=== PATIENT | female | born 1980 | race African-American/Black ===

== ENCOUNTER 2022-04-25 00:58 | Day surgery (SDC) | payer BC, SELFPAY ==
[2022-04-24 10:04] VITALS: BMI 33.6
--- NOTE | 2022-04-24 10:10 | PC.NURSE ---
Report to the Outpatient Waiting Room, entrance under the green pavilion located off [facility], at time 1300 on date 04/25/22. Planned Procedure Time: 1500. Time changes happen often and if your time is changed the preop area will call you the afternoon before. - You and your visitor will be asked to self-screen and do not enter if you have any COVID symptoms. - Only one visitor is requested with a max of two and NO children visitors are allowed at this time. - The patient visitor may be requested to leave or wait in car when not with patient due to distancing restrictions. - A mask is optional within the hospital. Patients may have clear liquids (water, carbonated beverages, clear teas, apple juice) until 3 hours prior to surgery with a maximum of 20 ounces. - No food from midnight until time of surgery Take the following medications with a SIP of water the morning of surgery: NONE Medications to discontinue per physician: VITAMINS/SUPPLEMENTS Date to take last dose: NO MORE UNTIL AFTER SURGERY Please no make-up, nail dominican, hairspray, perfume, deodorant, or body powder the day of surgery. No jewelry (including any body piercings) or valuables the day of surgery, leave them at home. Please take a shower or bath the night before, or the morning of, surgery with an antibacterial soap. Wear comfortable, loose fitting clothing. - Jewelry must be removed prior to entering the operating room. Rings and piercings that are not removed may be cut off. - The hospital will not accept responsibility for valuables. - Please leave all valuables, including medications, at home the day of surgery. If you are going home after surgery, a licensed route delivery driver must drive you home. - NO public transportation without another adult if you receive anesthesia. - We recommend that an adult stay with you for 24 hours following discharge. - We also recommend that you do not drive, make important decision, drink alcoholic beverages, or take any drugs that were not prescribed by your health care provider for at least 24 hours after your discharge time. Follow any additional instructions given to you from your surgeon. If you or anyone in your household have experienced Covid symptoms in the past week, please notify your surgeon or the nurse liaison at the phone number below for possible testing. Telephone instructions given to PT - RANDI GEE and asked if any additional questions and then verbalized understanding. Patient advised to call surgeon office or pre surgery nurse liaison [phone] if any additional questions.
--- NOTE | 2022-04-24 12:48 | PM.IMHP ---
H&P: HPI History of Present Illness Date/Time: 04/24/22 12:48 Chief Complaint: Excess vaginal bleeding Narrative: this 41-year-old 4 para 4 status post removal of tubes who is admitted for hysteroscopy dilatation curettage secondary to continued bleeding. She had no period until October of 2021 took some progesterone apparently said bleeding problems ever since. She has undergone a D&C back in January. Ultrasound and CT scan show large fibroids. Her hemoglobin is at 10 as of this dictation. She will undergo hysteroscopy D&C and it is probably a candidate for hysterectomy in the future [facility] Social History Social History Smoking status: Never smoker Alcohol intake: never Substance use: never Substance use type: does not use Living arrangements: with family Spiritual care concerns: No Meds Home Medications and Allergies Home Medications Medication Instructions Recorded Confirmed Type ascorbic acid (vitamin C) 500 mg 500 mg PO DAILY 04/24/22 04/24/22 History tablet (Vitamin C) ferrous sulfate 325 mg (65 mg 325 mg PO DAILY 04/24/22 04/24/22 History iron) tablet (Iron (ferrous sulfate)) ibuprofen 600 mg tablet 600 mg PO TID PRN Pain 04/24/22 04/24/22 History multivitamin 1 tablet PO DAILY 04/24/22 04/24/22 History Allergies Allergy/AdvReac Type Severity Reaction Status Date / Time No Known Allergies Allergy Verified 04/24/22 10:02 Exam Const: General: cooperative, healthy appearing and comfortable Nutritional Appearance: overweight Orientation/consciousness: oriented to person, oriented to place and oriented to time HENMT: Head: normal to inspection Resp: Effort & Inspection: normal respiratory effort Cardio: Rate: regular rate Rhythm: regular rhythm Heart sounds: S1 normal heart sound present and S2 normal heart sound present GI: Inspection: normal to inspection : Speculum Exam - Vagina: normal appearance of the vagina and vaginal bleeding Speculum Exam - Cervix: normal appearance of the cervix Bimanual exam- vagina & uterus: enlarged Bimanual Exam- Adnexa, other: normal adnexae Assessment and Plan Assessment and plan (1) Vaginal bleeding: Code(s): N93.9 - Abnormal uterine and vaginal bleeding, unspecified Status: Acute (2) Enlarged uterus: Code(s): N85.2 - Hypertrophy of uterus Status: Acute Plan hysteroscopy/dilatation and curettage
--- NOTE | 2022-04-25 06:59 | WPDHPUPDATE1 ---
History and Physical Update Update Date/Time: 04/25/22 06:59 History and Physical has been reviewed, including an updated exam of the patient. There are NO changes in the patient's condition. Risks, benefits, and alternatives have been discussed and questions answered. Patient agrees to proceed with procedure.
[2022-04-25 13:00] VITALS: BP 99/48; PULSE 80; RESP 16; TEMP 36.5; O2SAT 100
[2022-04-25] MEDS: ACETAMINOPHEN 500 MG TABLET 1000 MG PO (13:47)
[2022-04-25] MEDS: LACTATED RINGERS 1,000 ML 30 ML IV CONT (14:00)
--- NOTE | 2022-04-25 14:16 | WPDANESEPPF ---
Anes - Initial Pre Proc Eval Procedure: Operation Date: 04/25/22 15:00 Proposed Procedures p Hysteroscopy, Dilation and Curettage - Ermias Galloway MD Date/Time: 04/25/22 14:16 Surgeon: Ermias Galloway MD Pre Op Diagnosis: excessive bleeding Patient Data Age: 41 Gender: F Height: 1.7 m Weight: 97.5 kg Allergies Allergy/AdvReac Type Severity Reaction Status Date / Time No Known Allergies Allergy Verified 04/24/22 10:02 Home Medications Medication Instructions Recorded Confirmed Type ascorbic acid (vitamin C) 500 mg 500 mg PO DAILY 04/24/22 04/24/22 History tablet (Vitamin C) ferrous sulfate 325 mg (65 mg 325 mg PO DAILY 04/24/22 04/24/22 History iron) tablet (Iron (ferrous sulfate)) ibuprofen 600 mg tablet 600 mg PO TID PRN Pain 04/24/22 04/24/22 History multivitamin 1 tablet PO DAILY 04/24/22 04/24/22 History hydrocodone 5 mg-acetaminophen 325 1 tablet PO Q4H PRN pain #20 tabs 04/25/22 Rx mg tablet Patient hx anesthesia problems: none Family hx anesthesia problems: none Results Review: All pre-operative results and documents have been reviewed as part of the pre-operative evaluation. [facility] Social History Social History Smoking status: Never smoker Alcohol intake: never Substance use: never Substance use type: does not use Living arrangements: with family Spiritual care concerns: No Anes - Eval Final PreProcedure Day of Procedure 04/25/22 14:16 Patient weight: obese Heart: regular rate and rhythm Lungs: clear to auscultation and normal air movement Airway: Mallampati scale class II Neurological: alert and oriented Last oral intake: >/= 8 hours ASA classification: II Emergent: no Anesthetic plan: proceed Anesthesia type and monitoring: general GIVS Results Review: All pre-operative results and documents have been reviewed as part of the pre-operative evaluation. Informed Consent: The patient's anesthetic plan and its attendant risks and benefits were discussed with the patient/family/POA. Questions were solicited and answers provided to the satisfaction of the patient/family/POA.
[2022-04-25 14:19] LABS: Hematocrit 30.1 % (37.0-47.0); Hemoglobin 9.8 g/dL (12.0-15.0)
[2022-04-25] MEDS: LIDOCAINE HCL 1% PF 30 ML VIAL 10 ML INFILTRATE (14:44)
--- NOTE | 2022-04-25 14:57 | W.PM.PROC2 ---
Procedure Note - Detailed Date of Procedure 04/25/22 Pre-op Diagnosis excessive bleeding Post-op Diagnosis Same Procedure Performed Hysteroscopy / dilatation curettage Surgeon Ermias Galloway MD Anesthesia MAC and Local Indications some 41-year-old enlarged uterus long history of excessive bleeding Findings uterus sounded 12cm. Thick irregular endometrial tissue was seen Description of Procedure patient was prepped draped in normal sterile fashion placed in dorsal lithotomy position. Under excellent IV sedation weighted speculum placed in posterior fornix vagina. Anterior lip of cervix grasped with single-tooth tenaculum. 2.5cc 1% xylocaine anesthesia placed at 2, 4, 8, 10:00 a.m. respectively cervix. Uterus sounded to 12cm. Serial dilatation with fragmented dilators performed followed passes the 5mm visualizing hysteroscope. Normal saline was used as visualizing medium. Thick irregular endometrial tissue was seen but no evidence of polyp HILLARY definitive pathology. Clots were seen and these were washed out. The uterus was then scraped over the entire 360? until a good grating sound was heard. When no further tissue could be seen and removed the patient the instruments removed. All sponge, needle, instrument counts were correct. There were no immediate complications Estimated Blood Loss 25 Drains No Packing No Pathology Yes Complications No immediate complications Condition Stable Disposition PACU
[2022-04-25 15:00] VITALS: BP 92/51; PULSE 84; RESP 12; O2SAT 100
[2022-04-25 15:30] VITALS: BP 92/51; PULSE 84; RESP 16; O2SAT 100
[2022-04-25] MEDS: KETOROLAC 30 MG/ML VIAL (*BKC) IV PUSH (15:42)
[2022-04-25 16:00] VITALS: BP 103/70; PULSE 77; RESP 16
[2022-04-25 16:30] VITALS: BP 104/57; PULSE 73; RESP 16
== END 2022-04-25 16:34 | disposition home or self-care (01) ==
PROVIDERS: Visit Provider Obstetrics & Gynecology
PROC: 0U5B8ZZ Destruction of Endometrium, Via Natural or Artificial Opening Endoscopic (ICD-10-PCS; CPT 58563; principal; 2022-04-25 15:00)
DX: N93.9 Abnormal uterine and vaginal bleeding, unspecified (principal); N85.2 Hypertrophy of uterus; E66.9 Obesity, unspecified; Z68.33 Body mass index [BMI] 33.0-33.9, adult
CPT/HCPCS: 58558; 36415; 85014; 85018; 88305; A9270; J1100; J1885; J2250; J2405; J2704; J3010; J7030; J7120

== ENCOUNTER 2023-03-31 21:03 | Emergency (ER) | payer BC, SELFPAY ==
--- NOTE | ~2023-03-31 | XR_ITS ---
EXAMINATION: XR chest 2V DATE: 03/31/2023 21:33 INDICATION: Chest pain. TECHNIQUE: Frontal and lateral views of the chest were obtained. COMPARISON: None. FINDINGS: There is no pneumonia, pleural effusion, or pneumothorax. The heart size is normal. Surgica l clips in the right upper quadrant are likely from cholecystectomy. IMPRESSION: 1. No acute cardiopulmonary disease. Reviewed, dictated and finalized at location E.
[2023-03-31 21:08] VITALS: BP 117/92; PULSE 74; RESP 16; TEMP 36.5; O2SAT 92
--- NOTE | 2023-03-31 21:13 | ECG_ITS ---
Measurements Intervals [place] Rate: 65 P: 48 OR: 148 QRS: 37 QRSD: 77 T: 41 QT: 419 QTc: 439 Interpretive Statements SINUS RHYTHM NO PREVIOUS ECG AVAILABLE FOR COMPARISON Electronically Signed On 04-01-2023 11:17:47 CDT by Mirtha Bryan M.D.
[2023-03-31 21:26] LABS: Red Blood Count 4.08 M/mm3 (4.2-5.4); White Blood Count 9.2 K/mm3 (4.5-10.0)
[2023-03-31 21:27] LABS: Basophils Percent Auto 0.4 % (0.2-1.2); Eosinophils Absolute Auto 0.2 K/mm3 (0-0.3); Eosinophils Percent Auto 1.7 % (0-4.4); Hematocrit 39.1 % (37.0-47.0); Hemoglobin 12.1 g/dL (12.0-15.0); Immature Granulocyte Absolute 0.03 K/mm3 (0.00-0.031); Immature Granulocyte Percent A 0.3 % (0-0.5); Lymphocytes Absolute Auto 3.29 K/mm3 (0.9-3.2); Lymphocytes Percent Auto 35.9 % (18.3-44.2); Mean Corpuscular HGB Conc 30.9 g/dl (32-36); Mean Corpuscular Hemoglobin 29.7 pg (26-34); Mean Corpuscular Volume 95.8 fl (80-100); Monocytes Absolute Auto 0.7 K/mm3 (0.1-0.6); Neutrophils Absolute Auto 4.9 K/mm3 (1.3-6.7); Neutrophils Percent Auto 53.7 % (45.5-73.1); Platelet Count Result 285 k/mm3 (150-375); Red Cell Distribution Width 14.6 % (11.5-14.5)
[2023-03-31 21:35] LABS: Alanine Aminotransferase 18 U/L (6-35); Albumin Level 4.5 g/dL (3.5-5.1); Alkaline Phosphatase 52 U/L (38-126); Anion Gap 4 mmol/L (8-16); Aspartate Amino Transferase 23 U/L (14-36); Bilirubin,Total 0.4 mg/dL (0.2-1.3); Blood Urea Nitrogen 15 mg/dL (7-17); Calcium 8.8 mg/dL (8.4-10.2); Carbon Dioxide 28 mmol/L (22-30); Chloride 103 mmol/L (98-107); Estimated CRCL calculation 108 ml/min; Estimated Glomerular Filt Rate > 60; Glucose 99 mg/dL (65-110); Lipase 117 U/L (23-300); Sodium 135 mmol/L (137-145)
[2023-03-31 21:37] LABS: INR 0.9; Prothrombin Time 12.9 Seconds (11.1-14.7)
[2023-03-31 21:38] LABS: Partial Thromboplastin Time 30.4 SECONDS (22.3-36.8)
[2023-03-31 21:47] LABS: Troponin I < 0.012 ng/mL (0.000-0.034)
[2023-03-31 23:48] VITALS: BP 119/68; PULSE 68; O2SAT 100
--- NOTE | 2023-04-01 00:54 | ED.GENADULT ---
HPI - General Adult General Chief complaint: Vaginal Bleeding Stated complaint: vaginal bleeding Time Seen by Provider: 03/31/23 23:39 Source: patient Mode of arrival: ambulatory Limitations: no limitations History of Present Illness HPI narrative: Patient is a 42-year-old female who presents to the ED with report of vaginal bleeding and chest pain. Patient reports having intermittent chest pain since yesterday. She notes she had a fairly severe episode of pain yesterday which required her to call [phone]. She was seen at [facility] and had a negative work-up. She has had intermittent midsternal pressure since then, but states the pain has not been severe as the first episode. Denies pleuritic pain, shortness of breath, dyspnea with exertion, recent cough or cold symptoms, lower extremity swelling. Patient also reports having abnormal vaginal bleeding. She states she had a 2-week period of bleeding at the beginning of this month, but then began bleeding on 03/27. She states yesterday and today she has had heavier bleeding, noting she is through a pad an hour. She was referred to the ED by [facility]. Patient denies abdominal pain, nausea, vomiting, fevers. Related Data Home Medications Medication Instructions Recorded Confirmed ascorbic acid (vitamin C) 500 mg 500 mg PO DAILY 04/24/22 04/25/22 tablet (Vitamin C) ferrous sulfate 325 mg (65 mg 325 mg PO DAILY 04/24/22 04/25/22 iron) tablet (Iron (ferrous sulfate)) ibuprofen 600 mg tablet 600 mg PO TID PRN Pain 04/24/22 04/25/22 multivitamin 1 tablet PO DAILY 04/24/22 04/25/22 Allergies Allergy/AdvReac Type Severity Reaction Status Date / Time No Known Allergies Allergy Verified 03/31/23 23:51 Review of Systems Review of Systems: CONSTITUTIONAL: Denies fever, chills, or sweats. ENT: Denies rhinorrhea, congestion, sore throat. CARDIOVASCULAR: See HPI. RESPIRATORY: Denies cough or dyspnea. GASTROINTESTINAL: Denies abdominal pain, nausea, vomiting, or diarrhea. GENITOURINARY: See HPI. MUSCULOSKELETAL: Denies back pain, joint pain, or myalgia. All systems reviewed & are unremarkable except as noted in HPI and below PMFSH Social History Social History Smoking status: Never smoker Alcohol intake: never Substance use: never Substance use type: does not use Living arrangements: with family Spiritual care concerns: No Exam Narrative: GENERAL: Well appearing, obese with BMI of 33.0, non-toxic, in no acute distress. HEAD: Normocephalic, atraumatic. NECK: Supple. No adenopathy, no masses. RESPIRATORY: Airway patent, respirations nonlabored. Clear to auscultation bilaterally, no rales, rhonchi, wheezing. CARDIOVASCULAR: Regular rate and rhythm without murmurs, rubs, or gallops. Radial pulses 2+ and equal bilaterally. ABDOMINAL: Soft, no tenderness throughout abdomen, nondistended, no hepatosplenomegaly. Normoactive BS. PELVIC: Normal external genitalia. Very minimal amount of light red vaginal bleeding in vault. No evidence of hemorrhage or pooling of fluid. No clots noted. MUSCULOSKELETAL: Moves all extremities. Strength/ROM intact without gross deformities. Midsternal chest wall tenderness to palpation, reproducing pain. No lower extremity edema. No calf tenderness. SKIN: Warm, dry, normal color. No rashes. NEURO: A&O X3. Speech clear. Cranial nerves II-XII grossly intact. Steady gait. No ataxic movements. PSYCHIATRIC: Appropriate mood and affect. Normal interaction. Course Vital Signs Vital signs: Vital Signs Temperature 97.7 F 03/31/23 21:08 Pulse Rate 74 03/31/23 21:08 Respiratory Rate 16 03/31/23 21:08 Blood Pressure 117/92 H 03/31/23 21:08 Pulse Oximetry 92 03/31/23 21:08 Oxygen Delivery Room Air 03/31/23 21:08 Temperature 97.7 F 03/31/23 21:08 Pulse Rate 88 04/01/23 02:20 Respiratory Rate 19 04/01/23 02:20 Blood Pressur
[2023-04-01 01:30] LABS: Troponin I < 0.012 ng/mL (0.000-0.034)
[2023-04-01 02:20] VITALS: BP 121/89; PULSE 88; RESP 19; O2SAT 98
== END 2023-04-01 02:20 | disposition home or self-care (01) ==
PROVIDERS: Emergency Medicine; Emergency Provider Physician Assistant
DX: N93.8 Other specified abnormal uterine and vaginal bleeding (principal); R07.89 Other chest pain
CPT/HCPCS: 36415; 71046; 80053; 83690; 84484; 85025; 85610; 85730; 93005; 99284

== ENCOUNTER 2023-05-13 03:41 | Day surgery (SDC) | payer BC, SELFPAY ==
[2023-05-06 11:34] VITALS: BMI 32.7
--- NOTE | 2023-05-06 11:39 | PC.NURSE ---
Report to the Outpatient Waiting Room, entrance under the green pavilion located off [facility], at time 9:30 on date 05/13/23. Planned Procedure Time: 11:30. Time changes happen often and if your time is changed the preop area will call you the afternoon before. - You and your visitor will be asked to self-screen and do not enter if you have any COVID symptoms. - A mask is optional within the hospital at this time. Patients may have clear liquids (water, carbonated beverages, clear teas, apple juice) until 3 hours prior to surgery with a maximum of 20 ounces. - No food from midnight until time of surgery Take the following medications with a SIP of water the morning of surgery: NONE DO NOT STOP ANY OF YOUR OTHER PRESCRIPTION MEDICATIONS PRIOR TO SURGERY ?EXCEPT THE FOLLOWING Medications to discontinue per physician: VITAMINS/SUPPLEMENTS Date to take last dose: 05/09/23 Please no make-up, nail eritrean, hairspray, perfume, deodorant, or body powder the day of surgery. No jewelry (including any body piercings) or valuables the day of surgery, leave them at home. Please take a shower or bath the night before, or the morning of, surgery with an antibacterial soap. Wear comfortable, loose fitting clothing. - Jewelry must be removed prior to entering the operating room. Rings and piercings that are not removed may be cut off. - The hospital will not accept responsibility for valuables. - Please leave all valuables, including medications, at home the day of surgery. If you are going home after surgery, a licensed cdl truck driver must drive you home. - NO public transportation without another adult if you receive anesthesia. - We recommend that an adult stay with you for 24 hours following discharge. - We also recommend that you do not drive, make important decision, drink alcoholic beverages, or take any drugs that were not prescribed by your health care provider for at least 24 hours after your discharge time. Follow any additional instructions given to you from your surgeon. If you or anyone in your household have experienced Covid symptoms in the past week, please notify your surgeon or the nurse liaison at the phone number below for possible testing. Telephone instructions given to PT - RANDI GEE and asked if any additional questions and then verbalized understanding. Patient advised to call surgeon office or pre surgery nurse liaison [phone] if any additional questions.
--- NOTE | 2023-05-12 06:39 | P.HP_ITS ---
H&P: HPI History of Present Illness Date/Time: 05/12/23 06:39 Chief Complaint: continued heavy bleeding and uterine fibroids Narrative: a 42-year-old 4 para 4 with known fibroids admitted for robotic hys terectomy and bilateral salpingectomy secondary to excessive heavy bleeding. Ultrasound proven large fibroids. She continues to bleed heavy and had a history of anemia. She has been seen in the ER multiple times. Risks and benefits of this procedure reviewed including not exclusive of , aspiration, bleeding, transfusion, perforation injury to bowel, bladder, ureters, or other internal organs with need for open laparotomy. She received the [employer] handout entitled hysterectomy as well as the [facility] handout. Get all questions answered and asked to proceed she has had previous hernia surgeries so adhesions are expected the increase wrist without were discussed in great detail [facility] Social History Social History Smoking status: Never smoker Alcohol intake: current Alcohol use details: RARE Substance use: never Substance use type: does not use Living arrangements: with family Spiritual care concerns: No Meds Home Medications and Allergies Home Medications Medication Instructions Recorded Confirmed Type ascorbic acid (vitamin C) 500 mg 500 mg PO DAILY 04/24/22 05/06/23 History tablet (Vitamin C) ferrous sulfate 325 mg (65 mg 325 mg PO DAILY 04/24/22 05/06/23 History iron) tablet (Iron (ferrous sulfate)) cholecalciferol (vitamin D3) 125 125 mcg PO DAILY 05/06/23 05/06/23 History mcg (5,000 unit) tablet (Vitamin D3) drospirenone (contraceptive) 4 mg 1 tablet PO DAILY 05/06/23 05/06/23 History (28) tablet (Slynd) zinc gluconate 100 mg tablet 100 mg PO DAILY 05/06/23 05/06/23 History Allergies Allergy/AdvReac Type Severity Reaction Status Date / Time No Known Allergies Allergy Verified 05/06/23 11:32 Exam Const: General: cooperative, healthy appearing and comfortable Orientation/consciousness: oriented to person, oriented to place and oriented to time Resp: Effort & Inspection: normal respiratory effort Cardio: Rate: regular rate Rhythm: regular rhythm Heart sounds: S1 normal heart sound present and S2 normal heart sound present GI: Inspection: normal to inspection and obesity : Speculum Exam - Vagina: normal appearance of the vagina Speculum Exam - Cervix: normal appearance of the cervix Bimanual exam- vagina & uterus: enlarged Bimanual Exam- Adnexa, other: normal adnexae Assessment and Plan Assessment and plan (1) Uterine fibroid: Code(s): D25.9 - Leiomyoma of uterus, unspecified Status: Acute (2) Excessive bleeding: Code(s): R58 - Hemorrhage, not elsewhere classified Status: Acute (3) Enlarged uterus: Code(s): N85.2 - Hypertrophy of uterus Status: Acute (4) Pelvic pain: Code(s): R10.2 - Pelvic and perineal pain Status: Acute Plan robotic total vaginal hysterectomy and bilateral salpingectomy if tubes are present
[2023-05-13] VITALS (11 sets, daily range): BP systolic 96–116; BP diastolic 45–68; PULSE 64–78; RESP 16–22; TEMP 36.6–37.2; O2SAT 100
--- NOTE | 2023-05-13 06:17 | WPDHPUPDATE1 ---
History and Physical Update Update Date/Time: 05/13/23 06:17 History and Physical has been reviewed, including an updated exam of the patient. There are NO changes in the patient's condition. Risks, benefits, and alternatives have been discussed and questions answered. Patient agrees to proceed with procedure.
[2023-05-13] MEDS: ACETAMINOPHEN 500 MG TABLET 1000 MG PO (09:45)
[2023-05-13] MEDS: LACTATED RINGERS 1,000 ML 30 ML IV CONT ×2 (10:15→13:28)
[2023-05-13] MEDS: KETOROLAC 15 MG/ML VIAL (*BKC) IV PUSH (10:17)
[2023-05-13] MEDS: SCOPOLAMINE 1.5 MG PATCH TRANSDERM (10:17)
--- NOTE | 2023-05-13 10:45 | P.PNAN_ITS ---
Anes - Initial Pre Proc Eval Procedure: Operation Date: 05/13/23 11:30 Proposed Procedures p Robotic Assisted Total Vaginal Hysterectomy with Bilateral Salpingectomy - Ermias Galloway MD Date/Time: 05/13/23 10:45 Surgeon: Ermias Galloway MD Pre Op Diagnosis: Enlarged Uterus, Pain, Exc Bleeding, Fibroid Patient Data Age: 42 Gender: F Height: 1.7 m Weight: 93.7 kg Last Vital Signs Temp 36.6 C 05/13/23 10:22 Pulse 70 05/13/23 10:22 Resp 16 05/13/23 10:22 BP 106/64 05/13/23 10:22 Pulse Ox 100 05/13/23 10:22 O2 Del Method Room Air 05/13/23 10:22 Allergies Allergy/AdvReac Type Severity Reaction Status Date / Time No Known Allergies Allergy Verified 05/06/23 11:32 Home Medications Medication Instructions Recorded Confirmed Type ascorbic acid (vitamin C) 500 mg 500 mg PO DAILY 04/24/22 05/13/23 History tablet (Vitamin C) ferrous sulfate 325 mg (65 mg 325 mg PO DAILY 04/24/22 05/13/23 History iron) tablet (Iron (ferrous sulfate)) cholecalciferol (vitamin D3) 125 125 mcg PO DAILY 05/06/23 05/13/23 History mcg (5,000 unit) tablet (Vitamin D3) drospirenone (contraceptive) 4 mg 1 tablet PO DAILY 05/06/23 05/13/23 History (28) tablet (Slynd) zinc gluconate 100 mg tablet 100 mg PO DAILY 05/06/23 05/13/23 History hydrocodone 5 mg-acetaminophen 325 1 tablet PO Q4H PRN pain #30 tabs 05/13/23 Rx mg tablet Patient hx anesthesia problems: none Family hx anesthesia problems: none Results Review: All pre-operative results and documents have been reviewed as part of the pre- operative evaluation. [facility] Past Medical History Medical History (Updated 05/13/23 @ 10:45 by Ermias Loco MD) Obesity Social History Social History Smoking status: Never smoker Alcohol intake: current Alcohol use details: RARE Substance use: never Substance use type: does not use Living arrangements: with family Spiritual care concerns: No Anes - Eval Final PreProcedure Day of Procedure 05/13/23 10:45 Patient weight: obese Heart: regular rate and rhythm Lungs: clear to auscultation Airway: Mallampati scale class II Neurological: alert and oriented Last oral intake: >/= 8 hours ASA classification: II Emergent: no Anesthetic plan: proceed Anesthesia type and monitoring: general ETT and standard monitoring Results Review: All pre-operative results and documents have been reviewed as part of the pre- operative evaluation. Informed Consent: The patient's anesthetic plan and its attendant risks and benefits were discussed with the patient/family/POA. Questions were solicited and answers provided to the satisfaction of the patient/family/POA.
[2023-05-13] MEDS: ceFAZolin 2 GM/D5W 50 ML 2 GM/50 ML BAG IVPB (11:47)
--- NOTE | 2023-05-13 12:44 | W.PM.PROC2 ---
Procedure Note - Detailed Date of Procedure 05/13/23 Pre-op Diagnosis Enlarged Uterus, Pain, Exc Bleeding, Fibroid Post-op Diagnosis Same Procedure Performed Robotic total vaginal hysterectomy Surgeon Ermias Glaloway MD Anesthesia General Indications / 42 old female with symptomatic uterine fibroids Findings markedly fibroid uterus absent tubes bilaterally. . Normal-appearing ovaries bilaterally Description of Procedure patient was prepped draped usual fashion placed dorsal position. Trach anesthesia speculum placed posterior. Anterior lip of the cervix grasped with single-tooth tenaculum. Uterus sounded to 12cm. Serial dilatation with fragmented dilators followed by passage of the 3. Cold cup and the 10. HILLARY. Sixteen Yi catheter was placed the bladder draining clear urine. The weighted speculum was removed the gloves were changed. A supraumbilical incision made the Veress needle passed in the abdomen. Abdomen filled with CO2 gas to 15mm Hg. The 8mm trocar advanced in the abdomen. Downside visualized no injury seen. Patient placed in Trendelenburg and the left and right lateral quadrant incisions made. 8Mm trocars advanced under direct visualization assuring no injury. A right upper quadrant incision made the 8mm trocar advanced under direct visualization assuring no injury. The robot was docked. Attention was turned to the retirement plan counselor. The left round ligament grasped, burned, cut. Anterior bladder flap was formed by sharply dissecting the peritoneum and reflecting the bladder caudally away from the cervix uterus to the opposite round ligament was clamped, burned, cut. Next the utero-ovarian ligament was skeletonized noting that the tubes were absent bilaterally was clamped, burned, cut and brought to the level of previously cut round ligament. In similar fashion the utero-ovarian ligament on the right was serially skeletonized clamping burning cutting and conserving the right ovary by reaching the round ligament. Cardinal broad ligaments were then serially skeletonized clamping burning cutting down the left edge of the uterus until the uterine vessels could be seen. There were prominent and enlarged. These were then clamped, burned, cut. In similar fashion on the right cardinal broad ligaments were skeletonized clamping burning cutting and bringing this down to the level of of the uterine vessels. Uterine vessels were then clamped, burned, cut. Excellent blanching of the uterus was noted. A colpotomy incision was made in the cervix and uterus removed through the vagina. The vagina was then closed with continuous running 0V lock from lateral edge to lateral edge back to midline. Irrigation undertaken until clear blood loss estimated less 25cc. Robot was undocked in the a.m. the gas removed from the abdomen. The trocars removed the incisions closed with 4-0 Monocryl and glue. The instruments removed from the vagina the patient was awakened went to recovery in satisfactory condition. All sponge, needle, instrument counts were correct. There were no immediate complications noted Estimated Blood Loss 25 Drains No Packing No Pathology Yes Complications No immediate complications Condition Stable Disposition PACU
--- NOTE | 2023-05-13 12:48 | PM.DS ---
DS: Admitting Diagnosis Discharge Date 05/14/2020 Admitting Diagnosis pelvic pain/ enlarged uterus/excessive bleeding. DS: Discharge Diagnosis Discharge Diagnosis (1) Pelvic pain: Code(s): R10.2 - Pelvic and perineal pain Status: Acute (2) Excessive bleeding: Code(s): R58 - Hemorrhage, not elsewhere classified Status: Acute (3) Uterine fibroid: Code(s): D25.9 - Leiomyoma of uterus, unspecified Status: Acute DS: Summary Hospital Course Reason for hospitalization: Patient was admitted on 05/13/2023 for robotic hysterectomy. The procedure was unremarkable. Hospital Course: The patient's hospital course was unremarkable. She remained afebrile. She was up, eating regular diet, ambulating, voiding without difficulty, and generally without complaints. Time Spent with Patient Time attestation: Total time spent providing and/or coordinating discharge services: Exam Const: General: cooperative, healthy appearing and comfortable Nutritional Appearance: average body habitus Orientation/consciousness: oriented to person, oriented to place and oriented to time HENMT: Head: normal to inspection Resp: Effort & Inspection: normal respiratory effort Cardio: Rate: regular rate Rhythm: regular rhythm Heart sounds: S1 normal heart sound present and S2 normal heart sound present GI: Inspection: normal to inspection and incision ( Wounds are clean dry and intact) DS: Data Data Completed and Pending Pending studies at discharge: Pending at discharge 05/13/23 12:33 Surgical [PTH] Routine Labs on day of discharge: Labs from last 24 hours 05/13/23 10:08 Blood Type A Negative Antibody Screen Negative Discharge Plan Discharge Patient Disposition: Home, Self-Care Stand Alone Forms: General Discharge Instructions Follow-up/Referrals: Ermias Davis MD [Physician] - Discharge Medications: New hydrocodone-acetaminophen 5-325 mg tablet 1 tablet PO Q4H PRN (Reason: pain) Qty: 30 0RF No Action ferrous sulfate [Iron (ferrous sulfate)] 325 mg (65 mg iron) Tablet 325 mg PO DAILY Patient Comments: TAKES IN AFTERNOON ascorbic acid (vitamin C) [Vitamin C] 500 mg Tablet 500 mg PO DAILY Patient Comments: TAKES IN AFTERNOON zinc gluconate [Zinc Natural] 100 mg Tablet 100 mg PO DAILY Patient Comments: TAKES IN AFTERNOON cholecalciferol (vitamin D3) [Vitamin D3] 125 mcg (5,000 unit) Tablet 125 mcg PO DAILY Patient Comments: TAKES IN AFTERNOON Slynd 4 mg (28) Tablet 1 tablet PO DAILY Patient Comments: TAKES IN AFTERNOON
[2023-05-13] MEDS: fentaNYL CITRATE INJ (*CRX) 100 MCG/2 ML VIAL 25 MCG IV PUSH ×2 (13:35→14:28)
[2023-05-13] MEDS: ONDANSETRON INJ 4 MG/2 ML VIAL IV PUSH (14:27)
--- NOTE | 2023-05-13 14:45 | PC.NURSE ---
PT arrived on unit via stretcher accompanied by family and taken to room 289. PT drowsy but arousable. PT introductions made and plan of care discussed per post op claim attorney surgery, pain management, daily care activities. PT and family recipients of such instructions and no barriers to learning identified at this time. PT oriented to room, marker board and surrrounding area. PT verbalized understanding.
[2023-05-13] MEDS: DEXTROSE 5%/LACTATED RINGERS 1,000 ML 125 ML IV CONT ×2 (15:10→22:57)
[2023-05-13] MEDS: KETOROLAC 30 MG/ML VIAL (*BKC) IV PUSH (15:11)
[2023-05-13] MEDS: HYDROcodone/acetaminophen (*CRX) 5-325 MG TABLET 1 TAB PO ×3 (16:49→22:51)
[2023-05-13] MEDS: diphenhydrAMINE HCl INJ 50 MG/ML VIAL 25 MG IV PUSH ×2 (16:49→22:57)
[2023-05-13] MEDS: SIMETHICONE 80 MG TAB.CHEW PO ×2 (20:06→22:57)
[2023-05-13] MEDS: DOCUSATE SODIUM 100 MG CAPSULE PO (20:06)
[2023-05-13] MEDS: IBUPROFEN 600 MG TABLET PO (22:51)
[2023-05-14 04:05] VITALS: BP 91/43; PULSE 59; RESP 16; TEMP 36.8
[2023-05-14] MEDS: HYDROcodone/acetaminophen (*CRX) 5-325 MG TABLET 1 TAB PO (04:30)
[2023-05-14] MEDS: SIMETHICONE 80 MG TAB.CHEW PO ×2 (04:30→08:19)
[2023-05-14] MEDS: IBUPROFEN 600 MG TABLET PO (04:30)
[2023-05-14] MEDS: diphenhydrAMINE HCl INJ 50 MG/ML VIAL 25 MG IV PUSH (04:30)
[2023-05-14 05:22] LABS: Basophils Percent Auto 0.2 % (0.2-1.2); Eosinophils Percent Auto 0.1 % (0-4.4); Hematocrit 37.8 % (37.0-47.0); Hemoglobin 12.1 g/dL (12.0-15.0); Immature Granulocyte Absolute 0.03 K/mm3 (0.00-0.031); Immature Granulocyte Percent A 0.3 % (0-0.5); Lymphocytes Percent Auto 21.5 % (18.3-44.2); Mean Corpuscular Hemoglobin 29.7 pg (26-34); Mean Corpuscular Volume 92.9 fl (80-100); Mean Platelet Volume 9.9 fl (7.4-10.4); Monocytes Absolute Auto 0.7 K/mm3 (0.1-0.6); Monocytes Percent Auto 5.7 % (2.6-8.5); Neutrophils Absolute Auto 8.4 K/mm3 (1.3-6.7); Neutrophils Percent Auto 72.2 % (45.5-73.1); Platelet Count Result 271 k/mm3 (150-375); Red Blood Count 4.07 M/mm3 (4.2-5.4); White Blood Count 11.6 K/mm3 (4.5-10.0)
[2023-05-14 05:26] LABS: Estimated CRCL calculation 107 ml/min; Estimated Glomerular Filt Rate > 60
--- NOTE | 2023-05-14 06:35 | PM.GYNPNOP ---
PRESCHOOL ASSISTANT PRINCIPAL - A/P Postoperative Procedures: Procedures Operation Date: 05/13/23 11:30 Actual Procedure Side Surgeon p Robotic Assisted Total Vaginal Hysterectomy Bilateral Ermias Galloway MD Postoperative day: 1 Postoperative status: doing well Postoperative plan: routine post-op care, see orders, ambulate, advance diet, voiding trials and discharge Time Spent With Patient Time: Total time spent is greater than 50% in coordination of care (as documented) at patient's floor/unit and/or counseling patient: Time with patient: less than 15 minutes PRESCHOOL ASSISTANT PRINCIPAL- PN:Subj Post-Op Subjective Date/time seen: 05/14/23 06:35 Subjective: patient has no complaints, pain is well controlled and patient is tolerating oral intake Exam Const: General: cooperative, healthy appearing and comfortable Orientation/consciousness: oriented to person, oriented to place and oriented to time HENMT: Head: normal to inspection Resp: Effort & Inspection: normal respiratory effort Cardio: Rate: regular rate Rhythm: regular rhythm Heart sounds: S1 normal heart sound present and S2 normal heart sound present GI: Inspection: normal to inspection and incision (cdi) PRESCHOOL ASSISTANT PRINCIPAL - PN: Obj Data Vital Signs Vital Signs: Vital Signs - 24 hr 05/13/23 10:22 05/13/23 12:56 05/13/23 13:10 Temperature 97.8 F 98.7 F Pulse Rate 70 78 70 Respiratory Rate 16 22 H 20 Blood Pressure 106/64 115/45 L 116/66 Pulse Oximetry 100 100 100 Oxygen Delivery Room Air Simple Face Mask Simple Face Mask Oxygen Flow Rate 8 8 05/13/23 13:25 05/13/23 13:40 05/13/23 14:10 Temperature 98.9 F Pulse Rate 64 69 72 Respiratory Rate 20 20 20 Blood Pressure 108/62 108/59 L 105/62 Pulse Oximetry 100 100 100 Oxygen Delivery Room Air Room Air Room Air Oxygen Flow Rate 05/13/23 14:25 05/13/23 13:55 05/13/23 14:35 Temperature 97.9 F Pulse Rate 72 67 70 Respiratory Rate 20 20 18 Blood Pressure 108/66 108/68 100/60 Pulse Oximetry 100 100 100 Oxygen Delivery Room Air Room Air Oxygen Flow Rate 05/13/23 14:45 05/13/23 20:05 05/14/23 04:05 Temperature 98.4 F 98.3 F Pulse Rate 70 76 59 L Respiratory Rate 18 16 16 Blood Pressure 96/56 L 91/43 L Pulse Oximetry 100 Oxygen Delivery Room Air Oxygen Flow Rate Intake/Output Intake/Output: Intake & Output 05/11/23 05/12/23 05/13/23 05/14/23 23:59 23:59 23:59 23:59 Intake Total 1650 300 Output Total 275 400 Balance 1375 -100 Meds/Results Medications: Active Medications Generic Name Dose Route Start Last Admin Trade Name Freq PRN Reason Stop Dose Admin Hydrocodone Bitart/Acetaminophen 1 tab 05/13/23 14:37 05/14/23 04:30 Hydrocodone/Acetaminophen (*Crx) 5-325 Mg Tablet PO 1 tab Q3H PRN Administration Pain Rated 5 or Less Hydrocodone Bitart/Acetaminophen 1 tab 05/13/23 14:37 Hydrocodone/Acetaminophen (*Crx) 10-325 Mg Tablet PO Q3H PRN Pain Rated 6 or Greater Diphenhydramine HCl 25 mg 05/13/23 16:58 05/14/23 04:30 Diphenhydramine Hcl Inj 50 Mg/Ml Vial IV PUSH 25 mg Q4H PRN Administration Nausea And Vomiting Docusate Sodium 100 mg 05/13/23 17:00 05/13/23 20:06 Docusate Sodium 100 Mg Capsule PO 100 mg BID RYAN Administration Enoxaparin Sodium 40 mg 05/14/23 09:00 Enoxaparin 40 Mg/0.4 Ml Syringe SUB-Q DAILY RYAN Ibuprofen 600 mg 05/13/23 14:37 05/14/23 04:30 Ibuprofen 600 Mg Tablet PO 600 mg Q6H PRN Administration Cramping Ketorolac Tromethamine 30 mg 05/13/23 14:37 05/13/23 15:11 Ketorolac 30 Mg/Ml Vial (*Bkc) IV PUSH 05/18/23 14:36 30 mg Q6H PRN Administration Pain Rated 4-6 Naloxone HCl 0.1 mg 05/13/23 14:37 Naloxone Hcl 0.4 Mg/Ml Vial IV PUSH Q2M PRN Respiratory rate less than 10 Ondansetron HCl 4 mg 05/13/23 14:37 Ondansetron Inj 4 Mg/2 Ml Vial IV PUSH Q6H PRN Nausea And Vomiting Simethicone 80 mg 05/13/23 14:37 05/14/23 04:30 Simethicone 80 Mg
[2023-05-14 08:00] VITALS: BP 96/61; PULSE 62; RESP 16; TEMP 37.7; O2SAT 98; O2SAT 99
--- NOTE | 2023-05-14 08:00 | PC.NURSE ---
PT introductions made and plan of care discussed per post op training program developer surgery, pain management, daily care activities and pending discharge to home. PT and mom both recipients of such instructions and no barriers to learning identified at this time. PT received such instructions per one to one discussion and demonstrations. PT verbalized understanding of such care.
[2023-05-14] MEDS: DOCUSATE SODIUM 100 MG CAPSULE PO (08:19)
[2023-05-14] MEDS: ENOXAPARIN 40 MG/0.4 ML SYRINGE SUB-Q (08:21)
[2023-05-14] MEDS: HYDROcodone/acetaminophen (*CRX) 10-325 MG TABLET 1 TAB PO (08:23)
--- NOTE | 2023-05-14 09:15 | PC.NURSE ---
PT received discharge instructions per protocol and verbalized understanding of such care.
--- NOTE | 2023-05-14 10:00 | PC.NURSE ---
PT discharged to home via wheelchair to waiting car accompanied by her family. Follow up appts confirmed
== END 2023-05-14 10:00 | disposition home or self-care (01) ==
LOC: ANHSURGERY 09:31 → ANHOB2 14:50
PROVIDERS: Visit Provider Obstetrics & Gynecology
PROC: (CPT 58570; principal; 2023-05-13 11:30)
DX: D25.1 Intramural leiomyoma of uterus (principal); N72 Inflammatory disease of cervix uteri; N93.9 Abnormal uterine and vaginal bleeding, unspecified; R10.2 Pelvic and perineal pain; E66.9 Obesity, unspecified; Z68.32 Body mass index [BMI] 32.0-32.9, adult
CPT/HCPCS: 58570; S2900; 36415; 82565; 85025; 86850; 86900; 86901; 88307; 99199; A9270; J0690; J1100; J1200; J1650; J1885; J2250; J2405; J2704; J3010; J7030; J7120; J7121

== ENCOUNTER 2024-05-21 09:02 | Outpatient (CLI) | payer BC, SELFPAY ==
--- NOTE | ~2024-05-21 | MM_ITS ---
EXAMINATION: MM screening noam BI w juanita HISTORY: Screening TECHNIQUE: Craniocaudal and mediolateral oblique 3-D tomosynthesis images were obtained and synthetic 2-D images were generated. CAD analysis was submitted and interpreted. COMPARISON: No prior mammogram is available for comparison at this institution. BREAST PARENCHYMAL COMPOSITION: There are scattered areas of fibroglandular density. FINDINGS: There is no evidence of suspicious mass, calcification, or architectural distortion to sugg est malignancy in either breast. There has been no suspicious interval change. IMPRESSION: 1. No mammographic evidence of malignancy. 2. Recommend routine screening mammography in one year. BI-RADS Category 1: Negative Reviewed, dictated and finalized at location B. CTOR OF EDUCATION
--- OUTSIDE RECORDS SUMMARY | 2024-05-25 00:54 | XMS_ITS | Referral Summary ---
Author Organization [facility] [employer] Address [address] [place] [address] Care Team Providers Care Employment Interviewer Name Role Phone RigoTabatha barrow Manisha DO Primary Care Provider [phone] Source Comments [facility],non-owned Affiliates and Associated Physician Practices is amultiple site organization consisting of ambulatory clinics and hospital sitesin [place], [place], [place] and [place]. This disclosure is being madepursuant to the Care Everywhere program and may not contain all information available regarding this patient. Last updated 18.[facility] Allergies No known active allergies Medications * Be aware that medications may not be up to date on this document. Alwaysverify current medications with the patient. Medication Sig Dispensed Refills Start Date End Date Status vitamin D3 (CHOLECACIFEROL) 5000 units Take 5,000 Units by mouth once daily Active ferrous sulfate 325 (65 FE) MG tablet Take 325 mg by mouth 2 times daily Active ascorbic acid (VITAMIN C) 500 MG tablet Take 500 mg by mouth once daily Active BIOTIN 5000 PO Take 1 tablet by mouth once daily Active oxyCODONE-acetamin ophen (Percocet) 5-325 MG tablet Take 1 (one) tablet by mouth every 6 hours as needed for Pain 21 tablet 02/14/2022 Active Additional Information Patient not taking.Reported on 02/27/2022 ibuprofen (Motrin) 600 MG tablet Take 1 (one) tablet by mouth every 6 hours as needed for Pain 60 tablet 02/14/2022 Active medroxyPROGESTERon e (Provera) 10 MG tablet Take 1 (one) tablet by mouth once daily 10 tablet 02/27/2022 Active ibuprofen (Motrin) 600 MG tablet Take 1 (one) tablet by mouth 3 times daily 270 tablet 4 04/15/2022 Active megestrol (Megace) 40 MG tabletIndications: Menorrhagia with regular cycle Take 1 (one) tablet by mouth 4 times daily 120 tablet 1 04/22/2022 Active Active Problems Problem Noted Date Diagnosed Date Mae's cyst, unruptured, right 06/28/2019 Pain in right knee 06/21/2014 Pain in left knee 06/21/2014 Dizziness and giddiness 04/12/2010 Social History Tobacco Use Types Packs/Day Years Used Date Smoking Tobacco: Never Smokeless Tobacco: Never Alcohol Use Standard Drinks/Week Comments Not Currently 0 (1 standard drink = 0.6 oz pur e alcohol) wine rare AUDIT-C Answer Date Recorded Q1: How often do you have a drink containing alc ohol? Monthly or less 02/14/2022 Q2: How many drinks containi ng alcohol do you have on a typical day when you are drinking? 1 or 2 02/14/2022 Q3: How often do you have si x or more drinks on one occasion? Never 02/14/2022 Sex and Gender Information Value Date Recorded Sex Assigned at Not on file Gender Identity Not on file Sexual Orientation Not on file Last Filed Vital Signs Vital Sign Reading Time Taken Comments Blood Pressure 120/60 02/27/2022 11:08 AM CDT Pulse 68 02/14/2022 2:04 PM CDT Temperature 36.8 ??C (98.3 ??F) 02/14/2022 2:04 PM CD T Respiratory Rate 18 02/14/2022 1:45 PM CDT Oxygen Saturation 97% 02/14/2022 3:46 PM CDT Inhaled Oxygen Concentration - - Weight 98 kg (216 lb) 02/27/2022 11:08 AM CDT Height 170.2 cm (5' 7 ) 02/27/2022 11:08 AM CDT Body Mass Index 33.83 02/27/2022 11:08 AM CDT Functional Status Functional Status Response Date of Assess ment Is person deaf or have serious hearing difficult y? No 01/10/2022 Is person blind or have serious difficulty seein g? No 01/10/2022 Does person have serious dif ficulty walking/climbing stairs? No 01/10/2022 Does person have difficulty dressing/bathing? No 01/10/2022 Does person have difficulty doing errands alone? No 01/10/2022 Cognitive Status Response Date of Assessm ent Does person have difficulty concentrating/remembering/making decisions? No 01/10/2022 Plan of Treatment Not on file Procedures Procedure Name Priority Date/Time Associated Diagnosis Comments COMPREHENSIVE METABOLIC PANEL STAT 02/03/2022 7:39 AM CDT Preoperative examination PAP IG LB+CT+NG+TV+HPV APTIMA RFLX Routine 10/22/2021 11:57 AM CDT Well woman exam with routine gynecological exam LIPID PROFILE Routine 01/12/2020 12:31 PM CDT Physical exam, annual HEPATITIS C ANTIBODY Routine 01/12/2020 12:31 PM CDT Need for hepatitis C screening test HIV-1 HIV-2 ANTIBODY + HIV P24 AG PANEL Routine 01/12/2020 12:31 PM CDT Encounter for screening for HIV from Last 3 Months or Most Recently Relevant to Health Maintenance Results * (ABNORMAL) COMPREHENSIVE METABOLIC PANEL (02/03/2022 7:39 AM CDT) Glucose 117(H) 70 - 105 mg/dL 02/03/2022 8:04 AM CDT [facility] Sodium 138 136 - 145 mmol/L 02/03/2022 8:04 AM CDT [facility] Potassium 4.1 3.5 - 5.1 mmol/L 02/03/2022 8:04 AM CDT [facility] Chloride 104 98 - 107 mmol/L 02/03/2022 8:04 AM CDT [facility] CO2 26 23 - 31 mmol/L 02/03/2022 8:04 AM CDT [facility] Calcium 9.3 8.4 - 10.4 mg/dL 02/03/2022 8:04 AM CDT [facility] Anion Gap 8 8 - 18 mmol/L 02/03/2022 8:04 AM CDT [facility] BUN 11 7 - 18.7 mg/dL 02/03/2022 8:04 AM CDT [facility] Creatinine 0.77 0.57 - 1.11 mg/dL 02/03/2022 8:04 AM CDT [facility] Alkaline Phosphatase 50 40 - 150 U/L 02/03/2022 8:04 AM CDT [facility] ALT 13 0 - 61 U/L 02/03/2022 8:04 AM CDT [facility] AST 16 5 - 34 U/L 02/03/2022 8:04 AM CDT [facility] Protein Total 7.0 6.4 - 8.3 gm/dL 02/03/2022 8:04 AM T [facility] Albumin 3.9 3.5 - 5.2 gm/dL 02/03/2022 8:04 AM T [facility] Bilirubin Total 0.5 0.2 - 1.2 mg/dL 02/03/2022 8:04 AM T [facility] eGFR by CKD-EPI >90 >=90 mL/min/1.7 3 m2 02/03/2022 8:04 AM T [facility] Blood BLOOD SPECIMEN / Unknown Venipuncture / Unknown 02/03/2022 7:39 AM CDT 02/03/2022 7:46 AM CDT Anastasia Franco ORACLE MANUFACTURING CONSULTANT-BATTING MACHINE OPERATOR LAB - CHEMISTRY ORDERABLES [facility] [address] [place] [address] * (ABNORMAL) PAP IG LB+CT+NG+TV+HPV APTIMA RFLX 16,18/45 (10/22/2021 11:57 AM CDT) Diagnosis [facility] ACCOUNT BILL Comment: NEGATIVE FOR INTRAEPITHELIAL LESION OR MALIGNANCY. TRICHOMONAS VAGINALIS IS PRESENT. CELLULAR CHANGES ASSOCIATED WITH INFLAMMATION ARE PRESENT. Specimen Adequacy [facility] ACCOUNT BILL Comment: Satisfactory for evaluation. ??Endocervical and/or squamous metaplastic cells (endocervical component) are present. Clinician Provided ICD10 [facility] ACCOUNT BILL Comment: Z01.419 N93.9 D21.9 Performed by [facility] ACCOUNT BILL Comment:Lisha blank, Mud Analysis Operator (ASCP) Comment . [facility] ACCOUNT BILL Note [facility] ACCOUNT BILL Comment: The Pap smear is a screening test designed to aid in the detection of premalignant and malignant conditions of the uterine cervix. ??It is not a diagnostic procedure and should not be used as the sole means of detecting cervical cancer. ??Both false-positive and false-negative reports do occur. ? . IGLBP CPT Code Automation [facility] ACCOUNT BILL Comment: This liquid based ThinPrep(R) pap test was screened with the use of an image guided system. Human papillomavirus Aptima Negative Negative [facility] ACCOUNT BILL Comment: This nucleic acid amplification test detects fourteen high-risk HPV types (16,18,31,33,35,39,45,51,52,56,58,59,66,68) without differentiation. Chlamydia trachomatis ZANA Negative Negative [facility] ACCOUNT BILL GC ZANA Negative Negative [facility] ACCOUNT BILL Trichomonas vaginalis by ZANA Positive(A) Negative [facility] ACCOUNT BILL PART OF UTERINE CERVIX / Unknown 10/22/2021 11:57 AM CDT 10/23/2021 Narrative [facility] ACCOUNT BILL - 10/25/2021 3:08 PM CDT Source.............Cervix No. of containers..01 ThinPrep Vial Resulting Agency Comment Lab Testing performed at: [address] ??[place] [id number] Cruz Diallo MD LAB - PATHOLOGY/CYT OLOGY ORDERABLES [facility] ACCOUNT BILL [address] [place] [address] * HIV-1 HIV-2 ANTIBODY + HIV P24 AG PANEL (01/12/2020 12:31 PM CDT) [facility] HIV Screen 4th Generation w Reflex Non Reactive Non Reactive [facility] ACCOUNT BILL Comment:FASTING Blood BLOOD SPECIMEN / Unknown 01/12/2020 12:31 PM CDT 01/12/2020 Narrative Resulting Agency Comment [facility]: [facility] [address] ??[facility] [id number] Tabatha Sierra DO LAB - CHEMISTRY DAKOTA WYATT [facility] ACCOUNT BILL [address] [facility] [place] [address] * HEPATITIS C ANTIBODY (01/12/2020 12:31 PM CDT) [facility] Hepatitis C Antibody <0.1 0.0 - 0.9 s/co ratio [facility] ACCOUNT BILL Comment: ? Negative: ? < 0.8 ?Indeterminate: 0.8 - 0.9 ? Positive: ? > 0.9 ? . ?The CDC recommends that a positive HCV antibody result ?be followed up with a HCV Nucleic Acid Amplification ?test (786973). FASTING Blood BLOOD SPECIMEN / Unknown 01/12/2020 12:31 PM CDT 01/12/2020 Narrative Resulting Agency Comment Lab Testing performed at: [facility] [address] [facility] ??[facility] [phone] Tabatha Sierra DO LAB - CHEMISTRY ORDBrenden WYATT Performing Organization Address City/[facility]/ZIP Co de Phone Number [facility] ACCOUNT BILL [address] [place] [address] * (ABNORMAL) LIPID PROFILE (01/12/2020 12:31 PM CDT) Cholesterol 227(H) 100 - 199 mg/dL [facility] ACCOUNT BILL Triglycerides 161(H) 0 - 149 mg/dL [facility] ACCOUNT BILL HDL Cholesterol 65 >39 mg/dL [facility] ACCOUNT BILL VLDL Calculated 32 5 - 40 mg/dL [facility] ACCOUNT BILL LDL Calculated 130(H) 0 - 99 mg/dL [facility] ACCOUNT BILL Comment NOT NEEDED [facility] ACCOUNT BILL Comment: FASTING Ancillary determined the test is not needed. Blood BLOOD SPECIMEN / Unknown 01/12/2020 12:31 PM CDT 01/12/2020 Narrative Resulting Agency Comment Lab Testing performed at: [facility] [address] [facility] [address] ??[facility] [id number] Tabatha Sierra LAB - CHEMISTRY KARINABrenden ANDERSONBUNNY Performing Organization Address City/[facility]/ZIP Co de Phone Number [facility] ACCOUNT BILL [address] [place] [address] from Last 3 Months or Most Recently Relevant to Health Maintenance Care Teams Employment Interviewer Relationship Specialty Start Date End Date Tabatha Sierra DO [address] [place] [address] PCP - General 05/12/22
--- OUTSIDE RECORDS SUMMARY | 2024-05-25 00:54 | XMS_ITS | Clinical Summary ---
Author Organization [facility] Address [address] [place] [address] Care Team Providers Care Wellness Trainer Name Role Phone RigoTabatha barrow Manisha DO Primary Care Provider [phone] Source Comments [facility],non-owned Affiliates and Associated Physician Practices is amultiple site organization consisting of ambulatory clinics and hospital sitesin [place], [place], [place] and [place]. This disclosure is being madepursuant to the Care Everywhere program and may not contain all information available regarding this patient. Last updated 18.[facility] Allergies No known active allergies Medications * [...] left knee 06/21/2014 Dizziness and giddiness 04/12/2010 Family History Medical History Relation Name Comments Diabetes - Type 2 Brother 1 Glaucoma Father Other - Cardiac Maternal Aunt age 48 Arthritis - Osteo Maternal Grandmother Other - Cardiac Maternal Grandmother Hypertension Mother Other Mother CHF / born with enlarged heart Multiple Sclerosis Sister Cancer - Breast Neg Hx Cancer - Colon Neg Hx Cancer - Ovarian Neg Hx Cancer - Uterine Neg Hx Relation Name Status Comments Brother 1 Alive Brother 2 Alive Father Alive Maternal Aunt Alive Maternal Grandmother Mother Alive Sister Alive Social History Tobacco Use Types Packs/Day Years [...] Mass Index 33.83 02/27/2022 11:08 AM CDT Plan of Treatment Health Maintenance Due Date Last Done Comments MAMMOGRAM 1981 DTAP/TDAP/TD VACCINES (1 - Tdap) 2000 HEPATITIS B VACCINE (1 of 3 - 19+ 3-dose series) 2000 DEPRESSION SCREENING 06/08/2023 COVID-19 VACCINE (1 - 2023-25 season) 2024 INFLUENZA VACCINE (#1) 2024 LIPID TESTING 01/11/2025 01/12/2020, 01/06/2019 SCREENING FOR DIABETES 02/03/2025 , 01/12/2020, 01/12/2020, Additional history exists PAP with HPV 10/22/2026 10/22/2021, 08/06/2018, 04/28/2018 (Done Outside Per Patient) ZOSTER VACCINE (1 of 2) 11/25/2031 HEPATITIS C SCREENING Completed 01/12/2020 HIV SCREENING Completed 01/12/2020 HIB VACCINE Aged Out No longer eligi ble based on patient's age to complete this topic HPV VACCINE Aged Out No longer eligi ble based on patient's age to complete this topic MENINGOCOCCAL VACCINE Aged Out No shreya miles eligible based on patient's age to complete this topic PNEUMOCOCCAL VACCINE Aged Out No long er eligible based on patient's age to complete this topic Procedures Procedure Name Priority Date/Time Associated Diagnosis Comments COMPREHENSIVE METABOLIC PANEL STAT 02/03/2022 7:39 AM CDT Preoperative examination PAP IG LB+CT+NG+TV+HPV APTIMA RFLX 16,18/45 Routine 10/22/2021 11:57 AM CDT Well woman [...] - 105 mg/dL 02/03/2022 8:04 AM CDT [facility] Sodium 138 136 - 145 mmol/L 02/03/2022 8:04 AM CDT [facility] Potassium 4.1 3.5 - 5.1 mmol/L 02/03/2022 8:04 AM CDT [facility] Chloride 104 98 - 107 mmol/L 02/03/2022 8:04 AM CDT [facility] CO2 26 23 - 31 mmol/L 02/03/2022 8:04 AM CDT [facility] Calcium 9.3 8.4 - 10.4 mg/dL 02/03/2022 8:04 AM CDT [facility] Anion Gap 8 8 - 18 mmol/L 02/03/2022 8:04 AM CDT [facility] BUN 11 7 - 18.7 mg/dL 02/03/2022 8:04 AM CDT [facility] Creatinine 0.77 0.57 - 1.11 mg/dL 02/03/2022 8:04 AM CDT [facility] Alkaline Phosphatase 50 40 - 150 U/L 02/03/2022 8:04 AM CDT [facility] ALT 13 0 - 61 U/L 02/03/2022 8:04 AM CDT [facility] AST 16 5 - 34 U/L 02/03/2022 8:04 AM CDT [facility] Protein Total 7.0 6.4 - 8.3 gm/dL 02/03/2022 8:04 AM CDT [facility] Albumin 3.9 3.5 - 5.2 gm/dL 02/03/2022 8:04 AM CDT [facility] Bilirubin Total 0.5 0.2 - 1.2 mg/dL 02/03/2022 8:04 AM CDT [facility] eGFR by CKD-EPI >90 >=90 mL/min/1.7 3 m2 02/03/2022 8:04 AM CDT [facility] Blood BLOOD SPECIMEN / Unknown Venipuncture / Unknown 02/03/2022 7:39 AM CDT 02/03/2022 7:46 AM CDT Anastasia Franco TRUCK SERVICE MANAGER-RUBBER BALL FINISHER LAB - CHEMISTRY ORDERABLES [facility] [address] [place] [address] * (ABNORMAL) PAP IG LB+CT+NG+TV+HPV [...] Performed by [facility] ACCOUNT BILL Comment:Lisha blank, Medical Reviewer (ASCP) Comment . [facility] ACCOUNT BILL Note [...] Resulting Agency Comment Lab Testing performed at: [facility] [address] [place] ??[place] [id number] Cruz Diallo MD LAB - PATHOLOGY/CYT OLOGY ORDERABLES Performing Organization Address City/[facility]/ZIP Co de Phone Number [facility] ACCOUNT BILL [address] [place] [address] * HIV-1 HIV-2 ANTIBODY + HIV P24 AG PANEL (01/12/2020 12:31 PM CDT) Pathologist [facility] HIV Screen 4th Generation w Reflex Non Reactive Non Reactive [facility] ACCOUNT BILL Comment:FASTING Blood BLOOD SPECIMEN / Unknown 01/12/2020 12:31 PM CDT 01/12/2020 Narrative Resulting Agency Comment Lab Testing performed at: [facility] ??[facility] [id number] Tabatha Sierra DO LAB - CHEMISTRY DAKOTA WYATT Performing Organization Address [facility]/ZIP Co de Phone Number [facility] ACCOUNT BILL [address] [place] [address] * HEPATITIS C ANTIBODY (01/12/2020 12:31 PM CDT) Pathologist [facility] Hepatitis C Antibody <0.1 0.0 - 0.9 s/co ratio [facility] ACCOUNT BILL Comment: ? Negative: ? < 0.8 ?Indeterminate: 0.8 - 0.9 ? Positive: ? > 0.9 ? . ?The CDC recommends that a positive HCV antibody result ?be followed up with a HCV Nucleic Acid Amplification ?test ([id number]). FASTING Blood BLOOD SPECIMEN / Unknown 01/12/2020 12:31 PM CDT 01/12/2020 Narrative Resulting Agency Comment Lab Testing performed at: [facility] [address] [facility] ??[facility] [id number] Tabatha Sierra DO LAB - CHEMISTRY DAKOTA WYATT [facility] ACCOUNT BILL [address] [place] [address] * (ABNORMAL) LIPID PROFILE (01/12/2020 12:31 PM [...] Agency Comment Lab Testing performed at: [facility] [address] [facility] ??[facility] [id number] Tabatha Sierra DO LAB - CHEMISTRY DAKOTA WYATT [facility] ACCOUNT BILL [address] [place] [address] from Last 3 Months or Most Recently Relevant to Health Maintenance Care Teams Wellness Trainer Relationship Specialty Start Date End Date Tabatha Sierra DO [address] [place] [address] PCP - General 05/12/22
--- OUTSIDE RECORDS SUMMARY | 2024-05-25 00:55 | XMS_ITS | Encounter Summary ---
Author Organization [facility] Address [address] [facility] [place] [address] Care Team Providers Care Geophysical Operator Name Role Phone Tabatha Sierra DO Primary Care Provider [phone] Tabatha Sierra DO Unavailable [phone] Reason for Visit * Reason Onset Date Comments Surgery Scheduling 11/28/2021 Encounter Details Date Type Department Care Team (Late st Contact Info) Description 11/28/2021 Telephone [facility] [address] [address] [place] [address] [address] Surgery Scheduling Social History Tobacco Use Types Packs/Day Years Used Date Smoking Tobacco: Never Smokeless Tobacco: Never Alcohol Use Standard Drinks/Week Comments Yes 0 (1 standard drink = 0.6 oz pur e alcohol) wine rare AUDIT-C Answer Date Recorded Q1: How often do you have a drink containing alc ohol? Never 01/12/2020 Q2: How many drinks containi ng alcohol do you have on a typical day when you are drinking? 1 or 2 01/12/2020 Q3: How often do you have six or more drinks on one occasion? Never 01/12/2020 Sex and Gender Information Value Date Recorded Sex Assigned at Not on file Gender Identity Not on file Sexual Orientation Not on file COVID-19 Exposure Response Date Recorded In the last 10 days, have yo u been in contact with someone who was confirmed or suspected to have Coronavirus/COVID-19? No / Unsure 11/06/2021 12:43 PM CDT documented as of this encounter Miscellaneous Notes * Telephone Encounter - Fatimah Jackson - 12/06/2021 2:03 PM CDT Called patient to go over available dates at [facility] as the date she had chosen at [facility] was unavailable. Patient did not want any of the dates open at [facility], chose to keep her surgery at [facility]. Confirmed surgery date, time, and 2 week post op date/time. Patient given verbal instructions as well as mailed out instruction packet. Surgery Information Date: 01/10/2022 Location: [facility] Main OR Arrival time: 8:30 Am 2 Week Post Op Date: 01/23/2022 Time: 1:00 Pm Provider: Dr Diallo Patient states understanding. * Telephone Encounter - Fatimah Jackson - 12/05/2021 10:30 AM CDT Called patient to confirm surgery date, time, and 2 week post op date/time.Patient now says she has a problem with [facility] and would like to have her surgery at [facility]. Informed patient Iwould need to talk with Dr Diallo to make sure she is OK with doing the procedure at [facility], as well as reach out to the OR to find out if they have the same date available. Patient awareI will call her back as soon as I have answers for both of those questions. States understanding. * Telephone Encounter - Faith Thomas RN - 12/02/2021 8:25 AM CDT Pt called in stating her surgery date of 12/23/2021 will no longer work for her. Pt requesting alternate dates that are available. Pt informed medical or surgical instrument maker will have to get those and give Pt a call. * Telephone Encounter - Fatimah Jackson - 11/29/2021 2:59 PM CDT Called patient to verify available dates for surgery. Offered the following dates: 01/03/2022 12/23/2021 12/30/2021 Patient stated 12/23/2021 would be best. Advised the patient I will contact them once I have verified the selected date with the OR and the physician. * Telephone Encounter - Dee Owens RN - 11/28/2021 10:13 AM CDT Pt called wanting to schedule D&C for 12/13/2021. Pt states Dr. Diallo said she can do some Thursday's per pt. Pt informed that Olivia will be contact her. documented in this encounter Plan of Treatment Not on file documented as of this encounter Visit Diagnoses Not on filedocumented in this encounter Care Teams Geophysical Operator Relationship Specialty Start Date End Date Tabatha Sierra DO [address] [place] [id number] PCP - General Family Medicine 01/12/20 01/06/22 Tabatha Sierra DO [address] [place] [address] PCP - Attributed-[place] [employer] 08/06/20 01/21/22 documented as of this encounter
--- OUTSIDE RECORDS SUMMARY | 2024-05-25 00:55 | XMS_ITS | Patient Health Summary ---
Author Organization [facility] Address [address] [place] [address] Care Team Providers Care Assemblyman Or Woman Name Role Phone RigoTabatha barrow Manisha DO Primary Care Provider [phone] Note from [facility],non-owned Affiliates and Associated Physician Practices is amultiple site organization consisting of ambulatory clinics and hospital sitesin [place], [place], [place] and [place]. This disclosure is being madepursuant to the Care Everywhere program and may not contain all information available regarding this patient. Last updated 18.[facility] Allergies No known active allergies Medications * Be aware that medications may not be up to date on this document. Alwaysverify current medications with the patient. * vitamin D3 (CHOLECACIFEROL) 5000 units Take 5,000 Units by mouth once daily * ferrous sulfate 325 (65 FE) MG tablet Take 325 mg by mouth 2 times daily * ascorbic acid (VITAMIN C) 500 MG tablet Take 500 mg by mouth once daily * BIOTIN 5000 PO Take 1 tablet by mouth once daily * oxyCODONE-acetaminophen (Percocet) 5-325 MG tablet(Started 02/14/2022) Take 1 (one) tablet by mouth every 6 hours as needed for Pain * ibuprofen (Motrin) 600 MG tablet(Started 02/14/2022) Take 1 (one) tablet by mouth every 6 hours as needed for Pain * medroxyPROGESTERone (Provera) 10 MG tablet(Started 02/27/2022) Take 1 (one) tablet by mouth once daily * ibuprofen (Motrin) 600 MG tablet(Started 04/15/2022) Take 1 (one) tablet by mouth 3 times daily 4 refills by 04/15/2023 * megestrol (Megace) 40 MG tablet(Started 04/22/2022) Take 1 (one) tablet by mouth 4 times daily 1 refill by 04/22/2023 Active Problems Problem Noted Date Diagnosed Date [...] Mass Index 33.83 02/27/2022 11:08 AM CDT Procedures * PROLACTIN(Performed 02/27/2022) Performed for Abnormal uterine bleeding (AUB), Amenorrhea * TSH REFLEX FREE T4(Performed 02/27/2022) Performed for Abnormal uterine bleeding (AUB), Amenorrhea * ESTRADIOL(Performed 02/27/2022) Performed for Abnormal uterine bleeding (AUB), Amenorrhea * FSH + LH PANEL(Performed 02/27/2022) Performed for Abnormal uterine bleeding (AUB), Amenorrhea * APHERESIS/TRANSFUSION ORDER(Performed 02/18/2022) * PATHOLOGY TISSUE EXAM (STL)(Performed 02/14/2022) Performed for Diagnosis unknown * ENDOTRACHEAL TUBE NOTE(Performed 02/14/2022) * WV LAP,RMV ADNEXAL STRUCTURE(Performed 02/14/2022) * HCG URINE QUALITATIVE(Performed 02/14/2022) Performed for Preoperative examination * BLOOD TYPE VERIFICATION(Performed 02/14/2022) * EKG 12-LEAD(Performed 02/03/2022) Performed for Preoperative examination * TYPE + SCREEN PANEL(Performed 02/03/2022) Performed for Preoperative examination * CBC W AUTO DIFFERENTIAL(Performed 02/03/2022) Performed for Preoperative examination * COMPREHENSIVE METABOLIC PANEL(Performed 02/03/2022) Performed for Preoperative examination * CT ABDOMEN PELVIS W CONTRAST(Performed 01/17/2022) Performed for Abnormal uterine bleeding (AUB), Pelvic pain * PATHOLOGY TISSUE EXAM (STL)(Performed 01/10/2022) Performed for Diagnosis unknown * LARYNGEAL MASK AIRWAY(Performed 01/10/2022) * WV HYSTEROSCOPY,W/ENDO BX(Performed 01/10/2022) * HCG URINE QUALITATIVE(Performed 01/10/2022) Performed for Pre-op evaluation * CHLAMYDIA + GC + TRICH DNA AMPL(Performed 11/27/2021) Performed for Trichimoniasis * US PELVIS W TRANSVAG W DOP NON OB(Performed 11/02/2021) Performed for Abnormal uterine bleeding (AUB), Fibroid * CBC W/O DIFFERENTIAL(Performed 10/24/2021) Performed for Abnormal uterine bleeding (AUB), Fibroid * TSH REFLEX FREE T4(Performed 10/24/2021) Performed for Abnormal uterine bleeding (AUB), Fibroid * PAP IG LB+CT+NG+TV+HPV APTIMA RFLX 16,18/45(Performed 10/22/2021) Performed for Well woman exam with routine gynecological exam * HCG BETA BLOOD QUANTITATIVE(Performed 07/10/2020) Performed for Abnormal uterine bleeding (AUB), Amenorrhea * PROLACTIN(Performed 07/10/2020) Performed for Abnormal uterine bleeding (AUB), Amenorrhea * TSH REFLEX FREE T4(Performed 07/10/2020) Performed for Abnormal uterine bleeding (AUB), Amenorrhea * ESTRADIOL(Performed 07/10/2020) Performed for Abnormal uterine bleeding (AUB), Amenorrhea * FSH + LH PANEL(Performed 07/10/2020) Performed for Abnormal uterine bleeding (AUB), Amenorrhea * US PELVIS W TRANSVAG NON OB(Performed 02/10/2020) Performed for Fibroid * CHLAMYDIA + GC + TRICH DNA AMPL(Performed 02/01/2020) Performed for Well woman exam with routine gynecological exam, Screen for STD (sexually transmitteddisease) * URINALYSIS MICROSCOPIC ONLY REFLEXED(Performed 01/12/2020) Performed for Physical exam, annual * HIV-1 HIV-2 ANTIBODY + HIV P24 AG PANEL(Performed 01/12/2020) Performed for Encounter for screening for HIV * HEPATITIS C ANTIBODY(Performed 01/12/2020) Performed for Need for hepatitis C screening test * MAGNESIUM BLOOD(Performed 01/12/2020) Performed for Physical exam, annual * LIPID PROFILE(Performed 01/12/2020) Performed for Physical exam, annual * T4 TOTAL(Performed 01/12/2020) Performed for Physical exam, annual * TSH(Performed 01/12/2020) Performed for Physical exam, annual * URINALYSIS W/MICROSCOPIC NO CULTURE(Performed 01/12/2020) Performed for Physical exam, annual * VITAMIN B12(Performed 01/12/2020) Performed for Physical exam, annual * VITAMIN D 25-HYDROXY(Performed 01/12/2020) Performed for Physical exam, annual * HEMOGLOBIN A1C(Performed 01/12/2020) Performed for Physical exam, annual * ERYTHROCYTE SEDIMENTATION RATE(Performed 01/12/2020) Performed for Physical exam, annual * COMPREHENSIVE METABOLIC PANEL(Performed 01/12/2020) Performed for Physical exam, annual * CBC W AUTO DIFFERENTIAL(Performed 01/12/2020) Performed for Physical exam, annual * US EXTREMITY RIGHT COMP JOINT(Performed 06/20/2019) Performed for Right knee pain, unspecified chronicity * XR KNEE RIGHT 3VW(Performed 06/13/2019) Performed for Acute pain of right knee * PAP IG LB+HPV APTIMA(Performed 01/06/2019) Performed for Well woman exam * T4 FREE(Performed 01/06/2019) Performed for Fatigue, unspecified type * VITAMIN D 25-HYDROXY(Performed 01/06/2019) Performed for Vitamin D deficiency * LIPID PROFILE(Performed 01/06/2019) Performed for Lipid screening * TSH REFLEX FREE T4(Performed 01/06/2019) Performed for Fatigue, unspecified type * COMPREHENSIVE METABOLIC PANEL(Performed 01/06/2019) Performed for Fatigue, unspecified type * CBC W AUTO DIFFERENTIAL(Performed 01/06/2019) Performed for Anemia, unspecified type * US PELVIS COMPLETE(Performed 04/15/2018) Performed for Menorrhagia with regular cycle * CBC W AUTO DIFFERENTIAL(Performed 04/22/2017) * MRI HAND LEFT WWO CONTRAST(Performed 04/19/2015) * MRI CERVICAL SPINE WO CONTRAST(Performed 04/19/2015) * CREATININE BLOOD - POCT (IP) SLH(Performed 04/19/2015) * XR KNEE RIGHT 4VW OR MORE(Performed 06/21/2014) * XR KNEE LEFT 4VW OR MORE(Performed 06/21/2014) * CARDIAC ECHOCARDIOGRAM COMPLETE ORDER(Performed 04/14/2010) * CARDIAC EKG ORDER(Performed 04/13/2010) * CT HEAD WO CONTRAST(Performed 04/12/2010) * URINALYSIS REFLEX TO MICROSCOPIC NO CULTURE(Performed 04/12/2010) * XR CHEST 2VW(Performed 04/12/2010) * MYOGLOBIN BLOOD(Performed 04/12/2010) * TROPONIN I(Performed 04/12/2010) * PTT(Performed 04/12/2010) * PT-INR(Performed 04/12/2010) * COMPREHENSIVE METABOLIC PANEL(Performed 04/12/2010) * CBC W AUTO DIFFERENTIAL(Performed 04/12/2010) * HCG URINE QUALITATIVE - POINT OF CARE(Performed 04/12/2010) * URINALYSIS REFLEX TO MICROSCOPIC NO CULTURE(Performed 07/27/2009) * HCG URINE QUALITATIVE - POINT OF CARE(Performed 07/27/2009) * LIPASE BLOOD(Performed 07/27/2009) * COMPREHENSIVE METABOLIC PANEL(Performed 07/27/2009) * CBC W AUTO DIFFERENTIAL(Performed 07/27/2009) * GROSS + MICRO EXAM(Performed 10/10/2000) * GROSS + MICRO EXAM(Performed 06/30/1999) * CYTOLOGY SMEAR PAP THIN PREP(Performed 11/16/1998) Results * TSH REFLEX FREE T4 (02/27/2022 12:06 PM CDT) Only the most recent of4 resultswithin the time period is included. TSH 0.915 0.450 - 4.500 uIU/mL [facility] ACCOUNT BILL Comment:FASTING Blood BLOOD SPECIMEN / Unknown 02/27/2022 12:06 PM CDT 02/27/2022 Narrative Resulting Agency Comment Lab Testing performed at: [facility] [place] [address] ??[facility] [phone] Cruz Diallo MD LAB - CHEMISTRY ORD ERABLES Performing Organization Address City/[facility]/[place] Co de Phone Number [facility] ACCOUNT BILL [address] [place] [address] * PROLACTIN (02/27/2022 12:06 PM CDT) Only the most recent of2 resultswithin the time period is included. Prolactin 11.5 4.8 - 23.3 ng/mL [facility] ACCOUNT BILL Comment:FASTING Blood BLOOD SPECIMEN / Unknown 02/27/2022 12:06 PM CDT 02/27/2022 Narrative Resulting Agency Comment Lab Testing performed at: [facility] [place] [address] ??[facility] [phone] Cruz Diallo MD LAB - CHEMISTRY ORD ERABLES Performing Organization Address City/[facility]/[place] Co de Phone Number [facility] ACCOUNT BILL [address] [place] [address] * ESTRADIOL (02/27/2022 12:06 PM CDT) Only the most recent of2 resultswithin the time period is included. Estradiol 359.0 pg/mL [facility] ACCOUNT BILL Comment: ? Adult Female: ? Follicular phase ?? 12.5 - ?? 166.0 ? Ovulation phase ?85.8 - ?? 498.0 ? Luteal phase ? 43.8 - ?? 211.0 ? Postmenopausal ? <6.0 - ?54.7 ? 1st trimester ? 215.0 - >4300.0 Javed ECLIA methodology FASTING Blood BLOOD SPECIMEN / Unknown 02/27/2022 12:06 PM CDT 02/27/2022 Narrative Resulting Agency Comment [facility] [address] ??[facility] [phone] Cruz Diallo MD LAB - CHEMISTRY ORD ERABLES [facility] ACCOUNT BILL [address] [place] [address] * FSH + LH PANEL (02/27/2022 12:06 PM CDT) Only the most recent of2 resultswithin the time period is included. LH 6.7 mIU/mL [facility] ACCOUNT BILL Comment: ? Adult Female: ? Follicular phase ?2.4 - ??12.6 ? Ovulation phase ?14.0 - ??95.6 ? Luteal phase ?1.0 - ??11.4 ? Postmenopausal ?7.7 - ??58.5 FSH 2.0 mIU/mL [facility] ACCOUNT BILL Comment: ? Adult Female: ? Follicular phase ?3.5 - ??12.5 ? Ovulation phase ? 4.7 - ??21.5 ? Luteal phase ?1.7 - ?? 7.7 ? Postmenopausal ? 25.8 - 134.8 FASTING Blood BLOOD SPECIMEN / Unknown 02/27/2022 12:06 PM CDT 02/27/2022 Narrative Resulting Agency Comment Lab Testing performed at: [facility] [place] [address] ??[place] [id number] Cruz Diallo MD LAB - CHEMISTRY ORD ERABLES [facility] ACCOUNT [address] [place] [address] * APHERESIS/TRANSFUSION ORDER (02/18/2022 8:47 AM CDT) Narrative 02/18/2022 8:47 AM CDT Ordered by an unspecified provider. Scanned Document NURSING - VITAL SIGN S AND ASSESSMENT * PATHOLOGY TISSUE EXAM (STL) (02/14/2022 11:42 AM CDT) Only the most recent of2 resultswithin the time period is included. Case Report Surgical Pathology Report ? Case: [id number] ? Authorizing Provider: ??Cruz Diallo MD ? Collected: ? 02/14/2022 11:42 AM ? Ordering Location: ? [facility] ? Received: ?02/14/2022 12:50 PM ? Pathologist: ? Yany Vieyra MD ? Specimens: ?? A) - Fallopian Tube, RIGHT FALLOPIAN TUBE ? B) - Fallopian Tube, LEFT FALLOPIAN TUBE ? C) - Peritoneal Biopsy, PERITONEAL BIOPSY ? 02/18/2022 9:20 AM CDT [facility] Final Diagnosis A. Right fallopian tube, salpingectomy: -- No pathologic diagnosis B. Left fallopian tube, salpingectomy: -- No pathologic diagnosis C. Peritoneum, biopsy: -- Calcified nodule with yellow pigmented material 02/18/2022 9:20 AM CDT [facility] Clinical History Pelvic pain, AUB 02/18/2022 9:20 AM CDT [facility] Gross Description Received in container A in formalin labeled [facility], right fallopian tube, is a 4.3 x 0.6 cm fallopian tube with fimbria. Sections show a patent lumen with no gross lesions. [facility] Teacher sections are submitted in cassette A1. Received in container B in formalin labeled [facility]i [facility], left fallopian tube, is a 4.9 x 0.4 cm fallopian tube with fimbria. Sections show a patent lumen with no gross lesions. Ebd Teacher sections are submitted in cassette B1. Received in container C in formalin labeled [facility], peritoneal biopsy, is a 0.5 x 0.4 x 0.1 cm yellow-stanford tissue fragment. The specimen is placed in a filter bag and entirely submitted in cassette C1. ROSITA/ceci 02/18/2022 9:20 AM CDT [facility] Microscopic Description Microscopic examination substantiates the above cited diagnosis. 02/18/2022 9:20 AM CDT [facility] Disclaimer All histochemical and/or immunohistochemical results are interpreted with controls that demonstrate appropriate staining reactions before reporting results. Note on use of immunocytochemistry reagents: This test was developed and its performance characteristic determined by [facility], Department of Laboratory Medicine. It has not been cleared or approved by the U.S. Food and Drug Administration (FDA). The FDA has determined that such clearance or approval is not necessary. The test is used for clinical purpose. It should not be regarded as investigational or for research. This laboratory is certified to perform high complexity testing. The performance characteristics of the IHC/TAWANA assays have been validated on formalin-fixed paraffin embedded tissues only. The assays have not been validated on decalcified tissues. Results should be interpreted with caution. 02/18/2022 9:20 AM CDT [facility] Embedded Images 02/18/2022 9:20 AM CDT [facility] Pathology/Cytology FALLOPIAN TUBE PART / Unknown 02/14/2022 11:42 AM CDT 02/14/2022 12:50 PM CDT Miscellaneous samples (specimen) FALLOPIAN TUBE PART / Unknown 02/14/2022 11:43 AM CDT 02/14/2022 12:50 PM CDT Miscellaneous samples (specimen) PERITONEAL BIOPSY SPECIMEN / Unknown 02/14/2022 11:45 AM CDT 02/14/2022 12:50 PM CDT Cruz Diallo MD LAB - PATHOLOGY/CYT OLOGY ORDERABLES Performing Organization Address [facility]/State/[place] Co de Phone Number [facility] [address] [place] [phone] * ETT LINE PERFORMABLE (02/14/2022 11:35 AM CDT) Narrative America Craven APRN-CONVERTIBLE SOFA BEDSPRING TESTER - 02/14/2022 11:35 AM CDT America Craven APRN-CRNA ? 02/14/2022 11:36 AM Endotracheal Tube Placement: ? Patient Location: OR. Intubation Event Date/Time: ??02/14/2022 11:07 AM Procedure: intubation ([id number]). Procedure Section: ?? Sedation: under general anesthesia. Indications for Airway Management: ??anesthesia Induction: standard IV and patient unconcious Patient Position: ??sniffing Mask Ventilation: easy. Blade Type: Blade Size: 2 Laryngoscopy View: grade 2 (partial cords) Intubation Adjuncts: cricoid pressure and stylet Tube: endotracheal tube Placement: oral Tube type: cuff - inflated Tube Size (MM): 7 Depth of Insertion (CM): 20 Measured From: lips Cuff volume (mL): ??7 Cuff Inflated With: air Number of Attempts: 1. Placement Verified By: direct visualization, bilateral breath sounds, chest auscultation and CO2 monitor Tube secured with: ??adhesive tape. Dentition unchanged? ??Yes Difficult Airway? ??No. Procedure Start Time: 02/14/2022 11:07 AM. Staff Section ? Anesthesia Provider: America Craven APRN-CHRISTIANA, Performed the procedure Miguel A Pa DO GENERAL ANESTHESIA O RDERABLES * HCG URINE QUALITATIVE (02/14/2022 9:12 AM CDT) Only the most recent of2 resultswithin the time period is included. Pathologist [facility] hCG Qualitative Urine Negative Negative 02/14/2022 9:25 AM CDT [facility] Urine URINE / Unknown Collection / Unknown 02/14/2022 9:12 AM CDT 02/14/2022 9:17 AM CDT Sherry Jose DO LAB - URINALYSIS ORD ERABLES Performing Organization Address City/[facility]/[place] Co de Phone Number [facility] [address] [place] [address] * BLOOD TYPE VERIFICATION (02/14/2022 9:11 AM CDT) ABO Rh A NEG 02/14/2022 9:3 9 AM CDT [facility] Blood Bank BLOOD SPECIMEN / Unknown Venipuncture / Unknown 02/14/2022 9:11 AM CDT 02/14/2022 9:17 AM CDT Cruz Diallo MD LAB - BLOOD BANK OR DERABLES Performing Organization Address City/[facility]/[place] Co de Phone Number [facility] [address] [place] [address], [facility] [phone] * EKG 12-LEAD (02/03/2022 7:57 AM CDT) Pathologist [facility] Ventricular Rate 60 BPM [facility] Atrial Rate 60 BPM [facility] P-R Interval 164 ms [facility] QRS Duration ms 86 ms [facility] Q-T Interval ms 444 ms [facility] QTC Calculation (Bezet) 444 ms [facility] Calculated P [place] 55 degrees [facility] Calculated R [place] 23 degrees [facility] Calculated T [place] 31 degrees [facility] Interpretation EKG Normal sinus rhythm Normal ECG Confirmed by DE BROOKS MD ([id number]) on 02/03/2022 2:54:43 PM [facility] 02/03/2022 7:57 AM CDT 02/03/2022 2:54 PM CDT Sherry Jose DO ECG ORDERABLES Performing Organization Address City [facility]/ZIP Co de Phone Number [facility] * TYPE + SCREEN PANEL (02/03/2022 7:39 AM CDT) Pathologist [facility] ABO Rh A NEG 02/03/2022 8:25 AM CDT [facility] Comment:No history; collect retype. Antibody Screen NEG 8:25 AM CDT [facility] Blood Bank BLOOD SPECIMEN / Unknown Venipuncture / Unknown 02/03/2022 7:39 AM CDT 02/03/2022 7:46 AM CDT Sherry Jose DO LAB - BLOOD BANK ORD ERABLES [facility] [address] [phone] * CBC W AUTO DIFFERENTIAL (02/03/2022 7:39 AM CDT) Only the most recent of6 resultswithin the time period is included. Pathologist [facility] WBC 7.0 4.4 - 10.7 x10E9/L 02/03/2022 7:50 AM CDT [facility] WBC Corrected 02/03/2022 7:50 AM CDT [facility] RBC 4.57 3.80 - 5.20 x10E12/L 02/03/2022 7:50 AM CDT [facility] Hemoglobin 13.8 12.0 - 15.6 gm/dL 02/03/2022 7:50 AM CDT [facility] Hematocrit 42.4 35.9 - 45.5 % 02/03/2022 7:50 AM CDT [facility] MCV 92.8 80.7 - 98.3 fl 02/03/2022 7:50 AM CDT [facility] MCH 30.2 26.7 - 34.0 pg 02/03/2022 7:50 AM CDT [facility] MCHC 32.5 30.8 - 35.9 gm/dL 02/03/2022 7:50 AM CDT [facility] Platelet Count 299 153 - 416 x10E9/L 02/03/2022 7:50 AM CDT [facility] RDW-CV 13.9 12.1 - 14.9 % 02/03/2022 7:50 AM CDT [facility] MPV 9.6 9.4 - 12.9 fl 02/03/2022 7:50 AM CDT [facility] Neutrophils % 55.4 44.0 - 73.0 % 02/03/2022 7:50 AM CDT [facility] Lymphocytes % 32.4 20.0 - 43.0 % 02/03/2022 7:50 AM CDT [facility] Monocytes % 9.0 5.0 - 13.0 % 02/03/2022 7:50 AM CDT [facility] Eosinophils % 2.7 0.0 - 6.0 % 02/03/2022 7:50 AM CDT [facility] Basophils % 0.4 0.0 - 2.0 % 02/03/2022 7:50 AM CDT [facility] Immature Granulocytes 0.1 0 - 1 % 02/03/2022 7:50 AM CDT [facility] Neutrophil Absolute 3.89 2.01 - 7.14 x10E9/L 02/03/2022 7:50 AM CDT [facility] Lymphocytes Absolute 2.28 1.07 - 3.94 x10E9/L 02/03/2022 7:50 AM CDT [facility] Monocytes Absolute 0.63 0.26 - 1.07 x10E9/L 02/03/2022 7:50 AM CDT [facility] Eosinophils Absolute 0.19 0 - 0.47 x10E9/L 02/03/2022 7:50 AM CDT [facility] Basophils Absolute 0.03 0 - 0.08 x10E9/L 02/03/2022 7:50 AM CDT [facility] Immature Granulocytes Absolute 0.01 0.00 - 0.06 x10E9/L 02/03/2022 7:50 AM CDT [facility] nRBC Auto 0 /100 WBC 02/03/2022 7:50 AM CDT [facility] Blood BLOOD SPECIMEN / Unknown Venipuncture / Unknown 02/03/2022 7:39 AM CDT 02/03/2022 7:46 AM CDT Lucianocarl Petr Franco MANAGER DOCUMENTATION-CERTIFIED HOME HEALTH AIDE LAB - HEMATOLOGY ORDERABLES [facility] [address] [place] [address] * (ABNORMAL) COMPREHENSIVE METABOLIC PANEL (02/03/2022 7:39 AM CDT) Only the most recent of5 resultswithin the time period is included. Glucose 117(H) 70 - 105 mg/dL 02/03/2022 8:04 AM CDT [facility] Sodium 138 136 - 145 mmol/L 02/03/2022 8:04 AM CDT [facility] Potassium 4.1 3.5 - 5.1 mmol/L 02/03/2022 8:04 AM CDT [facility] Chloride 104 98 - 107 mmol/L 02/03/2022 8:04 AM CDT [facility] CO2 26 23 - 31 mmol/L 02/03/2022 8:04 AM CDT [facility] Calcium 9.3 8.4 - 10.4 mg/dL 02/03/2022 8:04 AM CDT [facility] Anion Gap 8 8 - 18 mmol/L 02/03/2022 8:04 AM CDT [facility] BUN 11 7 - 18.7 mg/dL 02/03/2022 8:04 AM CDT [facility] Creatinine 0.77 0.57 - 1.11 mg/dL 02/03/2022 8:04 AM CDT [facility] Alkaline Phosphatase 50 40 - 150 U/L 02/03/2022 8:04 AM CDT [facility] ALT 13 0 - 61 U/L 02/03/2022 8:04 AM CDT [facility] AST 16 5 - 34 U/L 02/03/2022 8:04 AM CDT [facility] Protein Total 7.0 6.4 - 8.3 gm/dL 02/03/2022 8:04 AM CDT [facility] Albumin 3.9 3.5 - 5.2 gm/dL 02/03/2022 8:04 AM CDT [facility] Bilirubin Total 0.5 0.2 - 1.2 mg/dL 02/03/2022 8:04 AM CDT [facility] eGFR by CKD-EPI >90 >=90 mL/min/1.7 3 m2 02/03/2022 8:04 AM CDT [facility] Blood BLOOD SPECIMEN / Unknown Venipuncture / Unknown 02/03/2022 7:39 AM CDT 02/03/2022 7:46 AM CDT Anastasia Franco MANAGER DOCUMENTATION-CERTIFIED HOME HEALTH AIDE LAB - CHEMISTRY ORDERABLES Performing Organization Address City/State/[place] Co de Phone Number [facility] [address] [place] [address] * CT ABDOMEN AND PELVIS WITH IV CONTRAST (01/17/2022 12:42 PM CDT) Anatomical Region Laterality Modality Abdomen, Pelvis Computed Tomogra phy 01/17/2022 12:5 1 PM CDT Impressions 01/17/2022 2:59 PM CDT IMPRESSION: 1. Areas of abnormal density at the uterus which could represent findings of endometrial thickening or fibroids. Please see results of recent pelvis ultrasound examination. There is also hypodensity at the right side of the pelvis which could represent a small cyst or follicle. Repeat ultrasound study could be done for further evaluation if indicated clinically. 2. Small cyst of the right kidney. 3. Bowel gas pattern within normal limits. > Interpreting Provider: Glenn Ballesteros MD on 01/17/2022 2:59 PM Narrative 01/17/2022 2:59 PM CDT PROCEDURE: ??CT ABDOMEN PELVIS W CONTRAST, DATE/TIME OF EXAM: ??01/17/2022 11:08 AM, LOCATION ??[facility] INDICATION: N93.9: Abnormal uterine and vaginal bleeding, unspecified R10.2: Pelvic and perineal pain ADDITIONAL CLINICAL INFORMATION: Ordering Provider Reason For Exam: ??Abnormal uterine bleeding. Pelvic pain. Technologist Note: Additional: COMPARISON: None. TECHNIQUE: 5mm axial images were obtained with 80 cc Isovue-370 IV contrast. Sagittal and coronal reformats were obtained. ?? FINDINGS: Examination of the inferior chest shows no lung consolidation. There is a very small hiatal hernia. Examination of the abdomen and pelvis. LIVER: ??Normal. ADRENAL GLANDS: ??Normal. PANCREAS: ??Normal. SPLEEN: Normal. KIDNEYS: ??There is a hypodensity in the midpole of the right kidney which is probably a cyst measuring 7 mm. BLADDER: The bladder is relatively decompressed which limits evaluation of the bladder. There is no bladder calculus seen. ASCITES: None. ADENOPATHY: ??No enlarged nodes. BONES: ??No destructive lesion identified. ADDITIONAL FINDINGS: ?? There is contrast seen within the stomach as well as loops of small bowel and part of the large bowel. There is gas and stool seen at the colon. There are areas of decreased density seen within the central and right side of the uterus. The largest one measures 39 x 35 mm. This could represent endometrial thickening or possibly findings of fibroids. There is a hypodensity at the right side of the pelvis which could represent a cyst or follicle at the ovary. Please see corresponding ultrasound and ultrasound results from 11/02/2021. Procedure Note Glenn Ballesteros MD - 01/17/2022 PROCEDURE: CT ABDOMEN PELVIS W CONTRAST, DATE/TIME OF EXAM: 01/17/2022 11:08 AM, [facility] [facility] INDICATION: N93.9: Abnormal uterine and vaginal bleeding, unspecified R10.2: Pelvic and perineal pain ADDITIONAL CLINICAL INFORMATION: Ordering Provider Reason For Exam: Abnormal uterine bleeding. Pelvicpain. Technologist Note: Additional: COMPARISON: None. TECHNIQUE: 5mm axial images were obtained with 80 cc Isovue-370 IV contrast. Sagittal and coronal reformats were obtained. FINDINGS: Examination of the inferior chest shows no lung consolidation. There leroy very small hiatal hernia. Examination of the abdomen and pelvis. LIVER: Normal. ADRENAL GLANDS: Normal. PANCREAS: Normal. SPLEEN: Normal. KIDNEYS: There is a hypodensity in the midpole of the right kidneywhich is probably a cyst measuring 7 mm. BLADDER: The bladder is relatively decompressed which limits evaluationof the bladder. There is no bladder calculus seen. ASCITES: None. ADENOPATHY: No enlarged nodes. BONES: No destructive lesion identified. ADDITIONAL FINDINGS: There is contrast seen within the stomach as well as loops of smallbowel and part of the large bowel. There is gas and stool seen at the colon. There are areas of decreased density seen within the central and rightside of the uterus. The largest one measures 39 x 35 mm. This could represent endometrial thickening or possibly findings of fibroids. There is a hypodensity at the right side of the pelvis which could represent a cystor follicle at the ovary. Please see corresponding ultrasound andultrasound results from 11/02/2021. IMPRESSION: 1. Areas of abnormal density at the uterus which could representfindings of endometrial thickening or fibroids. Please see results of recentpelvis ultrasound examination. There is also hypodensity at the right side ofthe pelvis which could represent a small cyst or follicle. Repeat ultrasound study could be done for further evaluation if indicated clinically. 2. Small cyst of the right kidney. 3. Bowel gas pattern within normal limits. > Interpreting Provider: Glenn Ballesteros MD on 01/17/2022 2:59 PM Cruz Diallo MD CT ORDERABLES * LARYNGEAL MASK AIRWAY (01/10/2022 9:27 AM CDT) Narrative Lulu Pedersen APRN-CONVERTIBLE SOFA BEDSPRING TESTER - 01/10/2022 9:27 AM CDT Lulu Pedersen APRN-CRNA ? 01/10/2022 ??9:28 AM LMA Placement Procedure/LDA Note: Procedure: LMA. Pretreatment: 100% O2 Induction: standard IV Patient position: supine. Mask Ventilation: not attempted Type: ??LMA Size: ??4 Number of Attempts: 1. Placement verified by: bilateral breath sounds, chest auscultation and CO2 monitor Dentition unchanged? ??Yes Staff Section ? Anesthesia Provider: Lulu Pedersen, MANAGER DOCUMENTATION-CONVERTIBLE SOFA BEDSPRING TESTER, Performed the procedure Rohit Martines MD GENERAL ANESTHESIA O RDERABLES * CHLAMYDIA + GC + TRICH DNA AMPL (11/27/2021 11:48 AM CDT) Only the most recent of2 resultswithin the time period is included. Chlamydia trachomatis ZANA Negative Negative [facility] ACCOUNT BILL GC DNA Probe Negative Negative [facility] ACCOUNT BILL Trichomonas vaginalis by ZANA Negative Negative [facility] ACCOUNT BILL Microbiology ENTIRE VAGINA / Unknown 11/27/2021 11:48 AM CDT 11/27/2021 Narrative Resulting Agency Comment Lab Testing performed at: [facility] [address] [facility] ??[place] W [phone] Cruz Diallo MD LAB - MICROBIOLOGY ORDERABLES [facility] ACCOUNT BILL [address] [place] [address] * US PELVIS W/TRANSVAG & DOPPLER (11/02/2021 9:21 AM CDT) Anatomical Region Laterality Modality Pelvis Ultrasound 11/02/2021 1:15 PM CDT Impressions 11/02/2021 1:21 PM CDT Endometrium is heterogeneous in echotexture and contains a few cystic areas. This may be secondary to presence of a polyp, cystic degeneration of submucosal myoma, or endometrial hypertrophy.. Dominant but sonographically simple ovarian cysts are present bilaterally. There is no evidence of torsion. *Reading Radiologist: Ruba Rowe on 11/02/2021 at 1:21 PM Narrative 11/02/2021 1:21 PM CDT Ultrasound Pelvis - Transabdominal/Transvaginal with Doppler Indication: Pelvic pain. Vaginal bleeding COMPARISON: February 10, 2020 Technique: Transabdominal and endovaginal images of the female pelvis were obtained with Doppler imaging of the ovaries. Spectral analysis was performed. Findings: On transabdominal images, the uterus measures approximately 16.85 x 6.77 x 7.74 cm in size. The uterus is heterogeneous in echotexture and lobulated in contour consistent with the presence of multiple myomas. A fundal myoma on the right measures approximately 3.94 x 3.85 x 2.94 cm.. There is no free fluid within the pelvis. A dominant, anechoic cyst can be seen at the right ovary on transabdominal images. A smaller dominant left ovarian cyst can be seen transabdominally. Endovaginal imaging was performed for more detailed evaluation of the ovaries and of the myometrium. On endovaginal imaging, fundal myoma measures approximately 4.31 x 3.13 x 3.79 cm.. The endometrium measures approximately 1.46 cm in thickness. It is heterogeneous in echotexture and contains a few cystic areas. The right ovary measures approximately 4.6 x 3.54 x 4.13 cm in size. A dominant right ovarian cyst measures approximately 3.1 x 2.56 x 3.14 cm.. The left ovary measures approximately 3.96 x 2.36 x 2.51 cm in size. A dominant, sonographically simple left ovarian cyst measures approximately 1.82 x 1.35 x 1.43 cm.. Normal color spectral Doppler flow and spectral Doppler analysis is identified to both ovaries with documentation of normal arterial and venous waveforms. Color flow is normal. Procedure Note Ruba Rowe MD - 11/02/2021 Ultrasound Pelvis - Transabdominal/Transvaginal with Doppler Indication: Pelvic pain. Vaginal bleeding COMPARISON: February 10, 2020 Technique: Transabdominal and endovaginal images of the female pelvis were obtained with Doppler imaging of the ovaries. Spectral analysis was performed. Findings: On transabdominal images, the uterus measures approximately 16.85 x 6.77 x 7.74 cm in size. The uterus is heterogeneous in echotexture and lobulated in contour consistent with the presence of multiple myomas. A fundal myoma on the right measures approximately 3.94 x 3.85 x 2.94 cm.. There is no free fluid within the pelvis. A dominant, anechoic cyst can be seen at the right ovary on transabdominal images. A smaller dominant left ovarian cyst can be seen transabdominally. Endovaginal imaging was performed for more detailed evaluation of the ovaries and of the myometrium. On endovaginal imaging, fundal myoma measures approximately 4.31 x 3.13 x 3.79 cm.. The endometrium measures approximately 1.46 cm in thickness. It is heterogeneous in echotexture and contains a few cystic areas. The right ovary measures approximately 4.6 x 3.54 x 4.13 cm in size. A dominant right ovarian cyst measures approximately 3.1 x 2.56 x 3.14 cm.. The left ovary measures approximately 3.96 x 2.36 x 2.51 cm in size. A dominant, sonographically simple left ovarian cyst measures approximately 1.82 x 1.35 x 1.43 cm.. Normal color spectral Doppler flow and spectral Doppler analysis is identified to both ovaries with documentation of normal arterial and venous waveforms. Color flow is normal. IMPRESSION Endometrium is heterogeneous in echotexture and contains a few cystic areas. This may be secondary to presence of a polyp, cystic degeneration of submucosal myoma, or endometrial hypertrophy.. Dominant but sonographically simple ovarian cysts are present bilaterally. There is no evidence of torsion. *Reading Radiologist: Ruba Rowe on 11/02/2021 at 1:21 PM Cruz Diallo MD ORDERABLES * (ABNORMAL) CBC W/O DIFFERENTIAL (10/24/2021 8:03 AM CDT) WBC 7.8 4.4 - 10.7 x10E9/L [facility] ACCOUNT BILL RBC 3.94 3.80 - 5.20 x10E12/L [facility] ACCOUNT BILL Hemoglobin 11.5(L) 12.0 - 15.6 gm/dL [facility] ACCOUNT BILL Hematocrit 37.8 35.9 - 45.5 % [facility] ACCOUNT BILL MCV 95.9 80.7 - 98.3 fl [facility] ACCOUNT BILL MCH 29.2 26.7 - 34.0 pg [facility] ACCOUNT BILL MCHC 30.4(L) 30.8 - 35.9 gm/dL [facility] ACCOUNT BILL RDW 14.6 12.1 - 14.9 % [facility] ACCOUNT BILL Platelet Count 365 153 - 416 x10E9/L [facility] ACCOUNT BILL Comment: MPV FL BLOOD (SSM) ? 9.7 ?fl ? 9.4- 12.9 FASTING Blood BLOOD SPECIMEN / Unknown 10/24/2021 8:03 AM CDT 10/24/2021 Narrative Resulting Agency Comment Lab Testing performed at: [facility] [address] [facility] [address] ?? Katerina MCCANN [id number] Cruz Diallo MD LAB - HEMATOLOGY OR DERABLES [facility] ACCOUNT BILL [address] [place] [address] * (ABNORMAL) PAP IG LB+CT+NG+TV+HPV APTIMA RFLX [...] Performed by [facility] ACCOUNT BILL Comment:Lisha blank, Data Entry Specialist (ASCP) Comment . [facility] ACCOUNT BILL Note [...] Resulting Agency Comment Lab Testing performed at: [address] ??[place] CARLYLE [phone] Cruz Diallo MD LAB - PATHOLOGY/CYT OLOGY ORDERABLES [facility] ACCOUNT BILL [address] [place] [address] * HCG BETA BLOOD QUANTITATIVE (07/10/2020 1:15 PM PUSH BUTTON SWITCH ASSEMBLER) hCG Value <1 mIU/mL [facility] ACCOUNT BILL Comment: ?Female (Non-) ?0 - ? 5 ? (Postmenopausal) ??0 - ? 8 ? . ?Female () ?Weeks of Gestation ?3 ?6 - ?71 ?4 ? 10 - ?? 750 ?5 ?217 - ??7138 ?6 ?158 - 73884 ?7 ? 3697 -848326 ?8 ?54963 -702523 ?9 ?35492 -631357 ? 10 ?73622 -793201 ? 12 ?05988 -158627 ? 14 ?13341 - 05804 ? 15 ?86347 - 31672 ? 16 ? 7485 - 10594 ? 17 ? 8616 - 04205 ? 18 ? 9199 - 15106 Javed ECLIA methodology FASTING Blood BLOOD SPECIMEN / Unknown 07/10/2020 1:15 PM PUSH BUTTON SWITCH ASSEMBLER 07/10/2020 Narrative Resulting Agency Comment Lab Testing performed at: [facility] [address] [place] [address] Road ??[facility] [phone] Cruz Diallo MD LAB - CHEMISTRY ORD ERABLES [facility] ACCOUNT [place] [place] [address] * US PELVIS W TRANSVAG NON OB (02/10/2020 10:00 AM CDT) Anatomical Region Laterality Modality Pelvis Ultrasound 02/10/2020 11:0 1 AM CDT Impressions 02/10/2020 11:06 AM CDT Enlarged fibroid uterus. Small complex follicular cyst. *Reading Radiologist: Lulu Chauhan on 02/10/2020 at 11:06 AM Narrative 02/10/2020 11:06 AM CDT Ultrasound pelvis transabdominal and transvaginal INDICATION: Follow-up fibroids Grayscale ultrasound of the pelvis is performed transabdominally and transvaginally. Uterus is enlarged measuring 10.7 x 6.0 x 5.7 cm. Endometrial stripe is 1.1 cm. An anterior mid to fundal fibroid is seen measuring 3.0 x 3.0 x 2.9 cm. Both ovaries are seen. Small complex cyst with low-level internal echoes is seen on the right ovary measuring 2.1 cm. Right ovary itself measures 3.5 x 2.1 x 2.9 cm. Left ovary measures 2.8 x 1.4 x 1.2 cm. There is no significant free fluid. Procedure Note Lulu Chauhan MD - 02/10/2020 Ultrasound pelvis transabdominal and transvaginal INDICATION: Follow-up fibroids Grayscale ultrasound of the pelvis is performed transabdominally and transvaginally. Uterus is enlarged measuring 10.7 x 6.0 x 5.7 cm. Endometrial stripe is 1.1 cm. An anterior mid to fundal fibroid is seen measuring 3.0 x 3.0 x 2.9 cm. Both ovaries are seen. Small complex cyst with low-level internal echoes is seen on the right ovary measuring 2.1 cm. Right ovary itself measures 3.5 x 2.1 x 2.9 cm. Left ovary measures 2.8 x 1.4 x 1.2 cm. There is no significant free fluid. IMPRESSION Enlarged fibroid uterus. Small complex follicular cyst. *Reading Radiologist: Lulu Chauhan on 02/10/2020 at 11:06 AM Cruz Diallo MD ORDERABLES * URINALYSIS MICROSCOPIC ONLY REFLEXED (01/12/2020 12:31 PM CDT) WBC UA 0-5 0 - 5 /hpf [facility] ACCOUNT BILL RBC UA 0-2 0 - 2 /hpf [facility] ACCOUNT BILL Epithelial Cells (non renal) 0-10 0 - 10 /hpf [facility] ACCOUNT BILL Epithelial Cells (renal) NOT NEEDED [facility] ACCOUNT BILL Comment:Ancillary determined the test is not needed. Casts ua NOT NEEDED [facility] ACCOUNT BILL Comment:Ancillary determined the test is not needed. Casts UA NOT NEEDED [facility] ACCOUNT BILL Comment:Ancillary determined the test is not needed. Crystals UA NOT NEEDED [facility] ACCOUNT BILL Comment:Ancillary determined the test is not needed. Crystals UA NOT NEEDED [facility] ACCOUNT BILL Comment:Ancillary determined the test is not needed. Mucus UA Present Not Estab. [facility] ACCOUNT BILL Bacteria UA None seen None seen/Few [facility] ACCOUNT BILL Yeast UA NOT NEEDED [facility] ACCOUNT BILL Comment:Ancillary determined the test is not needed. Trichomonas UA NOT NEEDED [facility] ACCOUNT BILL Comment:Ancillary determined the test is not needed. Comment Urine NOT NEEDED [facility] ACCOUNT BILL Comment: FASTING Ancillary determined the test is not needed. 01/12/2020 12:3 1 PM CDT 01/12/2020 Narrative Resulting Agency Comment Lab Testing performed at: [facility] [address] [facility] ??[facility] [phone] Tabatha Sierra DO LAB - URINALYSIS ORD ERABLES [facility] ACCOUNT BILL [address] [place] [address] * URINALYSIS W/MICROSCOPIC NO CULTURE (01/12/2020 12:31 PM CDT) Specific [place] UA 1.022 1.005 - 1.030 [facility] ACCOUNT BILL pH UA 6.0 5.0 - 7.5 [facility] ACCOUNT BILL Color UA Yellow Yellow [facility] ACCOUNT BILL Appearance Clear Clear [facility] ACCOUNT BILL Leukocyte UA Negative Negative [facility] ACCOUNT BILL Protein UA Negative Negative/Tra ce [facility] ACCOUNT BILL Glucose UA Negative Negative [facility] ACCOUNT BILL Ketone UA Negative Negative [facility] ACCOUNT BILL Occult Blood Urine Negative Negative [facility] ACCOUNT BILL Bilirubin UA Negative Negative [facility] ACCOUNT BILL Urobilinogen 0.2 0.2 - 1.0 mg/dL [facility] ACCOUNT BILL Nitrite UA Negative Negative [facility] ACCOUNT BILL Microscopic Examination Urine [facility] ACCOUNT BILL Comment:Microscopic follows if indicated. Microscopic Examination Urine See below: [facility] ACCOUNT BILL Comment: Microscopic was indicated and was performed. FASTING Urine URINE SPECIMEN OBTAINED BY CLEAN CATCH PROCEDURE / Unknown 01/12/2020 12:31 PM CDT 01/12/2020 Narrative Resulting Agency Comment Lab Testing performed at: [facility] ??[facility] [phone] Tabatha Sierra DO LAB - URINALYSIS ORD ERABLES Performing Organization Address City/[facility]/[place] Co de Phone Number [facility] ACCOUNT BILL [address] [place] [address] * HIV-1 HIV-2 ANTIBODY + HIV P24 AG PANEL (01/12/2020 12:31 PM CDT) [facility] HIV Screen 4th Generation w Reflex Non Reactive Non Reactive [facility] ACCOUNT BILL Comment:FASTING Blood BLOOD SPECIMEN / Unknown 01/12/2020 12:31 PM CDT 01/12/2020 Narrative Resulting Agency Comment Lab Testing performed at: [facility] ??[facility] [phone] Tabatha Sierra DO LAB - CHEMISTRY ORDE RABLES Performing Organization Address [facility] de Phone Number [facility] ACCOUNT BILL [address] [place] [address] * (ABNORMAL) HEMOGLOBIN A1C (01/12/2020 12:31 PM CDT) [facility] Hemoglobin A1c 5.7(H) 4.8 - 5.6 % [facility] ACCOUNT BILL Comment: ? . ? Prediabetes: 5.7 - 6.4 ? Diabetes: >6.4 ? Glycemic control for adults with diabetes: <7.0 FASTING Blood BLOOD SPECIMEN / Unknown 01/12/2020 12:31 PM CDT 01/12/2020 Narrative Resulting Agency Comment Lab Testing performed at: [facility] [address] ??[facility] [phone] Tabatha Sierra DO LAB - CHEMISTRY DAKOTA WYATT [facility] ACCOUNT BILL [address] [place] [address] * VITAMIN D 25-HYDROXY (01/12/2020 12:31 PM CDT) Only the most recent of2 resultswithin the time period is included. Vitamin D, 25 Hydroxy 31.6 30.0 - 100.0 ng/mL [facility] ACCOUNT BILL Comment: Vitamin D deficiency has been defined by the [place] of Medicine and an Endocrine Society practice guideline as a level of serum 25-OH vitamin D less than 20 ng/mL (1,2). The Endocrine Society went on to further define vitamin D insufficiency as a level between 21 and 29 ng/mL (2). 1. IOM ([place] of Medicine). 2010. Dietary reference ?? intakes for calcium and D. [place]: The ?? National Academies Press. 2. Sully MF, Dinah NC, Miya STRONG, et al. ?? Evaluation, treatment, and prevention of vitamin D ?? deficiency: an Endocrine Society clinical practice ?? guideline. JCEM. 2010; 96(7):1911-30. FASTING Blood BLOOD SPECIMEN / Unknown 01/12/2020 12:31 PM CDT 01/12/2020 Narrative Resulting Agency Comment Lab Testing performed at: [facility] [address] ??[facility] [phone] Tabatha Sierra DO LAB - CHEMISTRY ORDE RABLES [facility] ACCOUNT BILL [address] [place] [address] * ERYTHROCYTE SEDIMENTATION RATE (01/12/2020 12:31 PM CDT) Erythrocyte Sedimentation Rate Westergren 12 0 - 32 mm/hr [facility] ACCOUNT BILL Comment:FASTING Blood BLOOD SPECIMEN / Unknown 01/12/2020 12:31 PM CDT 01/12/2020 Narrative Resulting Agency Comment Lab Testing performed at: [facility] [address] ??[facility] [phone] Tabatha Sierra DO LAB - HEMATOLOGY ORD ERABLES Performing Organization Address City/[facility]/ZIP Co de Phone Number [facility] ACCOUNT BILL [address] [place] [address] * MAGNESIUM BLOOD (01/12/2020 12:31 PM CDT) Magnesium 2.0 1.6 - 2.3 mg/dL [facility] ACCOUNT BILL Comment:FASTING Blood BLOOD SPECIMEN / Unknown 01/12/2020 12:31 PM CDT 01/12/2020 Narrative Resulting Agency Comment Lab Testing performed at: [facility] [address] ??[facility] [phone] Tabatha Sierra DO LAB - CHEMISTRY ORDE RABBUNNY [facility] ACCOUNT BILL [address] [place] [address] * VITAMIN B12 (01/12/2020 12:31 PM CDT) Vitamin B12 552 232 - 1,245 pg/mL [facility] ACCOUNT BILL Comment:FASTING Blood BLOOD SPECIMEN / Unknown 01/12/2020 12:31 PM CDT 01/12/2020 Narrative Resulting Agency Comment Lab Testing performed at: [facility] [address] ??[facility] [phone] Tabatha Sierra DO LAB - CHEMISTRY ORDE RABLES Performing Organization Address City/[facility] de Phone Number [facility] ACCOUNT BILL [address] [place] [address] * TSH (01/12/2020 12:31 PM CDT) TSH 0.864 0.450 - 4.500 uIU/mL [facility] ACCOUNT BILL Comment:FASTING Blood BLOOD SPECIMEN / Unknown 01/12/2020 12:31 PM CDT 01/12/2020 Narrative Resulting Agency Comment Lab Testing performed at: [facility] [address] ??[facility] [phone] Tabatha Sierra DO LAB - CHEMISTRY ORDE RABLES Performing Organization Address [facility] de Phone Number [facility] ACCOUNT BILL [address] [place] [address] * T4 TOTAL (01/12/2020 12:31 PM CDT) T4 Total 8.8 4.5 - 12.0 ug/dL [facility] ACCOUNT BILL Comment:FASTING Blood BLOOD SPECIMEN / Unknown 01/12/2020 12:31 PM CDT 01/12/2020 Narrative Resulting Agency Comment Lab Testing performed at: [facility] [address] ??[facility] [phone] Tabatha Sierra DO LAB - CHEMISTRY ORDE RABBUNNY Performing Organization Address City/[facility] de Phone Number [facility] ACCOUNT BILL [address] [place] [address] * HEPATITIS C ANTIBODY (01/12/2020 12:31 PM CDT) Hepatitis C Antibody <0.1 0.0 - 0.9 s/co ratio [facility] ACCOUNT BILL Comment: ? Negative: ? < 0.8 ?Indeterminate: 0.8 - 0.9 ? Positive: ? > 0.9 ? . ?The CDC recommends that a positive HCV antibody result ?be followed up with a HCV Nucleic Acid Amplification ?test (608102). FASTING Blood BLOOD SPECIMEN / Unknown 01/12/2020 12:31 PM CDT 01/12/2020 Narrative Resulting Agency Comment Lab Testing performed at: [facility] [address] [facility] ??[facility] [phone] Tabatha Sierra DO LAB - CHEMISTRY DAKOTA WYATT [facility] ACCOUNT BILL [address] [place] [address] * (ABNORMAL) LIPID PROFILE (01/12/2020 12:31 PM CDT) Only the most recent of2 resultswithin the time period is included. Cholesterol 227(H) 100 - 199 mg/dL [facility] ACCOUNT BILL Triglycerides 161(H) 0 - 149 mg/dL [facility] ACCOUNT BILL HDL Cholesterol 65 >39 mg/dL [facility] ACCOUNT BILL VLDL Calculated 32 5 - 40 mg/dL [facility] ACCOUNT BILL LDL Calculated 130(H) 0 - 99 mg/dL [facility] ACCOUNT BILL Comment NOT NEEDED [facility] ACCOUNT BILL Comment: FASTING Ancillary determined the test is not needed. Blood BLOOD SPECIMEN / Unknown 01/12/2020 12:31 PM CDT 01/12/2020 Narrative Resulting Agency Comment Lab Testing performed at: [facility] [address] ??[facility] [phone] Tabatha Sierra DO LAB - CHEMISTRY DAKOTA WYATT [facility] ACCOUNT BILL [address] [place] [address] * US EXTREM RIGHT COMPLETE (JOINT RELATED) (06/20/2019 7:40 AM PUSH BUTTON SWITCH ASSEMBLER) Anatomical Region Laterality Modality Ultrasound 06/20/2019 9:30 AM PUSH BUTTON SWITCH ASSEMBLER Narrative 06/20/2019 9:33 AM PUSH BUTTON SWITCH ASSEMBLER Right lower extremity ultrasound Indication for examination: Pain, soft tissue fullness right popliteal region. Ultrasound examination of the right lower extremity is performed with transverse and longitudinal images, with additional color Doppler evaluation, with attention to the right popliteal region as directed by the patient. Comparison is made with recent plain films. There is an approximately 5 cm diameter, lobulated complex cyst or cystic mass within the right popliteal region. This contains coarse irregular internal echogenic septation. This may represent a popliteal cyst. It presumably correlates with the clinical presentation. This does not appear to represent an arterial aneurysm or venous varix. No flow is identified within this at color Doppler evaluation. This appears separate from the popliteal artery and vein. No other soft tissue abnormality is identified in this area. CONCLUSION: 5 cm diameter cyst or cystic lesion right popliteal space as described. Reading Radiologist: Wing Chahal MD on 06/20/2019 at 9:33 AM Procedure Note Wing Chahal MD - 06/20/2019 Right lower extremity ultrasound Indication for examination: Pain, soft tissue fullness right popliteal region. Ultrasound examination of the right lower extremity is performed with transverse and longitudinal images, with additional color Doppler evaluation, with attention to the right popliteal region as directed by the patient. Comparison is made with recent plain films. There is an approximately 5 cm diameter, lobulated complex cyst or cystic mass within the right popliteal region. This contains coarse irregular internal echogenic septation. This may represent a popliteal cyst. It presumably correlates with the clinical presentation. This does not appear to represent an arterial aneurysm or venous varix. No flow is identified within this at color Doppler evaluation. This appears separate from the popliteal artery and vein. No other soft tissue abnormality is identified in this area. CONCLUSION: 5 cm diameter cyst or cystic lesion right popliteal space as described. Reading Radiologist: Wing Chahal MD on 06/20/2019 at 9:33 AM Mag Valdes MD US ORDERABLES * XR KNEE 3 VW RIGHT (06/13/2019 6:41 PM PUSH BUTTON SWITCH ASSEMBLER) Anatomical Region Laterality Modality Lower Extremity Radiographic Greta ging 06/13/2019 6:46 PM PUSH BUTTON SWITCH ASSEMBLER Impressions 06/13/2019 6:46 PM PUSH BUTTON SWITCH ASSEMBLER Negative for fracture at this time. ??Please see above. This report was transcribed with a computerized speech recognition system. ??In an effort to expedite patient care, it has not been adjusted for typographical, grammatical or syntax problems by a trained biomedical analytical scientist. For questions about the report, please contact the Radiology Department. Reading Radiologist: Caesar De Jesus MD on 06/13/2019 at 6:46 PM Narrative 06/13/2019 6:46 PM PUSH BUTTON SWITCH ASSEMBLER Examination: ??Right knee 3 views . Indication: ?? knee pain and a lump on the back of the knee ?? . Initial plain film of the specified type today. Findings: No fracture can be identified on the current plain films. If the patient's symptoms persist or worsen, consideration may be given to an alternative imaging modality such as a scheduled MRI or a bone scan to check for an occult process. Procedure Note Caesar De Jesus MD - 06/13/2019 Examination: Right knee 3 views . Indication: knee pain and a lump on the back of the knee . Initial plain film of the specified type today. Findings: No fracture can be identified on the current plain films. If the patient's symptoms persist or worsen, consideration may be given to an alternative imaging modality such as a scheduled MRI or a bone scan to check for an occult process. IMPRESSION Negative for fracture at this time. Please see above. This report was transcribed with a computerized speech recognition system. In an effort to expedite patient care, it has not been adjusted for typographical, grammatical or syntax problems by a trained biomedical analytical scientist. For questions about the report, please contact the Radiology Department. Reading Radiologist: Caesar De Jesus MD on 06/13/2019 at 6:46 PM Jessica Abraham MANAGER DOCUMENTATION-CERTIFIED HOME HEALTH AIDE DIAGNOSTIC IMAGING ORDERABLES * (ABNORMAL) PAP IG LB+HPV APTIMA (01/06/2019 4:21 PM CDT) Diagnosis (A) [facility] ACCOUNT BILL Comment: EPITHELIAL CELL ABNORMALITY. ATYPICAL SQUAMOUS CELLS OF UNDETERMINED SIGNIFICANCE (ASC-US). Specimen Adequacy [facility] ACCOUNT BILL Comment: Satisfactory for evaluation. ??Endocervical and/or squamous metaplastic cells (endocervical component) are present. Clinician Provided ICD10 [facility] ACCOUNT BILL Comment: Z01.419 N92.0 Performed by [facility] ACCOUNT BILL Comment:Murphy Mcgraw, Cytote chnologist (ASCP) Electronically Signed by [facility] ACCOUNT BILL Comment:Susan Perla MD, P athologist Comment . [facility] ACCOUNT BILL Pathologist Provided ICD10 [facility] ACCOUNT BILL Comment:R87.610 Note [facility] ACCOUNT BILL Comment: The Pap [...] Negative Negative [facility] ACCOUNT BILL Comment: This test detects fourteen high-risk HPV types (16/18/31/33/35/39/45/ 51/52/56/58/59/66/68) without differentiation. PART OF UTERINE CERVIX / Unknown 01/06/2019 4:21 PM CDT 01/06/2019 Narrative [facility] ACCOUNT BILL - 01/10/2019 11:06 PM CDT No. of containers..01 ThinPrep Vial Resulting Agency Comment Lab Testing performed at: [facility] ??[place] [phone] Kassy Bennett MD LAB - PATHOLOGY/CYT OLOGY ORDERABLES [facility] ACCOUNT BILL [address] [place] [address] * T4 FREE (01/06/2019 11:50 AM CDT) T4 Free Direct NOT NEEDED [facility] ACCOUNT BILL Comment: Test not performed Ancillary determined the test is not needed 01/06/2019 11:5 0 AM CDT 01/06/2019 Narrative Resulting Agency Comment Lab Testing performed at: [facility] [place] [address] [address] ?? [facility] [phone] Mag Valdes MD LAB - CHEMISTRY [place] [facility] Performing Organization Address City/[facility]/ZIP Co de Phone Number [facility] ACCOUNT BILL [address] [place] [address] * US PELVIS COMPLETE (04/15/2018 7:06 AM PUSH BUTTON SWITCH ASSEMBLER) Anatomical Region Laterality Modality Pelvis Ultrasound Narrative 04/15/2018 7:06 AM PUSH BUTTON SWITCH ASSEMBLER Jaqueline Livingston MD ? 04/14/2018 ??5:14 PM See digi Procedure Note Jaqueline Livingston MD - 04/14/2018 5:13 PM CST See digi Jaqueline Livingston MD US ORDERABLES * MRI HAND LEFT WWO CONTRAST (04/19/2015 12:21 PM PUSH BUTTON SWITCH ASSEMBLER) Anatomical Region Laterality Modality Other Impressions 04/19/2015 3:25 PM PUSH BUTTON SWITCH ASSEMBLER Impression: 1. No abnormality in the hand. 2. 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 Report dictated by Mile Aj M.D. (residential subcontractor). This report was approved ??by Mile Aj M.D. ?? on 04/19/2015 2:22 PM . I, Dr. FABRICIO STOUT MD have personally reviewed and interpreted this examination/study. This report was electronically signed by FABRICIO STOUT MD ??on 04/19/2015 3:25 PM . Narrative 04/19/2015 3:25 PM PUSH BUTTON SWITCH ASSEMBLER MRI of the left hand without and with contrast History: 34-year-old female with diffuse left hand numbness. Technique: ??MRI of the left hand was performed using multiple pulse sequences in multiple planes before and after the uneventful administration of 8 mL of Gadavist intravenous gadolinium contrast. Comparison: No prior study is available for comparison. Interpretation is made without radiographic correlation. Findings: The field of view includes the wrist and most of the hand, although the fingertips are not well seen. The tendons within the extensor compartments are normal in thickness and signal intensity. The flexor tendons are normal in thickness and signal intensity. ??The carpal tunnel contents appear normal. ?? The median nerve is normal in signal. Alignment of the carpal bones is normal. ??There is no joint effusion. The wrist is not well-evaluated on this wide uxnzs-rr-sjnj hand study. However, there is an apparent full-thickness perforation of the triangular fibrocartilage measuring 3 mm (series 12, image 12). Marrow signal intensity is normal. ??The visualized muscles and subcutaneous tissues are normal. No mass or fluid collection is identified. Procedure Note Fabricio Stout MD - 09/05/2017 MRI of the left hand without and with contrast History: 34-year-old female with diffuse left hand numbness. Technique: MRI of the left hand was performed using multiple pulsesequences in multiple planes before and after the uneventfuladministration of 8 mL of Gadavist intravenous gadolinium contrast. Comparison: No prior study is available for comparison. Interpretation ismade without radiographic correlation. Findings: The field of view includes the wrist and most of the hand, although thefingertips are not well seen. The tendons within the extensor compartments are normal in thickness andsignal intensity. The flexor tendons are normal in thickness and signal intensity. Thecarpal tunnel contents appear normal. The median nerve is normal insignal. Alignment of the carpal bones is normal. There is no joint effusion. The wrist is not well-evaluated on this wide ysnke-op-fuum hand study.However, there is an apparent full-thickness perforation of the triangularfibrocartilage measuring 3 mm (series 12, image 12). Marrow signal intensity is normal. The visualized muscles andsubcutaneous tissues are normal. No mass or fluid collection isidentified. IMPRESSION Impression: 1. No abnormality in the hand. 2. 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 Report dictated by Mile Aj M.D. (residential subcontractor). This report was approved by Mile Aj M.D. on 04/19/2015 2:22 PM . I, Dr. FABRICIO STOUT MD have personally reviewed and interpreted thisexamination/study. This report was electronically signed by FABRICIO STOUT MD on04/19/2015 3:25 PM . Luz Funk DO MR ORDERABLES * MRI CERVICAL SPINE WO CONTRAST (04/19/2015 12:05 PM PUSH BUTTON SWITCH ASSEMBLER) Anatomical Region Laterality Modality Pelvis Other Impressions 04/19/2015 12:42 PM PUSH BUTTON SWITCH ASSEMBLER IMPRESSION: 1. No definite MR findings to explain patient's symptoms. The small perineural cysts at C7-T1 are incidental findings. This report was electronically signed by IGOR MARTE M.D. ??on 04/19/2015 12:42 PM . Narrative 04/19/2015 12:42 PM PUSH BUTTON SWITCH ASSEMBLER EXAMINATION: ??Cervical spine MRI without contrast. HISTORY: ??ANESTHESIA OF SKIN TECHNIQUE: MRI imaging of the cervical spine was performed without intravenous contrast according to a standard protocol. COMPARISON: None available. FINDINGS: The alignment of the cervical spine is normal. The vertebral heights are normal. Bone marrow signal intensity is normal on all sequences. No fracture or dislocation is identified although CT is more sensitive for detecting fractures. The cervical spinal cord demonstrates normal caliber and signal intensity. The intervertebral disc space are normal. Prevertebral soft tissues normal in thickness. Incidental note is made of bilateral C7-T1 perineural cysts, measuring 4 mm on the right and 6 mm on the left. The visualized portions of the posterior fossa are normal. There is normal flow voids in the distal vertebral arteries. The upper airway is patent. No soft tissue abnormalities are identified. Incidental note is made of a partial empty sella. Procedure Note Igor Marte MD - 09/05/2017 EXAMINATION: Cervical spine MRI without contrast. HISTORY: ANESTHESIA OF SKIN TECHNIQUE: MRI imaging of the cervical spine was performed withoutintravenous contrast according to a standard protocol. COMPARISON: None available. FINDINGS: The alignment of the cervical spine is normal. The vertebral heights arenormal. Bone marrow signal intensity is normal on all sequences. Nofracture or dislocation is identified although CT is more sensitive fordetecting fractures. The cervical spinal cord demonstrates normal caliber and signal intensity. The intervertebraldisc space are normal. Prevertebral soft tissues normal in thickness. Incidental note is made of bilateral C7-T1 perineural cysts, measuring 4mm on the right and 6 mm on the left. The visualized portions of the posterior fossa are normal. There is normalflow voids in the distal vertebral arteries. The upper airway is patent.No soft tissue abnormalities are identified. Incidental note is made of a partial empty sella. IMPRESSION IMPRESSION: 1. No definite MR findings to explain patient's symptoms. The smallperineural cysts at C7-T1 are incidental findings. This report was electronically signed by IGOR MARTE M.D. on 04/19/201512:42 PM . Luz Funk DO MR ORDERABLES * CREATININE BLOOD - POCT (IP) [facility] (04/19/2015) Creatinine POCT 0.97 0.3 - 1.3 mg/dL [facility] eGFR POCT 60 60 ml/min [facility] 04/19/2015 Historical Provider LAB - POINT OF CA RE ORDERABLES [facility] * XR KNEE RIGHT 4VW OR MORE (06/21/2014 1:32 PM PUSH BUTTON SWITCH ASSEMBLER) Anatomical Region Laterality Modality Lower Extremity Other Impressions 06/21/2014 3:35 PM PUSH BUTTON SWITCH ASSEMBLER Impression: 1. Mild left knee medial compartment osteoarthritis. 2. Normal weightbearing radiographs of the right knee. Report dictated by Jake Fallon MD. This report was approved ??by Jake Fallon M.D. ?? on 06/21/2014 3:13 PM . IDr. TIM M.D. have personally reviewed and interpreted this examination/study. This report was electronically signed by TIM TURCIOS M.D. ??on 06/21/2014 3:35 PM . Narrative 06/21/2014 3:35 PM PUSH BUTTON SWITCH ASSEMBLER Exam: 1. Right knee, 4 views 2. Left knee, 4 views Comparison: ??None History: ??Knee pain Findings: Right: There is no fracture or dislocation. The joint spaces are preserved. There is no joint effusion or focal soft tissue swelling. Left: There is no acute fracture or dislocation. There is mild medial compartment osteoarthritis. There is no joint effusion or focal soft tissue swelling. Procedure Note Tim Turcios MD - 09/05/2017 Exam: 1. Right knee, 4 views 2. Left knee, 4 views Comparison: None History: Knee pain Findings: Right: There is no fracture or dislocation. The joint spaces arepreserved. There is no joint effusion or focal soft tissue swelling. Left: There is no acute fracture or dislocation. There is mild medialcompartment osteoarthritis. There is no joint effusion or focal softtissue swelling. IMPRESSION Impression: 1. Mild left knee medial compartment osteoarthritis. 2. Normal weightbearing radiographs of the right knee. Report dictated by Jake Fallon MD. This report was approved by Jake Fallon M.D. on 06/21/2014 3:13PM . Dr. TIM Oreilly M.D. have personally reviewed and interpreted thisexamination/study. This report was electronically signed by TIM TURCIOS M.D. on06/21/2014 3:35 PM . Cruz Uribe MD DIAGNOSTIC IMAGING O RDERABLES * XR KNEE LEFT 4VW OR MORE (06/21/2014 1:32 PM PUSH BUTTON SWITCH ASSEMBLER) Anatomical Region Laterality Modality Lower Extremity Other Impressions 06/21/2014 3:35 PM PUSH BUTTON SWITCH ASSEMBLER Impression: 1. Mild left knee medial compartment osteoarthritis. 2. Normal weightbearing radiographs of the right knee. Report dictated by Jake Fallon MD. This report was approved ??by Jake Fallon M.D. ?? on 06/21/2014 3:[address] TIM Oreilly M.D. have personally reviewed and interpreted this examination/study. This report was electronically signed by TIM TURCIOS M.D. ??on 06/21/2014 3:35 PM . Narrative 06/21/2014 3:35 PM PUSH BUTTON SWITCH ASSEMBLER Exam: 1. Right knee, 4 views 2. Left knee, 4 views Comparison: ??None History: ??Knee pain Findings: Right: There is no fracture or dislocation. The joint spaces are preserved. There is no joint effusion or focal soft tissue swelling. Left: There is no acute fracture or dislocation. There is mild medial compartment osteoarthritis. There is no joint effusion or focal soft tissue swelling. Procedure Note Tim Turcios MD - 09/05/2017 Exam: 1. Right knee, 4 views 2. Left knee, 4 views Comparison: None History: Knee pain Findings: Right: There is no fracture or dislocation. The joint spaces arepreserved. There is no joint effusion or focal soft tissue swelling. Left: There is no acute fracture or dislocation. There is mild medialcompartment osteoarthritis. There is no joint effusion or focal softtissue swelling. IMPRESSION Impression: 1. Mild left knee medial compartment osteoarthritis. 2. Normal weightbearing radiographs of the right knee. Report dictated by Jake Fallon MD. This report was approved by Jake Fallon M.D. on 06/21/2014 3:13PM . Dr. TIM Oreilly M.D. have personally reviewed and interpreted thisexamination/study. This report was electronically signed by TIM TURCIOS M.D. on06/21/2014 3:35 PM . Cruz Uribe MD DIAGNOSTIC IMAGING O RDERABLES * CARDIAC ECHOCARDIOGRAM COMPLETE ORDER (04/14/2010 4:39 PM PUSH BUTTON SWITCH ASSEMBLER) Narrative Procedure Note Document, Scanned - 04/14/2010 6:14 AM PUSH BUTTON SWITCH ASSEMBLER Scanned Document ECHO ORDERABLES * CARDIAC EKG ORDER (04/13/2010 10:14 AM CDT) Narrative Procedure Note Document, Scanned - 04/13/2010 7:39 AM CDT Scanned Document CARDIAC SERVICES ORD ERABLES * CT HEAD - NON CONTRAST (04/12/2010 1:09 PM CDT) Anatomical Region Laterality Modality Head Computed Tomogra phy 04/12/2010 1:14 PM CDT Impressions 04/12/2010 1:14 PM CDT Normal unenhanced CT brain. Narrative 04/12/2010 1:[address] Brain Noncontrast Indication: Intermittent dizziness Comparison: None Technique: 5 mm axial images were obtained from the foramen magnum to the vertex without administration of contrast. Findings: The ventricles and sulci are normal in size for patient's given age. There is no intracranial hemorrhage, mass, or mass-effect. No abnormal extra-axial fluid collections are seen. There is no cortical infarction. The visualized paranasal sinuses and mastoid air cells appear clear. Procedure Note Ruba Rowe MD - 04/12/2010 CT Brain Noncontrast Indication: Intermittent dizziness Comparison: None Technique: 5 mm axial images were obtained from the foramen magnum to the vertex without administration of contrast. Findings: The ventricles and sulci are normal in size for patient's given age. There is no intracranial hemorrhage, mass, or mass-effect. No abnormal extra-axial fluid collections are seen. There is no cortical infarction. The visualized paranasal sinuses and mastoid air cells appear clear. IMPRESSION Normal unenhanced CT brain. Davie Ryder MD CT ORDERABLES * URINALYSIS ROUTINE AUTO (04/12/2010 12:24 PM CDT) Only the most recent of2 resultswithin the time period is included. [facility] Signature Color UA YELLOW [facility] Character UA CLEAR [facility] Specific [place] UA 1.015 1.005 - 1.0300 [facility] pH UA 7.0 4.6 - 8.0 pH Units [facility] Leukocyte UA NEGATIVE Negative /ul [facility] Nitrite UA NEGATIVE Negative [facility] Protein UA NEGATIVE Negative mg/dl [facility] Glucose UA NEGATIVE Normal mg/dl [facility] Ketone UA NEGATIVE Negative mg/dl [facility] Urobilinogen UA 0.2 Normal Leann Units [facility] Bilirubin UA NEGATIVE Negative mg/dl [facility] Blood UA NEGATIVE Negative /ul [facility] WBC UA 0-2 <5 /HPF [facility] RBC UA 0-2 <5 /HPF [facility] Epithelial Cell UA 0-2 <5 /HPF [facility] Casts UA 0-2 <2 /LPF [facility] Bacteria UA NEGATIVE [facility] URINE SPECIMEN OBTAINED BY CLEAN CATCH PROCEDURE / Unknown 04/12/2010 12:24 PM CDT 04/12/2010 12:24 PM CDT Davie Ryder MD LAB - URINALYSIS ORD ERABLES [facility] [address] [place] [id number] * XR CHEST PA AND LATERAL (04/12/2010 12:05 PM CDT) Anatomical Region Laterality Modality Chest Radiographic Greta ging 04/12/2010 12:0 7 PM CDT Impressions 04/12/2010 12:07 PM CDT No acute disease in the chest. Narrative 04/12/2010 12:07 PM CDT PA AND LATERAL CHEST INDICATION: Dizziness FINDINGS: The lungs are clear. The mediastinal contour and heart size are within normal limits. The pulmonary vascularity is normal. The osseous structures are unremarkable. Procedure Note Lulu Chauhan MD - 04/12/2010 PA AND LATERAL CHEST INDICATION: Dizziness FINDINGS: The lungs are clear. The mediastinal contour and heart size are within normal limits. The pulmonary vascularity is normal. The osseous structures are unremarkable. IMPRESSION No acute disease in the chest. Davie Ryder MD DIAGNOSTIC IMAGING O RDERABLES * TROPONIN I (04/12/2010 12:03 PM CDT) Troponin I <0.10 SEE BELOW ng/ml [facility] Comment: Normal ? <0.10 [place] ??0.10-0.99 Positive ?? >=1.00 SERUM OR PLASMA SPECIMEN / Unknown 04/12/2010 12:03 PM CDT 04/12/2010 12:03 PM CDT Narrative [facility] - 04/12/2010 12:36 PM CDT Perform on patients greater than 35* Davie Ryder MD LAB - CHEMISTRY [place] Performing Organization Address [facility]/[place] Co de Phone Number [facility] [address] [place] [address] * MYOGLOBIN BLOOD (04/12/2010 12:03 PM CDT) Myoglobin 35.0 0.0 - 110.0 ng/ml [facility] SERUM OR PLASMA SPECIMEN / Unknown 04/12/2010 12:03 PM CDT 04/12/2010 12:03 PM CDT Narrative [facility] - 04/12/2010 12:36 PM CDT Perform on patients greater than 35* Davie Ryder MD LAB - CHEMISTRY [place] Performing Organization Address [facility]/[place] Co de Phone Number [facility] [address] [place] [address] * PTT (04/12/2010 12:02 PM CDT) PTT 29.5 24.0 - 32.0 seconds [facility] BLOOD SPECIMEN / Unknown 04/12/2010 12:02 PM CDT 04/12/2010 12:03 PM CDT Narrative [facility] - 04/12/2010 12:17 PM CDT Perform for patients taking warfari* Davie Ryder MD LAB - COAGULATION OR DERABLES Performing Organization Address [facility]/[place] Co de Phone Number [facility] [address] [place] [address] * PT-INR (04/12/2010 12:02 PM CDT) PT 10.6 9.4 - 11.2 seconds [facility] INR 1.0 SEE BELOW [facility] Comment: 0.9-1.1 Normal 2.0-3.0 Conventional 2.5-3.5 Intensive BLOOD SPECIMEN / Unknown 04/12/2010 12:02 PM CDT 04/12/2010 12:03 PM CDT Narrative [facility] - 04/12/2010 12:17 PM CDT Perform for patients taking warfari* Davie Ryder MD LAB - COAGULATION OR DERABLES Performing Organization Address City/[facility]/ZIP Co de Phone Number [facility] [address] [place] [address] * HCG URINE QUALITATIVE - POINT OF CARE (07/27/2009 1:04 PM PUSH BUTTON SWITCH ASSEMBLER) HCG Qual Urine negative Negative [facility] POCT TESTING QC Verified yes Yes [facility] POC T TESTING Urine specimen (specimen) URINE / Unknown Hamilton Lilly DO LAB - POINT OF CAR E ORDERABLES Performing Organization Address [facility]/[place] Co de Phone Number [facility] POCT TESTING [address] [place] [address] * LIPASE BLOOD (07/27/2009 12:30 PM PUSH BUTTON SWITCH ASSEMBLER) Lipase 123 23.0 - 300.0 U/L [facility] BLOOD SPECIMEN / Unknown 07/27/2009 12:30 PM PUSH BUTTON SWITCH ASSEMBLER 07/27/2009 12:38 PM PUSH BUTTON SWITCH ASSEMBLER Hamilton Lilly DO LAB - CHEMISTRY OR DERABLES Performing Organization Address [facility]/ZIP Co de Phone Number [facility] [address] [place] [address] * GROSS + MICRO EXAM (10/10/2000 12:00 AM CDT) Only the most recent of2 resultswithin the time period is included. Result CASE NUMBER [id number] Comment: ORDERING PHYSICIAN ??NICANOR VALENCIA SPECIMEN TYPE ?Placenta Surgeon ?NICANOR VALENCIA M.D. Gross Exam ? DR. MEL LOWE M.D. Gross Report ? INDICATION FOR PROCEDURE ??MECONIUM OPERATION ??VAGINAL DELIVERY SPECIMEN ??PLACENTA GROSS ?? THE SPECIMEN IS RECEIVED IN A CONTAINER LABELED WITH THE PATIENT'S NAME RANDI GEE AND IDENTIFIED PLACENTA . ??THE SPECIMEN CONSISTS OF ??A PLACENTA WITH CORD THAT WEIGHS 850 GRAMS. THE PLACENTA IS DISC-SHAPED AND MEASURES 19 X 19 X 1.7 CM. ??IN GREATEST DIMENSION. THE UMBILICAL CORD IS ECCENTRICALLY LOCATED AND MEASURES 20 CM. IN LENGTH AND HAS A UNFIRM DIAMETER OF 1.5 CM. ON CUT SECTIONS THREE VASCULAR CHANNELS ARE IDENTIFIED. THE SURFACE IS CRAVEN-BLUE AND HAS A NORMAL APPEARING BRANCHING VASCULAR ARCADE. THE MEMBRANES HAVE A SOMEWHAT YELLOW-[place] COLOR APPEAR GLISTENING AND SEMI-TRANSPARENT. THE MATERNAL SURFACE CONSISTS OF A COMPLETE AND INTACT POPULATION OF COTYLEDONS THAT ARE DEEP RED- PURPLE IN COLOR WITH NO FOCAL LESIONS, MASSES OR AREAS OF INFARCTION. DRY DRUG WORKER SECTIONS OF ALL TISSUE ARE SUBMITTED A-C. GM/KA MICROSCOPIC EXAM ? MICROSCOPIC MICROSCOPIC EXAMINATION REVEALS SECTIONS OF UMBILICAL CORD CONTAINING THREE VASCULAR CHANNELS WITH NO EVIDENCE OF FUNISITIS OR THROMBOSIS. THE CHORIONIC MEMBRANES ARE EDEMATOUS WITH SCATTERED NEUTROPHILS AND PIGMENTED MACROPHAGES. ??THE CHORIONIC VILLI ARE SMALL MATURE WELL VASCULARIZED WITH SYNCYTIAL KNOTS NOTED. ?? DIAGNOSIS ? DIAGNOSIS MATURE PLACENTA -- ?? PLACENTAL HYPOTROPHY, 850 GRAMS - ?THREE VESSEL UMBILICAL CORD WITH NO PATHOLOGIC CHANGES -- ?? ACUTE CHORIOAMNIONITIS, MILD WITH MECONIUM GM/DC [id number] Released By ?MEL LOWE MISCELLANEOUS SAMPLE S / Unknown 10/10/2000 10/12/2000 9:01 AM CDT Historical Provider LAB - PATHOLOGY/C YTOLOGY ORDERABLES * CYTOLOGY SMEAR PAP THIN PREP (11/16/1998 2:52 PM CDT) Result CASE NUMBER [id number] Comment: ORDERING PHYSICIAN ??NICANOR VALENCIA SPECIMEN TYPE ?PAP Smear Date ? 11/19/1998 Procedure ?Cervical/Endocervical, 1 Vial for Thin Prep Received Specimen Adequacy ?Satisfactory for Evaluation but Limited No endocervical component in a non-atrophic cervical smear. Categorization ? Benign Cellular Changes Comment ?Fungal Organisms Morphologically Consistent with Mariaelena spp. Inflammation Present. Snomed. ?11/22/1998 1059 <2> Data Entry Specialist ? Verenice Ceballos (ASCP) Pathologist. ? Caesar Chacko M.D. PAP Footnote ? The PAP smear is only a screening procedure to aid in the detection of cervical cancer and its precursors. ??It is not a diagnostic procedure and should not be used as the sole means to detect cervical cancer. ??Both false negative and false positive results have been experienced. MISCELLANEOUS SAMPLES / Unknown 11/16/1998 2:52 PM CDT 11/19/1998 2:52 PM CDT Historical Provider LAB - PATHOLOGY/C YTOLOGY ORDERABLES Care Teams Assemblyman Or Woman Relationship Specialty Start Date End Date Tabatha Sierra DO [address] [place] [id number] PCP - General 05/12/22
--- OUTSIDE RECORDS SUMMARY | 2024-05-25 00:55 | XMS_ITS | Encounter Summary ---
Author Organization [facility] Address [address] [place] [address] Care Team Providers Care Chain Mortiser Operator Name Role Phone Cookie Subramanian MD Primary Care Provider [phone] Reason for Visit * Reason Onset Date Comments Update 04/15/2022 Encounter Details Date Type Department Care Team (Late st Contact Info) Description 04/15/2022 Telephone [facility] - [facility] ATTENDANT [address] [facility] [address] [place] [id number] [place] [address] [address] Update Social History Tobacco Use Types Packs/Day Years [...] on file Sexual Orientation Not on file documented as of this encounter Functional Status Functional Status Response Date of [...] person have difficulty concentrating/remembering/making decisions? No 01/10/2022 documented as of this encounter Miscellaneous Notes * Telephone Encounter - Dee Owens RN - 04/15/2022 4:02 PM CST Pt notified that she can stop the Provera. Refill sent to pharmacy for Ibuprofen. 3RD MATE * Telephone Encounter - Cruz Diallo MD - 04/15/2022 3:43 PM 3RD MATE Ibuprofen sent, can stop provera 3RD MATE * Telephone Encounter - Dee Owens RN - 04/15/2022 1:05 PM CST Pt called stating she started the Provera 10 mg on 04/08/2022. She had been spotting prior. She starting having a regular flow today with some cramping 11/15. Suggested taking Motrin prn. She states she passed a pea size clot yesterday. Pt is asking if she can get a refill on the Motrin? Verified pharmacy. Pt is also wanting to know if she should finish taking the Provera? 3RD MATE documented in this encounter Plan of Treatment Not on file documented as of this encounter Visit Diagnoses Not on filedocumented in this encounter Care Teams Chain Mortiser Operator Relationship Specialty Start Date End Date Cookie Subramanian MD [address] [address] PCP - General Internal Medicine 01/07/22 05/11/22 documented as of this encounter
--- OUTSIDE RECORDS SUMMARY | 2024-05-25 00:55 | XMS_ITS | Encounter Summary ---
Author Organization [facility] Address [address] [facility] [place] [address] Care Team Providers Care Business Intelligence Engineer Name Role Phone Mag Valdes MD Unavailable Tabatha Sierra DO Primary Care Provider Reason for Visit * Reason Comments Establish Care new pt here today to establish care Medication Check pharmacy has been ve rified with pt Encounter Details Date Type Department Care Team (Late st Contact Info) Description 01/12/2020 11:30 AM CDT Office Visit [facility] - Family Medicine [address] [place] [address] Tabatha Seirra DO [address] [place] [address] Physical exam, annual (Primary Dx); Fibroid; Abnormal cervical Papanicolaou smear, unspecified abnormal pap finding; Encounter for screening for HIV; Need for hepatitis C screening test Social History Tobacco Use Types Packs/Day Years Used Date Smoking Tobacco: Never Smokeless Tobacco: Never Alcohol Use Standard Drinks/Week Comments No 0 (1 standard drink = 0.6 oz [...] Exposure Response Date Recorded In the last month, have you been in contact with someone who was confirmed or suspected to have Coronavirus / COVID-19? No / Unsure 12/19/2019 11:51 AM CDT documented as of this encounter Last Filed Vital Signs Vital Sign Reading Time Taken Comments Blood Pressure 104/70 01/12/2020 11:39 AM CDT Pulse 83 01/12/2020 11:39 AM CDT Temperature 36.2 ??C (97.2 ??F) 01/12/2020 11:39 AM C DT Respiratory Rate - - Oxygen Saturation 98% 01/12/2020 11:39 AM CDT Inhaled Oxygen Concentration - - Weight 93 kg (205 lb) 01/12/2020 11:39 AM CDT Height 167 cm (5' 5.75 ) 01/12/2020 11:39 AM CDT Body Mass Index 33.34 01/12/2020 11:39 AM CDT documented in this encounter Progress Notes * Tabatha Sierra, - 01/12/2020 11:50 AM CDT Images from the original note were not included. SUBJECTIVE: Octavia Schmid is a 39 year old female with Chief Complaint Patient presents with ??? Establish Care new pt here today to establish care ??? Medication Check pharmacy has been verified with pt HPI: NEW PATIENT She had abn pap last year and she knows she probably needs a repeat pap 01/2019 : Comment: EPITHELIAL CELL ABNORMALITY. ATYPICAL SQUAMOUS CELLS OF UNDETERMINED SIGNIFICANCE (ASC-US). Asked her to please follow up with Hazardous Waste Material Technician - this was discussed and she was provided with a referral / states she knows she was told she has a fibroid on the back of the uterus Knee pain - right and was told by orthopedics and she needs a replacement - using a neoprene knee sleeve which helps ; states her grandmother had knee replacements at a young age Reviewed labs, health maintenance Review of Systems: General: Denies fever, eating and drinking well. Eyes: No tearing or discharge reported. ENT: Denies runny nose or ear pain. Cardiac: No chest pain or pressure no palpitations Pulmonary: Denies any cough, SOB, or difficulty breathing. Gastro: Denies nausea, vomiting, diarrhea or abdominal pain. : Reports normal urine output with no c/o pain or discomfort. Skin: Denies itching, rashes or other lesions. MS: See hpi Patient Active Problem List Diagnosis Date Noted ??? Mae's cyst, unruptured, right 06/28/2019 Priority: Not Prioritized ??? Pain in right knee 06/21/2014 ??? Pain in left knee 06/21/2014 ??? Dizziness and giddiness 04/12/2010 Past Medical History: Diagnosis Date ??? Anemia ??? Arthritis of knee ??? Fibroid 2 cm on US ??? Vitamin D deficiency Past Surgical History: Procedure Laterality Date ??? Bilateral Tubal Ligation (BTL) 2004 [place] ??? Cholecystectomy, Laparoscopic 2003 ??? Hernia Repair with mesh Social History Socioeconomic History ??? Marital status: Single Spouse name: Not on file ??? Number of children: Not on file ??? Years of education: Not on file ??? Highest education level: Not on file Occupational History ??? 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 Financial resource strain: Not on file ??? Food insecurity Worry: Not on file Inability: Not on file ??? Transportation needs Medical: Not on file Non-medical: Not on file Tobacco Use ??? Smoking status: Never Smoker ??? Smokeless tobacco: Never Used Substance and Sexual Activity ??? Alcohol use: No Frequency: Never Drinks per session: 1 or 2 Binge frequency: Never Comment: wine rare ??? Drug use: No ??? Sexual activity: Yes Partners: Male control/protection: Tubal ligation Lifestyle ??? Physical activity Days per week: Not on file Minutes per session: Not on file ??? Stress: Not on file Relationships ??? Social connections Talks on phone: Not on file Gets together: Not on file Attends anglican service: Not on file Active member of club or organization: Not on file Attends meetings of clubs or organizations: Not on file Relationship status: Not on file ??? Intimate partner violence Fear of current or ex partner: Not on file Emotionally abused: Not on file Physically abused: Not on file Forced sexual activity: Not on file Other Topics Concern ??? Not on file Social History Narrative ??? Not on file Family History Problem Relation Name Age of Onset ??? Hypertension Mother ??? Other Mother CHF / born with enlarged heart ??? Glaucoma Father ??? Multiple Sclerosis Sister ??? Diabetes - Type 2 Brother ??? Arthritis - Osteo Maternal Grandmother ??? Other - Cardiac Maternal Grandmother ??? Other - Cardiac Maternal Aunt age 48 Current Outpatient Medications on File Prior to Visit Medication Sig Dispense Refill ??? ascorbic acid (VITAMIN C) 500 MG tablet Take 500 mg by mouth once daily ??? BIOTIN 5000 PO ??? ferrous sulfate 325 (65 FE) MG tablet Take 325 mg by mouth as needed (takes during menstrual cycle) ??? vitamin D3 (CHOLECACIFEROL) 5000 units Take 5,000 Units by mouth once daily No current facility-administered medications on file prior to visit. No Known Allergies OBJECTIVE: Wt Readings from Last 3 Encounters: 01/12/20 93 kg (205 lb) 06/13/19 86.2 kg (190 lb) 01/06/19 94.2 kg (207 lb 9.6 oz) Ht Readings from Last 3 Encounters: 01/12/20 1.67 m (5' 5.75 ) 06/13/19 1.676 m (5' 6 ) 01/06/19 1.702 m (5' 7 ) Body mass index is 33.34 kg/m??. Temp Readings from Last 3 Encounters: 01/12/20 97.2 ??F (36.2 ??C) (Temporal) 06/13/19 98.5 ??F (36.9 ??C) 04/22/17 98.4 ??F (36.9 ??C) BP Readings from Last 3 Encounters: 01/12/20 104/70 06/13/19 103/59 01/06/19 104/69 Pulse Readings from Last 3 Encounters: 01/12/20 83 06/13/19 83 01/06/19 76 @LASTSAO2(3)@ Estimated Creatinine Clearance: 111.8 mL/min (based on SCr of 0.78 mg/dL). Recent Labs Component Name 01/12/20 1231 01/06/19 1150 04/22/17 2345 04/12/10 1202 WBC 9.3 7.8 7.6 7.2 RBC 4.64 4.65 4.02 4.70 HGB 13.3 13.2 11.3* 13.5 HCT 41.8 43.1 35.6* 41.6 MCV 90 92.7 88.6 88.5 MCHC 31.8 30.6* 31.7 32.5 RDW 14.5 14.0 - 13.3 RDWCV - - 13.9 - PLTCOUNT 296 318 310 261 NEUTPCT - - 47.3 - LYMPHPCT - - 41.5 30.8 MONOCYTPCT 7 6.9 - 7.8 EOSINPCT 1 2.2 - 2.4 BASOPHILPCT - - 0.5 0.6 GRANSIMMPCT - - 0.3 - LYMPHABS 3.4* 2.97 3.15 2.20 MONOCYTABS 0.6 0.54 - 0.56 EOSINABS - - - 0.17 BASOABS 0.1 0.04 0.04 0.04 IMMGRANSABS 0.0 0.02 - - NRBCAUTO - - 0 - Recent Labs Component Name 01/12/20 1231 01/06/19 1150 04/12/10 1202 SODIUM 139 138 139 POTASSIUM 4.0 4.7 3.9 CHLORIDE 102 102 101 CO2 24 25 28 BUN 9 11 9 CREATININE 0.78 0.72 0.8 GLUCOSE 89 75 79 CALCIUM 9.9 9.7 10.4* ALBUMIN 4.5 4.4 5.2* ALKPHOS 48 60 69 ALT 14 13 23 AST 17 15 28 TBIL 0.3 0.3 0.4 TPROT 7.7 7.6 9.0* EGFR 97 >60 103.34 Recent Labs Component Name 01/12/20 1231 01/06/19 1150 CHOL 227* 198 TRIG 161* 230* HDL 65 56 LDLCALC 130* 96 Recent Labs Component Name 01/12/20 1231 HGBA1C 5.7* Recent Labs Component Name 01/12/20 1231 01/06/19 1150 TSH 0.864 0.8023 Depression: PHQ-2:TOTAL POINT SCORE: 0 PHQ-9: Physical Exam: General: Well developed, well nourished, active, and playful. Head: Atraumatic and normocephalic. Eyes: PERRLA. EOMI. Conjunctiva clear with no discharge, erythema, or swelling to eyes. Ears: Bilateral tympanic membranes and ear canals clear without fluid or infection. Neck: Neck is supple with no significant adenopathy, no carotid bruits. Heart: Regular rate, rhythm without murmur, clicks, rubs or gallops. Symmetric distal pulses present. Chest/Lungs: Chest without deformity. Lungs clear to auscultation bilaterally. No abnormal respiratory effort, no tachypnea, retractions, or cyanosis. Abd: Abdomen soft, nontender, not distended. Bowel sounds positive. No HSM. No hernias found on exam. Extremities: Good muscle tone, distal pulses 2+/4, no edema / right knee arthritic changes on exam Neurologic: No tremor, good eye contact, normal gait, normal mood judgement Skin: Normal to inspection. Warm, dry, supple. ASSESSMENT/PLAN: Physical exam, annual - Plan: CBC WITH DIFFERENTIAL, COMPREHENSIVE METABOLIC PANEL, ERYTHROCYTE SEDIMENTATION RATE, HEMOGLOBIN A1C, VITAMIN D 25-HYDROXY, VITAMIN B12, URINALYSIS W/MICROSCOPIC NO CULTURE, TSH, T4 TOTAL, LIPID PROFILE, MAGNESIUM BLOOD, URINALYSIS MICROSCOPIC ONLY REFLEXED Fibroid - Plan: AMB REFERRAL TO OB-PLANT PATHOLOGY TEACHER Abnormal cervical Papanicolaou smear, unspecified abnormal pap finding - Plan: AMB REFERRAL TO OB-PLANT PATHOLOGY TEACHER Encounter for screening for HIV - Plan: HIV-1 HIV-2 ANTIBODY + HIV P24 AG PANEL Need for hepatitis C screening test - Plan: HEPATITIS C ANTIBODY Return in about 1 year (around 01/11/2021). Medications Discontinued During This Encounter Medication Reason ??? ibuprofen (MOTRIN) 600 MG tablet Exclude AVS Current Outpatient Medications Medication Sig Dispense Refill ??? ascorbic acid (VITAMIN C) 500 MG tablet Take 500 mg by mouth once daily ??? BIOTIN 5000 PO ??? ferrous sulfate 325 (65 FE) MG tablet Take 325 mg by mouth as needed (takes during menstrual cycle) ??? vitamin D3 (CHOLECACIFEROL) 5000 units Take 5,000 Units by mouth once daily No current facility-administered medications for this visit. Goals None documented in this encounter Plan of Treatment Not on file documented as of this encounter Procedures Procedure Name Priority Date/Time Associated Diagnosis Comments URINALYSIS MICROSCOPIC ONLY REFLEXED Routine 01/12/2020 12:31 PM CDT Physical exam, annual URINALYSIS W/MICROSCOPIC NO CULTURE Routine 01/12/2020 12:31 PM CDT Physical exam, annual HIV-1 HIV-2 ANTIBODY + HIV P24 AG PANEL Routine 01/12/2020 12:31 PM CDT Encounter for screening for HIV HEMOGLOBIN A1C Routine 01/12/2020 12:31 PM CDT Physical exam, annual VITAMIN D 25-HYDROXY Routine 01/12/2020 12:31 PM CDT Physical exam, annual ERYTHROCYTE SEDIMENTATION RATE Routine 01/12/2020 12:31 PM CDT Physical exam, annual CBC W AUTO DIFFERENTIAL Routine 01/12/2020 12:31 PM CDT Physical exam, annual COMPREHENSIVE METABOLIC PANEL Routine 01/12/2020 12:31 PM CDT Physical exam, annual MAGNESIUM BLOOD Routine 01/12/2020 12:31 PM CDT Physical exam, annual VITAMIN B12 Routine 01/12/2020 12:31 PM CDT Physical exam, annual TSH Routine 01/12/2020 12:31 PM CDT Physical exam, annual T4 TOTAL Routine 01/12/2020 12:31 PM CDT Physical exam, annual HEPATITIS C ANTIBODY Routine 01/12/2020 12:31 PM CDT Need for hepatitis C screening test LIPID PROFILE Routine 01/12/2020 12:31 PM CDT Physical exam, annual documented in this encounter Results * URINALYSIS MICROSCOPIC ONLY REFLEXED (01/12/2020 12:31 [...] Agency Comment Lab Testing performed at: [facility] [address] ??[facility] [phone] Tabatha Sierra DO LAB - URINALYSIS ORD ERABLES Performing Organization Address City/[facility]/ZIP Co de Phone Number [facility] ACCOUNT BILL [address] [place] [address] * HIV-1 HIV-2 ANTIBODY + HIV P24 AG PANEL (01/12/2020 12:31 PM CDT) HIV Screen 4th Generation w Reflex Non Reactive Non Reactive [facility] ACCOUNT BILL Comment:FASTING Blood BLOOD SPECIMEN / Unknown 01/12/2020 12:31 PM CDT 01/12/2020 Narrative Resulting Agency Comment Lab Testing performed at: [facility] [address] ??[facility] [phone] Tabatha Sierra DO LAB - CHEMISTRY ORDE RABLES Performing Organization Address City/[facility]/ZIP Co de Phone Number [facility] ACCOUNT BILL [address] [place] [address] * HEPATITIS C ANTIBODY (01/12/2020 12:31 PM CDT) Hepatitis C Antibody <0.1 0.0 - 0.9 s/co ratio [facility] ACCOUNT BILL Comment: ? Negative: ? < 0.8 ?Indeterminate: 0.8 - 0.9 ? Positive: ? > 0.9 ? . ?The CDC recommends that a positive HCV antibody result ?be followed up with a HCV Nucleic Acid Amplification ?test (033256). FASTING Blood BLOOD SPECIMEN / Unknown 01/12/2020 12:31 PM CDT 01/12/2020 Narrative Resulting Agency Comment Lab Testing performed at: [facility] [address] ??[facility] [phone] Tabatha Sierra DO LAB - CHEMISTRY DAKOTA WYATT [facility] ACCOUNT BILL [address] [place] [address] * MAGNESIUM BLOOD (01/12/2020 12:31 PM CDT) Magnesium 2.0 1.6 - 2.3 mg/dL [facility] ACCOUNT BILL Comment:FASTING Blood BLOOD SPECIMEN / Unknown 01/12/2020 12:31 PM CDT 01/12/2020 Narrative Resulting Agency Comment Lab Testing performed at: [facility] ??[facility] [phone] Tabatha Sierra DO LAB - CHEMISTRY ORDE RABBUNNY [facility] ACCOUNT BILL [address] [place] [address] * (ABNORMAL) LIPID PROFILE (01/12/2020 12:31 PM CDT) Pathologist [facility] Cholesterol 227(H) 100 - 199 mg/dL [facility] [...] Resulting Agency Comment Lab Testing performed at: [facility] ??[facility] [phone] Tabatha Sierra DO LAB - CHEMISTRY ORDBrenden WYATT Performing Organization Address City/[facility]/ZIP Co de Phone Number [facility] ACCOUNT BILL [address] [place] [address] * T4 TOTAL (01/12/2020 12:31 PM CDT) [facility] T4 Total 8.8 4.5 - 12.0 ug/dL [facility] ACCOUNT BILL Comment:FASTING Blood BLOOD SPECIMEN / Unknown 01/12/2020 12:31 PM CDT 01/12/2020 Narrative Resulting Agency Comment Lab Testing performed at: [facility] [place] [address] ??[facility] [phone] Tabatha Sierra DO LAB - CHEMISTRY DAKOTA WYATT Performing Organization Address City/[facility]/ZIP Co de Phone Number [facility] ACCOUNT BILL [address] [place] [address] * TSH (01/12/2020 12:31 PM CDT) TSH 0.864 0.450 - 4.500 uIU/mL [facility] ACCOUNT BILL Comment:FASTING Blood BLOOD SPECIMEN / Unknown 01/12/2020 12:31 PM CDT 01/12/2020 Narrative Resulting Agency Comment Lab Testing performed at: [facility] ??[facility] [phone] Tabatha Sierra DO LAB - CHEMISTRY DAKOTA WYATT Performing Organization Address [facility] Co de Phone Number [facility] ACCOUNT BILL [address] [place] [address] * URINALYSIS W/MICROSCOPIC NO CULTURE (01/12/2020 12:31 PM CDT) Pathologist [facility] [place] UA 1.022 1.005 - 1.030 [facility] ACCOUNT [...] Lab Testing performed at: [facility] [address] ??[place] [phone] Tabatha Sierra DO LAB - URINALYSIS ORD ERABLES [facility] ACCOUNT BILL [address] [place] [address] * VITAMIN B12 (01/12/2020 12:31 PM CDT) Vitamin B12 552 232 - 1,245 pg/mL [facility] ACCOUNT BILL Comment:FASTING Blood BLOOD SPECIMEN / Unknown 01/12/2020 12:31 PM CDT 01/12/2020 Narrative Resulting Agency Comment Lab Testing performed at: [facility] [address] ??[place] [phone] Tabatha Sierra DO LAB - CHEMISTRY ORDE RABLES Performing Organization Address [facility] Co de Phone Number [facility] ACCOUNT BILL [address] [place] [address] * VITAMIN D 25-HYDROXY (01/12/2020 12:31 PM CDT) Vitamin D, 25 Hydroxy 31.6 30.0 - 100.0 ng/mL [facility] ACCOUNT BILL Comment: Vitamin D deficiency has been defined by the [place] of Medicine and an Endocrine Society practice guideline as a level of serum 25-OH vitamin D less than 20 ng/mL (1,2). The Endocrine Society went on to further define vitamin D insufficiency as a level between 21 and 29 ng/mL (2). 1. IOM ([employer] of Medicine). 2010. Dietary reference ?? intakes [...] Agency Comment Lab Testing performed at: [facility] [place] [address] ??[facility] [phone] Tabatha Sierra DO LAB - CHEMISTRY ORDE RABBUNNY Performing Organization Address [facility] de Phone Number [facility] ACCOUNT BILL [address] [place] [address] * (ABNORMAL) HEMOGLOBIN A1C (01/12/2020 12:31 PM CDT) Hemoglobin A1c 5.7(H) 4.8 - 5.6 % [facility] ACCOUNT BILL Comment: ? . ? Prediabetes: 5.7 - 6.4 ? Diabetes: >6.4 ? Glycemic control for adults with diabetes: <7.0 FASTING Blood BLOOD SPECIMEN / Unknown 01/12/2020 12:31 PM CDT 01/12/2020 Narrative Resulting Agency Comment Lab Testing performed at: [facility] [place] [address] ??[facility] [phone] Tabatha Sierra DO LAB - CHEMISTRY ORDE RABLES Performing Organization Address [facility] de Phone Number [facility] ACCOUNT BILL [address] [place] [address] * ERYTHROCYTE SEDIMENTATION RATE (01/12/2020 12:31 PM CDT) Erythrocyte Sedimentation Rate Westergren 12 0 - 32 mm/hr [facility] ACCOUNT BILL Comment:FASTING Blood BLOOD SPECIMEN / Unknown 01/12/2020 12:31 PM CDT 01/12/2020 Narrative Resulting Agency Comment Lab Testing performed at: [facility] [place] [address] ??[facility] [phone] Tabatha Sierra DO LAB - HEMATOLOGY ORD ERABLES [facility] ACCOUNT BILL [address] [place] [address] * COMPREHENSIVE METABOLIC PANEL (01/12/2020 12:31 PM CDT) Glucose 89 65 - 99 mg/dL [facility] ACCOUNT BILL BUN 9 6 - 20 mg/dL [facility] ACCOUNT BILL Creatinine 0.78 0.57 - 1.00 mg/dL [facility] ACCOUNT BILL eGFR by MDRD 97 >59 mL/min/1.7 3 [facility] ACCOUNT BILL eGFR by MDRD 112 >59 mL/min/1.7 3 [facility] ACCOUNT BILL BUN/Creatinine Ratio 12 9 - 23 [facility] ACCOUNT BILL Sodium 139 134 - 144 mmol/L [facility] ACCOUNT BILL Potassium 4.0 3.5 - 5.2 mmol/L [facility] ACCOUNT BILL Chloride 102 96 - 106 mmol/L [facility] ACCOUNT BILL CO2 24 20 - 29 mmol/L [facility] ACCOUNT BILL Calcium 9.9 8.7 - 10.2 mg/dL [facility] ACCOUNT BILL Protein Total 7.7 6.0 - 8.5 g/dL [facility] ACCOUNT BILL Albumin 4.5 3.8 - 4.8 g/dL [facility] ACCOUNT BILL Globulin Total 3.2 1.5 - 4.5 g/dL [facility] ACCOUNT BILL Albumin/Globulin Ratio 1.4 1.2 - 2.2 [facility] ACCOUNT BILL Bilirubin Total 0.3 0.0 - 1.2 mg/dL [facility] ACCOUNT BILL Alkaline Phosphatase 48 39 - 117 IU/L [facility] ACCOUNT BILL AST 17 0 - 40 IU/L [facility] ACCOUNT BILL ALT 14 0 - 32 IU/L [facility] ACCOUNT BILL Comment:FASTING Blood BLOOD SPECIMEN / Unknown 01/12/2020 12:31 PM CDT 01/12/2020 Narrative Resulting Agency Comment Lab Testing performed at: [facility] ??[facility] [phone] Tabatha Sierra DO LAB - CHEMISTRY DAKOTA WYATT [facility] ACCOUNT BILL [address] [place] [address] * (ABNORMAL) CBC WITH DIFFERENTIAL (01/12/2020 12:31 PM CDT) WBC 9.3 3.4 - 10.8 x10E3/uL [facility] ACCOUNT BILL RBC 4.64 3.77 - 5.28 x10E6/uL [facility] ACCOUNT BILL Hemoglobin 13.3 11.1 - 15.9 g/dL [facility] ACCOUNT BILL Hematocrit 41.8 34.0 - 46.6 % [facility] ACCOUNT BILL MCV 90 79 - 97 fL [facility] ACCOUNT BILL MCH 28.7 26.6 - 33.0 pg [facility] ACCOUNT BILL MCHC 31.8 31.5 - 35.7 g/dL [facility] ACCOUNT BILL RDW 14.5 11.7 - 15.4 % [facility] ACCOUNT BILL Platelet Count 296 150 - 450 x10E3/uL [facility] ACCOUNT BILL Granulocytes % 54 Not Estab. % [facility] ACCOUNT BILL Lymphocytes % 37 Not Estab. % [facility] ACCOUNT BILL Monocytes % 7 Not Estab. % [facility] ACCOUNT BILL Eosinophils % 1 Not Estab. % [facility] ACCOUNT BILL Basophils % 1 Not Estab. % [facility] ACCOUNT BILL Immature Cells NOT NEEDED [facility] ACCOUNT BILL Comment:Ancillary determined the test is not needed. Granulocytes Absolute 5.1 1.4 - 7.0 x10E3/uL [facility] ACCOUNT BILL Lymphocytes Absolute 3.4(H) 0.7 - 3.1 x10E3/uL [facility] ACCOUNT BILL Monocytes Absolute 0.6 0.1 - 0.9 x10E3/uL [facility] ACCOUNT BILL Eosinophils Absolute 0.1 0.0 - 0.4 x10E3/uL [facility] ACCOUNT BILL Basophils Absolute 0.1 0.0 - 0.2 x10E3/uL [facility] ACCOUNT BILL Immature Granulocytes 0 Not Estab. % [facility] ACCOUNT BILL Immature Granulocytes Absolute 0.0 0.0 - 0.1 x10E3/uL [facility] ACCOUNT BILL nRBC NOT NEEDED [facility] ACCOUNT BILL Comment:Ancillary determined the test is not needed. Comment Hematology NOT NEEDED [facility] ACCOUNT BILL Comment: FASTING Ancillary determined the test is not needed. Blood BLOOD SPECIMEN / Unknown 01/12/2020 12:31 PM CDT 01/12/2020 Narrative Resulting Agency Comment Lab Testing performed at: [facility] [place] [address] ??[facility] [phone] Tabatha Sierra DO LAB - HEMATOLOGY ORD ERABLES [facility] ACCOUNT [place] [address] documented in this encounter Visit Diagnoses Diagnosis Physical exam, annual- Primary Routine general medical examination at a health care facility Fibroid Leiomyoma of uterus, unspecified Abnormal cervical Papanicolaou smear, unspecified abnormal pap finding Encounter for screening for HIV Need for hepatitis C screening test Special screening examination for other specified viral diseases documented in this encounter Care Teams Business Intelligence Engineer Relationship Specialty Start Date End Date Mag Valdes MD [address] [place] [address] PCP - Attributed-[employer] 07/09/19 04/04/20 Tabatha Sierra DO [address] [place] [id number] PCP - General Family Medicine 01/12/20 01/06/22 documented as of this encounter
--- OUTSIDE RECORDS SUMMARY | 2024-05-25 00:55 | XMS_ITS | Encounter Summary ---
Author Organization [facility] Address [address] [facility] [place] [address] Care Team Providers Care Shrimp Peeling Machine Tender Name Role Phone Cookie Subramanian MD Primary Care Provider [phone] Reason for Visit * Reason Onset Date Comments Surgery Scheduling 01/27/2022 Essure remova l procedure Encounter Details Date Type Department Care Team (Late st Contact Info) Description 01/27/2022 Telephone [facility] - SOCIAL WORKER ASSISTANT [address] [facility] [address] [place] [address] [place] [address] [address] Surgery Scheduling (Essure removal procedure) Social History Tobacco Use Types Packs/Day Years Used Date Smoking Tobacco: Never Smokeless Tobacco: Never Alcohol Use Standard Drinks/Week Comments Not Currently 0 (1 standard drink = 0.6 oz pur e alcohol) wine rare AUDIT-C Answer Date Recorded Q1: How often do you have a drink containing alcohol? Monthly or less 01/10/2022 Q2: How many drinks containi ng alcohol do you have on a typical day when you are drinking? Patient does not drink Q3: How often do you have si x or more drinks on one occasion? Never 01/10/2022 Sex and Gender Information Value Date Recorded [...] encounter Miscellaneous Notes * Telephone Encounter - Cruz Diallo MD - 01/28/2022 10:27 AM CDT BOAT REPAIRER SURGERY SCHEDULING PROCEDURE LOCATION: Please Place X by your preferred facility ___x__[facility] OR [facility] ___ __[facility] OR [facility] Patient Name: Octavia Schmid : 1980 Patient availability for surgery: Procedure: Laparoscopic Bilateral Salpingectomy , removal of essure device and possible laparotomy if needed to complete the procedure Possible hysteroscopy Diagnosis: AUB Surgery Time Required: 30 minutes Time required off: 2 week(s) Postoperative follow up scheduled in: 2week(s) Provider to follow up with: MD ESTEBAN Assist: No COTTON OPENER Assist: yes Admission Status: Inpatient: No, Number of days expected: 0 Outpatient: Yes Procedure Details: Anesthesia: General Allergies: No Known Allergies Preoperative Testing required: preoperative covid-19 testing [facility] (comprehensive visit with TECHNOLOGY TEACHER and labs) With ERAS protocol Without ERAS protocol Labs/Test: Per anesthesia or to be placed by provider in pre-op orders * Telephone Encounter - Faith Thomas RN - 01/27/2022 10:31 AM CDT Pt called in stating she was to be scheduled for a procedure with Dr. Diallo to remove her Essuredevice. Pt informed, message would be sent to Dr. Diallo and acid mixer. Once available dates have been determined mold builder would contact her. documented in this encounter Plan of Treatment Not on file documented as of this encounter Visit Diagnoses Not on filedocumented in this encounter Care Teams Shrimp Peeling Machine Tender Relationship Specialty Start Date End Date Cookie Subramanian MD [address] [address] PCP - General Internal Medicine 01/07/22 05/11/22 documented as of this encounter
--- OUTSIDE RECORDS SUMMARY | 2024-05-25 00:55 | XMS_ITS | Encounter Summary ---
Author Organization [facility] Address [address] [facility] [place] [place] [address] Care Team Providers Care Outsole Molder Name Role Phone Cookie Subramanian MD Primary Care Provider [phone] Reason for Visit * Reason Comments Post-Op Encounter Details Date Type Department Care Team (Late st Contact Info) Description 01/23/2022 1:00 PM CDT Office Visit [facility] - BUTT MAK[facility] [address] [facility] [address] [place] [address] [place] [address] [address] Abnormal uterine bleeding (AUB) (Primary Dx); Encounter for removal of Essure Social History Tobacco Use Types Packs/Day Years [...] on file documented as of this encounter Last Filed Vital Signs Vital Sign Reading Time Taken Comments Blood Pressure 112/59 01/23/2022 1:19 PM CDT Pulse - - Temperature - - Respiratory Rate - - Oxygen Saturation - - Inhaled Oxygen Concentration - - Weight 97.2 kg (214 lb 3.2 oz) 01/23/2022 1:19 P M CDT Height 170.2 cm (5' 7 ) 01/23/2022 1:19 PM CDT Body Mass Index 33.55 01/23/2022 1:19 PM CDT documented in this encounter Functional Status Functional Status Response [...] No 01/10/2022 documented as of this encounter Progress Notes * Cruz Diallo MD - 02/03/2022 5:13 PM CDT Subjective: Octavia Schmid is a 41 year old female Patient's last menstrual period was 01/12/2022. who presents for results and to discuss operative finding Patient very concerned about essure coils, especially since not seen on hysteroscopy Patient convince essure coils are causing issues of AUB Reviewed timing of coils vs Aub symptoms not lining up Patient with diffuse body rash- is seeing utilization manager, will check fr nickel allergy Risk Factors wears seatbelts, wears sun screen, exercises regularly, eats balanced diet caffeine 0 cups/ day no transfusion history, + tattoos and negative for domestic violence Credit Card Associate History Patient's last menstrual period was 01/12/2022. Usually Regular monthly menses, lasting 5 days Using up to 8 pads/ tampons a day No intermenstrual/ postcoital bleeding Last pap 01/2019 ASCUS HPV neg 2018 fibroid 2 cm -> 2019 3cm No history of STDs/ cysts Heterosexual, with current partner for 4 years 1 sexual partners in past year, ? lifetime partners Contraception BTL OB History Para Term AB Living 4 4 4 4 SAB IAB Ectopic Multiple Live Births 4 # Outcome Date GA Lbr Dane/2nd Weight Sex Delivery Anes PTL Lv 4 Term 2002 3742 g (8 lb 4 oz) M Vag-Spont SHANE 3 Term 2001 M Vag-Spont SHANE 2 Term 2000 3685 g (8 lb 2 oz) F Vag-Spont SHANE 1 Term 1999 3289 g (7 lb 4 oz) M Vag-Spont SHANE Obstetric Comments All vag . Past Medical History: Diagnosis Date ??? Anemia ??? Arthritis of knee ??? Borderline diabetes ??? Delayed emergence from anesthesia ??? Fibroid 2 cm on US ??? GERD (gastroesophageal reflux disease) ??? Hyperlipidemia ??? Vitamin D deficiency Past Surgical History: Procedure Laterality Date ??? Bilateral Tubal Ligation (BTL) 2003 Essure ??? Cholecystectomy, Open 2003 ??? Hernia Repair 2000 with mesh ??? HYSTEROSCOPY N/A 01/10/2022 N/A; HYSTEROSCOPY AND DILATION AND CURETTAGE WITH POLYPECTOMY [facility] ??? OTHER SURGERY 01/10/2022 HYSTEROSCOPY AND DILATION AND CURETTAGE WITH POLYPECTOMY [facility] Family History Problem Relation Name Age of Onset ??? Hypertension Mother ??? Other Mother CHF / born with enlarged heart ??? Glaucoma Father ??? Multiple Sclerosis Sister ??? Diabetes - Type 2 Brother ??? Arthritis - Osteo Maternal Grandmother ??? Other - Cardiac Maternal Grandmother ??? Other - Cardiac Maternal Aunt age 48 ??? Cancer - Breast Neg Hx ??? Cancer - Ovarian Neg Hx ??? Cancer - Colon Neg Hx ??? Cancer - Uterine Neg Hx Current Outpatient Medications Medication Sig Dispense Refill ??? ascorbic acid (VITAMIN C) 500 MG tablet Take 500 mg by mouth once daily ??? BIOTIN 5000 PO Take 1 tablet by mouth once daily ??? ferrous sulfate 325 (65 FE) MG tablet Take 325 mg by mouth 2 times daily ??? vitamin D3 (CHOLECACIFEROL) 5000 units Take 5,000 Units by mouth once daily No current facility-administered medications for this visit. No Known Allergies Social History Occupational History ??? 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 Smoking status: Never Smoker ??? Smokeless tobacco: Never Used Vaping Use ??? Vaping Use: Never used Substance and Sexual Activity ??? Alcohol use: Not Currently Comment: wine rare ??? Drug use: No ??? Sexual activity: Yes Partners: Male control/protection: Tubal ligation Review of Systems Constitutional: Negative for fatigue, weight loss, weight gain, fevers, chills, sweats. Ears, nose, mouth, and throat: Negative for epistaxis bilaterally, bleeding gums Respiratory: Negative for shortness of breath, dyspnea on exertion, chronic cough Cardiovascular: Negative for palpitations, tachycardia, near-syncope, syncope, chest pain, exertional chest pain or pressure, fatigue, cyanosis, varicose veins bilaterally Gastrointestinal: Negative for nausea, vomiting, hemetemesis, hematochezia, abdominal pain, constipation, diarrhea Genitourinary:Negative for incontinence, dysuria, frequency, hesitancy, urinary tract infection, hematuria, chronic stable irregular periods, abnormal vaginal bleeding, dysmenorrhea, dyspareunia, pain, vaginal problems - a lesion, burning, dryness, itching, pain, vaginal discharge, vulvular ulcer(s) Skin: Negative for rash, new lesion, itching, bruising, hair changes, nail changes Breast: Negative for lump, mass , nipple discharge , pain , tenderness Hematologic/lymphatic: Negative for abnormal bruising, petechia, blood clots Neurological: Negative for headaches, dizziness, syncope Behavioral/Psych: Negative for depressed mood, anxiety Endocrine: Negative for thyroid nodule, cold intolernance, heat intolerance, hair loss, hair growth, hot flashes The rest of the review of systems was negative. Objective: BP 112/59 Ht 5' 7 Wt 214 lb 3.2 oz General appearance: alert, cooperative, no distress, well appearing, no distress, appears stated age Lungs: unlabored without use of accessory muscles Skin: warm, good turgor, normal pallor Psych: normal mood and affect Assessment: 41 year old Plan: Discussed opertive finding in dept Reviewed CT scan including images with patient, images viewed by me, Possible Essure coils seen next to uterus Discussed possibility that coils are not affecting menses Patient concerned since Coils not see on hysteroscopy of migration. Discussed options - continue to monitor - removal of tubes/ coils - hysterectomy Risks, benefits, and alternatives discussed in detail, all questions answered. extensively Informed consent was obtained. The benefits, alternatives and risks were discussed with the patientin detail. The risks include, but are not limited to, the risk of anesthesia, infection, bleeding, damage to soft tissues, damage to internal organs including bowel/bladder/ureters/major blood vessels/nerves, possible need for blood transfusions, wound breakdown, dehiscence, evisceration or hernia,continued symptoms despite the cystectomy, reoccurence of ovarian cyst, thromboembolic events and even . She understands these risks and desires to proceed with the surgery. 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 documented in this encounter Plan of Treatment Not on file documented as of this encounter Visit Diagnoses Diagnosis Abnormal uterine bleeding (AUB)- Primary Encounter for removal of Essure documented in this encounter Care Teams Outsole Molder Relationship Specialty Start Date End Date Cookie Subramanian MD [address] [address] PCP - General Internal Medicine 01/07/22 05/11/22 documented as of this encounter
--- OUTSIDE RECORDS SUMMARY | 2024-05-25 00:55 | XMS_ITS | Encounter Summary ---
Author Organization [facility] Address [address] [facility] [place] [address] Care Team Providers Care Spindle Tester Name Role Phone Tabatha Sierra DO Unavailable Cookie Subramanian MD Primary Care Provider [phone] Reason for Referral * Radiology Services (Routine) - Closed Specialty Diagnoses / Procedures Referred By Stephen carpio Referred To Contact CT Scan Diagnoses Abnormal uterine bleeding (AUB) Pelvic pain Procedures CT ABDOMEN AND PELVIS WITH IV CONTRAST CT ABDOMEN [place] [address] [address] [place] [address] [facility] [address] [address] Referral ID Status Reason Start Date Expiration Date Visits Re quested Visits Authorized [id number] Closed 01/15/2022 03/16/2022 1 1 Reason for Visit * Radiology Services (Routine) - Closed Specialty Diagnoses / Procedures Referred By Stephen carpio Referred To Contact CT Scan Diagnoses Abnormal uterine bleeding (AUB) Pelvic pain Procedures CT ABDOMEN AND PELVIS WITH IV CONTRAST CT ABDOMEN [place] [address] [address] [place] [address] [facility] [address] [facility] [address] [place] [address] Referral ID Status Reason Start Date Expiration Date Visits Re quested Visits Authorized [id number] Closed 01/15/2022 03/16/2022 1 1 Encounter Details Date Type Department Care Team (Latest Contact Info) Description 01/17/2022 11:08 AM CDT - 01/17/2022 11:59 PM CDT Hospital Encounter [facility] Health Imaging Services - CT Scan [address] [facility] [address] [place] [address] [place] [address] [address] Discharge Disposition: Home or Self Care Social History Tobacco Use Types Packs/Day Years [...] No 01/10/2022 documented as of this encounter Medications at Time of Discharge Medication Sig Dispensed Refills Start Date End Date ascorbic acid (VITAMIN C) 500 MG tablet Take 500 mg by mouth once daily BIOTIN 5000 PO Take 1 tablet by mouth once daily ferrous sulfate 325 (65 FE) MG tablet Take 325 mg by mouth 2 times daily vitamin D3 (CHOLECACIFEROL) 5000 units Take 5,000 Units by mouth once daily ibuprofen (Motrin) 600 MG tablet Take 1 (one) tablet by mouth every 6 hours as needed for Pain 30 tablet 11 01/10/2022 02/03/2022 documented as of this encounter Plan of Treatment Not on file documented as of this encounter Procedures Procedure Name Priority Date/Time Associated Diagnosis Comments CT ABDOMEN PELVIS W CONTRAST Routine 01/17/2022 12:42 PM CDT Abnormal uterine bleeding (AUB) Pelvic pain documented in this encounter Results * CT ABDOMEN AND PELVIS WITH IV [...] DATE/TIME OF EXAM: ??01/17/2022 11:08 AM, LOCATION ??[facility] INDICATION: N93.9: Abnormal uterine and vaginal bleeding, [...] DATE/TIME OF EXAM: 01/17/2022 11:08 AM, LOCATION [facility] INDICATION: N93.9: Abnormal uterine and vaginal bleeding, [...] 2:59 PM Cruz Diallo MD CT ORDERABLES documented in this encounter Visit Diagnoses Diagnosis Abnormal uterine bleeding (AUB) Pelvic pain Unspecified symptom associated with female genital organs documented in this encounter Administered Medications Inactive Administered Medications - up to 3 most recent administrations Medication Order MAR Action Action Date Dose Rate Site iopamidol (Isovue 370) 76 % contrast Intravenous, CONTRAST ONCE, Starting on Thu01/17/22 at 1244, Until 01/18/22 at 0131 $ Given - Contrast 01/17/2022 12:45 PM CDT 80 mL Right Arm iopamidol (Isovue M 300) 61 % contrast Intraspinal, CONTRAST ONCE, Starting on Thu01/17/22 at 1244, Until 01/18/22 at 0131, Used for myelograms $ Given - Contrast 01/17/2022 12:45 PM CDT 80 mL Right Arm iopamidol (Isovue M 300) 61 % contrast Oral, CONTRAST ONCE, 1 dose, Starting on Thu01/17/22 at 1246, Until 01/17/22 at 1247, Used for myelograms $ Given - Contrast 01/17/2022 12:47 PM CDT 50 mL documented in this encounter Care Teams Spindle Tester Relationship Specialty Start Date End Date Tabatha Sierra DO [address] [place] [address] PCP - Attributed-[place] [employer] 08/06/20 01/21/22 Cookie Subramanian MD [address] [address] PCP - General Internal Medicine 01/07/22 05/11/22 documented as of this encounter
--- OUTSIDE RECORDS SUMMARY | 2024-05-25 00:55 | XMS_ITS | Encounter Summary ---
Author Organization [facility] Address [address] [facility] [place] [address] Care Team Providers Care Cosmetic Maker Name Role Phone Mag Valdes MD Primary Care Provider [phone] Encounter Details Date Type Department Care Team (Late st Contact Info) Description 06/22/2019 Orders Only [facility] - Family Medicine [address] [place] [address] Mag Valdes MD [address] [place] [id number] Right knee pain, unspecified chronicity Social History Tobacco Use Types Packs/Day Years Used Date Smoking Tobacco: Never Smokeless Tobacco: Never Alcohol Use Standard Drinks/Week Comments No 0 (1 standard drink = 0.6 oz pur e alcohol) wine rare Sex and Gender Information Value Date Recorded Sex Assigned at Not on file Gender Identity Not on file Sexual Orientation Not on file documented as of this encounter Plan of Treatment Not on file documented as of this encounter Visit Diagnoses Diagnosis Right knee pain, unspecified chronicity- Primary documented in this encounter Care Teams Cosmetic Maker Relationship Specialty Start Date End Date Mag Valdes MD PCP - General Family Medicine 01/06/19 01/11/20 documented as of this encounter
--- OUTSIDE RECORDS SUMMARY | 2024-05-25 00:55 | XMS_ITS | Encounter Summary ---
Author Organization [facility] Address [address] [facility] [place] [address] Care Team Providers Care Press Operator Instant Print Shop Name Role Phone Tabatha Sierra DO Primary Care Provider Encounter Details Date Type Department Care Team (Latest Contact Info) Description 07/09/2020 Travel Social History Tobacco Use Types Packs/Day Years [...] have Coronavirus / COVID-19? No / Unsure 07/09/2020 2:53 PM SODA TESTER documented as of this encounter Plan of Treatment Not on file documented as of this encounter Visit Diagnoses Not on filedocumented in this encounter Care Teams Press Operator Instant Print Shop Relationship Specialty Start Date End Date Tabatha Sierra DO [address] [place] [id number] PCP - General Family Medicine 01/12/20 01/06/22 documented as of this encounter
--- OUTSIDE RECORDS SUMMARY | 2024-05-25 00:55 | XMS_ITS | Encounter Summary ---
Author Organization [facility] Address [address] [facility] [place] [address] Care Team Providers Care Environmental Remediation Consultant Name Role Phone Tabatha Sierra DO Unavailable [phone] Cookie Subramanian MD Primary Care Provider [phone] Reason for Visit * Reason Onset Date Comments Question 01/09/2022 Encounter Details Date Type Department Care Team (Late st Contact Info) Description 01/09/2022 Telephone [facility] - FOREST LAW AND POLICY PROFESSOR [address] [address] [place] [address] [address] Question Social History Tobacco Use Types Packs/Day Years [...] on file documented as of this encounter Miscellaneous Notes * Telephone Encounter - Faith Thomas RN - 01/09/2022 2:01 PM CDT Pt returned call, informed of Dr. Diallo's message. Pt okay to proceed with surgery. * Telephone Encounter - Dee Owens RN - 01/09/2022 1:[address] Diallo : Ok to keep surgery as long has not bleeding very heavy ( soaking a pad every hour) Attempted to contact pt. Left detailed information on pt's voicemail * Telephone Encounter - Dee Owens RN - 01/09/2022 12:00 PM CDT Pt is scheduled for Hysteroscopy D&C tomorrow. Pt started bleeding today. She states her cycles are irregular and, therefore may no be bleeding tomorrow. Pt concerned if she is bleeding will she need to cancel surgery? Informed pt that she could still have surgery if bleeding. Pt is wanting me to ask Dr. Diallo to be sure. documented in this encounter Plan of Treatment Not on file documented as of this encounter Visit Diagnoses Not on filedocumented in this encounter Care Teams Environmental Remediation Consultant Relationship Specialty Start Date End Date Tabatha Sierra DO [address] [place] [address] PCP - Attributed-[place] [employer] 08/06/20 01/21/22 Cookie Subramanian MD [address] [address] PCP - General Internal Medicine 01/07/22 05/11/22 documented as of this encounter
--- OUTSIDE RECORDS SUMMARY | 2024-05-25 00:55 | XMS_ITS | Encounter Summary ---
Author Organization [facility] Address [address] [facility] [place] [address] Care Team Providers Care Sap Fico Architect Name Role Phone Mag Valdes MD Unavailable Tabatha Sierra DO Primary Care Provider [phone] Reason for Referral * Radiology Services (Routine) - Closed Specialty Diagnoses / Procedures Referred By Stephen carpio Referred To Contact Ultrasound Diagnoses Fibroid Procedures [place] [address] [address] [place] [address] [facility] [address] [address] Referral ID Status Reason Start Date Expiration Date Visits Re quested Visits Authorized [id number] Closed 02/01/2020 01/31/2021 1 1 Reason for Visit * Radiology Services (Routine) - Closed Specialty Diagnoses / Procedures Referred By Stephen carpio Referred To Contact Ultrasound Diagnoses Fibroid Procedures [place] [address] [address] [place] [address] [facility] [address] [place] [address] [place] [address] Referral ID Status Reason Start Date Expiration Date Visits Re quested Visits Authorized [id number] Closed 02/01/2020 01/31/2021 1 1 Encounter Details Date Type Department Care Team (Latest Contact Info) Description 02/10/2020 9:18 AM CDT - 02/10/2020 11:59 PM CDT Hospital Encounter [facility] Health Imaging Services - Ultrasound [address] [facility] [address] [place] [address] [place] [address] [facility] [address] [place] [id number] Discharge Disposition: Home or Self Care Social [...] or suspected to have Coronavirus / COVID-19? Unable to assess 01/25/2020 10:55 AM CDT documented as of this encounter Medications at [...] Take 5,000 Units by mouth once daily documented as of this encounter Plan of Treatment Not on file documented as of this encounter Procedures Procedure Name Priority Date/Time Associated Diagnosis Comments US PELVIS W TRANSVAG NON OB Routine 02/10/2020 10:00 AM CDT Fibroid documented in this encounter Results * US PELVIS W TRANSVAG NON OB [...] 02/10/2020 at 11:06 AM Cruz Diallo MD US ORDERABLES documented in this encounter Visit Diagnoses Diagnosis Fibroid Leiomyoma of uterus, unspecified documented in this encounter Care Teams Sap Fico Architect Relationship Specialty Start Date End Date Mag Valdes MD [address] [place] [phone] PCP - Attributed-[place] [employer] 07/09/19 04/04/20 Tabatha Sierra DO [address] [place] [address] PCP - General Family Medicine 01/12/20 01/06/22 documented as of this encounter
--- OUTSIDE RECORDS SUMMARY | 2024-05-25 00:55 | XMS_ITS | Encounter Summary ---
Author Organization [facility] Address [address] [place] [address] Care Team Providers Care Stock Handler Name Role Phone Mag Valdes MD Unavailable Tabatha Sierra DO Primary Care Provider [phone] Reason for Referral * Radiology Services (Routine) - Closed Specialty Diagnoses / Procedures Referred By Stephen carpio Referred To Contact Ultrasound Diagnoses Fibroid Procedures [place] [address] [place] [address] [facility] [address] [place] [address] Referral ID Status Reason Start Date Expiration Date Visits Re quested Visits Authorized [id number] Closed 02/01/2020 01/31/2021 1 1 Reason for Visit * Reason Comments Abnormal Pap Encounter Details Date Type Department Care Team (Latest Contact Info) Description 02/01/2020 3:40 PM CDT Office Visit [facility] - 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 [address] [place] [address] [place] [address] [place] [address] Well woman exam with routine gynecological exam (Primary Dx); Screen for STD (sexually transmitted disease); Fibroid Social History Tobacco Use Types Packs/Day Years [...] Sign Reading Time Taken Comments Blood Pressure - - Pulse - - Temperature - - Respiratory Rate - - Oxygen Saturation - - Inhaled Oxygen Concentration - - Weight 95.8 kg (211 lb 1.6 oz) 02/01/2020 3:57 P M CDT Height 171.5 cm (5' 7.5 ) 02/01/2020 3:57 PM CDT Body Mass Index 32.57 02/01/2020 3:57 PM CDT documented in this encounter Progress Notes * Cruz Diallo MD - 02/01/2020 4:08 PM CDT Subjective: Octavia Schmid is a 39 year old female Patient's last menstrual period was 01/18/2020 (exact date). who presents for annual exam. The patient has no complaints today. 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 Regular monthly menses, lasting 5 days Using up to 8 pads/ tampons a day No intermenstrual/ postcoital bleeding Last pap 01/2019 ASCUS HPV neg 2018 fibroid 2 cm No history of STDs/ cysts Heterosexual, with current partner for 3 years 1 sexual partners in past year, ? lifetime partners Contraception BTL OB History Para Term AB Living 4 4 4 4 SAB TAB Ectopic Multiple Live Births 4 # Outcome [...] ??? Fibroid 2 cm on US ??? Hyperlipidemia ??? Vitamin D deficiency Past Surgical History: Procedure Laterality Date ??? Bilateral Tubal Ligation (BTL) 2004 Essure ??? Cholecystectomy, Laparoscopic 2003 ??? Hernia Repair 2000 with mesh Family History Problem Relation Name Age of [...] the review of systems was negative. Objective: Ht 5' 7.5 Wt 211 lb 1.6 oz BMI 32.57 kg/m2 General appearance: alert, cooperative, no distress, well appearing, obese, no distress, appears stated age Head: normocephalic, without trauma Eyes: sclera and conjunctiva clear, normal pallor Throat: moist mucous membrane without lesions, ulcers Neck: no adenopathy, thyroid normal size, non-tender, without nodularity, midline trachea without abnormality Nodes: no cervical, axillary or inguinal adenopathy Breasts: symmetric, nontender, no masses or discharge, no adenopathy Lungs: unlabored without use of accessory muscles breath sounds normal and symmetric; no rales or wheezes, Heart: regular rhythm, normal S1 and S2, without murmurs, gallops or rubs, no edema, brisk capillary refil Abdomen: soft without mass, non-distended non-tender, with normal bowel sounds. No palpable hernia Pelvic: External genitalia: normal general appearance, Normal Bartholin's and [place]'s. Urinary system: urethral meatus normal, bladder non-destended, non tender. Vaginal: normal mucosa without prolapse or lesions, normal without tenderness, induration or massesand normal rugae. No active bleeding. Cervix: normal appearance without lesions and cervical motion tenderness. Sample for pap smear obtained. Adnexa: normal bimanual exam, no masses nontender Uterus: normal single mobile, nontender, anteverted, normal size Rectal: perirectal skin normal Clinical staff present for exam: yes LM Extremities: no clubbing, cyanosis or edema, no calf tenderness Circulation: Radial pulses intact and symmetric Skin: warm, good turgor, normal pallor, no rashes or other abnormalities are noted Psych: normal mood and affect Assessment: 39 year old normal annual exam Plan: 1) WWE Pap due 01/2022. Discuss ASCUS HPV neg repeat in 3 years STD testing offered- patient desires. Send GCCTV Safe sex precautions discussed. Contraception- BTL Healthy lifestyle discussed including diet, exercise, limiting caffeine, sunscreen use, and seat belt use. Breast awareness discussed. 2) Fibroid- Hgb normal Repeat US to monitor documented in this encounter Plan of Treatment Not on file documented as of this encounter Procedures Procedure Name Priority Date/Time Associated Diagnosis Comments CHLAMYDIA + GC + TRICH DNA AMPL Routine 02/01/2020 4:45 PM CDT Well woman exam with routine gynecological exam Screen for STD (sexually transmitted disease) documented in this encounter Results * US [...] uterus. Small complex follicular cyst. *Reading Radiologist: uLlu Chauhan on 02/10/2020 at 11:06 AM Cruz Diallo MD US ORDERABLES * CHLAMYDIA + GC + TRICH DNA AMPL (02/01/2020 4:45 PM CDT) Chlamydia trachomatis ZANA Negative Negative [facility] ACCOUNT BILL GC DNA Probe Negative Negative [facility] ACCOUNT BILL Trichomonas vaginalis by ZANA Negative Negative [facility] ACCOUNT BILL Microbiology ENTIRE ENDOCERVIX / Unknown 02/01/2020 4:45 PM CDT 02/01/2020 Narrative Resulting Agency Comment Lab Testing performed at: [address] ??[facility] [id number] Cruz Diallo MD LAB - MICROBIOLOGY ORDERABLES [facility] ACCOUNT BILL [address] [place] [address] documented in this encounter Visit Diagnoses Diagnosis Well woman exam with routine gynecological exam- Primary Routine gynecological examination Screen for STD (sexually transmitted disease) Screening examination for venereal disease Fibroid Leiomyoma of uterus, unspecified Fibroid Leiomyoma of uterus, unspecified documented in this encounter Care Teams Stock Handler Relationship Specialty Start Date End Date Mag Valdes MD [address] [place] [id number] PCP - Attributed-[place] [employer] 07/09/19 04/04/20 Tabatha Sierra DO [address] [place] [id number] PCP - General Family Medicine 01/12/20 01/06/22 documented as of this encounter
--- OUTSIDE RECORDS SUMMARY | 2024-05-25 00:55 | XMS_ITS | Encounter Summary ---
Author Organization [facility] Address [address] [place] [address] Care Team Providers Care Battery Test Engineer Name Role Phone Mag Valdes MD Unavailable Tabatha Sierra DO Primary Care Provider [phone] Encounter Details Date Type Department Care Team (Latest Contact Info) Description 01/25/2020 Travel Social History Tobacco Use Types Packs/Day [...] AM CDT documented as of this encounter Plan of Treatment Not on file documented as of this encounter Visit Diagnoses Not on filedocumented in this encounter Care Teams Battery Test Engineer Relationship Specialty Start Date End Date Mag Valdes MD [address] [place] [address] PCP - Attributed-[place] [employer] 07/09/19 04/04/20 Tabatha Sierra DO [address] [place] [address] PCP - General Family Medicine 01/12/20 01/06/22 documented as of this encounter
--- OUTSIDE RECORDS SUMMARY | 2024-05-25 00:55 | XMS_ITS | Encounter Summary ---
Author Organization [facility] Address [address] [facility] [place] [address] Care Team Providers Care Eyeglass Assembler Name Role Phone Tabatha Sierra DO Primary Care Provider [phone] Tabatha Sierra DO Unavailable [phone] Encounter Details Date Type Department Care Team (Latest Contact Info) Description 11/06/2021 Travel Social History Tobacco Use Types Packs/Day [...] PM CDT documented as of this encounter Plan of Treatment Not on file documented as of this encounter Visit Diagnoses Not on filedocumented in this encounter Care Teams Eyeglass Assembler Relationship Specialty Start Date End Date Tabatha Sierra DO [address] [place] [address] PCP - General Family Medicine 01/12/20 01/06/22 Tabatha Sierra DO [address] [place] [address] PCP - Attributed-[place] [employer] 08/06/20 01/21/22 documented as of this encounter
--- OUTSIDE RECORDS SUMMARY | 2024-05-25 00:55 | XMS_ITS | Encounter Summary ---
Author Organization [facility] Address [address] [facility] [place] [address] Care Team Providers Care Bag Builder Name Role Phone Tabatha Sierra DO Unavailable [phone] Cookie Subramanian MD Primary Care Provider [phone] Reason for Visit * Auth/Cert Specialty Diagnoses / Procedures Referred By Stephen carpio Referred To Contact Procedures HYSTEROSCOPY WITH DILATION & CURETTAGE Referral ID Status Reason Start Date Expiration Date Visits Re quested Visits Authorized [id number] 1 1 Encounter Details Date Type Department Care Team (Latest Contact Info) Description 01/10/2022 7:26 AM CDT - 01/10/2022 12:10 PM CDT Hospital Encounter [facility] [address] [place] [address] [place] [address] [facility] [facility] [address] [address] Surgery General Discharge Disposition: Home or Self Care Social [...] Recorded In the last 10 days, have mic u been in contact with someone who was confirmed or suspected to have Coronavirus/COVID-19? No / Unsure 11/06/2021 12:43 PM CDT documented as of this encounter Last Filed Vital Signs Vital Sign Reading Time Taken Comments Blood Pressure 100/50 01/10/2022 11:58 AM CDT Pulse 56 01/10/2022 11:58 AM CDT Temperature 36.1 ??C (96.9 ??F) 01/10/2022 11:58 AM C DT Respiratory Rate 16 01/10/2022 11:58 AM CDT Oxygen Saturation 98% 01/10/2022 11:58 AM CDT Inhaled Oxygen Concentration - - Weight 96.6 kg (213 lb) 01/10/2022 7:41 AM CDT Height 170.2 cm (5' 7 ) 01/10/2022 7:41 AM CDT Body Mass Index 33.36 01/10/2022 7:41 AM CDT documented in this encounter Functional Status [...] 01/10/2022 02/03/2022 documented as of this encounter H&P Notes * Cruz Diallo MD - 01/10/2022 4:52 AM CDT Subjective: ?? Octavia Schmid is a 41 year old female Patient's last menstrual period was 10/12/2021. who presents for D&C hysteroscopy Irregular menses since October 2021 Risk Factors wears seatbelts, wears sun screen, exercises regularly, eats balanced diet caffeine 0 cups/ day no transfusion history, + tattoos and negative for domestic violence ?? 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 Usually Regular monthly menses, lasting 5 days Using up to 8 pads/ tampons a day No intermenstrual/ postcoital bleeding Last pap 01/2019 ASCUS HPV neg 2017 fibroid 2 cm -> 2020 3cm No history of STDs/ cysts Heterosexual, with current partner for 4 years 1 sexual partners in past year, ? lifetime partners Contraception BTL ?? OB History Para Term AB Living 4 4 4 4 SAB IAB Ectopic Multiple Live Births 4 ?? # Outcome Date GA Lbr Dane/2nd Weight Sex Delivery Anes PTL Lv 4 Term 2002 ? 3742 g (8 lb 4 oz) M Vag-Spont ? SHANE 3 Term 2001 ? M Vag-Spont ? SHANE 2 Term 2000 ? 3685 g (8 lb 2 oz) F Vag-Spont ? SHANE 1 Term 1999 ? 3289 g (7 lb 4 oz) M Vag-Spont ? SHANE ?? Obstetric Comments All vag . Past Medical History Past Medical History: Diagnosis Date ??? Anemia ? Arthritis of knee ? Fibroid ? 2 cm on US ??? Hyperlipidemia ? Vitamin D deficiency ? Past Surgical History Past Surgical History: Procedure Laterality Date ??? Bilateral Tubal Ligation (BTL) ?? 2004 ?? Essure ??? Cholecystectomy, Open ?? 2004 ??? Hernia Repair ?? 2000 ?? with mesh ?? Family History Family History Problem Relation Name Age of Onset ??? Hypertension Mother ? Other Mother ? CHF / born with enlarged heart ??? Glaucoma Father ? Multiple Sclerosis Sister ? Diabetes - Type 2 Brother ? Arthritis - Osteo Maternal Grandmother ? Other - Cardiac Maternal Grandmother ? Other - Cardiac Maternal Aunt ? age 48 ??? Cancer - Breast Neg Hx ? Cancer - Ovarian Neg Hx ? Cancer - Colon Neg Hx ? Cancer - Uterine Neg Hx ? Medications Current Outpatient Medications Medication Sig Dispense Refill ??? ascorbic acid (VITAMIN C) 500 MG tablet Take 500 mg by mouth once daily ? BIOTIN 5000 PO ? ferrous sulfate 325 (65 FE) MG tablet Take 325 mg by mouth as needed (takes during menstrual cycle) ? vitamin D3 (CHOLECACIFEROL) 5000 units Take 5,000 Units by mouth once daily ? No current facility-administered medications for this visit. ?? No Known Allergies Social History ?? Occupational History ??? 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 Smoking status: Never Smoker ??? Smokeless tobacco: Never Used Vaping Use ??? Vaping Use: Never used Substance and Sexual Activity ??? Alcohol use: Yes ? Comment: wine rare ??? Drug use: No ??? Sexual activity: Yes ? Partners: Male ? control/protection: Tubal ligation ? Review of Systems Constitutional: Negative for fatigue, [...] of the review of systems was negative. ? Objective: ?? BP 119/60 Wt 213 lb 12.8 oz BMI 32.99 kg/m2 ?? General appearance: alert, cooperative, no distress, well appearing, obese, no distress, appears stated age Head: normocephalic, without trauma Abdomen: soft without mass, non-distended non-tender, with normal bowel sounds. No palpable hernia Pelvic: External genitalia: normal general appearance, Normal Bartholin's and [place]'s. Urinary system: urethral meatus normal, bladder non-destended, non tender. Vaginal: normal mucosa without prolapse or lesions, normal without tenderness, induration or massesand normal rugae. No active bleeding. Clinical staff present for exam: yes Extremities: no clubbing, cyanosis or edema, no calf tenderness Circulation: Radial pulses intact and symmetric Skin: warm, good turgor, normal pallor, no rashes or other abnormalities are noted Psych: normal mood and affect Pelvic US ?? Endometrium is heterogeneous in echotexture and contains a few cystic areas. This may be secondary to presence of a polyp, cystic degeneration of submucosal myoma, or endometrial hypertrophy.. ?? Assessment: ?? 41 year old ?? Plan: ?? Endometrial polyp- Pelvic US images reviewed by me agree with report possible endometrial polyp Hysteroscopic as a minimally invasive method to evaluate endometrium and remove any lesions, and dilation and curettage to sample endometrium. Outpatient procedure with minimal recovery time. The risks, benefits, and options were discussed with the patient, including hysteroscopic risk of damage tothe soft tissues (vagina, cervix, and uterus), perforation of the uterus, infection, bleeding, riskof anesthesia, and risk of . ?? She understands these risks and desires to proceed with the surgery. documented in this encounter OR Notes * Operative - Cruz Diallo MD - 01/10/2022 12:10 PM CDT Op Note Procedure: HYSTEROSCOPY AND DILATION AND CURETTAGE WITH POLYPECTOMY [facility] Patient Name: Octavia Schmid Date of Service: 01/10/2022 Pre-Op Diagnosis: AUB- thicken lining Post-Op Diagnosis: AUB endometrial polyp Surgeon(s) and Role: * Cruz Diallo MD - Primary Anesthesia Type: general LMA Complications: none Findings: Normal cervix, vulva and vagina Normal left tubal ostea Excess tissues in right cornua, soft and fluffy Copious amount of tissue + lower uterine segment polyp EBL: minimal Drains: * No LDAs found * Specimen(s): ID Type Source Tests Collected by Time Destination A : ENDOMETRIAL CURETTING WITH POLYP Pathology/Cytology Endometrium PATHOLOGY TISSUE EXAM (STL) Cruz Diallo MD 01/10/2022 0932 Implant(s): * No implants in log * Patient was taken to the operating room where she as given general anesthesia. She was then preppedand draped in a normal sterile fashion in dorsal lithotomy position. Exam under anesthesia was performed and findings as described as above. A speculum was used to visualize the cervix and a clamp was used to grasp the anterior lip of the cervix. The uterus was sounded to 9 cm. The cervix was gently dilated with serial new dilators to accommodate a Myosure hysteroscopic. Hysteroscopic was inserted and findings as mentioned above. Myosure was used to remove polyp and excess tissue Sharp curettage was performed until a gritty textures was noted in all 4 quadrants. Hysteroscope was reinserted and the endometrium was noted to be intact with out issues. Excellent hemostasis was noted. All instruments were removed and patient was taken to the recovery room in stable condition. Cruz Diallo MD * Brief Op Note - Cruz Diallo MD - 01/10/2022 9:00 AM CDT Brief Op Note Procedure: HYSTEROSCOPY AND DILATION AND CURETTAGE WITH POLYPECTOMY [facility] Patient Name: Octavia Schmid Date of Service: 01/10/2022 Pre-Op Diagnosis: AUB- thicken lining Post-Op Diagnosis: AUB endometrial polyp Surgeon(s) and Role: * Cruz Diallo MD - Primary Anesthesia Type: general LMA Complications: none Findings: Normal cervix, vulva and vagina Normal left tubal ostea Excess tissues in right cornua, soft and fluffy Copious amount of tissue + lower uterine segment polyp EBL: minimal Drains: * No LDAs found * Specimen(s): ID Type Source Tests Collected by Time Destination A : ENDOMETRIAL CURETTING WITH POLYP Pathology/Cytology Endometrium PATHOLOGY TISSUE EXAM (STL) Cruz Diallo MD 01/10/2022 0932 Implant(s): * No implants in log * Cruz Diallo MD documented in this encounter Plan of Treatment Not on file documented as of this encounter Procedures Procedure Name Priority Date/Time Associated Diagnosis Comments PATHOLOGY TISSUE EXAM (STL) Routine 01/10/2022 9:32 AM CDT Diagnosis unknown CA HYSTEROSCOPY,W/ENDO BX 01/10/2022 9:04 AM CDT HCG URINE QUALITATIVE STAT 01/10/2022 7:52 AM CDT Pre-op evaluation documented in this encounter Results * PATHOLOGY TISSUE EXAM (STL) (01/10/2022 9:32 AM CDT) Case Report Surgical Pathology Report ? Case: [id number] ? Authorizing Provider: ??Cruz Diallo MD ? Collected: ? 01/10/2022 09:32 AM ? Ordering Location: ? [facility] ? Received: ?01/10/2022 12:08 PM ? Pathologist: ? Yenifer Rangel MD ? Specimen: ?Endometrium, ENDOMETRIAL CURETTING WITH POLYP ? 01/13/2022 11:09 AM [facility] Final Diagnosis Endometrium, curettage: -- Benign endometrial polyp -- Proliferative endometrium, no atypia or hyperplasia -- Endocervical mucosa with no histopathologic abnormality -- Scant squamous mucosa with no histopathologic abnormality 01/13/2022 11:[address] [facility] Gross Description Received in formalin labeled with patient's name and endometrial curetting with polyp are mass of hemorrhagic material measuring 3 x 3 x 1 cm in aggregate. Submitted entirely in cassettes A1 to A3. 01/13/2022 11:09 AM CDT [facility] Microscopic Description Histologic evaluation supports the diagnosis. 01/13/2022 11:09 AM [facility] Disclaimer All histochemical and/or immunohistochemical results are interpreted with controls that demonstrate appropriate staining reactions before reporting results. Note on use of immunocytochemistry reagents: This test was developed and its performance characteristic determined by [facility], Department of Laboratory Medicine. It has [...] tissues. Results should be interpreted with caution. 01/13/2022 11:09 AM CDT [facility] Embedded Images 01/13/2022 11:09 AM CDT [facility] Pathology/Cytolo gy ENTIRE ENDOMETRIUM / Unknown 01/10/2022 9:32 AM CDT 01/10/2022 12:08 PM CDT Cruz Diallo MD LAB - PATHOLOGY/CYT OLOGY ORDERABLES Performing Organization Address [facility] Co de Phone Number [facility] [address] [place] [address] * HCG URINE QUALITATIVE (01/10/2022 7:52 AM CDT) hCG Qualitative Urine Negative Negative 01/10/2022 8:13 AM CDT [facility] Urine URINE / Unknown Collection / Unknown 01/10/2022 7:52 AM CDT 01/10/2022 8:07 AM CDT Sherry Jose DO LAB - URINALYSIS ORD ERABLES Performing Organization Address City/[facility]/ZIP Co de Phone Number [facility] [address] [place] [address] documented in this encounter Visit Diagnoses Diagnosis Abnormal uterine bleeding (AUB)- Primary Pre-op evaluation Preoperative examination, unspecified Diagnosis unknown Other unknown and unspecified cause of morbidity or mortality documented in this encounter Administered Medications Inactive Administered Medications - up to 3 most recent administrations Medication Order MAR Action Action Date Dose Rate Site 0.9% NaCl injection 1-10 mL 1-10 mL, Intracatheter, PRN, Other, peripheral line flush, Starting on Thu01/10/22 at 0748, Until Thu01/10/22 at 1310, Flush peripheral IV catheter with 1-10 mL of normal saline before and after medications and prn to clear blood from the line or to verify patency., Pre-op 0.9% NaCl injection 3 mL 3 mL, Intracatheter, EVERY 8 HOURS, First dose on Thu01/10/22 at 0800, Until Discontinued, Flush peripheral IV catheter with 3 mL of normal saline every 8 hours., Pre-op lactated ringers infusion at 20 mL/hr, Intravenous, PRE-OP CONTINUOUS, Starting on Thu01/10/22 at 0800, Until Thu01/10/22 at 1310, Pre-op $ New Bag/Syringe 01/10/2022 8:01 AM CDT 20 mL/hr documented in this encounter Active and Recently Administered Medications Times are shown in CDT. Scheduled Medication Order 01/08/2022 01/09/2022 01/10/2022 0.9% NaCl injection 3 mL(Linked Group 1) 3 mL, Intracatheter, EVERY 8 HOURS, First dose on Thu01/10/22 at 0800, Until Discontinued, Flush peripheral IV catheter with 3 mL of normal saline every 8 hours., Pre-op 0800 (Due) lidocaine PF (Xylocaine MPF) 1 % injection 0.5 mL 0.5 mL, Infiltration, PRE-OP ONCE, 1 dose, On Thu01/10/22 at 0800, May be used (0.5 ml locally to anesthetize prior to insertion). For patients not allergic to local anesthetics., Pre-op 0800 (Due) Continuous Medication Order 01/08/2022 01/09/2022 01/10/2022 lactated ringers infusion at 20 mL/hr, Intravenous, PRE-OP CONTINUOUS, Starting on Thu01/10/22 at 0800, Until Thu01/10/22 at 1310, Pre-op 0801 ($ New Bag/Syri nge - Provider: Chyna Forbes RN) PRN Medication Order 01/08/2022 01/09/2022 01/10/2022 0.9% NaCl injection 1-10 mL(Linked Group 1) 1-10 mL, Intracatheter, PRN, Other, peripheral line flush, Starting on Thu01/10/22 at 0748, Until Thu01/10/22 at 1310, Flush peripheral IV catheter with 1-10 mL of normal saline before and after medications and prn to clear blood from the line or to verify patency., Pre-op 0.9% nacl irrigation solution (CANCELED) PRN, Starting on Thu01/10/22 at 0935, Until Thu01/10/22 at 1002, Intra-op 0935 ($ Given - Prov ider: Cruz Diallo MD) Linked Groups Order Group 1: SALINE LOCK, INSERT AND MAINTAIN (CANCELED) Routine, CONTINUOUS, Starting on Thu01/10/22 at 0800, Until Specified, Pre-op, New collection And 0.9% NaCl injection 3 mLJump to med 3 mL, Intracatheter, EVERY 8 HOURS, First dose on Thu01/10/22 at 0800, Until Discontinued, Flush peripheral IV catheter with 3 mL of normal saline every 8 hours., Pre-op And 0.9% NaCl injection 1-10 mLJump to med 1-10 mL, Intracatheter, PRN, Other, peripheral line flush, Starting on Thu01/10/22 at 0748, Until Thu01/10/22 at 1310, Flush peripheral IV catheter with 1-10 mL of normal saline before and after medications and prn to clear blood from the line or to verify patency., Pre-op documented in this encounter Care Teams Bag Builder Relationship Specialty Start Date End Date Tabatha Sierra DO [address] [place] [id number] PCP - Attributed-[place] [employer] 08/06/20 01/21/22 Cookie Subramanian MD [address] [address] PCP - General Internal Medicine 01/07/22 05/11/22 documented as of this encounter
--- OUTSIDE RECORDS SUMMARY | 2024-05-25 00:55 | XMS_ITS | Encounter Summary ---
Author Organization [facility] Address [address] [facility] [place] [address] Care Team Providers Care Director E Learning Name Role Phone RigoDebbimariah Dyer DO Primary Care Provider [phone] Tabatha Sierra DO Unavailable [phone] Reason for Visit * Reason Comments Follow-up Encounter Details Date Type Department Care Team (Late st Contact Info) Description 11/27/2021 10:40 AM CDT Office Visit [facility] - SIEBEL CONSULTANT [address] [place] [address] [place] [address] [place] [address] Abnormal uterine bleeding (AUB) (Primary Dx); Trichimoniasis Social History Tobacco Use Types Packs/Day Years [...] In the last 10 days, have mic barnes been in contact with someone who was confirmed or suspected to have Coronavirus/COVID-19? 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 who presents for results Menses 2 weeks late Previously: Missed period last month This month menses started 10/10/2021 Bled for 10 days, upto 8 pads a day, now slowing Happened once in 2020 Risk Factors wears seatbelts, wears sun screen, exercises regularly, eats balanced diet caffeine 0 cups/ day no transfusion history, + tattoos and negative for domestic violence Director Metabolism History Patient's last menstrual period was 10/12/2021. Usually Regular monthly menses, lasting 5 days Using up to 8 pads/ tampons a day No intermenstrual/ postcoital bleeding Last pap 01/2019 ASCUS HPV neg 2018 fibroid 2 cm -> 2020 3cm No [...] Tubal Ligation (BTL) 2004 [place] ??? Cholecystectomy, Open 2003 ??? Hernia [...] and Sexual Activity ??? Alcohol use: Yes Comment: wine rare ??? Drug use: No [...] review of systems was negative. Objective: BP 119/60 Wt 213 lb 12.8 oz BMI 32.99 kg/m2 General appearance: alert, cooperative, no distress, well appearing, obese, no distress, appears stated age Head: normocephalic, without trauma Abdomen: soft without mass, non-distended non-tender, with normal bowel sounds. No palpable hernia Pelvic: External genitalia: normal general appearance, Normal Bartholin's and [place] 1's. Urinary system: urethral meatus normal, bladder non-destended, [...] noted Psych: normal mood and affect Assessment: 41 year old Plan: 1) trich- ANA today 2) Endometrial polyp- Pelvic US images reviewed by [...] bleeding, riskof anesthesia, and risk of . She understands these risks and desires to proceed with the surgery. Minor procedure with increased risk due to BMI 3) AUB- normal CBC and TSH. Will discuss treatment after D&C documented in this encounter Plan of Treatment Not on file documented as of this encounter Procedures Procedure Name Priority Date/Time Associated Diagnosis Comments CHLAMYDIA + GC + TRICH DNA AMPL Routine 11/27/2021 11:48 AM CDT Trichimoniasis documented in this encounter Results * CHLAMYDIA + GC + TRICH DNA AMPL (11/27/2021 11:48 AM CDT) Chlamydia trachomatis ZANA Negative Negative [facility] ACCOUNT B[facility] GC DNA Probe Negative Negative [facility] Trichomonas vaginalis by ZANA Negative Negative [facility] ACCOUNT BILL Microbiology ENTIRE VAGINA / Unknown 11/27/2021 11:48 AM CDT 11/27/2021 Narrative Resulting Agency Comment Lab Testing performed at: [facility] ??[facility] [id number] Cruz Diallo MD LAB - MICROBIOLOGY ORDERABLES [facility] [address] [place] [address] documented in this encounter Visit Diagnoses Diagnosis Abnormal uterine bleeding (AUB)- Primary Trichimoniasis Trichomoniasis, unspecified documented in this encounter Care Teams Director E Learning Relationship Specialty Start Date End Date Tabatha Sierra DO [address] [place] [id number] PCP - General Family Medicine 01/12/20 01/06/22 Tabatha Sierra DO [address] [place] [phone] PCP - Attributed-[place] [employer] 08/06/20 01/21/22 documented as of this encounter
--- OUTSIDE RECORDS SUMMARY | 2024-05-25 00:55 | XMS_ITS | Encounter Summary ---
Author Organization [facility] Address [address] [facility] [place] [address] Care Team Providers Care Commercial Account Executive Name Role Phone Tabatha Sierra DO Primary Care Provider [phone] Tabatha Sierra DO Unavailable [phone] Reason for Visit * Reason Onset Date Comments Surgery Cancellation 12/02/2021 Encounter Details Date Type Department Care Team (Late st Contact Info) Description 12/02/2021 Telephone [facility] - ROLL TABLE OPERATOR [id number] [address] [place] [id number] [address] Surgery Cancellation Social History Tobacco Use Types Packs/Day Years [...] Telephone Encounter - Dee Owens RN - 12/03/2021 8:46 AM CDT Pt called upset that Jessica did not return her call yesterday regarding rescheduling her surgery. Pt informed that Jessica is out of office today, but a message will be sent to her to contact her when she returns. * Telephone Encounter - Dee Owens RN - 12/02/2021 1:36 PM CDT Pt called wanting to speak to Jessica, Surgery Coordinator. documented in this encounter Plan of Treatment Not on file documented as of this encounter Visit Diagnoses Not on filedocumented in this encounter Care Teams Commercial Account Executive Relationship Specialty Start Date End Date Tabatha Sierra DO [address] [place] [phone] PCP - General Family Medicine 01/12/20 01/06/22 Tabatha Sierra DO [address] [place] [address] PCP - Attributed-[place] [employer] 08/06/20 01/21/22 documented as of this encounter
--- OUTSIDE RECORDS SUMMARY | 2024-05-25 00:55 | XMS_ITS | Encounter Summary ---
Author Organization [facility] Address [address] [place] [address] Care Team Providers Care Field Care Manager Name Role Phone Tabatha Sierra DO Primary Care Provider Tabatha Sierra DO Unavailable [phone] Reason for Visit * Reason Onset Date Comments Surgery Scheduling 11/27/2021 Encounter Details Date Type Department Care Team (Late st Contact Info) Description 11/27/2021 Telephone [facility] - CIVIL ENGINEER LAND DEVELOPMENT [id number] [address] [place] [phone] [address] Surgery Scheduling Social History Tobacco [...] Telephone Encounter - Cruz Diallo MD - 11/27/2021 2:11 PM CDT CANARY RAISER SURGERY SCHEDULING PROCEDURE LOCATION: Please Place X by your preferred facility ___x__[facility] OR [facility] OR [facility] Patient Name: Octavia Schmid : 1980 Patient availability for surgery: ThursdayDecember 27 Or anything before then Procedure: Dilation and Curettage Hysteroscopy with possible polypectomy Myosure available Diagnosis: abnormal uterine bleeding Surgery Time Required: 30 minutes Time required off: 2 day(s) Postoperative follow up scheduled in: 2week(s) Provider to follow up with: MD keenan Procedure Details: Anesthesia: Local and IV Sedation Patient had issues with anesthesia before consider anesthesia consult Allergies: No Known Allergies Preoperative Testing required: preoperative covid-19 testing Labs/Test: Per anesthesia or to be placed by provider in pre-op orders documented in this encounter Plan of Treatment Not on file documented as of this encounter Visit Diagnoses Not on filedocumented in this encounter Care Teams Field Care Manager Relationship Specialty Start Date End Date Tabatha Sierra DO [address] [place] [address] PCP - General Family Medicine 01/12/20 01/06/22 Tabatha Sierra DO [address] [place] [phone] PCP - Attributed-[place] [employer] 08/06/20 01/21/22 documented as of this encounter
--- OUTSIDE RECORDS SUMMARY | 2024-05-25 00:55 | XMS_ITS | Encounter Summary ---
Author Organization [facility] Address [address] [place] [address] Care Team Providers Care Acute Care Assistant Name Role Phone Cookie Subramanian MD Primary Care Provider [phone] Reason for Visit * Auth/Cert Specialty Diagnoses / Procedures Referred By Stephen carpio Referred To Contact Procedures LAPAROSCOPIC SALPINGECTOMY AND/OR OOPHORECTOMY Referral ID Status Reason Start Date Expiration Date Visits Re quested Visits Authorized [id number] 1 1 Encounter Details Date Type Department Care Team (Late st Contact Info) Description 02/14/2022 10:30 AM CDT - 02/14/2022 12:31 PM CDT Surgery [facility] - Perioperative Surgery [address] [place] [address] [place] [id number] [facility] [address] [address] LAPAROSCOPIC BILATERAL SALPINGECTOMY WITH PERITONEAL BIOPSY Surgery Details Date/Time Status Location OR Service Patient Class Case Class Case Type Trauma Case? 02/14/2022 10:30 AM Posted [facility] MAIN OR OR 06 Gynecology Surgery Day Care Elective > 5 days Panel 1 Procedure LRB Anes Op Region Wound Class Comments LAPAROSCOPIC BILATERAL SALPI NGECTOMY WITH PERITONEAL BIOPSY N/A General Abdomen Clean Surgeon Surgeon Role Service Panel Cruz Diallo MD Primary Gynecology 1 documented in this encounter Social History Tobacco Use Types Packs/Day Years [...] Sign Reading Time Taken Comments Blood Pressure 122/69 02/14/2022 12:30 PM CDT Pulse 72 02/14/2022 12:30 PM CDT Temperature 36.1 ??C (97 ??F) 02/14/2022 12:05 PM CDT Respiratory Rate 21 02/14/2022 12:30 PM CDT Oxygen Saturation 97% 02/14/2022 12:30 PM CDT Inhaled Oxygen Concentration - - Weight 97.5 kg (215 lb) 02/14/2022 9:26 AM CDT Height 167.6 cm (5' 6 ) 02/14/2022 9:26 AM CDT Body Mass Index 34.7 02/14/2022 9:26 AM CDT documented in this encounter Functional [...] 325 mg by mouth 2 times daily ibuprofen (Motrin) 600 MG tablet Take 1 (one) tablet by mouth every 6 hours as needed for Pain 60 tablet 02/14/2022 oxyCODONE-acetaminophen (Percocet) 5-325 MG tablet Take 1 (one) tablet by mouth every 6 hours as needed for Pain 21 tablet 02/14/2022 vitamin D3 (CHOLECACIFEROL) 5000 units Take 5,000 Units by mouth once daily documented as of this encounter H&P Notes * Cruz Diallo MD - 02/13/2022 3:21 PM CDT Octavia Schmid is a 41 year old female Patient's last menstrual period was 01/12/2022. who for Essure coil removal ?? Patient very concerned about essure coils, especially since not seen on hysteroscopy Patient convince essure coils are causing issues of AUB Reviewed timing of coils vs Aub symptoms not lining up ?? 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 Risk Factors wears seatbelts, wears sun screen, exercises regularly, eats balanced diet caffeine 0 cups/ day no transfusion history, + tattoos and negative for domestic violence ?? 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 [...] ??? Anemia ? Arthritis of knee ? Borderline diabetes ? Delayed emergence from anesthesia ? Fibroid ? 2 cm on US ??? GERD (gastroesophageal reflux disease) ? Hyperlipidemia ? Vitamin D deficiency ? Past Surgical History Past Surgical History: Procedure Laterality Date ??? Bilateral Tubal Ligation (BTL) ?? 2004 ?? Essure ??? Cholecystectomy, Open ?? 2004 ??? Hernia Repair ?? 2000 ?? with mesh ??? HYSTEROSCOPY N/A 01/10/2022 ?? N/A; HYSTEROSCOPY AND DILATION AND CURETTAGE WITH POLYPECTOMY MAYOSURE ??? OTHER SURGERY ?? 01/10/2022 ?? HYSTEROSCOPY AND DILATION AND CURETTAGE WITH POLYPECTOMY MAYOSURE ?? Family History Family History Problem Relation [...] mouth once daily ? BIOTIN 5000 PO Take 1 tablet by mouth once daily ? ferrous sulfate 325 (65 FE) MG tablet Take 325 mg by mouth 2 times daily ? vitamin D3 (CHOLECACIFEROL) 5000 units Take 5,000 Units by mouth once daily ? No current facility-administered medications for this visit. ?? No Known Allergies Social History ?? Occupational History ??? 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 Smoking status: Never Smoker ??? Smokeless tobacco: Never Used Vaping Use ??? Vaping Use: Never used Substance and Sexual Activity ??? Alcohol use: Not Currently ? Comment: wine rare ??? Drug use: [...] systems was negative. ? Objective: ?? BP 112/59 Ht 5' 7 Wt 214 lb 3.2 oz ?? General appearance: alert, cooperative, no distress, well appearing, no distress, appears stated age Lungs: unlabored without use of accessory muscles Skin: warm, good turgor, normal pallor Psych: normal mood and affect ? Assessment: ?? 41 year old ?? Plan: Discussed opertive finding in dept Reviewed [...] discussed in detail, all questions answered. extensively ?? Informed consent was obtained. The benefits, alternatives [...] and desires to proceed with the surgery. ?? 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 documented in this encounter OR Notes * Brief Op Note - Cruz Diallo MD - 02/14/2022 11:30 AM CDT Brief Op Note Procedure: Diagnostic laparoscopy, LAPAROSCOPIC BILATERAL SALPINGECTOMY WITH PERITONEAL BIOPSY Patient Name: Octavia Schmid Date of Service: 02/14/2022 Pre-Op Diagnosis: pelvic pain and AUB Post-Op Diagnosis: Same Surgeon(s) and Role: * Cruz Diallo MD - Primary Anesthesia Type: general ETT Complications: none Findings: uterus with multiple small fibroids B/l tubal s/p partial salpingectomy , calcifications on prior dissection plain Normal ovaries with corpus luteum on let ovary 1.5 cm Peritoneal calcium deposit near uterosacral ligaments and anteriorly near bladder EBL: minimal blood loss Urine Output : 500 mL Drains: * No LDAs found * Specimen(s): ID Type Source Tests Collected by Time Destination A : RIGHT FALLOPIAN TUBE Pathology/Cytology Fallopian Tube PATHOLOGY TISSUE EXAM (STL) Cruz Diallo MD 02/14/2022 1142 B : LEFT FALLOPIAN TUBE Pathology/Cytology Fallopian Tube PATHOLOGY TISSUE EXAM (STL) Cruz Diallo MD 02/14/2022 1143 C : PERITONEAL BIOPSY Pathology/Cytology Peritoneal Biopsy PATHOLOGY TISSUE EXAM (STL) Cruz Diallo MD 02/14/2022 1145 Implant(s): * No implants in log * Cruz Diallo MD * Operative - Cruz Diallo MD - 02/14/2022 11:30 AM CDT Op Note Procedure: Diagnostic laparoscopy, LAPAROSCOPIC BILATERAL SALPINGECTOMY WITH PERITONEAL BIOPSY Patient Name: Octavia Schmid Date of Service: 02/14/2022 Pre-Op Diagnosis: pelvic pain and AUB Post-Op Diagnosis: Same Surgeon(s) and Role: * Cruz Diallo MD - Primary Anesthesia Type: general ETT Complications: none Findings: uterus with multiple small fibroids B/l tubal s/p partial salpingectomy , calcifications on prior dissection plain Normal ovaries with corpus luteum on let ovary 1.5 cm Peritoneal calcium deposit near uterosacral ligaments and anteriorly near bladder EBL: minimal blood loss Urine Output : 500 mL Drains: * No LDAs found * Specimen(s): ID Type Source Tests Collected by Time Destination A : RIGHT FALLOPIAN TUBE Pathology/Cytology Fallopian Tube PATHOLOGY TISSUE EXAM (STL) Cruz Diallo MD 02/14/2022 1142 B : LEFT FALLOPIAN TUBE Pathology/Cytology Fallopian Tube PATHOLOGY TISSUE EXAM (STL) Cruz Diallo MD 02/14/2022 1143 C : PERITONEAL BIOPSY Pathology/Cytology Peritoneal Biopsy PATHOLOGY TISSUE EXAM (STL) Cruz Diallo MD 02/14/2022 1145 Implant(s): * No implants in log * Procedure: ? Patient was taken to the operating room where she was given general anesthesia. She was then prepped and draped in a normal sterile fashion in a dorsal lithotomy prosition. Villaseñor catheter was inserted and clear yellow urine was noted. A sponge on a stick was easily inserted to be sued for uterine manipulation. All other instruments were removed from the vagina and attention was then turned to the abdomen. A 5mm LUQ skin incisions was made with a scalpel midclavicularly 2 cm below the ribs. The abdomen was tended up and a Varices needle was inserted. Correct placement of the needle was confirmed with aspiration and free flowing normal saline. An opening pressure of 9 mmHG was noted and the abdomen was insufflated. All four quadrants were noted to be tympanic. A 5mm trochar was inserted under direct visualization. Abdomen was inspected and findings as noted above in finding section. A second 5mm skin incision was made approximately 3cm superior and 3 cm medical to the left superior iliac crest after injection of Marcaine to the planned incision site at the skin and at the peritoneum. A 5mm trochar was inserted. A third 5mm skin incision was made approximately 3cm superior and 3 cm medical to the superior iliac crest after injection of Marcaine to the planned incision site at the skin and at the peritoneum. A 5mm trochar was inserted. Abdomen was inspected At this time it became apparent that patient likely never had Essure coils placed and that patient had had an partial salpingectomy. The remainder of the tube was removed with ligasure across the mesosalpinx. Posterior cul-de-sac calcification was grasped removed sharply. Excellent hemostasis was noted. All instruments were removed. Skin was closed using 4-0 Monocryl crystal subcuticular fashion. Patient tolerated the procedure well. All counts were correct. Cruz Diallo MD documented in this encounter Plan of Treatment Not on file documented as of this encounter Procedures Procedure Name Priority Date/Time Associated Diagnosis Comments APHERESIS/TRANSFUSION ORDER 02/18/2022 8:47 AM CDT PATHOLOGY TISSUE EXAM (STL) Routine 02/14/2022 11:42 AM CDT Diagnosis unknown NH LAP,RMV ADNEXAL STRUCTURE 02/14/2022 10:50 AM CDT HCG URINE QUALITATIVE STAT 02/14/2022 9:12 AM CDT Preoperative examination BLOOD TYPE VERIFICATION Routine 02/14/2022 9:11 AM CDT documented in this encounter Results * APHERESIS/TRANSFUSION ORDER (02/18/2022 8:47 AM CDT) Narrative 02/18/2022 8:47 AM CDT Ordered by an unspecified provider. Scanned Document NURSING - VITAL SIGN S AND ASSESSMENT * PATHOLOGY TISSUE EXAM (STL) (02/14/2022 11:42 AM CDT) Case Report Surgical Pathology Report ? Case: [id number] ? Authorizing Provider: ??Cruz Diallo MD ? Collected: ? 02/14/2022 11:42 AM ? Ordering Location: ? [facility] ? Received: ?02/14/2022 12:50 PM ? Pathologist: ? Yany Vieyra MD ? Specimens: ?? A) - Fallopian Tube, RIGHT FALLOPIAN TUBE ? B) - Fallopian Tube, LEFT FALLOPIAN TUBE ? C) - Peritoneal Biopsy, PERITONEAL BIOPSY ? 02/18/2022 9:20 AM [facility] Final Diagnosis A. Right fallopian tube, salpingectomy: -- No pathologic diagnosis B. Left fallopian tube, salpingectomy: -- No pathologic diagnosis C. Peritoneum, biopsy: -- Calcified nodule with yellow pigmented material 02/18/2022 9:20 AM [facility] Clinical History Pelvic pain, AUB 02/18/2022 9:20 AM [facility] Gross Description Received in container A in formalin labeled Octavia Schmid, right fallopian tube, is a 4.3 x 0.6 cm fallopian tube with fimbria. Sections show a patent lumen with no gross lesions. Sas Etl Developer sections are submitted in cassette A1. Received in container B in formalin labeled Octavia Schmid, left fallopian tube, is a 4.9 x 0.4 cm fallopian tube with fimbria. Sections show a patent lumen with no gross lesions. Sas Etl Developer sections are submitted in cassette B1. Received in container C in formalin labeled Octavia Schmid, peritoneal biopsy, is a 0.5 x 0.4 x 0.1 cm yellow-cummins tissue fragment. The specimen is placed in a filter bag and entirely submitted in cassette C1. ROSITA/ceci 02/18/2022 9:20 AM T [facility] Microscopic Description Microscopic examination substantiates the above cited diagnosis. MC 02/18/2022 9:20 AM [facility] Disclaimer All histochemical and/or immunohistochemical results are interpreted with controls that demonstrate appropriate staining reactions before reporting results. Note on use of immunocytochemistry reagents: This test was developed and its performance characteristic determined by [facility], Department of Laboratory Medicine. It has [...] interpreted with caution. 02/18/2022 9:20 AM CDT [facility] Embedded Images 02/18/2022 9:20 AM CDT [facility] Pathology/Cytology FALLOPIAN TUBE PART / Unknown 02/14/2022 11:42 AM CDT 02/14/2022 12:50 PM CDT Miscellaneous samples (specimen) FALLOPIAN TUBE PART / Unknown 02/14/2022 11:43 AM CDT 02/14/2022 12:50 PM CDT Miscellaneous samples (specimen) PERITONEAL BIOPSY SPECIMEN / Unknown 02/14/2022 11:45 AM CDT 02/14/2022 12:50 PM CDT Cruz Diallo MD LAB - PATHOLOGY/CYT OLOGY ORDERABLES Performing Organization Address City/[facility]/ZIP Co de Phone Number [facility] [id number] [place] [id number] * HCG URINE QUALITATIVE (02/14/2022 9:12 AM CDT) hCG Qualitative Urine Negative Negative 02/14/2022 9:25 AM CDT [facility] Urine URINE / Unknown Collection / Unknown 02/14/2022 9:12 AM CDT 02/14/2022 9:17 AM CDT Sherry Jose DO LAB - URINALYSIS ORD ERABLES [facility] [address] [place] [address] * BLOOD TYPE VERIFICATION (02/14/2022 9:11 AM CDT) ABO Rh A NEG 02/14/2022 9:3 9 AM CDT [facility] Blood Bank BLOOD SPECIMEN / Unknown Venipuncture / Unknown 02/14/2022 9:11 AM CDT 02/14/2022 9:17 AM CDT Cruz Diallo MD LAB - BLOOD BANK OR DERABLES [facility] [address] [id number] [phone] documented in this encounter Visit Diagnoses Not on filedocumented in this encounter Administered Medications Inactive Administered Medications - up to 3 most recent administrations Medication Order MAR Action Action Date Dose Rate Site 0.9% NaCl injection 1-10 mL 1-10 mL, Intracatheter, PRN, Other, peripheral line flush, Starting on Thu02/14/22 at 0854, Until Thu02/14/22 at 1846, Flush peripheral IV catheter with 1-10 mL of normal saline before and after medications and prn to clear blood from the line or to verify patency., Pre-op 0.9% NaCl injection 3 mL 3 mL, Intracatheter, EVERY 8 HOURS, First dose on Thu02/14/22 at 0900, Until Discontinued, Flush peripheral IV catheter with 3 mL of normal saline every 8 hours., Pre-op acetaminophen (Tylenol) tablet 1,000 mg 1,000 mg, Oral, PRE-OP ONCE, 1 dose, On Thu02/14/22 at 0900, For patients >50 Kg. Not for bariatric or cardiac patients. Patient preference for lesser PRN pain meds may be honored when the patient requests a less strong medication, a lower dose, or a less intrusive route of administration when the lesser drug, dose and route have been ordered for the patient. This patient request must be documented in the MAR., Pre-op $ Given 02/14/2022 9:10 AM CDT 1,000 mg albuterol-ipratropium (Duo-Neb) nebulizer solution 3 mL 3 mL, Inhalation, EVERY 4 HOURS PRN, Shortness of Breath, Wheezing, Starting on Thu02/14/22 at 1532, Until Thu02/14/22 at 1846, For wheezing. Notify anesthesia immediately., PACU bupivacaine PF (Marcaine PF) 0.25 % injection PRN, Starting on Thu02/14/22 at 1130, Until Thu02/14/22 at 1211, Intra-op $ Given 02/14/2022 11:30 AM CDT 15 mL Operative Site diphenhydrAMINE (Benadryl) injection 25 mg 25 mg, Intravenous, ONCE PRN, Nausea/Vomiting, 1 dose, Starting on Thu02/14/22 at 1532, Until Thu02/14/22 at 184, Third choice, use if first and second choice was ineffective., PACU fentaNYL (PF) (Sublimaze) injection 25 mcg 25 mcg, Intravenous, EVERY 10 MIN PRN, Mild Pain, 4 doses, Starting on Thu02/14/22 at 1532, Until Thu02/14/22 at 184, Maximum total of 4 doses. If patient reaches max total dose, please consult anesthesiologist prior to further administration of pain meds. Hold pain meds if there are signs of hypoventilation. Patient preference for lesser PRN pain meds may be honored when the patient requests a less strong medication, a lower dose, or a less intrusive route of administration when the lesser drug, dose and route have been ordered for the patient. This patient request must be documented in the MAR., PACU fentaNYL (PF) (Sublimaze) injection 50 mcg 50 mcg, Intravenous, EVERY 10 MIN PRN, Severe Pain, 4 doses, Starting on Thu02/14/22 at 1532, Until Thu02/14/22 at 184, Maximum total of 4 doses If patient reaches max total dose, please consult anesthesiologist prior to further administration of pain meds. Hold pain meds if there are signs of hypoventilation. Patient preference for lesser PRN pain meds may be honored when the patient requests a less strong medication, a lower dose, or a less intrusive route of administration when the lesser drug, dose and route have been ordered for the patient. This patient request must be documented in the MAR., PACU $ Given 02/14/2022 1:36 PM CDT 50 mcg $ Given 02/14/2022 12:47 PM CDT 50 mcg hydrALAZINE (Apresoline) injection 5 mg 5 mg, Intravenous, POST-OP MULTIPLE, Starting on Thu02/14/22 at 1532, Until Thu02/14/22 at 184, IV given slowly over 1 minute, up to 20 mg. Repeat 5 mg IV dose every 10-15 minutes for sustained hypertension SBP greater than 180, DBP greater than 100., PACU labetalol (Normodyne; Trandate) injection 5 mg 5 mg, Intravenous, POST-OP MULTIPLE, Starting on Thu02/14/22 at 1532, Until Thu02/14/22 at 1846, IV given slowly over 1 minute up to 20 mg. Repeat every 10-15 minutes in 5 mg doses. Hold if heart rate is less than 60. Give for hypertension SBP greater than 180, DBP greater than 100., PACU lactated ringers infusion at 20 mL/hr, Intravenous, PRE-OP CONTINUOUS, Starting on Thu02/14/22 at 0900, Until Thu02/14/22 at 1846, Pre-op Restarted 02/14/2022 10:56 AM CDT $ New Bag/Syringe 02/14/2022 9:45 AM CDT 20 mL/ hr lactated ringers infusion at 125 mL/hr, Intravenous, CONTINUOUS, Starting on Thu02/14/22 at 1545, Until Thu02/14/22 at 1846, PACU lidocaine PF (Xylocaine MPF) 1 % injection 0.5 mL 0.5 mL, Infiltration, PRE-OP ONCE, 1 dose, On Thu02/14/22 at 0900, May be used (0.5 ml locally to anesthetize prior to insertion). For patients not allergic to local anesthetics., Pre-op $ Given 02/14/2022 9:46 AM CDT 0.5 mL morphine injection 2 mg 2 mg, Intravenous, EVERY 15 MIN PRN, Moderate Pain, 5 doses, Starting on Thu02/14/22 at 1532, Until Thu02/14/22 at 1846, Maximum total of 5 doses. If patient reaches max total dose, please consult anesthesiologist prior to further administration of pain meds. Hold pain meds if there are signs of hypoventilation. Patient preference for lesser PRN pain meds may be honored when the patient requests a less strong medication, a lower dose, or a less intrusive route of administration when the lesser drug, dose and route have been ordered for the patient. This patient request must be documented in the MAR., PACU naloxone (Narcan) injection 0.04 mg 0.04 mg, Intravenous, POST-OP MULTIPLE, Starting on Thu02/14/22 at 1532, Until Thu02/14/22 at 1846, If respiration rate is less than 7 per minute administer IV every 1 minute until respirations are greater than 12 per minute. Notify anesthesia immediately., PACU ondansetron (Zofran) injection 4 mg 4 mg, Intravenous, ONCE PRN, Nausea/Vomiting, 1 dose, Starting on Thu02/14/22 at 1532, Until Thu02/14/22 at 1846, First choice, PACU oxyCODONE-acetaminophen (Percocet) 5-325 MG tablet 1 tablet 1 tablet, Oral, POST-OP ONCE, 1 dose, On Thu02/14/22 at 1500, Patient preference for lesser PRN pain meds may be honored when the patient requests a less strong medication, a lower dose, or a less intrusive route of administration when the lesser drug, dose and route have been ordered for the patient. This patient request must be documented in the MAR. $ Given 02/14/2022 2:54 PM CDT 1 tab let prochlorperazine (Compazine) injection 10 mg 10 mg, Intravenous, ONCE PRN, Nausea/Vomiting, 1 dose, Starting on Thu02/14/22 at 1532, Until Thu02/14/22 at 1846, Second choice, use if first choice was ineffective., PACU documented in this encounter Active and Recently Administered Medications Times are shown in CDT. Scheduled Medication Order 02/12/2022 02/13/2022 02/14/2022 0.9% NaCl injection 3 mL(Linked Group 1) 3 mL, Intracatheter, EVERY 8 HOURS, First dose on Thu02/14/22 at 0900, Until Discontinued, Flush peripheral IV catheter with 3 mL of normal saline every 8 hours., Pre-op 0900 (Due)1400 (Due) acetaminophen (Tylenol) tablet 1,000 mg 1,000 mg, Oral, ONCE, 1 dose, On Thu02/14/22 at 0900, Patient preference for lesser PRN pain meds may be honored when the patient requests a less strong medication, a lower dose, or a less intrusive route of administration when the lesser drug, dose and route have been ordered for the patient. This patient request must be documented in the MAR., Pre-op 0900 (Due) acetaminophen (Tylenol) tablet 1,000 mg (COMPLETED) 1,000 mg, Oral, PRE-OP ONCE, 1 dose, On Thu02/14/22 at 0900, For patients >50 Kg. Not for bariatric or cardiac patients. Patient preference for lesser PRN pain meds may be honored when the patient requests a less strong medication, a lower dose, or a less intrusive route of administration when the lesser drug, dose and route have been ordered for the patient. This patient request must be documented in the MAR., Pre-op 09 ($ Given - Prov ider: Leola Casanova RN) gabapentin (Neurontin) capsule 300 mg 300 mg, Oral, ONCE, 1 dose, On Thu02/14/22 at 0900, Pre-op 0912 (Not Administer ed - Provider: Leola Casanova RN - Reason: Refused-Parent/Guardian) hydrALAZINE (Apresoline) injection 5 mg 5 mg, Intravenous, POST-OP MULTIPLE, Starting on Thu02/14/22 at 1532, Until Thu02/14/22 at 1846, IV given slowly over 1 minute, up to 20 mg. Repeat 5 mg IV dose every 10-15 minutes for sustained hypertension SBP greater than 180, DBP greater than 100., PACU labetalol (Normodyne; Trandate) injection 5 mg 5 mg, Intravenous, POST-OP MULTIPLE, Starting on Thu02/14/22 at 1532, Until Thu02/14/22 at 1846, IV given slowly over 1 minute up to 20 mg. Repeat every 10-15 minutes in 5 mg doses. Hold if heart rate is less than 60. Give for hypertension SBP greater than 180, DBP greater than 100., PACU lidocaine PF (Xylocaine MPF) 1 % injection 0.5 mL (COMPLETED) 0.5 mL, Infiltration, PRE-OP ONCE, 1 dose, On Thu02/14/22 at 0900, May be used (0.5 ml locally to anesthetize prior to insertion). For patients not allergic to local anesthetics., Pre-op 0946 ($ Given - Prov ider: Leola Casanova RN) naloxone (Narcan) injection 0.04 mg 0.04 mg, Intravenous, POST-OP MULTIPLE, Starting on Thu02/14/22 at 1532, Until Thu02/14/22 at 1846, If respiration rate is less than 7 per minute administer IV every 1 minute until respirations are greater than 12 per minute. Notify anesthesia immediately., PACU oxyCODONE-acetaminophen (Percocet) 5-325 MG tablet 1 tablet (COMPLETED) 1 tablet, Oral, POST-OP ONCE, 1 dose, On Thu02/14/22 at 1500, Patient preference for lesser PRN pain meds may be honored when the patient requests a less strong medication, a lower dose, or a less intrusive route of administration when the lesser drug, dose and route have been ordered for the patient. This patient request must be documented in the MAR. 1454 ($ Given - Prov ider: Leola Casanova RN) Continuous Medication Order 02/12/2022 02/13/2022 02/14/2022 lactated ringers infusion at 20 mL/hr, Intravenous, PRE-OP CONTINUOUS, Starting on Thu02/14/22 at 0900, Until Thu02/14/22 at 1846, Pre-op 0945 ($ New Bag/Syri nge - Provider: Leola Casanova RN)1055 (Paused - Provider: EITAN Salcedo - Comment: Switch to gravity)1056 (Restarted - Provider: EITAN Salcedo) lactated ringers infusion at 125 mL/hr, Intravenous, CONTINUOUS, Starting on Thu02/14/22 at 1545, Until Thu02/14/22 at 1846, PACU 1545 (Due) PRN Medication Order 02/12/2022 02/13/2022 02/14/2022 0.9% NaCl injection 1-10 mL(Linked Group 1) 1-10 mL, Intracatheter, PRN, Other, peripheral line flush, Starting on Thu02/14/22 at 0854, Until Thu02/14/22 at 1846, Flush peripheral IV catheter with 1-10 mL of normal saline before and after medications and prn to clear blood from the line or to verify patency., Pre-op albuterol-ipratropium (Duo-Neb) nebulizer solution 3 mL 3 mL, Inhalation, EVERY 4 HOURS PRN, Shortness of Breath, Wheezing, Starting on Thu02/14/22 at 1532, Until Thu02/14/22 at 1846, For wheezing. Notify anesthesia immediately., PACU bupivacaine PF (Marcaine PF) 0.25 % injection (CANCELED) PRN, Starting on Thu02/14/22 at 1130, Until Thu02/14/22 at 1211, Intra-op 1130 ($ Given - Prov ider: Cruz Diallo MD) diphenhydrAMINE (Benadryl) injection 25 mg 25 mg, Intravenous, ONCE PRN, Nausea/Vomiting, 1 dose, Starting on Thu02/14/22 at 1532, Until Thu02/14/22 at 1846, Third choice, use if first and second choice was ineffective., PACU fentaNYL (PF) (Sublimaze) injection 25 mcg 25 mcg, Intravenous, EVERY 10 MIN PRN, Mild Pain, 4 doses, Starting on Thu02/14/22 at 1532, Until Thu02/14/22 at 1846, Maximum total of 4 doses. If patient reaches max total dose, please consult anesthesiologist prior to further administration of pain meds. Hold pain meds if there are signs of hypoventilation. Patient preference for lesser PRN pain meds may be honored when the patient requests a less strong medication, a lower dose, or a less intrusive route of administration when the lesser drug, dose and route have been ordered for the patient. This patient request must be documented in the MAR., PACU fentaNYL (PF) (Sublimaze) injection 50 mcg 50 mcg, Intravenous, EVERY 10 MIN PRN, Severe Pain, 4 doses, Starting on Thu02/14/22 at 1532, Until Thu02/14/22 at 1846, Maximum total of 4 doses If patient reaches max total dose, please consult anesthesiologist prior to further administration of pain meds. Hold pain meds if there are signs of hypoventilation. Patient preference for lesser PRN pain meds may be honored when the patient requests a less strong medication, a lower dose, or a less intrusive route of administration when the lesser drug, dose and route have been ordered for the patient. This patient request must be documented in the MAR., PACU 1247 ($ Given - Prov ider: Laura Monson RN)1336 ($ Given - Provider: Laura Monson RN) morphine injection 2 mg 2 mg, Intravenous, EVERY 15 MIN PRN, Moderate Pain, 5 doses, Starting on Thu02/14/22 at 1532, Until Thu02/14/22 at 1846, Maximum total of 5 doses. If patient reaches max total dose, please consult anesthesiologist prior to further administration of pain meds. Hold pain meds if there are signs of hypoventilation. Patient preference for lesser PRN pain meds may be honored when the patient requests a less strong medication, a lower dose, or a less intrusive route of administration when the lesser drug, dose and route have been ordered for the patient. This patient request must be documented in the MAR., PACU ondansetron (Zofran) injection 4 mg 4 mg, Intravenous, ONCE PRN, Nausea/Vomiting, 1 dose, Starting on Thu02/14/22 at 1532, Until Thu02/14/22 at 1846, First choice, PACU prochlorperazine (Compazine) injection 10 mg 10 mg, Intravenous, ONCE PRN, Nausea/Vomiting, 1 dose, Starting on Thu02/14/22 at 1532, Until Thu02/14/22 at 1846, Second choice, use if first choice was ineffective., PACU Linked Groups Order Group 1: SALINE LOCK, INSERT AND MAINTAIN (CANCELED) Routine, CONTINUOUS, Starting on Thu02/14/22 at 0900, Until Specified, Pre-op, New collection And 0.9% NaCl injection 3 mLJump to med 3 mL, Intracatheter, EVERY 8 HOURS, First dose on Thu02/14/22 at 0900, Until Discontinued, Flush peripheral IV catheter with 3 mL of normal saline every 8 hours., Pre-op And 0.9% NaCl injection 1-10 mLJump to med 1-10 mL, Intracatheter, PRN, Other, peripheral line flush, Starting on Thu02/14/22 at 0854, Until Thu02/14/22 at 1846, Flush peripheral IV catheter with 1-10 mL of normal saline before and after medications and prn to clear blood from the line or to verify patency., Pre-op documented in this encounter Care Teams Acute Care Assistant Relationship Specialty Start Date End Date Cookie Subramanian MD [address] [facility] [address] [place] [address] PCP - General Internal Medicine 01/07/22 05/11/22 documented as of this encounter
--- OUTSIDE RECORDS SUMMARY | 2024-05-25 00:55 | XMS_ITS | Encounter Summary ---
Author Organization [facility] Address [address] [facility] [address] Care Team Providers Care Cardiovascular Sonographer Name Role Phone Cookie Subramanian MD Primary Care Provider [phone] Reason for Visit * Reason Onset Date Comments Surgery Scheduling 01/28/2022 Encounter Details Date Type Department Care Team (Late st Contact Info) Description 01/28/2022 Telephone [facility] - DISC PAD KNOCKOUT WORKER [id number] [facility] [address] [place] [address] [place] [address] [address] Surgery Scheduling Social History Tobacco [...] Telephone Encounter - Faith Thomas RN - 01/29/2022 3:32 PM CDT Pt returned call, OR date/time confirmed. Post-op appt date/time confirmed. Pt wanted to make sure that a patient information packet would be mailed out to her. * Telephone Encounter - Fatimah Jackson - 01/29/2022 3:28 PM CDT Called patient to confirm surgery date and time. No answer, left message. Patient needs to confirm surgery date/time and 2 week post op date/time. Surgery Information Date: 02/14/2022 Location: [facility] OR Arrival time: 8:30 AM 2 Week Post-Op Date: 02/27/2022 Time: 11:40 Am Provider: Dr Diallo Will mail patient packet once information is confirmed. * Telephone Encounter - Fatimah Jackson - 01/29/2022 3:[address] Diallo available on 02/14/22 or 03/07/22. Of those 2 dates patient would like 02/14/2022. Patient aware I will call back once I have confirmed the date and time with the OR. * Telephone Encounter - Fatimah Jackson - 01/28/2022 2:54 PM CDT Called patient to verify available dates for surgery. Offered the following dates: 02/17/2022 03/10/2022 03/17/2022 Patient stated she would like to have procedure on a Thursday. Informed patient I would need to checkwith Dr Diallo and the OR and get back with her. Patient understands. documented in this encounter Plan of Treatment Not on file documented as of this encounter Visit Diagnoses Not on filedocumented in this encounter Care Teams Cardiovascular Sonographer Relationship Specialty Start Date End Date Cookie Subramanian MD [address] [address] PCP - General Internal Medicine 01/07/22 05/11/22 documented as of this encounter
--- OUTSIDE RECORDS SUMMARY | 2024-05-25 00:55 | XMS_ITS | Encounter Summary ---
Author Organization [facility] Address [address] [facility] [place] [address] Care Team Providers Care Coat Baster Name Role Phone Tabatha Sierra DO Unavailable [phone] Cookie Subramanian MD Primary Care Provider [phone] Reason for Visit * Reason Onset Date Comments Erroneous encounter-disregard 01/09/2022 Encounter Details Date Type Department Care Team (Late st Contact Info) Description 01/09/2022 Telephone [facility] - MACHINE I ENGRAVER [id number] [place] [address] [place] [address] [address] Erroneous encounter-disregard Social History Tobacco Use Types Packs/Day Years [...] on filedocumented in this encounter Care Teams Coat Baster Relationship Specialty Start Date End Date Tabatha Sierra DO [address] [place] [id number] PCP - Attributed-[place] [employer] 08/06/20 01/21/22 Cookie Subramanian MD [address] [address] PCP - General Internal Medicine 01/07/22 05/11/22 documented as of this encounter
--- OUTSIDE RECORDS SUMMARY | 2024-05-25 00:55 | XMS_ITS | Encounter Summary ---
Author Organization [facility] Address [address] [facility] [place] [address] Care Team Providers Care Flexible Shaft Winder Name Role Phone Tabatha Sierra DO Unavailable [phone] Cookie Subramanian MD Primary Care Provider [phone] Reason for Referral * Radiology Services (Routine) - Closed Specialty Diagnoses / Procedures Referred By Stephen carpio Referred To Contact CT Scan Diagnoses Abnormal uterine bleeding (AUB) Pelvic pain Procedures CT ABDOMEN AND PELVIS WITH IV CONTRAST CT ABDOMEN [place] [address] [address] [place] [address] [facility] [address] [facility] [address] [place] [address] Referral ID Status Reason Start Date Expiration Date Visits Re quested Visits Authorized [id number] Closed 01/15/2022 03/16/2022 1 1 Reason for Visit * Reason Onset Date Comments Results 01/15/2022 Encounter Details Date Type Department Care Team (Late st Contact Info) Description 01/15/2022 Telephone [facility] Medical [facility] - KNIT GOODS PRESS HAND [address] [facility] [place] [address] [place] [address] [place] [id number] Results Social History Tobacco Use Types Packs/Day Years [...] as of this encounter Miscellaneous Notes * Addendum Note - Cruz Diallo MD - 01/15/2022 4:53 PM CDTAddended by: CRUZ DIALLO on: 01/15/2022 04:53 PM Modules accepted: Orders * Telephone Encounter - Cruz Diallo MD - 01/15/2022 4:52 PM CDT Concerned that Essure wasn't visualized on US or hysteroscopy- Plan CT A/P * Telephone Encounter - Dee Owens RN - 01/15/2022 11:18 AM CDT Pt notified that the pathology from the procedure is benign. Pt states the bleeding has stopped. Pt would like to speak to Dr. Diallo directly. documented in this encounter Plan of Treatment Not on file documented as of this encounter Results * CT ABDOMEN AND [...] DATE/TIME OF EXAM: ??01/17/2022 11:08 AM, LOCATION ??[facility] INDICATION: N93.9: Abnormal uterine and vaginal bleeding, [...] DATE/TIME OF EXAM: 01/17/2022 11:08 AM, LOCATION [facility] INDICATION: N93.9: Abnormal uterine and vaginal bleeding, [...] Diagnoses Diagnosis Abnormal uterine bleeding (AUB)- Primary Pelvic pain Unspecified symptom associated with female genital organs Abnormal uterine bleeding (AUB) Pelvic pain Unspecified symptom associated with female genital organs documented in this encounter Care Teams Flexible Shaft Winder Relationship Specialty Start Date End Date Tabatha Sierra DO [address] [place] [address] PCP - Attributed-[place] [employer] 08/06/20 01/21/22 Cookie Subramanian MD [address] [address] PCP - General Internal Medicine 01/07/22 05/11/22 documented as of this encounter
--- OUTSIDE RECORDS SUMMARY | 2024-05-25 00:55 | XMS_ITS | Encounter Summary ---
Author Organization [facility] Address [address] [facility] [place] [address] Care Team Providers Care Telemarketing Representative Name Role Phone Tabatha Sierra DO Primary Care Provider [phone] Tabatha Sierra DO Unavailable [phone] Reason for Visit * Reason Onset Date Comments Discuss Surgery 12/31/2021 Encounter Details Date Type Department Care Team (Late st Contact Info) Description 12/31/2021 Telephone [facility] - TRAINING DIRECTOR [id number] [address] [place] [address] [address] Discuss Surgery Social History Tobacco Use Types Packs/Day Years [...] Telephone Encounter - Cruz Diallo MD - 12/31/2021 12:02 PM CDT Spoke to patient about continued bleeding and patient concern about essure coil. * Telephone Encounter - Faith Thomas RN - 12/31/2021 11:42 AM CDT Pt returned Dr's call she will have her phone on her and asks for Dr. Diallo to call her back. * Telephone Encounter - Cruz Diallo MD - 12/31/2021 11:22 AM CDT Left message for patient to call back I am in office until 12:30 today * Telephone Encounter - Faith Thomas RN - 12/31/2021 10:50 AM CDT Pt called in requesting a call back from Dr. Diallo. Pt has a few question about her surgery. RN tried to assist Pt with her questions. Pt requesting to talk with Dr. Diallo. [phone]. documented in this encounter Plan of Treatment Not on file documented as of this encounter Visit Diagnoses Not on filedocumented in this encounter Care Teams Telemarketing Representative Relationship Specialty Start Date End Date Tabatha Sierra DO [address] [place] [id number] PCP - General Family Medicine 01/12/20 01/06/22 Tabatha Sierra DO [address] [place] [address] PCP - Attributed-[place] [employer] 08/06/20 01/21/22 documented as of this encounter
--- OUTSIDE RECORDS SUMMARY | 2024-05-25 00:55 | XMS_ITS | Encounter Summary ---
Author Organization [facility] Address [address] [facility] [place] [address] Care Team Providers Care Police Liaison Name Role Phone Cookie Subramanian MD Primary Care Provider [phone] Reason for Visit * Reason Onset Date Comments Aub 04/22/2022 Encounter Details Date Type Department Care Team (Late st Contact Info) Description 04/22/2022 Telephone [facility] - PHARMACY DIRECTOR [address] [facility] [address] [place] [address] [place] [address] [address] Aub Social History Tobacco Use Types Packs/Day Years [...] encounter Miscellaneous Notes * Telephone Encounter - Steffanie Ceballos RN - 04/22/2022 8:14 AM CST Pt called office with update. States she began bleeding extremely heavy on Thursday, flooding pads every 30 minutes. Heavy bleeding like that continued all day Thursday and is still going today, along with the passage of something resembling some tissue. She has also started cramping. States cramps are extremely painful, rates them 10/10 on pain scale. Prescription Ibuprofen is not helping. She is afraid to go to work d/t pain and heavy bleeding. Not sure if feeling dizzy as she has not been up andaround today d/t pain/bleeding. Discussed with pt that she should be seen in ED for this extreme bleeding and pain. She states understanding. Does not prefer ED at [facility], will go to another hospital that Dr. Diallo is on staff. TEGIC PLANNING DIRECTOR documented in this encounter Plan of Treatment Not on file documented as of this encounter Visit Diagnoses Not on filedocumented in this encounter Care Teams Police Liaison Relationship Specialty Start Date End Date Cookie Subramanian MD [address] [address] PCP - General Internal Medicine 01/07/22 05/11/22 documented as of this encounter
--- OUTSIDE RECORDS SUMMARY | 2024-05-25 00:55 | XMS_ITS | Encounter Summary ---
Author Organization [facility] Address [address] [place] [address] Care Team Providers Care Basic Sciences Dean Name Role Phone Rigo Debbimariah Dyer DO Primary Care Provider [phone] Tabatha Sierra DO Unavailable [phone] Reason for Visit * Reason Comments Well Women Exam Pap with STD Concerns Period skipped for m angelh of September but she notes it started on the 10 of October and has not gone away since, notes period is usually about 5 days long at the most but this is now going on for 10-11 days, says its light today but it has also been heavier than usual recentlyNegative UPT Encounter Details Date Type Department Care Team (Latest Contact Info) Description 10/22/2021 10:20 AM CDT Office Visit [facility] Medical [facility] - SIGNAL OPERATOR TECHNICAL [id number] [place] [address] [place] [address] [place] [address] [address] Well woman exam with routine gynecological exam (Primary Dx); Abnormal uterine bleeding (AUB); Fibroid Social History Tobacco Use Types Packs/Day [...] Sign Reading Time Taken Comments Blood Pressure 128/72 10/22/2021 10:26 AM CDT Pulse - - Temperature - - Respiratory Rate - - Oxygen Saturation - - Inhaled Oxygen Concentration - - Weight 96.1 kg (211 lb 12.8 oz) 022 10:26 AM CDT Height - - Body Mass Index 32.68 07/10/2020 12:31 PM RADIO OPERATOR GROUND documented in this encounter Progress Notes * Cruz Diallo MD - 10/22/2021 11:14 AM CDT Subjective: Octavia Schmid is a 40 year old female Patient's last menstrual period was 10/10/2021 (exact date). who presents for annual exam. Missed period last month This month menses started 10/10/2021 Bled for 10 days, upto 8 pads a day, now slowing Happened once in 2020 Risk Factors wears seatbelts, wears sun screen, exercises regularly, eats balanced diet caffeine 0 cups/ day no transfusion history, + tattoos and negative for domestic violence College Coach History Patient's last menstrual period was 10/10/2021 (exact date). Usually Regular monthly menses, lasting 5 days [...] and Sexual Activity ??? Alcohol use: No Comment: wine rare ??? Drug use: No [...] review of systems was negative. Objective: BP 128/72 (BP SITE: RIGHT ARM, BP POSITION: SITTING, BP CUFF SIZE: 12) Wt 211 lb 12.8 oz BMI 32.68 kg/m2 General appearance: alert, cooperative, no distress, [...] genitalia: normal general appearance, Normal Bartholin's and Fidelity's. Urinary system: urethral meatus normal, bladder non-destended, [...] normal Clinical staff present for exam: yes Extremities: no clubbing, cyanosis or edema, no calf tenderness Circulation: Radial pulses intact and symmetric Skin: warm, good turgor, normal pallor, no rashes or other abnormalities are noted Psych: normal mood and affect Assessment: 40 year old normal annual exam Plan: 1) WWE Pap STD testing offered- patient desires. Send GCCTV Safe sex precautions discussed. Contraception- BTL Healthy lifestyle discussed including diet, exercise, limiting caffeine, sunscreen use, and seat belt use. Breast awareness discussed. 2) AUB- new onse t - check CBC and TSH Repeat US to monitor documented in this encounter Plan of Treatment Not on file documented as of this encounter Procedures Procedure Name Priority Date/Time Associated Diagnosis Comments TSH REFLEX FREE T4 Routine 10/24/2021 8: 03 AM CDT Abnormal uterine bleeding (AUB) Fibroid CBC W/O DIFFERENTIAL Routine 10/24/2021 8:03 AM CDT Abnormal uterine bleeding (AUB) Fibroid PAP IG LB+CT+NG+TV+HPV APTIMA RFLX Routine 10/22/2021 11:57 AM CDT Well woman exam with routine gynecological exam documented in this encounter Results * (ABNORMAL) CBC W/O DIFFERENTIAL (10/24/2021 8:03 [...] [facility] ACCOUNT BILL Comment: MPV FL BLOOD ([facility]) ? 9.7 ?fl ? 9.4- 12.9 FASTING Blood BLOOD SPECIMEN / Unknown 10/24/2021 8:03 AM CDT 10/24/2021 Narrative Resulting Agency Comment Lab Testing performed at: [place] [id number] ?? [place] [id number] Cruz Diallo MD LAB - HEMATOLOGY OR DERABLES [facility] ACCOUNT BILL [address] [place] [address] * TSH REFLEX FREE T4 (10/24/2021 8:03 AM CDT) TSH 0.968 0.350 - 4.940 uIU/mL [facility] ACCOUNT BILL Comment: FASTING Blood BLOOD SPECIMEN / Unknown 10/24/2021 8:03 AM CDT 10/24/2021 Narrative Resulting Agency Comment Lab Testing performed at: [facility] [address] ?? [place] [id number] Cruz Diallo MD LAB - CHEMISTRY ORD ERABLES [facility] ACCOUNT BILL [address] [place] [address] * (ABNORMAL) PAP IG LB+CT+NG+TV+HPV APTIMA RFLX [...] Performed by [facility] ACCOUNT BILL Comment:Lisha blank, Business Case Analyst (ASCP) Comment . [facility] ACCOUNT BILL Note [...] Resulting Agency Comment Lab Testing performed at: [address] ??[place]mer[place] TADEO [id number] Cruz Diallo MD LAB - PATHOLOGY/CYT OLOGY ORDERABLES [facility] ACCOUNT BILL [address] [place] [address] documented in this encounter Visit Diagnoses Diagnosis Well woman exam with routine gynecological exam- Primary Routine gynecological examination Abnormal uterine bleeding (AUB) Fibroid Leiomyoma of uterus, unspecified documented in this encounter Care Teams Basic Sciences Dean Relationship Specialty Start Date End Date Tabatha Sierra DO [address] [place] [address] PCP - General Family Medicine 01/12/20 01/06/22 Tabatha Sierra DO [address] [place] [address] PCP - Attributed-[place] [employer] 08/06/20 01/21/22 documented as of this encounter
--- OUTSIDE RECORDS SUMMARY | 2024-05-25 00:55 | XMS_ITS | Encounter Summary ---
Author Organization [facility] Address [address] [facility] [place] [address] Care Team Providers Care Ar Manager Name Role Phone Tabatha Sierra DO Primary Care Provider [phone] Tabatha Sierra DO Unavailable [phone] Encounter Details Date Type Department Care Team (Latest Contact Info) Description 10/22/2021 Travel Social History Tobacco Use Types Packs/Day [...] on filedocumented in this encounter Care Teams Ar Manager Relationship Specialty Start Date End Date Tabatha Sierra DO [address] [place] [address] PCP - General Family Medicine 01/12/20 01/06/22 Tabatha Sierra DO [address] [place] [address] PCP - Attributed-[place] [employer] 08/06/20 01/21/22 documented as of this encounter
--- OUTSIDE RECORDS SUMMARY | 2024-05-25 00:55 | XMS_ITS | Encounter Summary ---
Author Organization [facility] Address [address] [facility] [place] [address] Care Team Providers Care Side Stitching Machine Operator Name Role Phone Tabatha Sierra DO Primary Care Provider [phone] Tabatha Sierra DO Unavailable [phone] Reason for Visit * Reason Onset Date Comments Results 10/30/2021 Most recent pap results. Encounter Details Date Type Department Care Team (Late st Contact Info) Description 10/30/2021 Telephone [facility] - DRY CHARGE PROCESS ATTENDANT [address] [address] [place] [address] [address] Results (Most recent pap results. ) Social History Tobacco Use Types Packs/Day Years [...] encounter Miscellaneous Notes * Telephone Encounter - Parul Greenfield APRN-CNP - 11/11/2021 2:35 PM CDT States she spoke to Dr diallo * Telephone Encounter - Faith Thomas RN - 10/30/2021 8:06 AM CDT Pt called requesting a retest of her urine for Trich. Pt also requesting a call back from Dr. Diallo to discuss these results. documented in this encounter Plan of Treatment Scheduled Orders Name Type Priority Associated Diagnoses Orde r Schedule CHLAMYDIA + GC + TRICH DNA AMPL Microbiology Routine Exposure to STD Ordered: 11/11/2021 documented as of this encounter Visit Diagnoses Diagnosis Exposure to STD- Primary Contact with or exposure to venereal diseases documented in this encounter Care Teams Side Stitching Machine Operator Relationship Specialty Start Date End Date Tabatha Sierra DO [address] [place] [address] PCP - General Family Medicine 01/12/20 01/06/22 Tabatha Sierra DO [address] [place] [address] PCP - Attributed-[place] [employer] 08/06/20 01/21/22 documented as of this encounter
--- OUTSIDE RECORDS SUMMARY | 2024-05-25 00:55 | XMS_ITS | Encounter Summary ---
Author Organization [facility] Address [address] [place] [address] Care Team Providers Care Bombsight Specialist Name Role Phone Mag Valdes MD Primary Care Provider [phone] Reason for Visit * Reason Onset Date Comments Referral Consult Request 06/21/2019 Encounter Details Date Type Department Care Team (Late st Contact Info) Description 06/21/2019 Telephone [facility] Medical [facility] - Family Medicine [address] [place] [address] Mag Valdes MD [address] [place] [phone] Referral Consult Request Social History Tobacco Use Types Packs/Day Years [...] encounter Miscellaneous Notes * Telephone Encounter - Lisa Paniagua - 06/21/2019 2:44 PM CST Patient given number to general surgery office at [facility]. MAN APPRENTICE * Telephone Encounter - Cristal Jordan - 06/21/2019 2:36 PM CST Patient called back to check on status of request this morning. MAN APPRENTICE * Telephone Encounter - Ying Hua - 06/21/2019 9:51 AM CST Patient requesting referral information to general surgeon is referring her to MAN APPRENTICE documented in this encounter Plan of Treatment Not on file documented as of this encounter Visit Diagnoses Not on filedocumented in this encounter Care Teams Bombsight Specialist Relationship Specialty Start Date End Date Mag Valdes MD PCP - General Family Medicine 01/06/19 01/11/20 documented as of this encounter
--- OUTSIDE RECORDS SUMMARY | 2024-05-25 00:55 | XMS_ITS | Encounter Summary ---
Author Organization [facility] Address [address] [place] [place] [address] Care Team Providers Care Foster Care Worker Name Role Phone Mag Valdes MD Primary Care Provider [phone] Reason for Visit * Reason Onset Date Comments Results 06/20/2019 Encounter Details Date Type Department Care Team (Late st Contact Info) Description 06/20/2019 Telephone [facility] - Family Medicine [address] [place] [address] Mag Valdes MD [address] [place] [phone] Results Social History Tobacco Use Types Packs/Day [...] encounter Miscellaneous Notes * Telephone Encounter - Mag Valdes MD - 06/22/2019 2:24 PM CST US results reviewed and result note made 06/20/19 RATING INSPECTOR * Telephone Encounter - Cristal Jordan - 06/20/2019 3:10 PM CST Patient called and is asking for results of her Ultrasound. Please review and return her call RATING INSPECTOR documented in this encounter Plan of Treatment Not on file documented as of this encounter Visit Diagnoses Not on filedocumented in this encounter Care Teams Foster Care Worker Relationship Specialty Start Date End Date Mag Valdes MD PCP - General Family Medicine 01/06/19 01/11/20 documented as of this encounter
--- OUTSIDE RECORDS SUMMARY | 2024-05-25 00:55 | XMS_ITS | Encounter Summary ---
Author Organization [facility] Address [address] [facility] [place] [address] Care Team Providers Care Senior Major Gifts Officer Name Role Phone Cookie Subramanian MD Primary Care Provider [phone] Encounter Details Date Type Department Care Team (Late st Contact Info) Description 04/22/2022 Orders Only [facility] - CNA GNA [address] [facility] [address] [place] [address] [place] [address] [facility] [address] [place] [address] Menorrhagia with regular cycle Social History Tobacco Use Types Packs/Day Years [...] as of this encounter Progress Notes * Kamla Bacon DO - 04/22/2022 5:23 PM CST Patient called through the exchange with heavy bleeding after taking provera. Will start megace 40 mg PO QID until seen by Dr. Imani Bacon DO ICAL CAR CHECKER documented in this encounter Plan of Treatment Not on file documented as of this encounter Visit Diagnoses Diagnosis Menorrhagia with regular cycle- Primary Excessive or frequent menstruation documented in this encounter Care Teams Senior Major Gifts Officer Relationship Specialty Start Date End Date Cookie Subramanian MD [address] [address] PCP - General Internal Medicine 01/07/22 05/11/22 documented as of this encounter
--- OUTSIDE RECORDS SUMMARY | 2024-05-25 00:55 | XMS_ITS | Encounter Summary ---
Author Organization [facility] Address [address] [facility] [place] [address] Care Team Providers Care Forest Fire Management Officer Name Role Phone Tabatha Sierra DO Primary Care Provider [phone] Tabatha Sierra DO Unavailable [phone] Reason for Visit * Radiology Services (Routine) - Closed Specialty Diagnoses / Procedures Referred By Stephen carpio Referred To Contact Ultrasound Diagnoses Abnormal uterine bleeding (AUB) Fibroid Procedures US PELVIS W/TRANSVAG & DOPPLER US [place]ELVIS [place] [address] [place] [address] [facility] [address] [address] Referral ID Status Reason Start Date Expiration Date Visits Re quested Visits Authorized [id number] Closed 10/22/2021 10/22/2022 1 1 Encounter Details Date Type Department Care Team (Latest Contact Info) Description 11/02/2021 8:30 AM CDT - 11/02/2021 11:59 PM CDT Hospital Encounter [facility] Imaging Services - Ultrasound [address] [facility] [address] [place] [address] [place] [address] [address] [place] [address] Discharge Disposition: Home or Self Care [...] on file documented as of this encounter Medications at [...] Associated Diagnosis Comments US PELVIS W TRANSVAG W DOP NON OB Routine 11/02/2021 9:21 AM CDT Abnormal uterine bleeding (AUB) Fibroid documented in this encounter Results * US PELVIS W/TRANSVAG & DOPPLER (11/02/2021 [...] at 1:21 PM Cruz Diallo MD ORDERABLES documented in this encounter Visit Diagnoses Diagnosis Abnormal uterine bleeding (AUB) Fibroid Leiomyoma of uterus, unspecified documented in this encounter Care Teams Forest Fire Management Officer Relationship Specialty Start Date End Date Tabatha Sierra DO [address] [place] [phone] PCP - General Family Medicine 01/12/20 01/06/22 Tabatha Sierra DO [address] [place] [address] PCP - Attributed-[place] [employer] 08/06/20 01/21/22 documented as of this encounter
--- OUTSIDE RECORDS SUMMARY | 2024-05-25 00:55 | XMS_ITS | Encounter Summary ---
Author Organization [facility] Address [address] [facility] [place] [address] Care Team Providers Care Submarine Operator Name Role Phone Mag Valdes MD Primary Care Provider [phone] Mag Valdes MD Unavailable Encounter Details Date Type Department Care Team (Latest Contact Info) Description 12/19/2019 Travel Social History Tobacco Use Types Packs/Day [...] on filedocumented in this encounter Care Teams Submarine Operator Relationship Specialty Start Date End Date Mag Valdes MD PCP - General Family Medicine 01/06/19 01/11/20 Mag Valdes MD [address] [place] [address] PCP - Attributed-[place] [employer] 07/09/19 04/04/20 documented as of this encounter
--- OUTSIDE RECORDS SUMMARY | 2024-05-25 00:55 | XMS_ITS | Encounter Summary ---
Author Organization [facility] Address [address] [place] [address] Care Team Providers Care Software Lead Name Role Phone Tabatha Sierra Manisha ZHAO Primary Care Provider [phone] Reason for Visit * Reason Comments Med Change Request Encounter Details Date Type Department Care Team (Late st Contact Info) Description 05/15/2022 Refill [facility] - LAUNDRY AGENT [address] [facility] [address] [place] [address] [place] [address] [facility] [address] [place] [address] Med Change Request Social History Tobacco Use Types Packs/Day [...] No 01/10/2022 documented as of this encounter Plan of Treatment Not on file documented as of this encounter Visit Diagnoses Diagnosis Menorrhagia with regular cycle Excessive or frequent menstruation documented in this encounter Care Teams Software Lead Relationship Specialty Start Date End Date Tabatha Sierra DO [address] [place] [address] PCP - General 05/12/22 documented as of this encounter
--- OUTSIDE RECORDS SUMMARY | 2024-05-25 00:55 | XMS_ITS | Encounter Summary ---
Author Organization [facility] Address [address] [facility] [place] [address] Care Team Providers Care Mercury Cell Cleaner Name Role Phone Tabatha Sierra DO Unavailable [phone] Cookie Subramanian MD Primary Care Provider [phone] Reason for Visit * Auth/Cert Specialty Diagnoses / Procedures Referred By Stephen carpio Referred To Contact Procedures HYSTEROSCOPY WITH DILATION & CURETTAGE Referral ID Status Reason Start Date Expiration Date Visits Re quested Visits Authorized [id number] 1 1 Encounter Details Date Type Department Care Team (Late st Contact Info) Description 01/10/2022 9:12 AM CDT Anesthesia Event [facility] - Perioperative Surgery [address] [place] [address] Rohit Martines MD [address] [place] [address] [address] [place] [address] [place] [address] [place] [address] Anesthesia Record Procedure Summary Procedure Name Responsible Anesthesiologist Anesthesia Start Time Anesthesia Stop Time HYSTEROSCOPY AND DILATION AND CURETTAGE WITH POLYPECTOMY [facility] (Vagina ) Rohit Martines MD 01/10/22 0912 01/10/22 1005 Events Date Time Event Comment 01/10/2022 0829 0912 An Start 0914 An Start Data 0914 PT Reassessment 0917 Induction 0919 An Intubation 0919 LMA 0924 Timeout Anesthesia part icipated in timeout at the time documented in the record by nursing. 0955 An Emergence 0955 AN LMA REMOVE 0959 Electnc Sig This record is electronically signed by the providers listed under staff. 0959 an stop data 0959 ANPTO2 1005 An Stop Meds Name Total fentaNYL 100 mcg/2mL injection 100 mcg lidocaine 1% (PF) injection (50 mg/5mL) 50 mg propofol 200 mg/20mL injection 200 mg ondansetron 4 mg/2mL injection 4 mg dexamethasone 4 mg/mL injection 8 mg diphenhydrAMINE 50 mg/mL injection 25 m g lactated ringers infusion 0 mL * Agents Name Exp. Sevoflurane Exp. N2O Insp. Sevoflurane Insp. Isoflurane * Blood No blood administrations on file. Lines, Drains, and Airways Type Details Placement Removal Peripheral IV Date: 01/10/22; Time : 075; Orientation: Right; Placed By: CLAUDIA Bhagat; Tolerance: Well 01/10/22 0758 by Chyna Forbes RN 01/10/22 1123 by Chyna Forbes, CLAUDIA Procedural Site (Incision) 01/10/22; 09; Inner; Vagina; Laparoscopic; 01/10/22; 18101/10/22 0924 by Aubree Elliott RN 01/10/22 181 by Generic, Auto Release LMA 01/10/22; 09 (created via procedure documentation); EITAN Miller; 100% O2; Standard IV; mask not attempted; LMA; 4.0; Bilateral breath sounds, Chest Auscultation, CO2 Monitor; 01/10/22; 0955 01/10/22 0928 by Lulu Pedersen APRN-CRNA 01/10/22 0955 by Lulu Pedersen APRN-CRNA documented in this encounter Social History Tobacco [...] as of this encounter Progress Notes * Lulu Pedersen, DISHWASHING MACHINE REPAIRER-SECURITY SALES CONSULTANT - 01/10/2022 1:47 PM CDT ANESTHESIA POSTOP EVALUATION NOTE Procedure: HYSTEROSCOPY AND DILATION AND CURETTAGE WITH POLYPECTOMY [facility] (N/A Vagina ) Octavia Schmid is a 41 year old female Patient Vitals for the past 6 hrs: BP Temp Pulse Resp SpO2 Pain Rating Score #1 Pain Scale/Observation Pulse - (SPO2/Cuff) 01/10/22 0755 120/70 96.9 ??F (36.1 ??C) 69 16 99 % 0 N -- 01/10/22 1004 110/66 97.7 ??F (36.5 ??C) 60 19 100 % -- N 60 bpm 01/10/22 1015 111/74 -- 58 18 100 % -- N 57 bpm 01/10/22 1030 108/66 -- 51 17 100 % -- N -- 01/10/22 1045 100/66 -- 53 16 100 % -- -- -- 01/10/22 1100 109/66 -- 55 17 98 % -- -- -- 01/10/22 1122 113/57 96.9 ??F (36.1 ??C) 57 16 100 % 0 N -- 01/10/22 1158 100/50 96.9 ??F (36.1 ??C) 56 16 98 % 0 -- -- Anesthesia Type: general LMA * No Diagnosis Codes entered * Mental Status: awake, alert and sufficiently recovered from acute administration of anesthesia to participate in the evaluation Neuro Status: No numbess, tingling or visual disturbances Respiratory Function: natural Cardiac Function: stable Postop Pain: acceptable to the patient Postop Hydration: adequate Postop Nausea: none Assessment: no apparent anesthetic complications, patient tolerated procedure well and no evidence of recall Patient Disposition: Release from Anesthesia Care COMPLICATIONS: No complications documented. * Sherry Joes DO - 01/10/2022 8:29 AM CDT ANESTHESIA PREOPERATIVE EVALUATION NOTE Procedure: DILATION AND CURETTAGE HYSTEROSCOPY WITH POSSIBLE POLYPECTOMY MYOS[facility] AVAILABLE (N/A Vagina ) NPO status: Since Midnight (01/10/2022 7:55 AM) Vitals: Patient Vitals for the past 6 hrs: BP Temp Pulse Resp SpO2 Pain Rating Score #1 01/10/22 0755 120/70 96.9 ??F (36.1 ??C) 69 16 99 % 0 LMP: Patient's last menstrual period was 01/10/2022 (approximate). OB Status: Having periods ANESTHESIA PRE-EVALUATION NOTE The patient is a current non-smoker. Physical Exam: Orientation X3 Airway/Mallampati Score: II Mouth Opening Distance: 3.5 fingerwidths Neck ROM: full Teeth: normal Heart: normal - S1 S2 Lungs: clear to ausculation bilaterally Review of Systems: History of anesthetic complications: Yes PONV: Yes (pt refuses scop patch) Delayed Emergence: Yes ANESTHESIA PLAN ASA Score: 2 NPO Status: No solids since midnight and No liquids within 2 hours Anesthesia Plan: general LMA and MAC Planned Induction: intravenous Planned Postop Destination: OPS and PACU Anesthetic plan was discussed with: patient Anesthetic Plan discussion was: Consented BMI, Height, Weight Tobacco History Estimated body mass index is 33.36 kg/m?? as calculated from the following: Height as of this encounter: 1.702 m (5' 7 ). Weight as of this encounter: 96.6 kg (213 lb). Social History Tobacco Use Smoking Status Never Smoker Smokeless Tobacco Never Used Alcohol History Drug History Social History Substance and Sexual Activity Alcohol Use Not Currently Comment: wine rare Social History Substance and Sexual Activity Drug Use No Outpatient Medications: Inpatient Medications: Outpatient Medications Marked as Taking for the 01/10/22 encounter (Hospital Encounter) Medication Sig Last Dose ??? ascorbic acid Take 500 mg by mouth once daily 01/08/2022 at Unknown time ??? BIOTIN 5000 PO Take 1 tablet by mouth once daily 01/08/2022 at Unknown time ??? ferrous sulfate Take 325 mg by mouth as needed (takes during menstrual cycle) 01/08/2022 at Unknown time ??? vitamin D3 Take 5,000 Units by mouth once daily 01/08/2022 at Unknown time Current Facility-Administered Medications Medication Dose Last Admin ??? 0.9% NaCl 3 mL And ??? 0.9% NaCl 1-10 mL ??? lactated ringers New Bag at 01/10/22 0801 ??? lidocaine 0.5 mL Allergies: No Known Allergies Relevant Problems No relevant active problems Problem List: Patient Active Problem List Diagnosis Date Noted ??? Mae's cyst, unruptured, right 06/28/2019 Priority: Not Prioritized ??? Pain in right knee 06/21/2014 ??? Pain in left knee 06/21/2014 ??? Dizziness and giddiness 04/12/2010 Medical History: Past Medical History: Diagnosis Date ??? Anemia ??? Arthritis of knee ??? Delayed emergence from anesthesia ??? Fibroid 2 cm on US ??? Hyperlipidemia ??? Vitamin D deficiency Surgical History: Past Surgical History: Procedure Laterality Date ??? Bilateral Tubal Ligation (BTL) 2004 [place] ??? Cholecystectomy, Open 2003 ??? Hernia Repair 2000 with mesh SCIENTIFIC TECHNICAL WRITER Status: Patient's last menstrual period was 01/10/2022 (approximate). Having periods OB History Para Term AB Living 4 4 4 0 0 4 SAB IAB Ectopic Multiple Live Births 0 0 0 0 4 # Outcome Date GA Lbr Dane/2nd Weight Sex Delivery Anes PTL Lv 4 Term 2002 3742 g (8 lb 4 oz) M Vag-Spont SHANE 3 Term 2001 M Vag-Spont SHANE 2 Term 2000 3685 g (8 lb 2 oz) F Vag-Spont SHANE 1 Term 1999 3289 g (7 lb 4 oz) M Vag-Spont SHANE Obstetric Comments All vag Covid Vaccine: Lab Results: Recent Labs Component Name 01/10/22 0752 HCGURINE Negative Recent Labs Component Name 10/24/21 0803 WBC 7.8 RBC 3.94 HCT 37.8 HGB 11.5* PLTCOUNT 365 MCV 95.9 MCH 29.2 MCHC 30.4* Recent Labs Component Name 10/24/21 0803 TSH 0.968 No results found for requested labs within last 120 days. No results found for requested labs within last 120 days. documented in this encounter Procedure Notes * Lulu Pedersen APRN-CRNA - 01/10/2022 9:27 AM CDTAssociated Order(s): LMA Placement LMA Placement Procedure/LDA Note: Procedure: LMA. Pretreatment: 100% O2 Induction: standard IV Patient position: supine. Mask Ventilation: not attempted Type: LMA Size: 4 Number of Attempts: 1. Placement verified by: bilateral breath sounds, chest auscultation and CO2 monitor Dentition unchanged? Yes Staff Section Anesthesia Provider: Lulu Pedersen APRN-CRNA, Performed the procedure documented in this encounter Miscellaneous Notes * Anesthesia Transfer of Care - Lulu Pedersen APRN-CRNA - 01/10/2022 1:48 PM CDT ANESTHESIA TRANSFER OF CARE NOTE Today's Date: 01/10/2022 Date of : 1980 Patient: Octavia Binu Procedure(s): HYSTEROSCOPY AND DILATION AND CURETTAGE WITH POLYPECTOMY [facility] Surgeon(s): Primary: Cruz Diallo MD Preop Diagnosis: * No Diagnosis Codes entered * Pre-op Meds (From admission, onward) Start Stop Status Route Frequency Ordered 01/10/22 0921 dexAMETHasone (Decadron) injection -- Sent IV PRN 01/10/2292501/10/22 09 diphenhydrAMINE (Benadryl) injection -- Sent IV PRN 01/10/2292401/10/22 09 fentaNYL (PF) (Sublimaze) injection -- Sent IV PRN 01/10/2225 01/10/22 09 lidocaine PF (Xylocaine MPF) 1 % injection -- Sent IV PRN 01/10/2292501/10/22 09 ondansetron (Zofran) injection -- Sent IV PRN 01/10/22 0901/10/22 09 propofol (Diprivan) injection -- Sent IV PRN 01/10/[address]24 * No Diagnosis Codes entered * . No Known Allergies Vitals: Patient Vitals for the past 3 hrs: BP Temp Pulse Resp SpO2 Pain Rating Score #1 01/10/22 1158 100/50 96.9 ??F (36.1 ??C) 56 16 98 % 0 01/10/22 1122 113/57 96.9 ??F (36.1 ??C) 57 16 100 % 0 01/10/22 1100 109/66 -- 55 17 98 % -- Lines, Drains, and Airways Type Details Placement Removal Peripheral IV Date: 01/10/22; Time: 0758; Orientation: Right; Location: Hand; Placed By: CLAUDIA Bhagat; Gauge: 20 Gauge; Locals: None; Tolerance: Well 01/10/22 0758 by Chyna Forbes RN 01/10/22 1123 by Chyna Forbes RN LMA 01/10/22; 927 (created via procedure documentation); EITAN Miller; 100% O2; Standard IV; mask not attempted; LMA; 4.0; Bilateral breath sounds, Chest Auscultation, CO2 Monitor; 01/10/22; 0955 01/10/22 09 by Lulu Pedersen APRN-CRNA 01/10/22 09 by Lulu Pedersen APRN-CRNA Intraprocedure I/O Totals None Patient Transfer Location: PACU Complications: None Handoff Given? Yes Checklist or Protocol - The hussein handoff elements that must be included in the transfer of care checklist include: 1. Identification of patient. 2. Identification of responsible practitioner (PACU nurse or advanced practitioner). 3. Discussion of pertinent medical history. 4. Discussion of the surgical/procedure course (procedure, reason for surgery, procedure performed). 5. Intraoperative anesthetic management and issue/concerns. 6. Expectations/Plans for the early post-procedure period. 7. Opportunity for questions and acknowledgement of understanding of report from the receiving PACUteam. EITAN Miller documented in this encounter Plan of Treatment Not on file documented as of this encounter Procedures Procedure Name Priority Date/Time Associated Diagnosis Comments LARYNGEAL MASK AIRWAY Routine 01/10/2022 9:27 AM CDT documented in this encounter Results * LARYNGEAL MASK AIRWAY (01/10/2022 9:27 AM CDT) Narrative Lulu Pedersen APRN-CRNA - 01/10/2022 9:27 AM CDT Lulu Pedersen APRN-CRNA ? 01/10/2022 ??9:28 AM LMA Placement Procedure/LDA Note: Procedure: LMA. Pretreatment: 100% O2 Induction: standard IV Patient position: supine. Mask Ventilation: not attempted Type: ??LMA Size: ??4 Number of Attempts: 1. Placement verified by: bilateral breath sounds, chest auscultation and CO2 monitor Dentition unchanged? ??Yes Staff Section ? Anesthesia Provider: Lulu Pedersen APRN-CRNA, Performed the procedure Rohit Martines MD GENERAL ANESTHESIA O RDERABLES documented in this encounter Visit Diagnoses Not on filedocumented in this encounter Administered Medications Inactive Administered Medications - up to 3 most recent administrations Medication Order MAR Action Action Date Dose Rate Site dexAMETHasone (Decadron) injection Intravenous, PRN, Starting on Thu01/10/22 at 0921, Until Thu01/10/22 at 1348, Anesthesia Intra-op $ Given 01/10/2022 9:21 AM CDT 8 mg diphenhydrAMINE (Benadryl) injection Intravenous, PRN, Starting on Thu01/10/22 at 0912, Until Thu01/10/22 at 1348, Anesthesia Intra-op $ Given 01/10/2022 9:12 AM CDT 25 mg fentaNYL (PF) (Sublimaze) injection Intravenous, PRN, Starting on Thu01/10/22 at 0912, Until Thu01/10/22 at 1348, Anesthesia Intra-op $ Given 01/10/2022 9:14 AM CDT 50 mcg $ Given 01/10/2022 9:12 AM CDT 50 mcg lidocaine PF (Xylocaine MPF) 1 % injection Intravenous, PRN, Starting on Thu01/10/22 at 0917, Until Thu01/10/22 at 1348, Anesthesia Intra-op $ Given 01/10/2022 9:17 AM CDT 50 mg ondansetron (Zofran) injection Intravenous, PRN, Starting on Thu01/10/22 at 0921, Until Thu01/10/22 at 1348, Anesthesia Intra-op $ Given 01/10/2022 9:21 AM CDT 4 mg propofol (Diprivan) injection Intravenous, PRN, Starting on Thu01/10/22 at 0917, Until Thu01/10/22 at 1348, Anesthesia Intra-op $ Given 01/10/2022 9:17 AM CDT 200 mg documented in this encounter Care Teams Mercury Cell Cleaner Relationship Specialty Start Date End Date Tabatha Sierra DO [address] [place] [id number] PCP - Attributed-[employer] 08/06/20 01/21/22 Cookie Subramanian MD [address] [address] PCP - General Internal Medicine 01/07/22 05/11/22 documented as of this encounter
--- OUTSIDE RECORDS SUMMARY | 2024-05-25 00:55 | XMS_ITS | Encounter Summary ---
Author Organization [facility] Address [address] [place] [address] Care Team Providers Care Nurse Practical Name Role Phone Tabatha Sierra DO Primary Care Provider [phone] Reason for Visit * Reason Comments Menstrual Problem Encounter Details Date Type Department Care Team (Latest Contact Info) Description 07/10/2020 12:20 PM COCONUT COOKER Office Visit [facility] Medical [facility] - PERIODICALS LIBRARY ASSISTANT [id number] [address] [place] [id number] [address] Abnormal uterine bleeding (AUB) (Primary Dx); Amenorrhea; Encounter for post Essure sterilization check Social History Tobacco Use Types Packs/Day Years [...] COVID-19? No / Unsure 07/09/2020 2:53 PM COCONUT COOKER documented as of this encounter Last Filed Vital Signs Vital Sign Reading Time Taken Comments Blood Pressure 128/74 07/10/2020 12:31 PM COCONUT COOKER Pulse - - Temperature - - Respiratory Rate - - Oxygen Saturation - - Inhaled Oxygen Concentration - - Weight 95.5 kg (210 lb 9.6 oz) 07/10/2020 12:31 PM COCONUT COOKER Height 171.5 cm (5' 7.5 ) 07/10/2020 12:31 PM CS T Body Mass Index 32.5 07/10/2020 12:31 PM COCONUT COOKER documented in this encounter Progress Notes * Cruz Diallo MD - 07/11/2020 2:41 PM CST Subjective: Octavia Schmid is an 39 year old , Patient's last menstrual period was 06/01/2020 (exact date)., female who presents abnormal bleeding. No menses in June, no menstrual symptoms, no other changes Never skipped menses previously Interested in checking if Essure is still in place. 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 Regular monthly menses, lasting 5 days Using up to 8 pads/ tampons a day No intermenstrual/ postcoital bleeding Last pap 01/2019 ASCUS HPV neg 2018 fibroid 2 cm No history of STDs/ cysts Heterosexual, with current partner for 3 years 1 sexual partners in past year, ? lifetime partners Contraception ESSURE OB History Para Term AB Living 4 [...] this visit. No Known Allergies Social History Socioeconomic History ??? Marital status: [...] file Gets together: Not on file Attends restoration service: Not on file Active member of club or organization: Not on file Attends meetings of clubs or organizations: Not on file Relationship status: Not on file ??? Intimate partner violence Fear of current or ex partner: Not on file Emotionally abused: Not on file Physically abused: Not on file Forced sexual activity: Not on file Other Topics Concern ??? Service Not Asked ??? Blood Transfusions No ??? Caffeine Concern No ??? Occupational Exposure Not Asked ??? Hobby Hazards Not Asked ??? Sleep Concern Not Asked ??? Stress Concern Not Asked ??? Weight Concern Yes ??? Special Diet Not Asked ??? Back Care Not Asked ??? Exercise Yes ??? Bike Helmet Not Asked ??? Seat Belt No ??? Self-Exams Not Asked Social History Narrative ??? Not on file Review of Systems Constitutional: Negative for fatigue, weight loss, weight gain, fevers, chills, sweats. Ears, nose, mouth, and throat: Negative for bleeding gums Respiratory: Negative for shortness of breath, dyspnea on exertion Cardiovascular: Negative for palpitations, tachycardia, syncope, chest pain, exertional chest pain or pressure, lower extremity edema Gastrointestinal: Negative for nausea, vomiting, hemetemesis, hematochezia, abdominal pain, change in bowel habits, constipation, diarrhea Genitourinary:Negative for dysuria, frequency, hesitancy, hematuria, kidney stone, genital lesions,dyspareunia, vaginal problems - lesion, burning, itching , pain, vaginal ulcer, vaginal discharge Skin: Negative for rash, new lesion, bruising, hair changes, nail changes Hematologic/lymphatic: Negative for bleeding disorder, petechia, blood clots Neurological: Negative for headaches, dizziness, syncope, seizures Behavioral/Psych: Negative for depressed mood, cycling mood, fatigue, anxiety Endocrine: Negative for thyroid nodule, cold intolernance, heat intolerance, hair loss, hair growth, skin dryness, hot flashes Objective: BP 128/74 Ht 5' 7.5 Wt 210 lb 9.6 oz BMI 32.5 kg/m2 General Appearance: alert, cooperative, no distress, well appearing Eyes: non icteric, normal pallor Breasts: exam not performed Lungs: unlabored, no use of accessory muscles, breath sounds normal and symmetric; no rales or wheezes Heart: regular rhythm, normal S1 and S2, without murmurs, gallops or rubs Abdomen: soft without mass, non-distended, non-tender, with normal bowel sounds Pelvic: External genitalia: normal general appearance, Normal Bartholin's and Winifred's. Urinary system: urethral meatus normal, bladder non-destended, non tender. Vaginal: normal mucosa without prolapse or lesions, normal without tenderness, induration or massesand normal rugae. No active bleeding. Cervix: normal appearance without lesions and cervical motion tenderness Adnexa: normal bimanual exam, no masses nontender Uterus: normal single mobile, nontender, anteverted, normal size Rectal: perirectal skin normal Clinical staff present for exam: yes LM Extremities: no clubbing, cyanosis or edema, brisk capillary refill Skin: Good turgor, normal pallor. Normal hair distribution Assessment: 39 year old , with Abnormal Uterine bleeding, Plan: Skipped menses- patient reassured, one irregular cycles- usually not concerning Check blood HCG to confirm no ectopic Check PRL, TSH, LHFSH Check HSG to confirm tubes not patent. If no menses in 1 month, will need provera challenge NUT COOKER documented in this encounter Plan of Treatment Not on file documented as of this encounter Procedures Procedure Name Priority Date/Time Associated Diagnosis Comments TSH REFLEX FREE T4 Routine 07/10/2020 1: 15 PM COCONUT COOKER Abnormal uterine bleeding (AUB) Amenorrhea PROLACTIN Routine 07/10/2020 1:15 PM COCONUT COOKER Abnormal uterine bleeding (AUB) Amenorrhea ESTRADIOL Routine 07/10/2020 1:15 PM COCONUT COOKER Abnormal uterine bleeding (AUB) Amenorrhea HCG BETA BLOOD QUANTITATIVE STAT 07/10/2020 1:15 PM COCONUT COOKER Abnormal uterine bleeding (AUB) Amenorrhea FSH + LH PANEL Routine 07/10/2020 1:15 PM COCONUT COOKER Abnormal uterine bleeding (AUB) Amenorrhea documented in this encounter Results * HCG BETA BLOOD QUANTITATIVE (07/10/2020 1:15 PM COCONUT COOKER) hCG Value <1 mIU/mL [facility] ACCOUNT BILL Comment: ?Female (Non-) ?0 - ? 5 ? (Postmenopausal) ??0 - ? 8 ? . ?Female () ?Weeks of Gestation ?3 ?6 - ?71 ?4 ? 10 - ?? 750 ?5 ?217 - ??7138 ?6 ?158 - 49948 ?7 ? 3697 -006957 ?8 ?73066 -975123 ?9 ?13888 -977120 ? 10 ?11915 -594685 ? 12 ?86815 -258871 ? 14 ?14711 - 49297 ? 15 ?15976 - 74724 ? 16 ? 4730 - 68708 ? 17 ? 2693 - 72402 ? 18 ? 8017 - 82579 Javed ECLIA methodology FASTING Blood BLOOD SPECIMEN / Unknown 07/10/2020 1:15 PM COCONUT COOKER 07/10/2020 Narrative Resulting Agency Comment Lab Testing performed at: [facility] [address] ??[place] [id number] Cruz Diallo MD LAB - CHEMISTRY ORD ERABLES Performing Organization Address City/[facility]/ZIP Co de Phone Number [facility] ACCOUNT BILL [address] [place] [address] * PROLACTIN (07/10/2020 1:15 PM COCONUT COOKER) Prolactin 8.2 4.8 - 23.3 ng/mL [facility] ACCOUNT BILL Comment:FASTING Blood BLOOD SPECIMEN / Unknown 07/10/2020 1:15 PM COCONUT COOKER 07/10/2020 Narrative Resulting Agency Comment Lab Testing performed at: [facility] [address] ??[place] [id number] Cruz Diallo MD LAB - CHEMISTRY ORD ERABLES [facility] ACCOUNT BILL [address] [place] [address] * TSH REFLEX FREE T4 (07/10/2020 1:15 PM COCONUT COOKER) TSH 0.875 0.450 - 4.500 uIU/mL [facility] ACCOUNT BILL Comment:FASTING Blood BLOOD SPECIMEN / Unknown 07/10/2020 1:15 PM COCONUT COOKER 07/10/2020 Narrative Resulting Agency Comment [facility]: [facility] [address] ??[place] [id number] Cruz Diallo MD LAB - CHEMISTRY ORD ERABLES [facility] ACCOUNT BILL [address] [place] [address] * ESTRADIOL (07/10/2020 1:15 PM COCONUT COOKER) Estradiol 106.0 pg/mL [facility] ACCOUNT BILL Comment: ? Adult Female: ? Follicular phase ?? 12.5 - ?? 166.0 ? Ovulation phase ?85.8 - ?? 498.0 ? Luteal phase ? 43.8 - ?? 211.0 ? Postmenopausal ? <6.0 - ?54.7 ? 1st trimester ? 215.0 - >4300.0 Javed ECLIA methodology FASTING Blood BLOOD SPECIMEN / Unknown 07/10/2020 1:15 PM COCONUT COOKER 07/10/2020 Narrative Resulting Agency Comment Lab Testing performed at: [facility] [place] [address] ??[place] [id number] Cruz Diallo MD LAB - CHEMISTRY ORD JENNY [facility] ACCOUNT BILL [address] [place] [address] * FSH + LH PANEL (07/10/2020 1:15 PM COCONUT COOKER) LH 5.1 mIU/mL [facility] ACCOUNT BILL Comment: ? Adult Female: ? Follicular phase ?2.4 - ??12.6 ? Ovulation phase ?14.0 - ??95.6 ? Luteal phase ?1.0 - ??11.4 ? Postmenopausal ?7.7 - ??58.5 FSH 3.1 mIU/mL [facility] ACCOUNT BILL Comment: ? Adult Female: ? Follicular phase ?3.5 - ??12.5 ? Ovulation phase ? 4.7 - ??21.5 ? Luteal phase ?1.7 - ?? 7.7 ? Postmenopausal ? 25.8 - 134.8 FASTING Blood BLOOD SPECIMEN / Unknown 07/10/2020 1:15 PM COCONUT COOKER 07/10/2020 Narrative Resulting Agency Comment [facility]: [facility] [address] [facility] ??[facility] [phone] Cruz Diallo MD LAB - CHEMISTRY ORD ERABLES [facility] ACCOUNT BILL [address] [place] [address] documented in this encounter Visit Diagnoses Diagnosis Abnormal uterine bleeding (AUB)- Primary Amenorrhea Absence of menstruation Encounter for post Essure sterilization check documented in this encounter Care Teams Nurse Practical Relationship Specialty Start Date End Date Tabatha Sierra DO [address] [place] [id number] PCP - General Family Medicine 01/12/20 01/06/22 documented as of this encounter
--- OUTSIDE RECORDS SUMMARY | 2024-05-25 00:55 | XMS_ITS | Encounter Summary ---
Author Organization [facility] Address [address] [facility] [place] [address] Care Team Providers Care Gate Tender Name Role Phone Cookie Subramanian MD Primary Care Provider [phone] Reason for Visit * Reason Comments Follow-up 2 week salpingectomy Encounter Details Date Type Department Care Team (Late st Contact Info) Description 02/27/2022 11:40 AM CDT Office Visit [facility] Medical [facility] - SUPERVISOR SHIPFITTERS [address] [facility] [address] [place] [address] [place] [address] [address] Abnormal uterine bleeding (AUB) (Primary Dx); Amenorrhea Social History Tobacco Use Types Packs/Day Years [...] Pressure 120/60 02/27/2022 11:08 AM CDT Pulse - - Temperature - - Respiratory Rate - - Oxygen Saturation - - Inhaled Oxygen Concentration - - Weight 98 kg (216 lb) 02/27/2022 11:08 AM CDT Height 170.2 cm (5' 7 ) 02/27/2022 11:08 AM CDT Body Mass Index 33.83 02/27/2022 11:08 AM CDT documented in this encounter Functional [...] Progress Notes * Cruz Diallo MD - 02/27/2022 2:37 PM CDT Subjective: Octavia Schmid is an 41 year old , Patient's last menstrual period was 10/12/2021., femalewho presents abnormal bleeding. No menses since october OB History Para Term AB Living 4 [...] HYSTEROSCOPY AND DILATION AND CURETTAGE [facility] ??? SUPERVISOR SHIPFITTERS PROCEDURE/SURGERY N/A 02/14/2022 N/A; LAPAROSCOPIC BILATERAL SALPINGECTOMY WITH PERITONEAL BIOPSY ??? OTHER SURGERY 01/10/2022 HYSTEROSCOPY AND DILATION AND CURETTAGE WITH [facility]CTOMY [facility] ??? Salpingo-oophorectomy Bilateral 02/14/2022 Family History Problem Relation Name Age of [...] Take 1 tablet by mouth once daily (Patient not taking: Reported on 02/27/2022) ??? ferrous sulfate 325 (65 FE) MG tablet Take 325 mg by mouth 2 times daily ??? ibuprofen (Motrin) 600 MG tablet Take 1 (one) tablet by mouth every 6 hours as needed for Pain 60 tablet 0 ??? medroxyPROGESTERone (Provera) 10 MG tablet Take 1 (one) tablet by mouth once daily 10 tablet 0 ??? oxyCODONE-acetaminophen (Percocet) 5-325 MG tablet Take 1 (one) tablet by mouth every 6 hours as needed for Pain (Patient not taking: Reported on 02/27/2022) 21 tablet 0 ??? vitamin D3 (CHOLECACIFEROL) 5000 units Take 5,000 Units by mouth once daily No current facility-administered medications for this visit. No Known Allergies Social History Socioeconomic History ??? Marital status: Single Spouse name: Not on file ??? Number of children: Not on file ??? Years of education: Not on file ??? Highest education level: Not on file Occupational History ??? 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 Smoking status: Never Smoker ??? Smokeless tobacco: Never Used Vaping Use ??? Vaping Use: Never used Substance and Sexual Activity ??? Alcohol use: Not Currently Comment: wine rare ??? Drug use: No ??? Sexual activity: Yes Partners: Male control/protection: Tubal ligation Other Topics Concern ??? Service Not Asked ??? Blood Transfusions No ??? Caffeine Concern No ??? Occupational Exposure Not Asked ??? Hobby Hazards Not Asked ??? Sleep Concern Not Asked ??? Stress Concern Not Asked ??? Weight Concern Yes ??? Special Diet Not Asked ??? Back Care Not Asked ??? Exercise Yes ??? Bike Helmet Not Asked ??? Seat Belt No ??? Self-Exams Yes Social History Narrative ??? Not on file Social Determinants of Health Financial Resource Strain: Not on file Food Insecurity: Not on file Transportation Needs: Not on file Physical Activity: Not on file Stress: Not on file Social Connections: Not on file Intimate Partner Violence: Not on file Housing Stability: Not on file Review of Systems Otherwise neg Objective: BP 120/60 Ht 5' 7 Wt 216 lb General appearance: alert, cooperative, no distress, well appearing, no distress, appears stated age Lungs: unlabored without use of accessory muscles Skin: warm, good turgor, normal pallor Psych: normal mood and affect Assessment: 41 year old , Plan: Yola LH FSH E2 TSH PRL Provera challenge documented in this encounter Plan of Treatment Not on file documented as of this encounter Procedures Procedure Name Priority Date/Time Associated Diagnosis Comments TSH REFLEX FREE T4 Routine 02/27/2022 12 :06 PM CDT Abnormal uterine bleeding (AUB) Amenorrhea PROLACTIN Routine 02/27/2022 12:06 PM CDT Abnormal uterine bleeding (AUB) Amenorrhea ESTRADIOL Routine 02/27/2022 12:06 PM CDT Abnormal uterine bleeding (AUB) Amenorrhea FSH + LH PANEL Routine 02/27/2022 12:06 PM CDT Abnormal uterine bleeding (AUB) Amenorrhea documented in this encounter Results * PROLACTIN (02/27/2022 12:06 PM CDT) Pathologist [facility] Prolactin 11.5 4.8 - 23.3 ng/mL [facility] ACCOUNT BILL Comment:FASTING Blood BLOOD SPECIMEN / Unknown 02/27/2022 12:06 PM CDT 02/27/2022 Narrative Resulting Agency Comment Lab Testing performed at: [facility] [address] ??[facility] [id number] Cruz Diallo MD LAB - CHEMISTRY ORD ERABLES Performing Organization Address [facility] de Phone Number [facility] ACCOUNT BILL [address] [place] [address] * TSH REFLEX FREE T4 (02/27/2022 12:06 PM CDT) Pathologist [facility] TSH 0.915 0.450 - 4.500 uIU/mL [facility] ACCOUNT BILL Comment:FASTING Blood BLOOD SPECIMEN / Unknown 02/27/2022 12:06 PM CDT 02/27/2022 Narrative Resulting Agency Comment Lab Testing performed at: [facility] [address] ??[facility] [id number] Cruz Diallo MD LAB - CHEMISTRY ORD ERABLES Performing Organization Address [facility] de Phone Number [facility] ACCOUNT BILL [address] [place] [address] * ESTRADIOL (02/27/2022 12:06 PM CDT) Estradiol 359.0 pg/mL [facility] ACCOUNT BILL Comment: [...] Resulting Agency Comment [facility]: [facility] [address] ??[facility] [phone] Cruz Diallo MD LAB - CHEMISTRY ORD ERABLES [facility] ACCOUNT BILL [address] [place] [address] * FSH + LH PANEL (02/27/2022 12:06 PM CDT) LH 6.7 mIU/mL [facility] ACCOUNT BILL Comment: [...] Resulting Agency Comment Lab Testing performed at: [facility] [address] ??[facility] [phone] Cruz Diallo MD LAB - CHEMISTRY ORD ERABLES [facility] ACCOUNT BILL [address] [place] [address] documented in this encounter Visit Diagnoses Diagnosis Abnormal uterine bleeding (AUB)- Primary Amenorrhea Absence of menstruation documented in this encounter Care Teams Gate Tender Relationship Specialty Start Date End Date Cookie Subramanian MD [address] [address] PCP - General Internal Medicine 01/07/22 05/11/22 documented as of this encounter
--- OUTSIDE RECORDS SUMMARY | 2024-05-25 00:55 | XMS_ITS | Encounter Summary ---
Author Organization [facility] Address [address] [place] [address] Care Team Providers Care Director Of Spa And Guest Experience Name Role Phone Tabatha Sierra DO Unavailable [phone] Cookie Subramanian MD Primary Care Provider [phone] Reason for Visit * Auth/Cert Specialty Diagnoses / Procedures Referred By Stephen carpio Referred To Contact Procedures HYSTEROSCOPY WITH DILATION & CURETTAGE Referral ID Status Reason Start Date Expiration Date Visits Re quested Visits Authorized [id number] 1 1 Encounter Details Date Type Department Care Team (Late st Contact Info) Description 01/10/2022 9:00 AM CDT - 01/10/2022 9:58 AM CDT Surgery [facility] - Perioperative Surgery [address] [place] [address] [place] [id number] [place] [address] [id number] HYSTEROSCOPY AND DILATION AND CURETTAGE WITH POLYPECTOMY [facility] Surgery Details Date/Time Status Location OR Service Patient Class Case Class Case Type Trauma Case? 01/10/2022 9:00 AM Posted [facility] MAIN OR OR 03 Gynecology Surgery Day Care Elective > 5 days Panel 1 Procedure LRB Anes Op Region Wound Class Comments HYSTEROSCOPY AND DILATION AND CURETTAGE WITH POLYPECTOMY [facility] N/A Local with IV Sedation Vagina Clean Contaminated Surgeon Surgeon Role Service Panel Cruz Diallo [...] Sign Reading Time Taken Comments Blood Pressure 120/70 01/10/2022 7:55 AM CDT Pulse 69 01/10/2022 7:55 AM CDT Temperature 36.1 ??C (96.9 ??F) 01/10/2022 7:55 AM CD T Respiratory Rate 16 01/10/2022 7:55 AM CDT Oxygen Saturation 99% 01/10/2022 7:55 AM CDT Inhaled Oxygen Concentration - - [...] tattoos and negative for domestic violence ?? Cabinetmaker Apprentice History Patient's last menstrual period was 10/12/2021. [...] 2004 ?? Essure ??? Cholecystectomy, Open ?? 2003 ??? Hernia Repair ?? 2000 ?? with [...] genitalia: normal general appearance, Normal Bartholin's and [place]'s. Urinary system: urethral meatus normal, bladder non-destended, [...] HYSTEROSCOPY AND DILATION AND CURETTAGE WITH POLYPECTOMY [facility] Patient Name: Octavia Schmid Date of [...] HYSTEROSCOPY AND DILATION AND CURETTAGE WITH POLYPECTOMY [facility] Patient Name: Octavia Binu Date of Service: 01/10/2022 Pre-Op Diagnosis: AUB- thicken lining Post-Op Diagnosis: AUB endometrial polyp Surgeon(s) and Role: * rCuz Diallo MD - Primary Anesthesia Type: general [...] Routine 01/10/2022 9:32 AM CDT Diagnosis unknown RI HYSTEROSCOPY,W/ENDO BX 01/10/2022 9:04 AM CDT HCG URINE QUALITATIVE STAT 01/10/2022 7:52 AM CDT Pre-op evaluation documented in this encounter Results * PATHOLOGY TISSUE EXAM (STL) (01/10/2022 9:32 AM CDT) Case Report Surgical Pathology Report ? Case: [id number] ? Authorizing Provider: ??Cruz Diallo MD ? Collected: ? 01/10/2022 09:32 AM ? Ordering Location: ? [facility] ? Received: ?01/10/2022 12:08 PM ? Pathologist: ? Yenifer Rangel MD ? Specimen: ?Endometrium, ENDOMETRIAL CURETTING WITH POLYP ? 01/13/2022 11:09 AM CDT [facility] Final Diagnosis Endometrium, curettage: -- Benign endometrial polyp -- Proliferative endometrium, no atypia or hyperplasia -- Endocervical mucosa with no histopathologic abnormality -- Scant squamous mucosa with no histopathologic abnormality 01/13/2022 11:09 AM CDT [facility] Gross Description Received in formalin labeled with patient's name and endometrial curetting with polyp are mass of hemorrhagic material measuring 3 x 3 x 1 cm in aggregate. Submitted entirely in cassettes A1 to A3. 01/13/2022 11:09 AM T [facility] Microscopic Description Histologic evaluation supports the diagnosis. 01/13/2022 11:09 AM CDT [facility] Disclaimer All histochemical and/or immunohistochemical results are interpreted with controls that demonstrate appropriate staining reactions before reporting results. Note on use of immunocytochemistry reagents: This test was developed and its performance characteristic determined by [facility], Department of Laboratory Medicine. It [...] interpreted with caution. 01/13/2022 11:09 AM CDT [facility] Embedded Images 01/13/2022 11:09 AM CDT [facility] Pathology/Cytolo gy ENTIRE ENDOMETRIUM / Unknown 01/10/2022 9:32 AM CDT 01/10/2022 12:08 PM CDT Cruz Diallo MD LAB - PATHOLOGY/CYT OLOGY ORDERABLES Performing Organization Address [facility] Co de Phone Number [facility] [address] [place] [address] * HCG URINE QUALITATIVE (01/10/2022 7:52 AM CDT) hCG Qualitative Urine Negative Negative 01/10/2022 8:13 AM CDT [facility] Urine URINE / Unknown Collection / Unknown 01/10/2022 7:52 AM CDT 01/10/2022 8:07 AM CDT Sherry Jose DO LAB - URINALYSIS ORD ERABLES Performing Organization Address City/[facility] Co de Phone Number [facility] [address] [place] [address] documented in this encounter Visit Diagnoses Not [...] of normal saline every 8 hours., Pre-op 0.9% nacl irrigation solution PRN, Starting on Thu01/10/22 at 0935, Until Thu01/10/22 at 1002, Intra-op $ Given 01/10/2022 9:35 AM CDT 1,000 mL Operative Site lactated ringers infusion at 20 mL/hr, Intravenous, [...] Pre-op documented in this encounter Care Teams Director Of Spa And Guest Experience Relationship Specialty Start Date End Date Tabatha Sierra DO [address] [place] [id number] PCP - Attributed-[employer] 08/06/20 01/21/22 Cookie Subramanian MD [address] [address] PCP - General Internal Medicine 01/07/22 05/11/22 documented as of this encounter
--- OUTSIDE RECORDS SUMMARY | 2024-05-25 00:55 | XMS_ITS | Encounter Summary ---
Author Organization [facility] Address [address] [facility] [place] [address] Care Team Providers Care Cnc Applications Engineer Name Role Phone Cookie Subramanian MD Primary Care Provider [phone] Reason for Visit * Auth/Cert Specialty Diagnoses / Procedures Referred By Stephen carpio Referred To Contact Procedures LAPAROSCOPIC SALPINGECTOMY AND/OR OOPHORECTOMY Referral ID Status Reason Start Date Expiration Date Visits Re quested Visits Authorized [id number] 1 1 Encounter Details Date Type Department Care Team (Late st Contact Info) Description 02/14/2022 11:02 AM CDT Anesthesia Event [facility] - Perioperative Surgery [address] [place] [address] Miguel A Pa, DO [address] [facility] [address] [place] [address] America Craven, CAR MECHANIC-NEWSROOM INTERN [address] [facility] DEPT [place] [address] Anesthesia Record Procedure Summary Procedure Name Responsible Anesthesiologist Anesthesia Start Time Anesthesia Stop Time LAPAROSCOPIC BILATERAL SALPINGECTOMY WITH PERITONEAL BIOPSY (Abdomen) Miguel A Pa DO 02/14/22 1102 02/14/22 1210 Events Date Time Event Comment 02/14/2022 0910 1102 An Start 1102 An Start Data 1103 PT Reassessment 1105 An Induction 1107 An Intubation 1126 An Emergence 1127 Timeout Anesthesia part icipated in timeout at the time documented in the record by nursing. 1202 Extubation 1202 Electnc Sig This record is electronically signed by the providers listed under staff. 1202 an stop data 1202 ANPTO2 1210 An Stop Meds Name Total midazolam 2 mg/2mL injection 2 mg fentaNYL 100 mcg/2mL injection 50 mcg lidocaine 1% (PF) injection (50 mg/5mL) 50 mg propofol 200 mg/20mL injection 150 mg succinylcholine (ANECTINE) 100 mg/5 mL i njection 100 mg rocuronium 50 mg/5mL injection 50 mg ondansetron 4 mg/2mL injection 4 mg dexamethasone 4 mg/mL injection 4 mg ketamine 100 mg/2mL injection 25 mg sugammadex 200 mg/2mL injection 200 mg lactated ringers infusion 0 mL * Agents Name Exp. Sevoflurane Exp. N2O O2 Insp. Sevoflurane * Blood No blood administrations on file. Lines, Drains, and Airways Type Details Placement Removal Peripheral IV Date: 02/14/22; Time : 921; Orientation: Left, Posterior; Placed By: CLAUDIA Levy; Tolerance: Well 02/14/22921 by Leola Casanova RN 02/14/22 1640 by Leola Casanova RN ETT Date: 02/14/22; Time : 1106; Placed By: EITAN Salcedo; Vent: easy mask; Induction: Standard IV; Blade Type: ; Blade Size: 2; Laryngoscopy View: Grade 2 (partial cords); Intubation Adjuncts: Stylet, Cricoid Pressure; Tube: Endotracheal Tube; Placement: Oral; Tube Type: Cuffed-inflated; Tube Size(mm): 7 MM; Depth of Insertion: 20 CM; Measured From: lips; Attempts: 1; Cuff Infated: Air; Cuff Vol(mL): 7 mL; Verified By: Direct visualization, Bilateral breath sounds, Chest Auscultation, CO2 Monitor 02/14/22 1107 by America Craven APRN-CRNA 02/14/22 1202 by America Craven APRN-CRNA Procedural Site (Incision) 02/14/22; 1130; Abdomen; Laparoscopic; 02/14/22; 2346 02/14/22 1130 by Eleni Choi RN 02/14/22 2346 by Generic, Auto Release Urethral Catheter 02/14/22; 1130; DR. CRUZ DIALLO; Straight-tip, Double-lumen / 2-Way, Non-latex; No; 16; 10 mL; 1; General Anesthesia; 02/14/22; 1150; Other (Comments) (end of surgery); DR. DIALLO 02/14/22 1130 by Eleni Choi RN 02/14/22 1150 by Eleni Choi, CLAUDIA documented in this encounter Social History Tobacco [...] as of this encounter Progress Notes * America Craven, CAR MECHANIC-NEWSROOM INTERN - 02/14/2022 12:11 PM CDT ANESTHESIA POSTOP EVALUATION NOTE Procedure: LAPAROSCOPIC BILATERAL SALPINGECTOMY WITH PERITONEAL BIOPSY (N/A Abdomen) Octavia Schmid is a 41 year old female Patient Vitals for the past 6 hrs: BP Temp Pulse Resp SpO2 Pain Rating Score #1 Pain Scale/Observation 02/14/22 0913 101/55 97.6 ??F (36.4 ??C) 76 18 98 % 0 N Anesthesia Type: general ETT * No Diagnosis Codes entered * Mental Status: awake, oriented and sufficiently recovered from acute administration of anesthesia to participate in the evaluation Neuro Status: No numbness, tingling or visual disturbances Respiratory Function: natural Cardiac Function: stable Postop Pain: acceptable to the patient Postop Hydration: adequate Postop Nausea: none Assessment: no apparent anesthetic complications and patient tolerated procedure well Patient Disposition: Release from Anesthesia Care COMPLICATIONS: No complications documented. * Miguel A Pa DO - 02/14/2022 9:09 AM CDT ANESTHESIA PREOPERATIVE EVALUATION NOTE Procedure: LAPAROSCOPIC BILATERAL SALPINGECTOMY REMOVAL OF ESSURE DEVICE POSSIBLE HYSTEROSCOPY POSSIBLE LAPAROTOMY Vitals: No data found. LMP: Patient's last menstrual period was 01/12/2022. OB Status: Having periods ANESTHESIA PRE-EVALUATION NOTE Physical Exam: Orientation X3 Airway/Mallampati Score: II Mouth Opening Distance: 3 fingerwidths Neck ROM: full TM Distance: > 3 FB Teeth: normal Heart: normal - S1 S2 Lungs: clear to ausculation bilaterally Abdomen Exam: obese Review of Systems: History of anesthetic complications: Yes Sleep Apnea Risk: No Delayed Emergence: Yes GERD: No Recent Chest Pain: No Shortness of Breath: No AICD/Pacemaker: No Renal Disease: No Diagnostic Tests: ECG(s) reviewed: Yes Lab(s) reviewed: Yes. ANESTHESIA PLAN ASA Score: 2 NPO Status: No solids since midnight and No liquids within 2 hours Anesthesia Plan: general Planned Induction: intravenous Planned Postop Destination: PACU Anesthetic plan was discussed with: patient Anesthetic Plan discussion was: Consented The patient's procedural Anesthetic Plan was discussed with the anesthesiologist. BMI, Height, Weight Tobacco History Estimated body mass index is 34.7 kg/m?? as calculated from the following: Height as of 02/03/22: 1.676 m (5' 6 ). Weight as of 02/03/22: 97.5 kg (215 lb). Social History Tobacco Use Smoking Status Never Smoker Smokeless Tobacco Never Used Alcohol History Drug History Social History Substance and Sexual Activity Alcohol Use Not Currently Comment: wine rare Social History Substance and Sexual Activity Drug Use No Outpatient Medications: Inpatient Medications: No outpatient medications have been marked as taking for the 02/14/22 encounter (Hospital Encounter). Current Facility-Administered Medications Medication Dose Last Admin ??? 0.9% NaCl 3 mL And ??? 0.9% NaCl 1-10 mL ??? acetaminophen 1,000 mg ??? acetaminophen 1,000 mg ??? gabapentin 300 mg ??? lactated ringers ??? lidocaine 0.5 mL Allergies: No Known [...] disease) ??? Hyperlipidemia ??? Vitamin D deficiency Surgical History: Past Surgical History: Procedure Laterality Date ??? Bilateral Tubal Ligation (BTL) 2004 Essure ??? Cholecystectomy, Open 2003 ??? Hernia Repair 2000 with mesh ??? HYSTEROSCOPY N/A 01/10/2022 N/A; HYSTEROSCOPY AND DILATION AND CURETTAGE WITH POLYPECTOMY [facility] ??? OTHER SURGERY 01/10/2022 HYSTEROSCOPY AND DILATION AND CURETTAGE WITH POLYPECTOMY [facility] HABITAT MANAGEMENT COORDINATOR Status: Patient's last menstrual period was 01/12/2022. Having periods OB History Para Term AB [...] 0752 HCGURINE Negative Recent Labs Component Name 02/03/22 0739 WBC 7.0 RBC 4.57 HCT 42.4 HGB 13.8 PLTCOUNT 299 MCV 92.8 MCH 30.2 MCHC 32.5 MPV 9.6 Recent Labs Component Name 02/03/22 0739 ABORH A NEG ABSCG NEG Recent Labs Component Name 02/03/22 0739 SODIUM 138 POTASSIUM 4.1 CALCIUM 9.3 CHLORIDE 104 CO2 26 GLUCOSE 117* BUN 11 CREATININE 0.77 Recent Labs Component Name 10/24/21 0803 TSH 0.968 No results found for requested labs within last 120 days. Recent Labs Result Component Current Result Albumin 3.9 (02/03/2022) Alkaline Phosphatase 50 (02/03/2022) ALT 13 (02/03/2022) Anion Gap 8 (02/03/2022) AST 16 (02/03/2022) Bilirubin Total 0.5 (02/03/2022) eGFR by CKD-EPI >90 (02/03/2022) documented in this encounter Procedure Notes * America Craven, CAR MECHANIC-NEWSROOM INTERN - 02/14/2022 11:35 AM CDTAssociated Order(s): ETT Placement Endotracheal Tube Placement: Patient Location: OR. Intubation Event Date/Time: 02/14/2022 11:07 AM Procedure: intubation ([id number]). Procedure Section: Sedation: under general anesthesia. Indications for Airway Management: anesthesia Induction: standard IV and patient unconcious Patient Position: sniffing Mask Ventilation: easy. Blade Type: Blade Size: 2 Laryngoscopy View: grade 2 (partial cords) Intubation Adjuncts: cricoid pressure and stylet Tube: endotracheal tube Placement: oral Tube type: cuff - inflated Tube Size (MM): 7 Depth of Insertion (CM): 20 Measured From: lips Cuff volume (mL): 7 Cuff Inflated With: air Number of Attempts: 1. Placement Verified By: direct visualization, bilateral breath sounds, chest auscultation and CO2 monitor Tube secured with: adhesive tape. Dentition unchanged? Yes Difficult Airway? No. Procedure Start Time: 02/14/2022 11:07 AM. Staff Section Anesthesia Provider: America Craven APRN-CRNA, Performed the procedure documented in this encounter Miscellaneous Notes * Anesthesia Transfer of Care - America Craven APRN-CRNA - 02/14/2022 12:10 PM CDT ANESTHESIA TRANSFER OF CARE NOTE Today's Date: 02/14/2022 Date of : 1980 Patient: Octavia Schmid Procedure(s): LAPAROSCOPIC BILATERAL SALPINGECTOMY WITH PERITONEAL BIOPSY Surgeon(s): Primary: Cruz Diallo MD Preop Diagnosis: * No Diagnosis Codes entered * Pre-op Meds (From admission, onward) Start Stop Status Route Frequency Ordered 02/14/22 0854 0.9% NaCl injection 1-10 mL And Linked Group Details -- Dispensed IK PRN 02/14/22 0854 02/14/22 0900 0.9% NaCl injection 3 mL And Linked Group Details -- Dispensed IK EVERY 8 HOURS 02/14/22 0854 02/14/22 0900 acetaminophen (Tylenol) tablet 1,000 mg 02/14 2059 Verified PO ONCE 02/14/22 0854 02/14/22 0900 acetaminophen (Tylenol) tablet 1,000 mg 02/14 0910 Completed PO PRE-OP ONCE 02/14/22 0854 02/14/22 1130 bupivacaine PF (Marcaine PF) 0.25 % injection -- Sent PRN 02/14/22 1153 02/14/22 0900 gabapentin (Neurontin) capsule 300 mg 02/14 2059 Verified PO ONCE 02/14/22 0854 02/14/22 09 lactated ringers infusion 02/14 0859 Dispensed IV PRE-OP CONTINUOUS 02/14/22 0854 02/14/22 09 lidocaine PF (Xylocaine MPF) 1 % injection 0.5 mL 02/14 0946 Completed INFILTRATION PRE-OP ONCE 02/14/22 0854 * No Diagnosis Codes entered * . No Known Allergies Vitals: Patient Vitals for the past 3 hrs: BP Temp Pulse Resp SpO2 Pain Rating Score #1 02/14/2213 101/55 97.6 ??F (36.4 ??C) 76 18 98 % 0 Lines, Drains, and Airways Type Details Placement Removal Peripheral IV Date: 02/14/22; Time: 921; Orientation: Left, Posterior; Location: Hand; Placed By: CLAUDIA Levy; Gauge: 20 Gauge; Locals: Injectable; Tolerance: Well 02/14/22921 by Leola Casanova RN ETT Date: 02/14/22; Time: 1106; Placed By: EITAN Salcedo; Vent: easy mask; Induction: Standard IV; Blade Type: ; Blade Size: 2; Laryngoscopy View: Grade 2 (partial cords); Intubation Adjuncts: Stylet, Cricoid Pressure; Tube: Endotracheal Tube; Placement: Oral; Tube Type: Cuffed-inflated; Tube Size(mm): 7 MM; Depth of Insertion: 20 CM; Measured From: lips; Attempts: 1; Cuff Infated: Air; Cuff Vol(mL): 7 mL; Verified By: Direct visualization, Bilateral breath sounds, Chest Auscultation, CO2 Monitor 02/14/22 1107 by America Craven APRN-CRNA 02/14/22 1202 by America Craven APRN-CRNA Intraprocedure I/O Totals Output Urine 500 mL Estimated Blood Loss 0 mL Total Output 500 mL Patient Transfer Location: PACU Transport Airway: spontaneous respirations and supplemental O2 Complications: None Handoff Given? Yes Checklist or [...] of report from the receiving PACUteam. EITAN Salcedo documented in this encounter Plan of Treatment Not on file documented as of this encounter Procedures Procedure Name Priority Date/Time Associated Diagnosis Comments ENDOTRACHEAL TUBE NOTE Routine 02/14/2022 11:35 AM CDT documented in this encounter Results * ETT LINE PERFORMABLE (02/14/2022 11:35 AM CDT) Narrative America Craven APRN-CRNA - 02/14/2022 11:35 AM CDT America Craven APRN-CRNA ? 02/14/2022 11:36 AM Endotracheal Tube Placement: ? Patient Location: OR. Intubation Event Date/Time: ??02/14/2022 11:07 AM Procedure: intubation ([id number]). Procedure Section: ?? Sedation: under general anesthesia. [...] Staff Section ? Anesthesia Provider: America Craven APRN-CRNA, Performed the procedure Miguel A Pa DO GENERAL ANESTHESIA O RDERABLES documented in this encounter Visit Diagnoses Not on filedocumented in this encounter Administered Medications Inactive Administered Medications - up to 3 most recent administrations Medication Order MAR Action Action Date Dose Rate Site dexAMETHasone (Decadron) injection Intravenous, PRN, Starting on Thu02/14/22 at 1059, Until Thu02/14/22 at 1210, Anesthesia Intra-op $ Given 02/14/2022 10:59 AM CDT 4 mg fentaNYL (PF) (Sublimaze) injection Intravenous, PRN, Starting on Thu02/14/22 at 1105, Until Thu02/14/22 at 1210, Anesthesia Intra-op $ Given 02/14/2022 11:05 AM CDT 50 mcg ketamine (Ketalar) injection Intravenous, PRN, Starting on Thu02/14/22 at 1132, Until Thu02/14/22 at 1210, Anesthesia Intra-op $ Given 02/14/2022 11:32 AM CDT 25 mg lactated ringers infusion at 20 mL/hr, Intravenous, PRE-OP CONTINUOUS, Starting on Thu02/14/22 at 0900, Until Thu02/14/22 at 1846, Pre-op Restarted 02/14/2022 10:56 AM CDT $ New Bag/Syringe 02/14/2022 9:45 AM CDT 20 mL/ hr lidocaine PF (Xylocaine MPF) 1 % injection Intravenous, PRN, Starting on Thu02/14/22 at 1106, Until Thu02/14/22 at 1210, Anesthesia Intra-op $ Given 02/14/2022 11:05 AM CDT 50 mg midazolam (Versed) injection Intravenous, PRN, Starting on Thu02/14/22 at 1058, Until Thu02/14/22 at 1210, Anesthesia Intra-op $ Given 02/14/2022 10:58 AM CDT 2 mg ondansetron (Zofran) injection Intravenous, PRN, Starting on Thu02/14/22 at 1059, Until Thu02/14/22 at 1210, Anesthesia Intra-op $ Given 02/14/2022 10:59 AM CDT 4 mg propofol (Diprivan) injection Intravenous, PRN, Starting on Thu02/14/22 at 1105, Until Thu02/14/22 at 1210, Anesthesia Intra-op $ Given 02/14/2022 11:05 AM CDT 150 mg rocuronium (Zemuron) injection Intravenous, PRN, Starting on Thu02/14/22 at 1105, Until Thu02/14/22 at 1210, Anesthesia Intra-op $ Given 02/14/2022 11:11 AM CDT 40 mg $ Given 02/14/2022 11:05 AM CDT 10 mg succinylcholine (Anectine) injection Intravenous, PRN, Starting on Thu02/14/22 at 1106, Until Thu02/14/22 at 1210, Anesthesia Intra-op $ Given 02/14/2022 11:06 AM CDT 100 mg sugammadex (Bridion) injection Intravenous, PRN, Starting on Thu02/14/22 at 1156, Until Thu02/14/22 at 1210, Anesthesia Intra-op $ Given 02/14/2022 11:56 AM CDT 200 mg documented in this encounter Care Teams Cnc Applications Engineer Relationship Specialty Start Date End Date Cookie Subramanian MD [address] [id number] PCP - General Internal Medicine 01/07/22 05/11/22 documented as of this encounter
--- OUTSIDE RECORDS SUMMARY | 2024-05-25 00:55 | XMS_ITS | Encounter Summary ---
Author Organization [facility] Address [address] [place] [address] Care Team Providers Care Global Project Manager Name Role Phone Cookie Subramanian MD Primary Care Provider [phone] Reason for Visit * Auth/Cert Specialty Diagnoses / Procedures Referred By Stephen carpio Referred To Contact Procedures LAPAROSCOPIC SALPINGECTOMY AND/OR OOPHORECTOMY Referral ID Status Reason Start Date Expiration Date Visits Re quested Visits Authorized [id number] 1 1 Encounter Details Date Type Department Care Team (Latest Contact Info) Description 02/14/2022 8:35 AM CDT - 02/14/2022 4:50 PM CDT Hospital Encounter [facility] [address] [place] [address] [place] [address] [address] Surgery General Discharge Disposition: Home [...] Sign Reading Time Taken Comments Blood Pressure 111/68 02/14/2022 3:46 PM CDT Pulse 68 02/14/2022 2:04 PM CDT [...] as of this encounter H&P Notes * Diallo, Hamnah T, MD - 02/13/2022 3:21 PM CDT Octavia [...] Patient with diffuse body rash- is seeing special client bus driver, will check fr nickel allergy ? Risk Factors wears seatbelts, wears sun screen, exercises regularly, eats balanced diet caffeine 0 cups/ day no transfusion history, + tattoos and negative for domestic violence ?? Clinical Rehabilitation Aide History Patient's last menstrual period was 01/12/2022. Usually Regular monthly menses, lasting 5 days Using up to 8 pads/ tampons a day No intermenstrual/ postcoital bleeding Last pap 01/2019 ASCUS HPV neg 2017 fibroid 2 cm -> 2019 3cm No [...] Date ??? Bilateral Tubal Ligation (BTL) ?? 2003 ?? Essure ??? Cholecystectomy, Open ?? 2003 [...] Routine 02/14/2022 11:42 AM CDT Diagnosis unknown VT LAP,RMV ADNEXAL STRUCTURE 02/14/2022 10:50 AM CDT [...] Case Report Surgical Pathology Report ? Case: [id number] ? Authorizing Provider: ??Cruz Diallo MD ? Collected: ? 02/14/2022 11:42 AM ? Ordering Location: ? [facility] ? Received: ?02/14/2022 12:50 PM ? Pathologist: ? Jarrell, Yany, ? Specimens: ?? A) - Fallopian Tube, [...] yellow pigmented material 02/18/2022 9:20 AM CDT [facility] Clinical History Pelvic pain, AUB 02/18/2022 9:20 AM CDT [facility] Gross Description Received in container A in formalin labeled Octavia Schmid, right fallopian tube, is a 4.3 x 0.6 cm fallopian tube with fimbria. Sections show a patent lumen with no gross lesions. Compliance Clerk sections are submitted in cassette A1. Received in container B in formalin labeled Octavia Schmid, left fallopian tube, is a 4.9 x 0.4 cm fallopian tube with fimbria. Sections show a patent lumen with no gross lesions. Compliance Clerk sections are submitted in cassette B1. Received in container C in formalin labeled Octavia Salaswers, peritoneal biopsy, is a 0.5 x 0.4 x 0.1 cm yellow-cummins tissue fragment. The specimen is placed in a filter bag and entirely submitted in cassette C1. CH/ceci 02/18/2022 9:20 AM CDT [facility] Microscopic Description Microscopic examination substantiates the above cited diagnosis. 02/18/2022 9:20 AM T [facility] Disclaimer All histochemical and/or immunohistochemical results are interpreted with controls that demonstrate appropriate staining reactions before reporting results. Note on use of immunocytochemistry reagents: This test was developed and its performance characteristic determined by [facility], Department of Laboratory Medicine. It has [...] interpreted with caution. 02/18/2022 9:20 AM CDT [facility] Embedded Images 02/18/2022 9:20 AM T [facility] Pathology/Cytology FALLOPIAN TUBE PART / Unknown 02/14/2022 11:42 AM CDT 02/14/2022 12:50 PM CDT Miscellaneous samples (specimen) FALLOPIAN TUBE PART / Unknown 02/14/2022 11:43 AM CDT 02/14/2022 12:50 PM CDT Miscellaneous samples (specimen) PERITONEAL BIOPSY SPECIMEN / Unknown 02/14/2022 11:45 AM CDT 02/14/2022 12:50 PM CDT Cruz Diallo MD LAB - PATHOLOGY/CYT OLOGY ORDERABLES Performing Organization Address City/[facility]/ZIP Co de Phone Number [facility] [address] [place] [address] * HCG URINE QUALITATIVE (02/14/2022 9:12 AM CDT) hCG Qualitative Urine Negative Negative 02/14/2022 9:25 AM CDT [facility] Urine URINE / Unknown Collection / Unknown 02/14/2022 9:12 AM CDT 02/14/2022 9:17 AM CDT Sherry Jose DO LAB - URINALYSIS ORD ERABLES Performing Organization Address [facility] Co de Phone Number [facility] [address] [place] [address] * BLOOD TYPE VERIFICATION (02/14/2022 9:11 AM CDT) ABO Rh A NEG 02/14/2022 9:3 9 AM CDT [facility] Blood Bank BLOOD SPECIMEN / Unknown Venipuncture / Unknown 02/14/2022 9:11 AM CDT 02/14/2022 9:17 AM CDT Cruz Diallo MD LAB - BLOOD BANK OR DERABLES Performing Organization Address City/[facility] Co de Phone Number PS[facility]IATRIC BLOOD BANK [id number] [id number] [phone] documented in this encounter Visit Diagnoses Diagnosis Abnormal uterine bleeding (AUB)- Primary Pelvic pain Unspecified symptom associated with female genital organs Encounter for removal of Essure Preoperative examination Preoperative examination, unspecified Diagnosis unknown Other unknown [...] 1846, For wheezing. Notify anesthesia immediately., PACU diphenhydrAMINE (Benadryl) injection 25 mg 25 mg, [...] must be documented in the MAR., Pre-op 0910 ($ Given - Prov ider: Leola Casanova [...] patients not allergic to local anesthetics., Pre-op 09 ($ Given - Prov ider: [...] patient request must be documented in the 1453 ($ Given - Prov ider: Leola Casanova RN) Continuous Medication Order 02/12/2022 02/13/2022 02/14/2022 lactated ringers infusion at 20 mL/hr, Intravenous, PRE-OP CONTINUOUS, Starting on Thu02/14/22 at 0900, Until Thu02/14/22 at 1846, Pre-op 0945 ($ New Bag/Syri nge - Provider: Leola Casanova RN)1055 (Paused - Provider: America Craven APRN-ASSURANCE MANAGER INSURANCE - Comment: Switch to gravity)1056 (Restarted - [...] Pre-op documented in this encounter Care Teams Global Project Manager Relationship Specialty Start Date End Date Cookie Subramanian MD [address] [id number] PCP - General Internal Medicine 01/07/22 05/11/22 documented as of this encounter
--- OUTSIDE RECORDS SUMMARY | 2024-05-25 00:55 | XMS_ITS | Encounter Summary ---
Author Organization [facility] Address [address] [place] [address] Care Team Providers Care Hunting And Fishing Guide Name Role Phone Mag Valdes MD Primary Care Provider [phone] Mag Valdes MD Unavailable Encounter Details Date Type Department Care Team (Latest Contact Info) Description 11/21/2019 Travel Social History Tobacco Use Types Packs/Day [...] have Coronavirus / COVID-19? No / Unsure 11/21/2019 1:00 PM CDT documented as of this encounter Plan of Treatment Not on file documented as of this encounter Visit Diagnoses Not on filedocumented in this encounter Care Teams Hunting And Fishing Guide Relationship Specialty Start Date End Date Mag Valdes MD PCP - General Family Medicine 01/06/19 01/11/20 Mag Valdes MD [address] [place] [address] PCP - Attributed-[place] [employer] 07/09/19 04/04/20 documented as of this encounter
--- OUTSIDE RECORDS SUMMARY | 2024-05-25 00:55 | XMS_ITS | Encounter Summary ---
Author Organization [facility] Address [address] [place] [address] Care Team Providers Care Bandage Winding Machine Operator Name Role Phone Tabatha Sierra DO Primary Care Provider [phone] Tabatha Sierra DO Unavailable [phone] Reason for Visit * Reason Onset Date Comments MEDICATION REFILL 10/29/2021 Encounter Details Date Type Department Care Team (Late st Contact Info) Description 10/29/2021 Telephone [facility] - BULKING MACHINE OPERATOR [phone] [address] [place] [address] [address] MEDICATION REFILL Social History Tobacco Use Types Packs/Day Years [...] Telephone Encounter - Dee Owens RN - 10/29/2021 4:39 PM CDT Rx for Flagyl sent to [facility] pharacy. documented in this encounter Plan of Treatment Not on file documented as of this encounter Visit Diagnoses Not on filedocumented in this encounter Care Teams Bandage Winding Machine Operator Relationship Specialty Start Date End Date Tabatha Sierra DO [address] [place] [address] PCP - General Family Medicine 01/12/20 01/06/22 Tabatha Sierra DO [address] [place] [id number] PCP - Attributed-[employer] 08/06/20 01/21/22 documented as of this encounter
--- OUTSIDE RECORDS SUMMARY | 2024-05-25 00:55 | XMS_ITS | Encounter Summary ---
Author Organization [facility] Address [address] [facility] [place] [address] Care Team Providers Care Copy Manager Name Role Phone Cookie Subramanian MD Primary Care Provider [phone] Reason for Visit * Reason Onset Date Comments Surgery Verification 01/30/2022 Encounter Details Date Type Department Care Team (Late st Contact Info) Description 01/30/2022 Telephone [facility] - [facility] [address] [facility] [address] [place] [id number] [place] [phone] [address] Surgery Verification Social History Tobacco Use Types Packs/Day Years [...] Telephone Encounter - Steffanie Ceballos RN - 01/30/2022 3:25 PM CDT Patient called office asking for some more detailed information, in writing, about exactly what procedure is going to be performed, where exactly the incisions will be made, etc. She had requested itto come to her email, however advised patient that since email is not a secure method of communication, we are not allowed to send detailed medical information that way. She states she would be able to come in and pick it up then if Dr. Diallo could put it all in writing for her. documented in this encounter Plan of Treatment Not on file documented as of this encounter Visit Diagnoses Not on filedocumented in this encounter Care Teams Copy Manager Relationship Specialty Start Date End Date Cookie Subramanian MD [address] [address] PCP - General Internal Medicine 01/07/22 05/11/22 documented as of this encounter
--- OUTSIDE RECORDS SUMMARY | 2024-05-25 00:55 | XMS_ITS | Encounter Summary ---
Author Organization [facility] Address [address] [facility] [place] [address] Care Team Providers Care Rangeland Management Specialist Name Role Phone Cookie Subramanian MD Primary Care Provider [phone] Reason for Visit * Reason Onset Date Comments Vomiting 02/05/2022 Encounter Details Date Type Department Care Team (Late st Contact Info) Description 02/05/2022 Telephone [facility] - [facility] [address] [facility] [address] [place] [id number] [place] [phone] [address] Vomiting Social History Tobacco Use Types Packs/Day Years [...] Telephone Encounter - Steffanie Ceballos RN - 02/06/2022 8:31 AM CDT Discussed with Dr. Diallo. She states should not change surgery plans or have any bearing on the surgery, and suggests patient follow up with pcp. Called patient and discussed with her. She states understanding. * Telephone Encounter - Steffanie Ceballos RN - 02/05/2022 1:24 PM CDT Patient called office stating she is having surgery next week. Yesterday she had a burning sensation in her stomach and vomited. She states she had these episodes some years ago when she was thought to have acid reflux. Today she has not had much to eat or drink. She tried to eat a sandwich and hadsome stomach cramps afterward. Patient would like to discuss with Dr. Diallo since she has surgery coming up. Requesting a call back. documented in this encounter Plan of Treatment Not on file documented as of this encounter Visit Diagnoses Not on filedocumented in this encounter Care Teams Rangeland Management Specialist Relationship Specialty Start Date End Date Cookie Subramanian MD [address] [facility] [address] [place] [address] PCP - General Internal Medicine 01/07/22 05/11/22 documented as of this encounter
--- OUTSIDE RECORDS SUMMARY | 2024-05-25 00:55 | XMS_ITS | Encounter Summary ---
Author Organization [facility] Address [address] [place] [address] Care Team Providers Care Foot Gatherer Name Role Phone Cookie Subramanian MD Primary Care Provider [phone] Encounter Details Date Type Department Care Team (Latest Contact Info) Description 02/03/2022 7:20 AM CDT - 02/03/2022 11:59 PM CDT Hospital Encounter [facility] [address] [place] [address] [place] [address] [facility] [address] [place] [address] Discharge Disposition: Home or Self Care Anesthesia Record Procedure Summary Procedure Name Responsible Anesthesiologist Anesthesia Start Time Anesthesia Stop Time LAPAROSCOPIC BILATERAL SALPINGECTOMY WITH PERITONEAL BIOPSY (Abdomen) Miguel A Pa, 02/14/22 1102 02/14/22 1210 Events Date Time [...] data 1202 ANPTO2 1210 An Stop Meds * Agents No agents on file. * Blood No blood administrations on file. Lines, Drains, and Airways Type Details Placement Removal Peripheral IV Date: 02/14/22; Time : 921; Orientation: Left, Posterior; Placed By: CLAUDIA Levy; Tolerance: Well 02/14/22921 by Leola Casanova RN 02/14/22 1640 by Leola Casanova RN ETT Date: 02/14/22; Time : 1107; Placed By: EITAN Salcedo; Vent: easy mask; [...] Auto Release Urethral Catheter 02/14/22; 1130; DR. KELLY DIALLO; Straight-tip, Double-lumen / 2-Way, Non-latex; No; 16; 10 mL; 1; General Anesthesia; 02/14/22; 1150; Other (Comments) (end of surgery); DR. DIALLO 02/14/22 1130 by Eleni Choi RN 02/14/22 1150 by Eleni Choi RN documented in this encounter Social History Tobacco [...] Sign Reading Time Taken Comments Blood Pressure 105/72 02/03/2022 7:55 AM CDT Pulse 68 02/03/2022 7:55 AM CDT Temperature 36.2 ??C (97.1 ??F) 02/03/2022 7:41 AM CD T Respiratory Rate - - Oxygen Saturation 98% 02/03/2022 7:55 AM CDT Inhaled Oxygen Concentration - - Weight 97.5 kg (215 lb) 02/03/2022 7:41 AM CDT Height 167.6 cm (5' 6 ) 02/03/2022 7:41 AM CDT Body Mass Index 34.7 02/03/2022 7:41 AM CDT documented in this encounter [...] No 01/10/2022 documented as of this encounter Discharge Instructions * Patient Instructions* Jessica Gutierrez RN - 02/03/2022 8:07 AM CDT Medication Instructions for Surgery Current Outpatient Medications Medication Sig Note Dispense Refill ascorbic acid (VITAMIN C) 500 MG tablet Take 500 mg by mouth once daily BIOTIN 5000 PO Take 1 tablet by mouth once daily 02/03/2022: Stop 10 days prior to surgery. ferrous sulfate 325 (65 FE) MG tablet Take 325 mg by mouth 2 times daily vitamin D3 (CHOLECACIFEROL) 5000 units Take 5,000 Units by mouth once daily If you are taking any NSAIDs (Advil, Ibuprofen, Naproxen, Aleve, Motrin, Meloxicam, etc.), please stop 10 days prior to surgery as these are considered blood thinning medications. Date of surgery: 02/14/22 Arrival Time: 0830 Time of surgery: 1030 You will be notified if your arrival time changes Please report to the [facility] Building. Take the elevators across from outpatient registration to the second floor, exit left and enter the Outpatient Surgery waiting room. Sign in and beseated. Bring a copy of your living will or power of master fire control technician form if we do not have a current copy. Day of surgery instructions Do not eat or drink anything after midnight unless directed by your surgeon (no gum, mints, or candy). You may brush your teeth, swish and spit. No tobacco products after midnight and avoid alcohol 24 hours prior to surgery. If you use a CPAP/BiPAP machine, please bring it with you on the day of surgery (for overnight stay). Do not bring or wear jewelry (including body piercings). Leave valuables at home Bring your eyeglasses. Do not wear contacts. Take a shower using the antibacterial soap, following the instructions given. Dress in clean clothing appropriate to wear after your surgery. Arrange for a responsible adult to bring you to the hospital, and to drive you home. Bring you insurance information and proof of identification, such as your warehouse associate driver's license, with you to the hospital, and any necessary co-insurance. If you are having any problems on the day of surgery, please call the Ambulatory Surgery desk at [phone]. You will not be required to have a COVID test prior to surgery. However, if you develop any symptoms of COVID 19 such as new or worsening cough, shortness of breath, loss of taste/smell, headache, sore throat, body aches, OR have a significant exposure to COVID 19 please contact your surgeons office immediately. A REMINDER, YOU SHOULD PRACTICE SOCIAL DISTANCING FOR AT LEAST 7 DAYS PRIOR TO SURGERY. COVID Related Hospital Precautions When you arrive to the hospital the day of your surgery you will enter the [facility] or [facility]. We are currently requiring [place] Masking in the hospital. You will need to wear a mask into thehospital and at all times while admitted. We recommend that you bring a second mask with you. VISITOR GUIDELINES: To promote the safety of our patients, employees and the community, all visitors must wear a face mask. Visiting hours once you are admitted to the hospital after surgery are [id number]. PREOPERATIVE CHRLORHEXIDINE (CHG) ? BATHING INSTRUCTIONS Before surgery, you can play an important role in your own health. Because skin is not sterile,we need to be sure that your skin is as free of germs as possible before surgery. You can reduce the number of germs on your skin by carefully washing before surgery. Following these instructions will help you be sure that your skin is clean before surgery IMPORTANT: You will need to shower with a special soap called Chlorohexidine gluconate (CHG) ?. A common brand name for this soap is Hibiclens, but any brand is acceptable to use. The soap will come in a liquid. This may be purchased at any local pharmacy. If you are allergic to Chlorohexidine use Dial antibacterial soap for your shower/bath. Shower or bathe with CHG? the night before and the morning of surgery. Do not shave the area of your body where surgery will be performed. Wash your hair usual with your normal shampoo. Rinse your hair and body thoroughly after you shampoo remove all shampoo residues. Apply the CHG? to the entire body ONLY FROM THE NECK DOWN. Do not use CHG? near your eyes or ears to avoid permanent injury to those areas. Wash thoroughly, paying special attention to the area where surgery will be performed. Turn the water off to prevent rinsing the soap off too soon. Wash your body gently for five (5) minutes. Do not scrub your skin too hard. Do not wash with your regular soap after CHG? is used. Turn the water back on and rinse your body thoroughly. Pat yourself dry with a clean, soft towel. Do not use lotion, cream, or powder. Make sure clean linens are on your bed the night prior to surgery. Wear clean clothes. Repeat this process the morning of surgery using ONLY CHG soap. * Not to be used by people allergic to Chlorhexidine INCENTIVE SPIROMETER The following provides an overview of how you will use the spirometer after your surgery. Our goal is for you to become familiar with usage prior to your surgery date, as this improves the ability touse properly. Please attempt to use 2-3 times daily in the week leading up to your surgery date. DO NOT bring this spirometer with you the day of surgery, as you will be provided a new one after your surgery. Using your incentive spirometer after surgery will help your lungs clear and will help keep your lungs active throughout the recovery process, as if you were performing your daily activities. How to use the incentive spirometer: 1. Sit on the edge of your bed if possible, or sit up as far as you can in bed. 2. Hold the incentive spirometer in an upright position. 3. Place the mouthpiece in your mouth and seal your lips tightly around it. 4. Breathe in slowly and as deeply as possible. Notice the blue piston rising toward the top of thecolumn. The blue indicator on the right should float between the two blue arrows. 5. Hold your breath as long as possible. Then exhale slowly and allow the piston to fall to fall tothe bottom of the column. 6. Rest for a few seconds and repeat steps one to 5 at least 10 times every hour. 7. Position the blue indicator on the left side of the spirometer to show your best effort. Use theindicator as a goal to work toward during each slow deep breath. 8. After each set of 10 deep breaths. Cough to be sure your lungs are clear. If you have an incision, support your incision when coughing by placing a pillow firmly against it. 9. Once you are able to get out of bed safely, take frequent walks and practice the cough. documented in this encounter Medications at Time of Discharge [...] once daily documented as of this encounter Progress Notes * Anastasia Franco APRN-LIVIA - 02/03/2022 7:44 AM CDT PRESURGICAL OPTIMIZATION EVALUATION Patient Name: Octavia Schmid : 1980 SUBJECTIVE: Octavia Schmid is a 41 year old y.o. female presenting [facility] the [facility]. She is scheduled for the followin02/14/22 LAPAROSCOPIC BILATERAL SALPINGECTOMY REMOVAL OF ESSURE DEVICE POSSIBLE HYSTEROSCOPY POSSIBLELAPAROTOMY Kelly Diallo MD + delayed emergence from anesthesia. Mother and maternal grandmother with history of delayed emergence from anesthesia. Mother also with history of hypotension following anesthesia. HLD -diet controlled -managed by PCP Anemia - complaint with daily dosing of ferrous sulfate Patient denies h/o asthma, COPD, PE, JORDAN, HTN, CAD, CHF, heart murmur, heart arrhythmia, cardiac devices, stroke, seizure, neuromuscular diseases, bleeding/clotting disorders, diabetes, thyroid disease, kidney disease, liver disease. PCP is Dr. Cookie Subramanian Review of Systems: As noted in HPI and also as outlined below Endorses intermittent chest pain/pressure for about the past month which she thinks its related to anxiety with everything that's going on medically Denies palpitations, irregular heart beat, syncope, SHERIDAN, orthopnea, PND or swelling of the feet or ankles No cough, wheezing or shortness of breath Denies rash, open or unhealed sores and lesions No URI's in past 4-6 weeks. + reflux - not currently taking any antiacids Functional Status Assessment: METS (Metabolic Equivalents of Task) Score: > or equal to 4 METs Works at a home 40-48 hours per week. Walks a lot back and forth to [employer]. 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 Denies chest pain or SOB with these activities. PMH: Past Medical History: Diagnosis Date ??? Anemia ??? Arthritis of knee ??? Borderline diabetes ??? Delayed emergence from anesthesia ??? Fibroid 2 cm on US ??? GERD (gastroesophageal reflux disease) ??? Hyperlipidemia ??? Vitamin D deficiency PSH: Past Surgical History: Procedure Laterality Date ??? Bilateral Tubal Ligation (BTL) 2004 [place] ??? Cholecystectomy, Open 2003 ??? Hernia Repair 2000 with mesh ??? HYSTEROSCOPY N/A 01/10/2022 N/A; HYSTEROSCOPY AND DILATION AND CURETTAGE WITH POLYPECTOMY [facility] ??? OTHER SURGERY 01/10/2022 HYSTEROSCOPY AND DILATION AND CURETTAGE WITH POLYPECTOMY [facility] Allergies: No Known Allergies Current Medications: Outpatient Medications Marked as Taking for the 02/03/22 encounter (Hospital Encounter) with [facility] OPTIMIZATION Medication Sig ??? ascorbic acid (VITAMIN C) 500 MG tablet Take 500 mg by mouth once daily ??? BIOTIN 5000 PO Take 1 tablet by mouth once daily ??? ferrous sulfate 325 (65 FE) MG tablet Take 325 mg by mouth 2 times daily ??? vitamin D3 (CHOLECACIFEROL) 5000 units Take 5,000 Units by mouth once daily OBJECTIVE: BP 105/72 Pulse 68 Temp 97.1 ??F (36.2 ??C) Ht 1.676 m (5' 6 ) Wt 97.5 kg (215 lb) SpO2 98% Physical Exam: Airway/Mallamapati Score: deferred due to masking/covid precautions Mouth Opening Distance: deferred due to masking/covid precautions Neck ROM: normal range of motion and supple TM Distance: deferred due to masking/covid precautions Teeth: deferred due to masking/covid precautions General appearance - alert, well appearing, and in no distress and overweight Mental status - alert, oriented to person, place, and time Chest - clear to auscultation, no wheezes, rales or rhonchi, symmetric air entry Heart - normal rate, regular rhythm, normal S1, S2, no murmurs, rubs, clicks or gallops Trace edema BLE Pertinent Diagnostic Tests: Recent Labs Component Name 02/03/22 0739 10/24/21 0803 01/12/20 1231 01/06/19 1150 01/06/19 1150 04/22/17 2345 WBC 7.0 7.8 9.3 - 7.8 7.6 RBC 4.57 3.94 4.64 - 4.65 4.02 HGB 13.8 11.5* 13.3 - 13.2 11.3* HCT 42.4 37.8 41.8 - 43.1 35.6* MCV 92.8 95.9 90 - 92.7 88.6 MCHC 32.5 30.4* 31.8 - 30.6* 31.7 PLTCOUNT 299 365 296 - 318 310 NEUTPCT 55.4 - - - - 47.3 LYMPHPCT 32.4 - - - - 41.5 MONOCYTPCT - - 7 - 6.9 - EOSINPCT - - 1 - 2.2 - BASOPHILPCT 0.4 - - - - 0.5 GRANSIMMPCT 0.1 - - - - 0.3 NEUTABS 3.89 - - - - 3.59 LYMPHABS 2.28 - 3.4* - 2.97 3.15 MONOCYTABS - - 0.6 - 0.54 - BASOABS 0.03 - 0.1 - 0.04 0.04 IMMGRANSABS - - 0.0 - 0.02 - - = values in this interval not displayed. Recent Labs Component Name 02/03/22 0739 01/12/20 1231 01/06/19 1150 SODIUM 138 139 138 POTASSIUM 4.1 4.0 4.7 CHLORIDE 104 102 102 CO2 26 24 25 BUN 11 9 11 CREATININE 0.77 0.78 0.72 GLUCOSE 117* 89 75 CALCIUM 9.3 9.9 9.7 ALT 13 14 13 ALKPHOS 50 48 60 AST 16 17 15 TBIL 0.5 0.3 0.3 TPROT 7.0 7.7 7.6 EGFR >90 97 >60 Fasting A/P 1. Encounter for other pre-procedural examination All labs completed today were discussed with patient during clinic visit. Thoroughly discussed withpatient that all labs done today were obtained for preoperative screening purposes, and further management/recommendations and additional work-up (if necessary) will be deferred to the patient's primary care provider. All labwork done today will be sent to patient's primary care provider for continuity/coordination of care. Consulted with anesthesiologist Dr. Springer; case discussed. Dr. Springer has no further recommendations preoperatively. Preoperative Domain Results Recommendations BMI BMI (Calculated): 34.72 ERAS instructions and nutrition drinks provided to patient per protocol. Rationale for ERAS preoperative initiation was explained and discussed. Patient verbalized understanding of all information that was provided/discussed. Nutrition Recent Labs Component Name 02/03/22 0739 01/12/20 1231 01/06/19 1150 ALBUMIN 3.9 4.5 4.4 ERAS instructions and nutrition drinks provided to patient per protocol. Rationale for ERAS preoperative initiation was explained and discussed. Patient verbalized understanding of all information that was provided/discussed. Diabetes Recent Labs Component Name 01/12/20 1231 HGBA1C 5.7* N/a Non-diabetic Cardiac Records reviewed EKG obtained today per anesthesia team. Cardiology to complete final confirmatory read of EKG. Willdefer to both PCP and anesthesia team to determine if any additional cardiac testing/work-up is necessary prior to upcoming scheduled surgery. Pulmonary /JORDAN STOPBANG Score - Sleep Apnea Total: Total JORDAN Risk Score: 1 - low risk STOPBANG screening tool results discussed with patient. Advised/recommended that patient f/u with PCP for Intermediate Risk & High Risk JORDAN screening tool results, as may consider sleep study testing in future; will defer further recommendations and/or referral to PCP. Incentive Spirometer (IS) provided and patient was instructed regarding use. Encouraged daily use of IS prior to surgery. Smoking Social History Tobacco Use Smoking Status Never Smoker Smokeless Tobacco Never Used N/A Non-smoker Infection Prevention Denies h/o MRSA. CHG bathing instructions given to patient by nursing staff per protocol. Encouraged good hygiene and handwashing preoperatively. Chronic narcotic use Reviewed medication use with patient, specifically regarding if currently taking narcotics or not. If patient reported current narcotic use: Discussed with patient that if able to minimize narcotic use in the preoperative period, it will certainly aid/help with pain control/management postoperatively. VTE prophylaxis N/A Education provided re: Post-op VTE prevention. Follow specific recommendations from surgeon's office re: VTE prophylaxis. Preoperative testing CBC CMP results reviewed See notes above NPO instructions given to patient by RN per protocol. Preoperative/Day of Surgery medication instructions given to patient by RN per surgeon/anesthesia standing orders. AVS printed and given to patient. See AVS for additional instructions/information that was given topatient during this clinic visit. IRENE Rogers documented in this encounter Plan of Treatment Not on file documented as of this encounter Procedures Procedure Name Priority Date/Time Associated Diagnosis Comments EKG 12-LEAD Routine 02/03/2022 7:57 AM CDT Preoperative examination TYPE + SCREEN PANEL STAT 02/03/2022 7 :39 AM CDT Preoperative examination CBC W AUTO DIFFERENTIAL Routine 02/03/2022 7:39 AM CDT Preoperative examination COMPREHENSIVE METABOLIC PANEL STAT 02/03/2022 7:39 AM CDT Preoperative examination documented in this encounter Results * EKG 12-LEAD (02/03/2022 7:57 AM CDT) Ventricular Rate 60 BPM [facility] Atrial Rate 60 BPM [facility] P-R Interval 164 ms [facility] QRS Duration ms 86 ms [facility] Q-T Interval ms 444 ms [facility] QTC Calculation (Bezet) 444 ms [facility] Calculated P [place] 55 degrees [facility] Calculated R [place] 23 degrees [facility] Calculated T [place] 31 degrees [facility] Interpretation EKG Normal sinus rhythm Normal ECG Confirmed by DE BROOKS MD ([id number]) on 02/03/2022 2:54:43 PM [facility] 02/03/2022 7:57 AM CDT 02/03/2022 2:54 PM CDT Sherry Jose DO ECG ORDERABLES [facility] * TYPE + SCREEN PANEL (02/03/2022 7:39 AM CDT) ABO Rh A NEG 02/03/2022 8:25 AM CDT [facility] Comment:No history; collect retype. Antibody Screen NEG 8:25 AM CDT [facility] BLOOD BANK Blood Bank BLOOD SPECIMEN / Unknown Venipuncture / Unknown 02/03/2022 7:39 AM CDT 02/03/2022 7:46 AM CDT Sherry Jose DO LAB - BLOOD BANK ORD ERABLES [facility] [id number] [phone] * CBC W AUTO DIFFERENTIAL (02/03/2022 7:39 AM CDT) WBC 7.0 4.4 - 10.7 x10E9/L 02/03/2022 7:50 AM CDT [facility] WBC Corrected 02/03/2022 7:50 AM CDT [facility] RBC 4.57 3.80 - 5.20 x10E12/L 02/03/2022 7:50 AM CDT [facility] Hemoglobin 13.8 12.0 - 15.6 gm/dL 02/03/2022 7:50 AM CDT [facility] Hematocrit 42.4 35.9 - 45.5 % 02/03/2022 7:50 AM CDT [facility] MCV 92.8 80.7 - 98.3 fl 02/03/2022 7:50 AM CDT [facility] MCH 30.2 26.7 - 34.0 pg 02/03/2022 7:50 AM CDT [facility] MCHC 32.5 30.8 - 35.9 gm/dL 02/03/2022 7:50 AM CDT [facility] Platelet Count 299 153 - 416 x10E9/L 02/03/2022 7:50 AM CDT [facility] RDW-CV 13.9 12.1 - 14.9 % 02/03/2022 7:50 AM CDT [facility] MPV 9.6 9.4 - 12.9 fl 02/03/2022 7:50 AM CDT [facility] Neutrophils % 55.4 44.0 - 73.0 % 02/03/2022 7:50 AM CDT [facility] Lymphocytes % 32.4 20.0 - 43.0 % 02/03/2022 7:50 AM CDT [facility] Monocytes % 9.0 5.0 - 13.0 % 02/03/2022 7:50 AM CDT [facility] Eosinophils % 2.7 0.0 - 6.0 % 02/03/2022 7:50 AM CDT [facility] Basophils % 0.4 0.0 - 2.0 % 02/03/2022 7:50 AM CDT [facility] Immature Granulocytes 0.1 0 - 1 % 02/03/2022 7:50 AM CDT [facility] Neutrophil Absolute 3.89 2.01 - 7.14 x10E9/L 02/03/2022 7:50 AM CDT [facility] Lymphocytes Absolute 2.28 1.07 - 3.94 x10E9/L 02/03/2022 7:50 AM CDT [facility] Monocytes Absolute 0.63 0.26 - 1.07 x10E9/L 02/03/2022 7:50 AM CDT [facility] Eosinophils Absolute 0.19 0 - 0.47 x10E9/L 02/03/2022 7:50 AM CDT [facility] Basophils Absolute 0.03 0 - 0.08 x10E9/L 02/03/2022 7:50 AM CDT [facility] Immature Granulocytes Absolute 0.01 0.00 - 0.06 x10E9/L 02/03/2022 7:50 AM CDT [facility] nRBC Auto 0 /100 WBC 02/03/2022 7:50 AM CDT [facility] Blood BLOOD SPECIMEN / Unknown Venipuncture / Unknown 02/03/2022 7:39 AM CDT 02/03/2022 7:46 AM CDT Anastasia Franco DEEP SEA DIVER-PICK UP ATTENDANT LAB - HEMATOLOGY ORDERABLES Performing Organization Address City/State/[facility] Co de Phone Number [facility] [address] [place] [address] * (ABNORMAL) COMPREHENSIVE METABOLIC PANEL (02/03/2022 7:39 AM CDT) [facility] Glucose 117(H) 70 - 105 mg/dL 02/03/2022 8:04 AM CDT [facility] Sodium 138 136 - 145 mmol/L 02/03/2022 8:04 AM CDT [facility] Potassium 4.1 3.5 - 5.1 mmol/L 02/03/2022 8:04 AM CDT [facility] Chloride 104 98 - 107 mmol/L 02/03/2022 8:04 AM CDT [facility] CO2 26 23 - 31 mmol/L 02/03/2022 8:04 AM CDT [facility] Calcium 9.3 8.4 - 10.4 mg/dL 02/03/2022 8:04 AM CDT [facility] Anion Gap 8 8 - 18 mmol/L 02/03/2022 8:04 AM CDT [facility] BUN 11 7 - 18.7 mg/dL 02/03/2022 8:04 AM CDT [facility] Creatinine 0.77 0.57 - 1.11 mg/dL 02/03/2022 8:04 AM CDT [facility] Alkaline Phosphatase 50 40 - 150 U/L 02/03/2022 8:04 AM CDT [facility] ALT 13 0 - 61 U/L 02/03/2022 8:04 AM CDT [facility] AST 16 5 - 34 U/L 02/03/2022 8:04 AM CDT [facility] Protein Total 7.0 6.4 - 8.3 gm/dL 02/03/2022 8:04 AM CDT [facility] Albumin 3.9 3.5 - 5.2 gm/dL 02/03/2022 8:04 AM CDT [facility] Bilirubin Total 0.5 0.2 - 1.2 mg/dL 02/03/2022 8:04 AM T [facility] eGFR by CKD-EPI >90 >=90 mL/min/1.7 3 m2 02/03/2022 8:04 AM CDT [facility] Blood BLOOD SPECIMEN / Unknown Venipuncture / Unknown 02/03/2022 7:39 AM CDT 02/03/2022 7:46 AM CDT Anastasia Franco DEEP SEA DIVER-PICK UP ATTENDANT LAB - CHEMISTRY ORDERABLES [facility] [address] [place] [address] documented in this encounter Visit Diagnoses Diagnosis Preoperative examination- Primary Preoperative examination, unspecified documented in this encounter Care Teams Foot Gatherer Relationship Specialty Start Date End Date Cookie Subramanian MD [address] [facility] [address] [address] PCP - General Internal Medicine 01/07/22 05/11/22 documented as of this encounter
--- OUTSIDE RECORDS SUMMARY | 2024-05-25 00:56 | XMS_ITS | Encounter Summary ---
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 [place] [address] Kassy Bennett MD [address] [place] [address] Well woman exam (Primary Dx); Menorrhagia with regular cycle Social History Tobacco [...] Sign Reading Time Taken Comments Blood Pressure 104/69 01/06/2019 3:48 PM CDT Pulse 76 01/06/2019 3:48 PM CDT Temperature - - Respiratory Rate - - Oxygen Saturation - - Inhaled Oxygen Concentration - - Weight 94.2 kg (207 lb 9.6 oz) 01/06/2019 3:48 P M CDT Height 170.2 cm (5' 7 ) 01/06/2019 3:48 PM CDT Body Mass Index 32.51 01/06/2019 3:48 PM CDT documented in this encounter Progress Notes * Kassy Bennett MD - 01/06/2019 5:07 PM CDT Well Woman Yearly Exam HISTORY: Octavia Schmid is a 38 year old female, Patient's last menstrual period was 12/19/2018 (exact date)., 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 Wants to get pap because not sure if last one she hada couple of years ago had the HPV or not. Had it at a clinic. Has hx of Essure for BC. Has heavy periods. The first day or two can change a pad in 1 an a half to two hours.Rest of period OK. Not a lot of cramps. Had US last Nov that showed nl size uterus, thin endo and a small fibroid (2.2 cm). Is taking iron. Just had labs done so not sure what it is now. Was checked last at the clinic. Records have been requested. Past Medical History: Diagnosis Date ??? Anemia ??? Arthritis of knee ??? Vitamin D deficiency Past Surgical History: Procedure Laterality Date ??? Bilateral Tubal Ligation (BTL) 2004 Essure ??? Cholecystectomy, Laparoscopic 2003 ??? Hernia Repair with mesh Social History Social History ??? Marital status: Single Spouse name: N/A ??? Number of children: N/A ??? Years of education: N/A Occupational History ??? Not on file. Social History Main Topics ??? Smoking status: Never Smoker ??? Smokeless tobacco: Never Used ??? Alcohol use No Comment: wine rare ??? Drug use: No ??? Sexual activity: Yes Partners: Male control/ protection: Tubal ligation Other Topics Concern ??? Not on file Social History Narrative No Known Allergies OB History Para Term AB Living 4 4 4 4 SAB TAB Ectopic Multiple Live Births 4 Obstetric Comments All vag Family History Problem Relation Age of Onset ??? Hypertension Mother ??? Other Mother CHF ??? Glaucoma Father ??? Multiple Sclerosis Sister ??? Diabetes - Type 2 Brother Review of Systems Constitutional: No weight or appetite changes. : No UTIs, frequency, urgency, pain, hematuria, vaginal dryness or vaginal discharge. Skin: No rash, changing moles, or bruises. Psychiatric: No depression or suicidal ideation. No mood changes. Endocrine: No thyroid or diabetes problems. Hematologic: No bruising or bleeding disorders. Lymphatic: No lymph node enlargement. EXAMINATION BP 104/69 Pulse 76 Ht 5' 7 Wt 207 lb 9.6 oz BMI 32.51 kg/m2 Body mass index is 32.51 kg/(m^2). NEURO: The patient is oriented x3. NECK: Supple and symmetrical, without any masses. Thyroid is normal without any masses or enlargement. Trachea is midline. BREASTS: Nontender, without any masses or discharge. No tissue texture changes or dimpling. SKIN: No rashes, lesions, or ulcers. ABDOMEN: Soft with good bowel sounds x4 quadrants. No masses or tenderness noted. There is no liveror spleen enlargement. No evidence of hernia. EXT: Nontender, nonedematous There is no clubbing or cyanosis. LYMPHATIC: No supraclavicular, axillary or inguinal adenopathy. EGBUS: Without any lesions or abnormalities. Normal Bartholin's and Beachwood's. Vagina: Moist, pink rugae without any lesions. Well supported with no evidence of relaxation. Cervix: Closed, without any lesions. Uterus: Small, mobile, nontender. Well supported. Adnexa: Nontender without palpable masses. Urinary: Urethral meatus normal without palpable masses. Urethra without masses or tenderness. No suprapubic tenderness associated with bladder. ASSESSMENT ICD-10-CM 1. Well woman exam Z01.419 PAP IG LB+HPV APTIMA 2. Menorrhagia with regular cycle N92.0 Patient Active Problem List Diagnosis Date Noted ??? Pain in right knee 06/21/2014 ??? Pain in left knee 06/21/2014 ??? Dizziness and giddiness 04/12/2010 MAHNAZ Schmid is a 38 year old female, Patient's last menstrual period was 12/19/2018 (exact date)., here for a Well Woman exam 1. Preventative medicine: PAP. Follow up one year 2. Menorrhagia Discussed options both medical and surgical. Can consider motrin, OCPs, progestin, ablation or hyst. For now wants to see what happens. Not wanting surgery. May try the motrin since has them. Orders Placed This Encounter ??? PAP IG LB+HPV APTIMA See orders, medications, patient instructions. Kassy Bennett MD documented in this encounter Plan of Treatment Not on file documented as of this encounter Procedures Procedure Name Priority Date/Time Associated Diagnosis Comments PAP IG LB+HPV APTIMA Routine 01/06/2019 4:21 PM CDT Well woman exam documented in this encounter Results * (ABNORMAL) PAP IG LB+HPV APTIMA (01/06/2019 4:21 PM CDT) Diagnosis (A) [facility] ACCOUNT BILL Comment: EPITHELIAL CELL ABNORMALITY. ATYPICAL SQUAMOUS CELLS OF UNDETERMINED SIGNIFICANCE (ASC-US). Specimen Adequacy [facility] ACCOUNT BILL Comment: Satisfactory for evaluation. ??Endocervical and/or squamous metaplastic cells (endocervical component) are present. Clinician Provided ICD10 [facility] ACCOUNT BILL Comment: Z01.419 N92.0 Performed by [facility] ACCOUNT BILL Comment:Murphy Mcgraw Cytote chnologist (ASCP) Electronically Signed by [facility] [...] Resulting Agency Comment Lab Testing performed at: [address] ??[place] [id number] Kassy Bennett MD LAB - PATHOLOGY/CYT OLOGY ORDERABLES [facility] ACCOUNT BILL [address] [place] [address] documented in this encounter Visit Diagnoses Diagnosis Well woman exam- Primary Routine general medical examination at a health care facility Menorrhagia with regular cycle Excessive or frequent menstruation documented in this encounter Care Teams Thermostat Mechanic Relationship Specialty Start Date End Date Mag Valdes MD PCP - General Family Medicine 01/06/19 01/11/20 documented as of this encounter
--- OUTSIDE RECORDS SUMMARY | 2024-05-25 00:56 | XMS_ITS | Encounter Summary ---
Author Organization [facility] Address [address] [place] [address] Care Team Providers Care Material Disposition Inspector Name Role Phone Luz Funk DO Primary Care Provider [phone] Encounter Details Date Type Department Care Team (Latest Contact Info) Description 04/19/2015 Hospital Outpatient Visit [facility] MRI OP [address] [place] [address] Discharge Disposition: Home or Self Care Social History Tobacco Use Types Packs/Day Years Used Date Smoking Tobacco: Never Alcohol Use Standard Drinks/Week Comments No 0 (1 standard drink = 0.6 oz pur e alcohol) Sex and Gender Information Value Date Recorded Sex Assigned at Not on file Gender Identity Not on file Sexual Orientation Not on file documented as of this encounter Plan of Treatment Not on file documented as of this encounter Procedures Procedure Name Priority Date/Time Associated Diagnosis Comments MRI CERVICAL SPINE WO CONTRAST Routine 04/19/2015 12:05 PM MACHINE SEWER documented in this encounter Results * MRI CERVICAL SPINE WO CONTRAST (04/19/2015 12:05 PM MACHINE SEWER) Anatomical Region Laterality Modality Pelvis Other Impressions 04/19/2015 12:42 PM MACHINE SEWER IMPRESSION: 1. No definite MR findings to explain patient's symptoms. The small perineural cysts at C7-T1 are incidental findings. This report was electronically signed by JANIYA MARTE M.D. ??on 04/19/2015 12:42 PM . Narrative 04/19/2015 12:42 PM MACHINE SEWER EXAMINATION: ??Cervical spine MRI without contrast. HISTORY: [...] of a partial empty sella. Procedure Note Janiya Marte MD - 09/05/2017 EXAMINATION: Cervical spine [...] findings. This report was electronically signed by JANIYA MARTE M.D. on 04/19/201512:42 PM . Luz Funk DO MR ORDERABLES documented in this encounter Visit Diagnoses Diagnosis Anesthesia of skin Disturbance of skin sensation documented in this encounter Care Teams Material Disposition Inspector Relationship Specialty Start Date End Date Luz Funk DO [address] [place] [id number] PCP - General 03/13/15 04/12/18 documented as of this encounter
--- OUTSIDE RECORDS SUMMARY | 2024-05-25 00:56 | XMS_ITS | Encounter Summary ---
Author Organization [facility] Address [address] [place] [address] Care Team Providers Care Emergency Medical Technician Name Role Phone Unknown, Provider Primary Care Provider Unavaila ble Reason for Visit * Reason Comments Pain Abdominal co abd pain states i s burning and cramping states gets dizzy after eating states s/s since surgery 6 yearss intermittently worse since yest Encounter Details Date Type Department Care Team (Late st Contact Info) Description 07/27/2009 12:13 PM MUSEUM SPECIALIST - 07/27/2009 5:52 PM MUSEUM SPECIALIST Emergency ER at [address] [address] Kamla Russell MD [address] [place] [address] [place] [address] Abdominal Pain, Epigastric; GERD (Gastroesophageal Reflux Disease) Discharge Disposition: Home or Self Care Social History Tobacco Use Types Packs/Day Years Used Date Smoking Tobacco: Never Assessed Sex and Gender Information Value Date Recorded Sex Assigned at Not on file Gender Identity Not on file Sexual Orientation Not on file documented as of this encounter Last Filed Vital Signs Vital Sign Reading Time Taken Comments Blood Pressure 91/54 07/27/2009 5:30 PM MUSEUM SPECIALIST Pulse 83 07/27/2009 5:30 PM MUSEUM SPECIALIST Temperature 37.1 ??C (98.7 ??F) 07/27/2009 12:[address] Respiratory Rate 18 07/27/2009 5:30 PM MUSEUM SPECIALIST Oxygen Saturation 100% 07/27/2009 5:30 PM MUSEUM SPECIALIST Inhaled Oxygen Concentration - - Weight 77.1 kg (170 lb) 07/27/2009 12:21 PM MUSEUM SPECIALIST Height 170.2 cm (5' 7 ) 07/27/2009 12:21 PM MUSEUM SPECIALIST Body Mass Index 26.63 07/27/2009 12:21 PM MUSEUM SPECIALIST documented in this encounter Discharge Instructions * Discharge Instructions* Jose F Reese PA - 07/27/2009 1:36 PM MUSEUM SPECIALIST Gastroesophageal Reflux in Children and Adolescents Gastroesophageal reflux disease (GERD) happens when stomach contents back up into the esophagus (the tube that connects the mouth to the stomach). This usually happens during or after a meal. A ring of muscle at the bottom of the esophagus opens and closes to allow food to enter the stomach. This ring is called the lower esophageal sphincter (LES). Reflux can happen when the LES opens, allowing stomach contents and acid to come back up into the esophagus. GERD often begins in infancy, but only a small number of infants continue to have GERD as they age.A caregiver should check over anyone with continuous symptoms of GERD. SYMPTOMS Almost all children and adults have a small amount of reflux and are not aware of it. When refluxedmaterial rapidly returns to the stomach, it causes no damage to the esophagus. In some children, the stomach contents remain in the esophagus and cause damage to the esophagus lining. In other children, the stomach contents may go up to the mouth and are swallowed again. When the refluxed material passes into the back of the mouth or enters the airways, the child may become hoarse or have a raspyvoice or a cough. Other symptoms include repeated pneumonia, wheezing, and difficult or painful swallowing. DIAGNOSIS Your caregiver should examine your child. They can also recommend tests to determine if reflux is the cause of the symptoms. These tests check the esophagus, stomach, and small intestine to see if there are any problems. Treatment may be started without tests. COMMON TESTS USED TO DIAGNOSE GERD: ?? Upper GI series x-ray: Barium (a chalky drink) is swallowed so X-rays will show the shape of theesophagus and stomach. This test can find a hiatal hernia, blockage and other problems. Endoscopy: After a sedative, medication is given so the patient will fall asleep. A small flexible tube with a very tiny camera is inserted through the mouth and down into the esophagus and stomach. The lining of the esophagus, stomach, and part of the small intestine is examined. Biopsies (small pieces of the lining) can be painlessly taken. The biopsies are then examined with a microscope for signs of inflammation and other problems. Esophageal pH probe: A thin wire with an acid sensor at the tip is inserted through the nose into the lower part of the esophagus. The probe detects and records the amount of stomach acid coming backup into the esophagus. It can detect if acid is in the esophagus when the child has symptoms such as crying, arching the back, or coughing. TREATMENT The treatment of GERD depends on the child's symptoms and age. When a child or teenager is uncomfortable, has difficulty sleeping or eating, or does not gain weight, the caregiver may first suggest atrial of medication. This will decrease the amount of acid made in the stomach. If the child continues to have symptoms after the initial treatment, tests may be ordered to help find better treatments. It is rare for children to require surgery for GERD. However, surgery may be the best choice for children who have severe symptoms that do not respond to any treatment. Your child's caregiver can discuss the treatment options with you. Additional treatment suggestionsare: ?? Have your child or teenager eat smaller meals more often. Avoid eating 2 to 3 hours before bed. Elevate (raise) the head of the bed 30 degrees. Avoid carbonated drinks, chocolate, caffeine, and foods that are high in fat or contain a lot of acid (citrus fruits) or spices. seek immediate medical attention if: ?? You notice increased amounts of or forceful vomiting. You notice vomiting of fluid that is green or yellow in color or looks like coffee grounds or blood. Your child has a hard time breathing after vomiting. Your child has pain related to eating or refuses to eat. The child has weight loss or poor weight gain. Your child has difficult or painful swallowing. FOR MORE INFORMATION Call or visit these websites: [place] [employer] Pediatric Gastroenterology, Hepatology, and Nutrition Phone: Internet: www.NASPGHAN.org, www.CDHNF.org, www.KidsAcidReflux.org, www.TeensAcidReflux.org Some of this information is courtesy of the [facility] and its branch the National Digestive Diseases Information Clearinghouse. Document Released: 08/14/2004 Document Re-Released: 03/21/2008 ExitCare?? Patient Information ??2009 [employer] UM SPECIALIST * Discharge Instructions* Document, Scanned - 07/27/2009 12:00 AM MUSEUM SPECIALIST documented in this encounter Medications at Time of Discharge Medication Sig Dispensed Refills Start Date End Date omeprazole (PRILOSEC) 20 MG capsule Take 1 Cap by mouth daily before breakfast. 30 0 07/27/2009 01/06/2019 documented as of this encounter ED Notes * Mary Napier RN - 07/27/2009 4:28 PM CST Patient bp remains low. Jose F RUTHERFORD aware. Food tray ordered UM SPECIALIST * Elba Kerns RN - 07/27/2009 3:44 PM CST Pt up and ambulatory to the restroom with assist x 1. Pt has steady gait. UM SPECIALIST * Mary Napier RN - 07/27/2009 2:00 PM CST Agree with assessment done by zabrina [email or web address]. UM SPECIALIST * Jose F Reese PA - 07/27/2009 1:30 PM CST 07/27/2009 1:30 PM HPI Comments: Pt is a 28 y/o female who presents with burning in my stomach ; states that it's been present x 6 years; since onset her symptoms have been intermittent; reports that burning sensationis worse after meals; states that area of greatest pain is at her epigastrium; used to take Priolsec for symptoms which gave much relief; does not take medication anymore secodary to cost; denies anyassociated N/V/D; previous abdominal surgeries include cholecystectomy and hernia repair; no other acute complaints at this time Review of Systems All other systems reviewed and are negative. Physical Exam Constitutional: She is oriented and well-developed, well-nourished, and in no distress. HENT: Head: Normocephalic and atraumatic. Eyes: Conjunctivae are normal. Neck: Normal range of motion. Neck supple. Cardiovascular: Normal rate, regular rhythm and normal heart sounds. Pulmonary/Chest: Effort normal and breath sounds normal. No respiratory distress. She has no wheezes. She has no rales. Abdominal: Bowel sounds are normal. She exhibits no distension. Soft. No tenderness. She has no rebound and no guarding. Abdomen is soft and non-tender; no evidence of pain with light or deep palpation; BS are nL Musculoskeletal: Normal range of motion. Neurological: She is alert and oriented. Skin: Skin is warm and dry. Psychiatric: Affect and judgment normal. EKG Interpretation Lab/SPO2 Interpretation Results for orders placed during the hospital encounter of 07/27/2009 CBC W AUTO DIFFERENTIAL Component Value Range ??? WBC 6.4 4.5 - 11.0 (1000/mm3) ??? RBC 4.26 4.2 - 5.4 (10X6) ??? Hgb 12.4 12.0 - 16.0 (gm/dl) ??? Hct 36.3 36.0 - 48.0 (%) ??? MCV 85.2 80.0 - 99.0 (fl) ??? MCH 29.1 25.0 - 31.0 (pg) ??? MCHC 34.2 32.0 - 36.0 (gm/dl) ??? RDW 13.3 11.5 - 14.5 (%) ??? Plt Ct K/CUMM 271 130.0 - 400.0 (1000/mm3) ??? Gran 50.3 40.0 - 70.0 (%) ??? Lymph 39.3 22.0 - 40.0 (%) ??? Bacon 6.7 2.0 - 10.0 (%) ??? Eos 3.1 0.0 - 6.0 (%) ??? Baso 0.6 0.0 - 3.0 (%) ??? Gran Abs 3.20 1.8 - 7.7 ??? Lymph Abs 2.51 1.0 - 5.4 ??? Bacon Abs 0.43 0.1 - 1.1 ??? Eos Abs 0.20 0.0 - 0.7 ??? Baso Abs 0.04 0.0 - 0.2 ??? Manual Diff Comment Not Indicated COMPREHENSIVE METABOLIC PANEL Component Value Range ??? BUN 12 7.0 - 17.0 (mg/dl) ??? Sodium 141 137 - 145 (mmol/L) ??? Potassium 3.7 3.6 - 5.0 (mmol/L) ??? Chloride 106 98.0 - 107.0 (mmol/L) ??? Glucose 72 (*) 75 - 110 (mg/dl) ??? Creatinine 0.8 0.7 - 1.2 (mg/dl) ??? AST/SGOT 27 14.0 - 36.0 (U/L) ??? Alk Phos 44 38.0 - 126.0 (U/L) ??? Calcium 9.1 8.4 - 10.2 (mg/dl) ? ? Bili Total <0.1 (*) 0.2 - 1.3 (mg/dl) ??? Albumin 4.3 3.5 - 5.0 (gm/dl) ??? Protein Total 8.1 6.3 - 8.2 (gm/dl) ??? CO2 29 22.0 - 30.0 (mEq/L) ??? ALT/SGPT 14 9.0 - 52.0 (U/L) ??? eGFR by MDRD 110.7 (ml/min/1.73m2) LIPASE BLOOD Component Value Range ??? Lipase 123 23.0 - 300.0 (U/L) URINALYSIS ROUTINE AUTO Component Value Range ??? Color UA YELLOW ??? Character UA CLEAR ??? Specific Central UA 1.025 1.005 - 1.0300 ??? pH Units 7.5 4.6 - 8.0 (pH Units) ??? Leukocyte UA NEGATIVE Negative (/ul) ??? Nitrite UA NEGATIVE Negative ??? Protein UA NEGATIVE Negative (mg/dl) ??? Glucose UA NEGATIVE Normal (mg/dl) ??? Ketone UA NEGATIVE Negative (mg/dl) ??? Urobilinogen UA 1.0 Normal (Leann Units) ??? Bili UA NEGATIVE Negative (mg/dl) ??? Blood UA NEGATIVE Negative (/ul) ? ? WBC UA <5 (/HPF) ? ? RBC UA <5 (/HPF) ? ? Epithelial Cell UA <5 (/HPF) ? ? Casts UA <2 (/LPF) ??? Bacteria UA NEGATIVE HCG URINE QUALITATIVE - POINT OF CARE Component Value Range ? ? HCG Qual Urine negative > Negative ? ? QC Verified yes > Yes History No past medical history on file. Past Surgical History Procedure Date ??? Cholecystectomy ??? Hernia repair History Social History ??? Marital Status: Single Spouse Name: N/A Number of Children: N/A ??? Years of Education: N/A Occupational History ??? Not on file. Social History Main Topics ??? Tobacco Use: Not on file ??? Alcohol Use: Not on file ??? Drug Use: Not on file ??? Sexually Active: Not on file Other Topics Concern ??? Not on file Social History Narrative ??? No narrative on file Medications Current outpatient prescriptions Medication Sig Dispense Refill ??? omeprazole (PRILOSEC) 20 MG capsule Take 1 Cap by mouth daily before breakfast. 30 0 Progress Notes Procedures Medical Decision Making ED Plan/Course: Will discharge pt because labs and physical exam both unremarkable; pts abdomen is soft and non-tender; does not wince or grimace with deep palpation; due to chronicity of symptoms and time frame of pain likely d/t acid reflux; will therefore dispense Prilosec and have pt f/u with her PCP for further evaluation; stable for dishcarge Diagnosis Encounter Diagnoses Name Primary? Abdominal Pain, Epigastric ??? GERD (Gastroesophageal Reflux Disease) UM SPECIALIST * Zabrina Funk EMT-P - 07/27/2009 1:05 PM CST Pt ambulated to the restroom w/o difficulty or complaints UM SPECIALIST * Zabrina Funk EMT-P - 07/27/2009 12:58 PM CST Pt states she was at work and developed burning type pain in her abd along with feeling dizzy. Pt states the pain felt like the same pn she had prior to getting her gall bladder removed. UM SPECIALIST documented in this encounter Miscellaneous Notes * Miscellaneous Scans - Document, Scanned - 07/27/2009 12:00 AM MUSEUM SPECIALIST documented in this encounter Plan of Treatment Not on file documented as of this encounter Procedures Procedure Name Priority Date/Time Associated Diagnosis Comments URINALYSIS REFLEX TO MICROSCOPIC NO CULTURE STAT 07/27/2009 1:07 PM MUSEUM SPECIALIST HCG URINE QUALITATIVE - POINT OF CARE STAT 07/27/2009 1:04 PM MUSEUM SPECIALIST CBC W AUTO DIFFERENTIAL STAT 07/27/2009 12:30 PM MUSEUM SPECIALIST COMPREHENSIVE METABOLIC PANEL STAT 07/27/2009 12:30 PM MUSEUM SPECIALIST LIPASE BLOOD STAT 07/27/2009 12:30 PM MUSEUM SPECIALIST documented in this encounter Results * URINALYSIS ROUTINE AUTO (07/27/2009 1:07 PM MUSEUM SPECIALIST) Color UA YELLOW [facility] Character UA CLEAR [facility] Specific Central UA 1.025 1.005 - 1.0300 [facility] pH UA 7.5 4.6 - 8.0 pH Units [facility] Leukocyte UA NEGATIVE Negative /ul [facility] Nitrite UA NEGATIVE Negative [facility] Protein UA NEGATIVE Negative mg/dl [facility] Glucose UA NEGATIVE Normal mg/dl [facility] Ketone UA NEGATIVE Negative mg/dl [facility] Urobilinogen UA 1.0 Normal Leann Units [facility] Bilirubin UA NEGATIVE Negative mg/dl [facility] Blood UA NEGATIVE Negative /ul [facility] WBC UA <5 /HPF [facility] RBC UA <5 /HPF [facility] Epithelial Cell UA <5 /HPF [facility] Casts UA <2 /LPF [facility] Bacteria UA NEGATIVE [facility] URINE SPECIMEN OBTAINED BY CLEAN CATCH PROCEDURE / Unknown 07/27/2009 1:07 PM MUSEUM SPECIALIST 07/27/2009 1:07 PM MUSEUM SPECIALIST Hamilton L Galkowski DO LAB - URINALYSIS O RDERABLES Performing Organization Address [facility] Co de Phone Number [facility] [address] [place] [address] * HCG URINE QUALITATIVE - POINT OF CARE (07/27/2009 1:04 PM MUSEUM SPECIALIST) [facility] HCG Qual Urine negative Negative [facility] QC Verified yes Yes [facility] P[facility] T TESTING Urine specimen (specimen) URINE / Unknown Hamilton Lilly DO LAB - POINT OF CAR E ORDERABLES Performing Organization Address [facility] Co de Phone Number [facility] PO[facility] [id number] [place] [address] * LIPASE BLOOD (07/27/2009 12:30 PM MUSEUM SPECIALIST) [facility] Lipase 123 23.0 - 300.0 U/L [facility] BLOOD SPECIMEN / Unknown 07/27/2009 12:30 PM MUSEUM SPECIALIST 07/27/2009 12:38 PM MUSEUM SPECIALIST Hamilton Lilly DO LAB - CHEMISTRY OR DERABLES Performing Organization Address [facility] de Phone Number [facility] [address] [place] [address] * (ABNORMAL) COMPREHENSIVE METABOLIC PANEL (07/27/2009 12:30 PM MUSEUM SPECIALIST) [facility] BUN 12 7.0 - 17.0 mg/dl [facility] Sodium 141 137 - 145 mmol/L [facility] Potassium 3.7 3.6 - 5.0 mmol/L [facility] Chloride 106 98.0 - 107.0 mmol/L [facility] Glucose 72(L) 75 - 110 mg/dl [facility] Creatinine 0.8 0.7 - 1.2 mg/dl [facility] AST 27 14.0 - 36.0 U/L [facility] Alkaline Phosphatase 44 38.0 - 126.0 U/L [facility] Calcium 9.1 8.4 - 10.2 mg/dl [facility] Bilirubin Total <0.1(L) 0.2 - 1.3 mg/dl [facility] Albumin 4.3 3.5 - 5.0 gm/dl [facility] Protein Total 8.1 6.3 - 8.2 gm/dl [facility] CO2 29 22.0 - 30.0 mEq/L [facility] ALT 14 9.0 - 52.0 U/L [facility] eGFR by MDRD 110.7 ml/min/1.7 3m2 [facility] BLOOD SPECIMEN / Unknown 07/27/2009 12:30 PM MUSEUM SPECIALIST 07/27/2009 12:38 PM MUSEUM SPECIALIST Hamilton Lilly DO LAB - CHEMISTRY OR DERABLES [facility] [address] [place] [address] * CBC W AUTO DIFFERENTIAL (07/27/2009 12:30 PM MUSEUM SPECIALIST) WBC 6.4 4.5 - 11.0 1000/mm3 [facility] RBC 4.26 4.2 - 5.4 10X6 [facility] Hemoglobin 12.4 12.0 - 16.0 gm/dl [facility] Hematocrit 36.3 36.0 - 48.0 % [facility] MCV 85.2 80.0 - 99.0 fl [facility] MCH 29.1 25.0 - 31.0 pg [facility] MCHC 34.2 32.0 - 36.0 gm/dl [facility] RDW 13.3 11.5 - 14.5 % [facility] Platelet Count 271 130.0 - 400.0 1000/mm3 [facility] Granulocytes % 50.3 40.0 - 70.0 % [facility] Lymphocytes % 39.3 22.0 - 40.0 % [facility] Monocytes % 6.7 2.0 - 10.0 % [facility] Eosinophils % 3.1 0.0 - 6.0 % [facility] Basophils % 0.6 0.0 - 3.0 % [facility] Granulocytes Absolute 3.20 1.8 - 7.7 [facility] Lymphocytes Absolute 2.51 1.0 - 5.4 [facility] Monocytes Absolute 0.43 0.1 - 1.1 [facility] Eosinophils Absolute 0.20 0.0 - 0.7 [facility] Basophils Absolute 0.04 0.0 - 0.2 [facility] Comment Manual Diff Not Indicated [facility] BLOOD SPECIMEN / Unknown 07/27/2009 12:30 PM MUSEUM SPECIALIST 07/27/2009 12:38 PM MUSEUM SPECIALIST Hamilton Lilly DO LAB - HEMATOLOGY O RDERABLES [facility] [address] [place] [address] documented in this encounter Visit Diagnoses Diagnosis Abdominal pain, epigastric GERD (gastroesophageal reflux disease) Esophageal reflux documented in this encounter Administered Medications Inactive Administered Medications - up to 3 most recent administrations Medication Order MAR Action Action Date Dose Rate Site 0.9% nacl iv bolus 1,000 mL, ONCE, 1 dose, On Thu07/27/09 at 1345 $ Given 07/27/2009 1:45 PM MUSEUM SPECIALIST 1,000 mL esomeprazole (NEXIUM) injection 40 mg 40 mg, Intravenous, ONCE, 1 dose, On Thu07/27/09 at 1345, Dilute vial with 5ml of Normal Saline for a concentration of 8 mg/ml. Stable for 12 hours at room temp. Administer over greater than 3 minutes. $ Given 07/27/2009 1:48 PM MUSEUM SPECIALIST 40 mg morphine injection 4 mg 4 mg, Intravenous, ONCE, 1 dose, On Thu07/27/09 at 1345 $ Given 07/27/2009 1:51 PM MUSEUM SPECIALIST 4 mg ondansetron (ZOFRAN) injection 4 mg 4 mg, Intravenous, ONCE, 1 dose, On Thu07/27/09 at 1345 $ Given 07/27/2009 1:55 PM MUSEUM SPECIALIST 4 mg documented in this encounter Active and Recently Administered Medications Times are shown in MUSEUM SPECIALIST. Scheduled Medication Order 07/25/2009 07/26/2009 07/27/2009 0.9% nacl iv bolus (COMPLETED) 1,000 mL, ONCE, 1 dose, On Thu07/27/09 at 1345 1345 ($ Given - Prov ider: Mary Napier RN) esomeprazole (NEXIUM) injection 40 mg (COMPLETED) 40 mg, Intravenous, ONCE, 1 dose, On Thu07/27/09 at 1345, Dilute vial with 5ml of Normal Saline for a concentration of 8 mg/ml. Stable for 12 hours at room temp. Administer over greater than 3 minutes. 1348 ($ Given - Prov ider: Mary Napier RN) morphine injection 4 mg (COMPLETED) 4 mg, Intravenous, ONCE, 1 dose, On Thu07/27/09 at 1345 1351 ($ Given - Prov ider: Mary Napier, RN) ondansetron (ZOFRAN) injection 4 mg (COMPLETED) 4 mg, Intravenous, ONCE, 1 dose, On Thu07/27/09 at 1345 1355 ($ Given - Prov ider: Mary Napier RN) documented in this encounter Care Teams Emergency Medical Technician Relationship Specialty Start Date End Date Unknown, Provider PCP - General 07/27/09 10/25/13 documented as of this encounter
--- OUTSIDE RECORDS SUMMARY | 2024-05-25 00:56 | XMS_ITS | Encounter Summary ---
Author Organization [facility] Address [address] [place] [address] Care Team Providers Care Library Technology Instructor Name Role Phone Luz Funk DO Primary Care Provider [phone]- [phone] Encounter Details Date Type Department Care Team (Late st Contact Info) Description 06/21/2014 [facility] - Orthopedics [address] [place] [address] [place] [id number] Cruz Uribe MD [address] [place] [address] [place] [address] Discharge Disposition: Home or Self Care Social [...] Procedure Name Priority Date/Time Associated Diagnosis Comments XR KNEE RIGHT 4VW OR MORE Routine 06/21/2014 1:32 PM SALES PROFESSIONAL XR KNEE LEFT 4VW OR MORE Routine 06/21/2014 1:32 PM SALES PROFESSIONAL documented in this encounter Results * XR KNEE RIGHT 4VW OR MORE (06/21/2014 1:32 PM SALES PROFESSIONAL) Anatomical Region Laterality Modality Lower Extremity Other Impressions 06/21/2014 3:35 PM SALES PROFESSIONAL Impression: 1. Mild left knee medial compartment osteoarthritis. 2. Normal weightbearing radiographs of the right knee. Report dictated by Jake Fallon MD. This report was approved ??by Jake Fallon M.D. ?? on 06/21/2014 3:13 PM . IDr. LUIS EDUARDO M.D. have personally reviewed and interpreted this examination/study. This report was electronically signed by LUIS EDUARDO TURCIOS M.D. ??on 06/21/2014 3:35 PM . Narrative 06/21/2014 3:35 PM SALES PROFESSIONAL Exam: 1. Right knee, 4 views 2. [...] or focal soft tissue swelling. Procedure Note Luis Eduardo Turcios MD - 09/05/2017 Exam: 1. Right [...] Fallon M.D. on 06/21/2014 3:13PM . Dr. LUIS EDUARDO Oreilly M.D. have personally reviewed and interpreted thisexamination/study. This report was electronically signed by LUIS EDUARDO TURCIOS M.D. on06/21/2014 3:35 PM . Cruz Uribe MD DIAGNOSTIC IMAGING O RDERABLES * XR KNEE LEFT 4VW OR MORE (06/21/2014 1:32 PM SALES PROFESSIONAL) Anatomical Region Laterality Modality Lower Extremity Other Impressions 06/21/2014 3:35 PM SALES PROFESSIONAL Impression: 1. Mild left knee medial compartment osteoarthritis. 2. Normal weightbearing radiographs of the right knee. Report dictated by Jake Fallon MD. This report was approved ??by Jake Fallon M.D. ?? on 06/21/2014 3:[address] LUIS EDUARDO Oreilly M.D. have personally reviewed and interpreted this examination/study. This report was electronically signed by LUIS EDUARDO TURCIOS M.D. ??on 06/21/2014 3:35 PM . Narrative 06/21/2014 3:35 PM SALES PROFESSIONAL Exam: 1. Right knee, 4 views 2. [...] or focal soft tissue swelling. Procedure Note Luis Eduardo Turcios MD - 09/05/2017 Exam: 1. Right [...] Fallon M.D. on 06/21/2014 3:13PM . Dr. LUIS EDUARDO Oreilly M.D. have personally reviewed and interpreted thisexamination/study. This report was electronically signed by LUIS EDUARDO TURCIOS M.D. on06/21/2014 3:35 PM . Cruz Uribe MD DIAGNOSTIC IMAGING O ELISE documented in this encounter Visit Diagnoses Diagnosis Pain in joint, lower leg documented in this encounter Care Teams Library Technology Instructor Relationship Specialty Start Date End Date Luz Funk DO [address] [place] [id number] PCP - General 03/13/15 04/12/18 documented as of this encounter
--- OUTSIDE RECORDS SUMMARY | 2024-05-25 00:56 | XMS_ITS | Encounter Summary ---
Author Organization [facility] Address [address] [place] [address] Care Team Providers Care Manager Clinical Informatics Name Role Phone Unknown, Provider Primary Care Provider Unavaila ble Reason for Visit * Reason Comments Dizziness c/o intermittent diz ziness since thursday and c/o acid reflux, was seen by pmd and was started on prilosec and ordered to have labs, pt unable to obtain thus far, pt denies chest pain or shortness of breath Encounter Details Date Type Department Care Team (Late st Contact Info) Description 04/12/2010 11:38 AM CDT - 04/12/2010 1:51 PM CDT Emergency ER at [address] [address] America Coello MD [address] [place] [address] [place] [address] GERD (gastroesophageal reflux disease); Dizziness; Esophageal reflux Discharge Disposition: Home or Self Care Social [...] Sign Reading Time Taken Comments Blood Pressure 109/62 04/12/2010 12:38 PM CDT Simultaneous filing. User may not have seen previous data. Pulse 66 04/12/2010 12:38 PM CDT Temperature 36.9 ??C (98.5 ??F) 04/12/2010 1 1:43 AM CDT Respiratory Rate 16 04/12/2010 11:4 3 AM CDT Oxygen Saturation 100% 04/12/2010 12: 38 PM CDT Inhaled Oxygen Concentration - - Weight 81.6 kg (180 lb) 04/12/2010 11:4 3 AM CDT Height 167.6 cm (5' 6 ) 04/12/2010 11:4 3 AM CDT Body Mass Index 29.05 04/12/2010 11:43 AM CDT documented in this encounter Discharge Instructions * Discharge Instructions* Jose F Reese PA - 04/12/2010 1:35 PM CDT Acid Reflux (GERD) Acid reflux is also known as Gastroesophageal Reflux Disease (GERD). Acid reflux happens when liquid in your stomach goes up the tube between your mouth and stomach (esophagus). Your stomach makes acid to help digest food. Your stomach is protected from the acid, but your esophagus is not. When acid gets into the esophagus, it may cause a burning feeling (heartburn). Besides heartburn, other health problems can happen if the acid keeps going into the esophagus. HOME CARE ?? Your doctor may give you medicine to help the Acid Reflux. ?? You may have to: l Lose weight. l Avoid alcohol. l Quit smoking. ?? Do not eat big meals. ?? Do not eat a meal and then go to bed or take a nap. ?? Sleep with your head higher than your stomach. ?? Avoid foods that bother you. ?? You may need tests and have to see a special doctor. CAUSES ?? Being overweight. ?? Smoking. ?? Alcohol. ?? Eating meals and then going to bed right away. ?? Eating certain foods. ?? Increase in stomach acid production. GET HELP RIGHT AWAY IF: ?? You have chest pain that is different than before. ?? You have pain that goes to your arms, jaw or between your shoulder blades. ?? You throw up (vomit) blood, dark brown liquid or your vomit looks like coffee grounds . ?? You have trouble swallowing. ?? You are having trouble breathing or cannot stop coughing. ?? You feel dizzy or pass out. ?? Your skin is cool, wet and pale. ?? Medicine is not helping. MAKE SURE YOU: ?? Understand these instructions. ?? Will watch your condition. ?? Will get help right away if you are not doing well or get worse. Document Released: 11/10/2008 Document Re-Released: 05/07/2009 ExitCare?? Patient Information ??2009 [employer] Diet (Diet for GERD or Peptic Ulcer Disease) Nutrition therapy can help ease the discomfort of gastroesophageal reflux disease (GERD) and pepticulcer disease. A bland diet may be suggested for: ?? Gastrointestinal disorders such as viral gastroenteritis or flu syndrome. ?? Diet following gastric upset in an individual. HOME CARE INSTRUCTIONS ?? Eat your meals slowly, in a relaxed atmosphere. ?? Eat several small meals per day. ?? If a food causes distress, eliminate it for a period of time. FOODS TO AVOID: ?? Coffee, regular or decaffeinated ?? Cola beverages, regular or low calorie ?? Tea, regular or decaffeinated ?? Pepper ?? [place] ?? High fat foods including meats ?? Butter, margarine, hydrogenated oil (trans fats) ?? Peppermint or spearmint (if you have GERD) ?? Fruits and vegetables as tolerated ?? Alcoholic beverages ?? Nicotine (smoking or chewing) as this is one of the most potent stimulants to acid production inthe gastrointestinal tract ?? Any food that seems to aggravate your condition If you have questions regarding your diet, call your caregiver's office or a registered dietitian. MAKE SURE YOU: ?? Understand these instructions. ?? Will watch your condition. ?? Will get help right away if you are not doing well or get worse. Document Released: 05/25/2006 Document Re-Released: 05/07/2009 ExitCare?? Patient Information ??2009 [employer]. * Discharge Instructions* Document, Scanned - 04/13/2010 7:50 AM CDT documented in this encounter Medications at Time of Discharge Medication Sig Dispensed Refills Start Date End Date omeprazole (PRILOSEC) 20 MG capsule Take 1 Cap by mouth daily before breakfast. 30 0 07/27/2009 01/06/2019 documented as of this encounter Procedure Notes * Document, Scanned - 04/14/2010 6:14 AM CSTAssociated Order(s): CARDIAC ECHOCARDIOGRAM COMPLETE ORDER * Document, Scanned - 04/13/2010 7:39 AM CDTAssociated Order(s): CARDIAC EKG ORDER documented in this encounter ED Notes * Jose F Reese PA - 04/12/2010 1:27 PM CDT 04/12/2010 1:27 PM [facility] [id number] [facility] EMERGENCY DEPARTMENT History Chief Complaint Patient presents with ??? Dizziness c/o intermittent dizziness since thursday and c/o acid reflux, was seen by pmd and was started on prilosec and ordered to have labs, pt unable to obtain thus far, pt denies chest pain or shortness of breath HPI Comments: Patient is a 29 y/o female who presents with abdominal pain; acute on chronic; primarily epigastric; no radiation; describes as burning; worse after meals; evaluated by PCP yesterday and diagnosed with GERD; placed on Prilosec; came to ED for laboratory studies per PCP; no additional complaints Past Medical History Diagnosis Date ??? Acid reflux Past Surgical History Procedure Date ??? Cholecystectomy ??? Hernia repair History Social History ??? Marital Status: Single Spouse Name: N/A Number of Children: N/A ??? Years of Education: N/A Occupational History ??? Not on file. Social History Main Topics ??? Tobacco Use: Never ??? Alcohol Use: No ??? Drug Use: ??? Sexually Active: Not on file Other Topics Concern ??? Not on file Social History Narrative ??? No narrative on file Medications Current outpatient prescriptions Medication Sig Dispense Refill ??? omeprazole (PRILOSEC) 20 MG capsule Take 1 Cap by mouth daily before breakfast. 30 0 Review of Systems Constitutional: Negative for fever and chills. Respiratory: Negative for shortness of breath. Cardiovascular: Negative for chest pain. Gastrointestinal: Positive for heartburn, nausea and vomiting. Neurological: Positive for dizziness. All other systems reviewed and are negative. BP 109/62 Pulse 66 Temp 98.5 ??F Resp 16 Ht 5' 6 (1.676 m) Wt 180 lb (81.647 kg) SpO2 100% Physical Exam Nursing note and vitals reviewed. Constitutional: She is oriented to person, place, and time. Patient appears well and in NAD; resting comfortably in bed; VS reviewed and w/in nL limits HENT: Head: Normocephalic and atraumatic. Eyes: Conjunctivae are normal. Neck: Neck supple. Cardiovascular: Normal rate, regular rhythm and normal heart sounds. Pulmonary/Chest: Effort normal and breath sounds normal. No respiratory distress. She has no wheezes. She has no rales. Abdominal: Soft. Bowel sounds are normal. She exhibits no distension. No tenderness. She has no rebound and no guarding. Abdomen is soft and non-tender; no pain with light or deep palpation; BS normoactive Musculoskeletal: Normal range of motion. Neurological: She is alert and oriented to person, place, and time. Skin: Skin is warm and dry. Psychiatric: Affect and judgment normal. Procedures Procedures EKG Interpretation Lab/SPO2 Interpretation XR CHEST PA AND LATERAL Final Result: No acute disease in the chest. CT HEAD NON CONTRAST Final Result: Normal unenhanced CT brain. Results for orders placed during the hospital encounter of 04/12/10 CBC W AUTO DIFFERENTIAL Component Value Range ??? WBC 7.2 4.5 - 11.0 (1000/mm3) ??? RBC 4.70 4.2 - 5.4 (10X6) ??? Hgb 13.5 12.0 - 16.0 (gm/dl) ??? Hct 41.6 36.0 - 48.0 (%) ??? MCV 88.5 80.0 - 99.0 (fl) ??? MCH 28.7 25.0 - 31.0 (pg) ??? MCHC 32.5 32.0 - 36.0 (gm/dl) ??? RDW 13.3 11.5 - 14.5 (%) ??? Plt Ct K/CUMM 261 130.0 - 400.0 (1000/mm3) ??? Gran 58.4 40.0 - 70.0 (%) ??? Lymph 30.8 22.0 - 40.0 (%) ??? [facility] 7.8 2.0 - 10.0 (%) ??? Eos 2.4 0.0 - 6.0 (%) ??? Baso 0.6 0.0 - 3.0 (%) ??? Gran Abs 4.18 1.8 - 7.7 ??? Lymph Abs 2.20 1.0 - 5.4 ??? [facility] Abs 0.56 0.1 - 1.1 ??? Eos Abs 0.17 0.0 - 0.7 ??? Baso Abs 0.04 0.0 - 0.2 ??? Manual Diff Comment Not Indicated COMPREHENSIVE METABOLIC PANEL Component Value Range ??? BUN 9 7.0 - 17.0 (mg/dl) ??? Sodium 139 137 - 145 (mmol/L) ??? Potassium 3.9 3.6 - 5.0 (mmol/L) ??? Chloride 101 98.0 - 107.0 (mmol/L) ??? Glucose 79 75 - 110 (mg/dl) ??? Creatinine 0.8 0.52 - 1.05 (mg/dl) ??? AST/SGOT 28 14.0 - 36.0 (U/L) ??? Alk Phos 69 38.0 - 126.0 (U/L) ??? Calcium 10.4 (*) 8.4 - 10.2 (mg/dl) ??? Bili Total 0.4 0.2 - 1.3 (mg/dl) ??? Albumin 5.2 (*) 3.5 - 5.0 (gm/dl) ??? Protein Total 9.0 (*) 6.3 - 8.2 (gm/dl) ??? CO2 28 22.0 - 30.0 (mEq/L) ??? ALT/SGPT 23 9.0 - 52.0 (U/L) ??? eGFR by MDRD 103.34 (ml/min/1.73m2) URINALYSIS ROUTINE AUTO Component Value Range ??? Color UA YELLOW ??? Character UA CLEAR ??? Specific [place] UA 1.015 1.005 - 1.0300 ??? pH Units 7.0 4.6 - 8.0 (pH Units) ??? Leukocyte UA NEGATIVE Negative (/ul) ??? Nitrite UA NEGATIVE Negative ??? Protein UA NEGATIVE Negative (mg/dl) ??? Glucose UA NEGATIVE Normal (mg/dl) ??? Ketone UA NEGATIVE Negative (mg/dl) ??? Urobilinogen UA 0.2 Normal (Leann Units) ??? Bili UA NEGATIVE Negative (mg/dl) ??? Blood UA NEGATIVE Negative (/ul) ? ? WBC UA 0-2 <5 (/HPF) ? ? RBC UA 0-2 <5 (/HPF) ? ? Epithelial Cell UA 0-2 <5 (/HPF) ? ? Casts UA 0-2 <2 (/LPF) ??? Bacteria UA NEGATIVE TROPONIN I Component Value Range ? ? Troponin I <0.10 SEE BELOW (ng/ml) MYOGLOBIN BLOOD Component Value Range ??? Myoglobin 35.0 0.0 - 110.0 (ng/ml) PT-INR Component Value Range ??? PT 10.6 9.4 - 11.2 (seconds) ??? INR ([facility]) 1.0 SEE BELOW PTT Component Value Range ??? PTT 29.5 24.0 - 32.0 (seconds) Medical Decision Making Progress Notes ED Plan/Course: Labs unremarkable; serial abdominal exams soft and non-tender; symptoms c/w acid reflex and already on appropriate medications; will give GI referral should symptoms continue; instructed that patient MUST return should symptoms progress or intensify; pt verbalized understanding and is agreeable with treatment plan; stable for discharge Clinical Impression Encounter Diagnoses Name Primary? GERD (gastroesophageal reflux disease) ??? 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 and thought she would pass out, here she says she feels burning in her stomach and some dizziness when she stands at times, ls are clear vss and denies any sob or cp, she has 2 episodes of nausea and vomitngi this last Thursday while at a dinner documented in this encounter Miscellaneous Notes * Miscellaneous Scans - Document, Scanned - 04/13/2010 7:40 AM CDT documented in this encounter Plan of Treatment Pending Results Name Type Priority Associated Diagnoses Date /Time HCG URINE QUALITATIVE - POINT OF CARE Point of Care Testing STAT 04/12/2010 11:47 AM CDT documented as of this encounter Procedures Procedure Name Priority Date/Time Associated Diagnosis Comments CARDIAC ECHOCARDIOGRAM COMPLETE ORDER 04/14/2010 4:39 PM PROCESS ASSISTANT CARDIAC EKG ORDER 04/13/2010 10: [address] HEAD WO CONTRAST STAT 04/12/2010 1 :09 PM CDT URINALYSIS REFLEX TO MICROSCOPIC NO CULTURE STAT 04/12/2010 12:24 PM CDT XR CHEST 2VW STAT 04/12/2010 12:05 PM CDT TROPONIN I Timed 04/12/2010 12:03 PM CDT MYOGLOBIN BLOOD STAT 04/12/2010 12:03 PM CDT PTT STAT 04/12/2010 12:02 PM CDT PT-INR STAT 04/12/2010 12:02 PM CDT CBC W AUTO DIFFERENTIAL STAT 04/12/20 10 12:02 PM CDT COMPREHENSIVE METABOLIC PANEL STAT 04/12/2010 12:02 PM CDT HCG URINE QUALITATIVE - POINT OF CARE STAT 04/12/2010 11:47 AM CDT documented in this encounter Results * CARDIAC ECHOCARDIOGRAM COMPLETE ORDER (04/14/2010 4:39 PM PROCESS ASSISTANT) Narrative Procedure Note Document, Scanned - 04/14/2010 6:14 AM PROCESS ASSISTANT Scanned Document ECHO ORDERABLES * CARDIAC EKG [...] URINALYSIS ROUTINE AUTO (04/12/2010 12:24 PM CDT) Color UA YELLOW [facility] Character UA CLEAR [facility] Specific [place] UA 1.015 1.005 - 1.0300 [facility] pH UA 7.0 4.6 - 8.0 pH Units [facility] Leukocyte UA NEGATIVE Negative /ul [facility] Nitrite UA NEGATIVE Negative [facility] Protein UA NEGATIVE Negative mg/dl [facility] Glucose UA NEGATIVE Normal mg/dl [facility] Ketone UA NEGATIVE Negative mg/dl [facility] Urobilinogen UA 0.2 Normal Leann Units [facility] Bilirubin UA NEGATIVE Negative mg/dl [facility] Blood UA NEGATIVE Negative /ul [facility] WBC UA 0-2 <5 /HPF [facility] RBC UA 0-2 <5 /HPF [facility] Epithelial Cell UA 0-2 <5 /HPF [facility] Casts UA 0-2 <2 /LPF [facility] Bacteria UA NEGATIVE [facility] URINE SPECIMEN OBTAINED BY CLEAN CATCH PROCEDURE / Unknown 04/12/2010 12:24 PM CDT 04/12/2010 12:24 PM CDT Davie Ryder MD LAB - URINALYSIS ORD ERABLES [facility] [address] [place] [address] * XR CHEST PA AND LATERAL (04/12/2010 [...] CDT) Troponin I <0.10 SEE BELOW ng/ml [facility] Comment: Normal ? <0.10 [place] ??0.10-0.99 Positive ?? >=1.00 SERUM OR PLASMA SPECIMEN / Unknown 04/12/2010 12:03 PM CDT 04/12/2010 12:03 PM CDT Narrative [facility] - 04/12/2010 12:36 PM CDT Perform on patients greater than 35* Davie Ryder MD LAB - CHEMISTRY [place]ATT Performing Organization Address [facility] Co de Phone Number [facility] [address] [place] [address] * MYOGLOBIN BLOOD (04/12/2010 12:03 PM CDT) Myoglobin 35.0 0.0 - 110.0 ng/ml [facility] SERUM OR PLASMA SPECIMEN / Unknown 04/12/2010 12:03 PM CDT 04/12/2010 12:03 PM CDT Narrative [facility] - 04/12/2010 12:36 PM CDT Perform on patients greater than 35* Davie Ryder MD LAB - CHEMISTRY [place] Performing Organization Address [facility] Co de Phone Number [facility] [address] [place] [address] * PTT (04/12/2010 12:02 PM CDT) PTT 29.5 24.0 - 32.0 seconds [facility] BLOOD SPECIMEN / Unknown 04/12/2010 12:02 PM CDT 04/12/2010 12:03 PM CDT Narrative [facility] - 04/12/2010 12:17 PM CDT Perform for patients taking warfari* Davie Ryder MD LAB - COAGULATION OR DERABLES Performing Organization Address [facility] Co de Phone Number [facility] [address] [place] [address] * PT-INR (04/12/2010 12:02 PM CDT) PT 10.6 9.4 - 11.2 seconds [facility] INR 1.0 SEE BELOW [facility] Comment: 0.9-1.1 Normal 2.0-3.0 Conventional 2.5-3.5 Intensive BLOOD SPECIMEN / Unknown 04/12/2010 12:02 PM CDT 04/12/2010 12:03 PM CDT Narrative [facility] - 04/12/2010 12:17 PM CDT Perform for patients taking warfari* Davie Ryder MD LAB - COAGULATION OR DERABLES Performing Organization Address [facility]/ZIP Co de Phone Number [facility] [address] [place] [address] * (ABNORMAL) COMPREHENSIVE METABOLIC PANEL (04/12/2010 12:02 PM CDT) BUN 9 7.0 - 17.0 mg/dl [facility] Sodium 139 137 - 145 mmol/L [facility] Potassium 3.9 3.6 - 5.0 mmol/L [facility] Chloride 101 98.0 - 107.0 mmol/L [facility] Glucose 79 75 - 110 mg/dl [facility] Creatinine 0.8 0.52 - 1.05 mg/dl [facility] AST 28 14.0 - 36.0 U/L [facility] Alkaline Phosphatase 69 38.0 - 126.0 U/L [facility] Calcium 10.4(H) 8.4 - 10.2 mg/dl [facility] Bilirubin Total 0.4 0.2 - 1.3 mg/dl [facility] Albumin 5.2(H) 3.5 - 5.0 gm/dl [facility] Protein Total 9.0(H) 6.3 - 8.2 gm/dl [facility] CO2 28 22.0 - 30.0 mEq/L [facility] ALT 23 9.0 - 52.0 U/L [facility] eGFR by MDRD 103.34 ml/min/1.7 3m2 [facility] BLOOD SPECIMEN / Unknown 04/12/2010 12:02 PM CDT 04/12/2010 12:03 PM CDT Narrative [facility] - 04/12/2010 12:21 PM CDT Perform for patients taking warfari* Davie Ryder MD LAB - CHEMISTRY ORDE YOSELIN Performing Organization Address [facility] Co de Phone Number [facility] [address] [place] [address] * CBC W AUTO DIFFERENTIAL (04/12/2010 12:02 PM CDT) WBC 7.2 4.5 - 11.0 1000/mm3 [facility] RBC 4.70 4.2 - 5.4 10X6 [facility] Hemoglobin 13.5 12.0 - 16.0 gm/dl [facility] Hematocrit 41.6 36.0 - 48.0 % [facility] MCV 88.5 80.0 - 99.0 fl [facility] MCH 28.7 25.0 - 31.0 pg [facility] MCHC 32.5 32.0 - 36.0 gm/dl [facility] RDW 13.3 11.5 - 14.5 % [facility] Platelet Count 261 130.0 - 400.0 1000/mm3 [facility] Granulocytes % 58.4 40.0 - 70.0 % [facility] Lymphocytes % 30.8 22.0 - 40.0 % [facility] Monocytes % 7.8 2.0 - 10.0 % [facility] Eosinophils % 2.4 0.0 - 6.0 % [facility] Basophils % 0.6 0.0 - 3.0 % [facility] Granulocytes Absolute 4.18 1.8 - 7.7 [facility] Lymphocytes Absolute 2.20 1.0 - 5.4 [facility] Monocytes Absolute 0.56 0.1 - 1.1 [facility] Eosinophils Absolute 0.17 0.0 - 0.7 [facility] Basophils Absolute 0.04 0.0 - 0.2 [facility] Comment Manual Diff Not Indicated [facility] BLOOD SPECIMEN / Unknown 04/12/2010 12:02 PM CDT 04/12/2010 12:03 PM CDT Narrative [facility] - 04/12/2010 12:09 PM CDT Perform for patients taking warfari* Davie Ryder MD LAB - HEMATOLOGY ORD ERABLES [facility] [address] [place] [address] documented in this encounter Visit Diagnoses Diagnosis GERD (gastroesophageal reflux disease) Esophageal reflux Dizziness Dizziness and giddiness Esophageal reflux Dizziness and giddiness documented in this encounter Administered Medications Inactive Administered Medications - up to 3 most recent administrations Medication Order MAR Action Action Date Dose Rate Site 0.9% nacl iv bolus 1,000 mL, ONCE, 1 dose, On Thu04/12/10 at 1300 $ Given 04/12/2010 1:00 PM CDT 1,000 mL [id number]-gqkkpkbrz-edhechylaea (MAALOX;MYLANTA) suspension ADS Med 1 dose, Starting on Thu04/12/10 at 1252, Until Thu04/12/10 at 1301, AMERICA PARKER: Cabinet Override $ Given 04/12/2010 1:01 PM CDT 30 mL belladonna alk-phenobarbital () 16mg/5mL solution ADS Med 1 dose, Starting on Thu04/12/10 at 1252, Until Thu04/12/10 at 1301, AMERICA PARKER: Cabinet Override $ Given 04/12/2010 1:01 PM CDT 10 mL GI Cocktail 50 mL, Oral, ONCE, 1 dose, On Thu04/12/10 at 1300 $ Given 04/12/2010 1:00 PM CDT 50 mL lidocaine (XYLOCAINE) 2% viscous solution ADS Med 1 dose, Starting on Thu04/12/10 at 1252, Until Thu04/12/10 at 1301, AMERICA PARKER: Cabinet Override $ Given 04/12/2010 1:01 PM CDT 20 mL documented in this encounter Active and Recently Administered Medications Times are shown in CDT. Scheduled Medication Order 04/10/2010 04/11/2010 04/12/2010 0.9% nacl iv bolus (COMPLETED) 1,000 mL, ONCE, 1 dose, On Thu04/12/10 at 1300 1300 ($ Given - Prov ider: America Parker) GI Cocktail (COMPLETED) 50 mL, Oral, ONCE, 1 dose, On Thu04/12/10 at 1300 1300 ($ Given - Prov ider: America Parker) No Frequency Medication Order 04/10/2010 04/11/2010 04/12/2010 dwywnmjo-ongmvkepw-dxlogsusdxy (MAALOX;MYLANTA) suspension ADS Med (COMPLETED) 1 dose, Starting on Thu04/12/10 at 1252, Until Thu04/12/10 at 1301, AMERICA PARKER: Cabinet Override 1301 ($ Given - Prov ider: America Parker) belladonna alk-phenobarbital () 16mg/5mL solution ADS Med (COMPLETED) 1 dose, Starting on Thu04/12/10 at 1252, Until Thu04/12/10 at 1301, AMERICA PARKER: Cabinet Override 1301 ($ Given - Prov ider: America Parker) lidocaine (XYLOCAINE) 2% viscous solution ADS Med (COMPLETED) 1 dose, Starting on Thu04/12/10 at 1252, Until Thu04/12/10 at 1301, AMERICA PARKER: Cabinet Override 1301 ($ Given - Prov ider: America Parker) documented in this encounter Care Teams Manager Clinical Informatics Relationship Specialty Start Date End Date Unknown, Provider PCP - General 07/27/09 10/25/13 documented as of this encounter
--- OUTSIDE RECORDS SUMMARY | 2024-05-25 00:56 | XMS_ITS | Encounter Summary ---
Author Organization [facility] Address [address] [facility] [place] [address] Care Team Providers Care Appointment Manager Name Role Phone Carla De Jesus WATER PUMPER-CLIENT SOLUTIONS MANAGER Primary Care Provid er Reason for Referral * Radiology Services (Routine) - Closed Specialty Diagnoses / Procedures Referred By Contac t Referred To Contact Diagnoses Menorrhagia with regular cycle Procedures US PELVIS COMPLETE Jaqueline Livingston MD [address] [place] [address] [facility] [address] [place] [address] Referral ID Status Reason Start Date Expiration Date Visits Re quested Visits Authorized [id number] Closed 04/14/2018 10/11/2018 1 1 T PROTECTION REPRESENTATIVE Encounter Details Date Type Department Care Team (Latest Contact Info) Description 04/13/2018 2:30 PM ASSET PROTECTION REPRESENTATIVE Procedure visit [facility] [address] [place] [id number] Menorrhagia with regular cycle Social History Tobacco Use Types Packs/Day Years Used Date Smoking Tobacco: Never Alcohol Use Standard Drinks/Week Comments No 0 (1 standard drink = 0.6 oz pur e alcohol) Sex and Gender Information Value Date Recorded Sex Assigned at Not on file Gender Identity Not on file Sexual Orientation Not on file documented as of this encounter Procedure Notes * Jaqueline Livingston MD - 04/14/2018 5:13 PM CSTAssociated Order(s): US PELVIS COMPLETE Procedure(s): US PELVIS COMPLETE Pre-Procedure Diagnose(s): Menorrhagia with regular cycle See digi T PROTECTION REPRESENTATIVE documented in this encounter Plan of Treatment Not on file documented as of this encounter Procedures Procedure Name Priority Date/Time Associated Diagnosis Comments US PELVIS COMPLETE Routine 04/15/2018 7: 06 AM ASSET PROTECTION REPRESENTATIVE Menorrhagia with regular cycle documented in this encounter Results * US PELVIS COMPLETE (04/15/2018 7:06 AM ASSET PROTECTION REPRESENTATIVE) Anatomical Region Laterality Modality Pelvis Ultrasound Narrative 04/15/2018 7:06 AM ASSET PROTECTION REPRESENTATIVE Jaqueline Livingston MD ? 04/14/2018 ??5:14 PM See digi Procedure Note Jaqueline Livingston MD - 04/14/2018 5:13 PM CST See digi Jaqueline Livingston MD US ORDERABLES documented in this encounter Visit Diagnoses Diagnosis Menorrhagia with regular cycle- Primary Excessive or frequent menstruation documented in this encounter Care Teams Appointment Manager Relationship Specialty Start Date End Date Carla De Jesus APRN-CLIENT SOLUTIONS MANAGER [address] [place] [address] PCP - General 04/13/18 01/05/19 documented as of this encounter
--- OUTSIDE RECORDS SUMMARY | 2024-05-25 00:56 | XMS_ITS | Encounter Summary ---
Author Organization [facility] Address [address] [place] [address] Care Team Providers Care Transformer Mechanic Name Role Phone Mag Valdes MD Primary Care Provider [phone] Encounter Details Date Type Department Care Team (Latest Contact Info) Description 06/13/2019 6:15 PM GOLD WHEEL BLOCKER AND POLISHER - 06/13/2019 6:38 PM GOLD WHEEL BLOCKER AND POLISHER Hospital Encounter [facility] [address] [place] [address] Flower Guy MD [address] [place] [address] Jessica Abraham, STUDIO MUSICIAN-[facility] [address] [place] [address] Discharge Disposition: Home or Self Care Social [...] Sign Reading Time Taken Comments Blood Pressure 103/59 06/13/2019 6:22 PM GOLD WHEEL BLOCKER AND POLISHER Pulse 83 06/13/2019 6:22 PM GOLD WHEEL BLOCKER AND POLISHER Temperature 36.9 ??C (98.5 ??F) 06/13/2019 6:22 PM CS T Respiratory Rate 18 06/13/2019 6:22 PM GOLD WHEEL BLOCKER AND POLISHER Oxygen Saturation 100% 06/13/2019 6:22 PM GOLD WHEEL BLOCKER AND POLISHER Inhaled Oxygen Concentration - - Weight 86.2 kg (190 lb) 06/13/2019 6:22 PM GOLD WHEEL BLOCKER AND POLISHER Height 167.6 cm (5' 6 ) 06/13/2019 6:22 PM GOLD WHEEL BLOCKER AND POLISHER Body Mass Index 30.67 06/13/2019 6:22 PM GOLD WHEEL BLOCKER AND POLISHER documented in this encounter Medications at Time of Discharge Medication Sig Dispensed Refills Start Date End Date ferrous sulfate 325 (65 FE) MG tablet Take 325 mg by mouth 2 times daily vitamin D3 (CHOLECACIFEROL) 5000 units Take 5,000 Units by mouth once daily ibuprofen (MOTRIN) 600 MG tablet Take 600 mg by mouth as needed for Pain 01/12/2020 documented as of this encounter Progress Notes * Jessica Ware, STUDIO MUSICIAN-SPEEDER OPERATOR - 06/13/2019 6:30 PM CST Images from the original note were not included. KATY BRADLEY History of Present Illness Patient Identification Octavia Schmid is a 38 year old female. PCP: Mag Valdes MD Patient information was obtained from patient. History/Exam limitations: none. Patient presented to the Urgent Care ambulatory. Chief Complaint Posterior knee pain Reason for Visit: Posterior knee pain HPI Octavia Schmid is a 38 year old female who presents to the Urgent Care today c/o R posterior kneepain since April which worsened over the past 3 weeks. Pain is worse with walking, currently 8/10. No hx of clots. No chest pain or shortness of breath. Past Medical History: Diagnosis Date ??? Anemia ??? Arthritis of knee ??? Fibroid 2 cm on US ??? Vitamin D deficiency Past Surgical History: Procedure Laterality Date ??? Bilateral Tubal Ligation (BTL) 2004 [place] ??? Cholecystectomy, Laparoscopic 2003 ??? Hernia Repair with mesh Family History Problem Relation Age of Onset ??? Hypertension Mother ??? Other Mother CHF ??? Glaucoma Father ??? Multiple Sclerosis Sister ??? Diabetes - Type 2 Brother Current Outpatient Medications Medication Sig Dispense Refill ??? ferrous sulfate 325 (65 FE) MG tablet Take 325 mg by mouth as needed (takes during menstrual cycle) ??? ibuprofen (MOTRIN) 600 MG tablet Take 600 mg by mouth as needed for Pain ??? vitamin D3 (CHOLECACIFEROL) 5000 units Take 5,000 Units by mouth once daily No current facility-administered medications for this encounter. No Known Allergies Social History Tobacco Use ??? Smoking status: Never Smoker ??? Smokeless tobacco: Never Used Substance Use Topics ??? Alcohol use: No Comment: wine rare Review of Systems Review of Systems Constitutional: Negative for chills, diaphoresis, fever, malaise/fatigue and weight loss. HENT: Negative for ear discharge, ear pain, sinus pain and sore throat. Eyes: Negative for blurred vision and double vision. Respiratory: Negative for cough, shortness of breath and wheezing. Cardiovascular: Negative for chest pain and palpitations. Gastrointestinal: Negative for abdominal pain, diarrhea, nausea and vomiting. Musculoskeletal: Positive for joint pain. Negative for myalgias. R posterior knee pain Skin: Negative for itching and rash. Neurological: Negative for dizziness and headaches. Physical Exam BP 103/59 (BP SITE: RIGHT ARM, BP POSITION: SITTING, BP CUFF SIZE: 11) Pulse 83 Temp 98.5 ??F (36.9 ??C) Resp 18 Ht 1.676 m (5' 6 ) Wt 86.2 kg (190 lb) SpO2 100% BMI 30.67 kg/m?? No exam data present Physical Exam Constitutional: She is oriented to person, place, and time. She appears well- developed and well-nourished. HENT: Head: Normocephalic. Right Ear: External ear normal. Left Ear: External ear normal. Nose: Nose normal. Mouth/Throat: Oropharynx is clear and moist and mucous membranes are normal. Eyes: Pupils are equal, round, and reactive to light. Neck: Normal range of motion. Cardiovascular: Normal rate and regular rhythm. Pulmonary/Chest: Effort normal. No stridor. No tachypnea. No respiratory distress. She has no decreased breath sounds. She has no wheezes. She has no rhonchi. She has no rales. Abdominal: Soft. Bowel sounds are normal. There is no tenderness. Musculoskeletal: Right knee: She exhibits swelling. She exhibits no laceration and no erythema. Tenderness found. Legs: Notable pain and swelling to posterior R knee. Lymphadenopathy: Head (right side): No submental, no submandibular and no tonsillar adenopathy present. Head (left side): No submental, no submandibular and no tonsillar adenopathy present. She has no cervical adenopathy. Neurological: She is alert and oriented to person, place, and time. She is not disoriented. GCS eyesubscore is 4. GCS verbal subscore is 5. GCS motor subscore is 6. Skin: Skin is warm and dry. Capillary refill takes less than 2 seconds. No rash noted. She is not diaphoretic. Psychiatric: She has a normal mood and affect. Her speech is normal and behavior is normal. Judgment and thought content normal. Cognition and memory are normal. Nursing note and vitals reviewed. Procedures Procedures Lab/SPO2 Interpretation No results found for this visit on 06/13/19. No results found. Progress Notes Xray right knee negative Clinical exam consistent with bakers cyst vs ruptured bakers cyst but cannot exclude DVT. Will sendto ER for r/o DVT Medical Decision Making Assessment ICD-10-CM 1. Acute pain of right knee M25.561 XR KNEE 3 VW RIGHT Plan Orders Placed This Encounter ??? XR KNEE 3 VW RIGHT Standing Status: Future Number of Occurrences: 1 Standing Expiration Date: 06/13/2020 Will send to [facility] ER for rule out DVT. WHEEL BLOCKER AND POLISHER Associated attestation - Yenifer Torres MD - 06/13/2019 7:17 PM GOLD WHEEL BLOCKER AND POLISHER IYenifer MD in collaboration with this Nurse Practitioner have reviewed her work records andpractice regarding quality and appropriateness of professional services provided for this urgent care visit and find her work to be satisfactory. * Marlen Long RN - 06/13/2019 6:28 PM CST Pt c/o swelling to posterior right knee. Area is swollen and tender to touch. States sometimes she has difficulty walking. No injury or other sx reported. WHEEL BLOCKER AND POLISHER documented in this encounter Miscellaneous Notes * Addendum Note - Jessica Ware APRN-SPEEDER OPERATOR - 06/13/2019 6:59 PM GOLD WHEEL BLOCKER AND POLISHER Encounter addended by: Jessica Ware APRN-CNP on: 06/13/2019 6:59 PM Actions taken: Sign clinical note WHEEL BLOCKER AND POLISHER * Addendum Note - Tiana Garrido CPC - 06/13/2019 6:38 PM CSTEncounter addended by: Tiana Garrido CPC on: 06/14/2019 1:14 PM Actions taken: Charge Capture section accepted WHEEL BLOCKER AND POLISHER documented in this encounter Plan of Treatment Not on file documented as of this encounter Results * XR KNEE 3 VW RIGHT (06/13/2019 6:41 PM GOLD WHEEL BLOCKER AND POLISHER) Anatomical Region Laterality Modality Lower Extremity Radiographic Greta ging 06/13/2019 6:46 PM GOLD WHEEL BLOCKER AND POLISHER Impressions 06/13/2019 6:46 PM GOLD WHEEL BLOCKER AND POLISHER Negative for fracture at this time. ??Please see above. This report was transcribed with a computerized speech recognition system. ??In an effort to expedite patient care, it has not been adjusted for typographical, grammatical or syntax problems by a trained medical care manager. For questions about the report, please contact the Radiology Department. Reading Radiologist: Caesar De Jesus MD on 06/13/2019 at 6:46 PM Narrative 06/13/2019 6:46 PM GOLD WHEEL BLOCKER AND POLISHER Examination: ??Right knee 3 views . Indication: [...] grammatical or syntax problems by a trained medical care manager. For questions about the report, please contact the Radiology Department. Reading Radiologist: Caesar De Jesus MD on 06/13/2019 at 6:46 PM Jessica Abraham STUDIO MUSICIAN-SPEEDER OPERATOR DIAGNOSTIC IMAGING ORDERABLES documented in this encounter Visit Diagnoses Diagnosis Acute pain of right knee- Primary Acute pain of right knee documented in this encounter Care Teams Transformer Mechanic Relationship Specialty Start Date End Date Mag Valdes MD PCP - General Family Medicine 01/06/19 01/11/20 documented as of this encounter
--- OUTSIDE RECORDS SUMMARY | 2024-05-25 00:56 | XMS_ITS | Encounter Summary ---
Author Organization [facility] Address [address] [facility] [place] [address] Care Team Providers Care Insurance Advisor Name Role Phone Mag Valdes MD Primary Care Provider [phone] Reason for Referral * Radiology Services (Emergency) - Closed Specialty Diagnoses / Procedures Referred By Contac t Referred To Contact Diagnoses Right knee pain, unspecified chronicity Procedures US EXTREM RIGHT COMPLETE (JOINT RELATED) Mag Valdes MD [address] [facility] [place] [address] Referral ID Status Reason Start Date Expiration Date Visits Re quested Visits Authorized [id number] Closed 06/17/2019 12/14/2019 1 1 ERNMAKER ALL AROUND Encounter Details Date Type Department Care Team (Late st Contact Info) Description 06/17/2019 Orders Only [facility] - Family Medicine [address] [place] [id number] Mag Valdes MD [address] [place] [phone] Right knee pain, unspecified chronicity Social [...] documented as of this encounter Results * US EXTREM RIGHT COMPLETE (JOINT RELATED) (06/20/2019 7:40 AM PATTERNMAKER ALL AROUND) Anatomical Region Laterality Modality Ultrasound 06/20/2019 9:30 AM PATTERNMAKER ALL AROUND Narrative 06/20/2019 9:33 AM PATTERNMAKER ALL AROUND Right lower extremity ultrasound Indication for examination: [...] 06/20/2019 at 9:33 AM Mag Valdes MD ORDERABLES documented in this encounter Visit Diagnoses Diagnosis Right knee pain, unspecified chronicity- Primary Right knee pain, unspecified chronicity documented in this encounter Care Teams Insurance Advisor Relationship Specialty Start Date End Date Mag Valdes MD PCP - General Family Medicine 01/06/19 01/11/20 documented as of this encounter
--- OUTSIDE RECORDS SUMMARY | 2024-05-25 00:56 | XMS_ITS | Encounter Summary ---
Author Organization [facility] Address [address] [place] [address] Care Team Providers Care Power Reactor Supervisor Name Role Phone Luz Funk DO Primary Care Provider [phone] Reason for Visit * Reason Comments Pain Toe pt to ED with c/o sterling ving a blister to left big toe area/in between toes. pt reports her feet crack and get cuts often but this is the first time she got a blister before. happened this evening. pt reports its hard and kind of black and looks like pus is present in the middle. no drainage. painful to touch and put weight on foot/toe. no injury to foot. no DM. Encounter Details Date Type Department Care Team (Late st Contact Info) Description 04/22/2017 9:51 PM COILED COIL INSPECTOR - 04/23/2017 12:29 AM COILED COIL INSPECTOR Emergency ER at [address] [address] Blister of toe of left foot, initial encounter; Tinea pedis of left foot Discharge Disposition: Home or Self Care Social [...] Sign Reading Time Taken Comments Blood Pressure 112/79 04/22/2017 8:24 PM COILED COIL INSPECTOR Pulse 75 04/22/2017 8:24 PM COILED COIL INSPECTOR Temperature 36.9 ??C (98.4 ??F) 04/22/2017 8:24 PM CS T Respiratory Rate 17 04/22/2017 8:24 PM COILED COIL INSPECTOR Oxygen Saturation 100% 04/22/2017 8:24 PM COILED COIL INSPECTOR Inhaled Oxygen Concentration - - Weight 86.2 kg (190 lb) 04/22/2017 8:39 PM COILED COIL INSPECTOR Height 168.9 cm (5' 6.5 ) 04/22/2017 8:39 PM COILED COIL INSPECTOR Body Mass Index 30.21 04/22/2017 8:39 PM COILED COIL INSPECTOR documented in this encounter Discharge Instructions * Discharge Instructions* Fabricio Dejesus PA-C - 04/23/2017 12:06 AM COILED COIL INSPECTOR Images from the original note were not included. Athlete's Foot Athlete's foot (tinea pedis) is a fungal infection of the skin on the feet. It often occurs on the skin between the toes or underneath the toes. It can also occur on the soles of the feet. Athlete's foot is more likely to occur in hot, humid weather. Not washing your feet or changing your socks often enough can contribute to athlete's foot. The infection can spread from person to person (contagious). CAUSES Athlete's foot is caused by a fungus. This fungus thrives in warm, moist places. Most people get athlete's foot by sharing shower stalls, towels, and wet floors with an infected person. People with weakened immune systems, including those with diabetes, may be more likely to get athlete's foot. SYMPTOMS ?? Itchy areas between the toes or on the soles of the feet. ?? White, flaky, or scaly areas between the toes or on the soles of the feet. ?? Tiny, intensely itchy blisters between the toes or on the soles of the feet. ?? Tiny cuts on the skin. These cuts can develop a bacterial infection. ?? Thick or discolored toenails. DIAGNOSIS Your caregiver can usually tell what the problem is by doing a physical exam. Your caregiver may also take a skin sample from the rash area. The skin sample may be examined under a microscope, or it may be tested to see if fungus will grow in the sample. A sample may also be taken from your toenailfor testing. TREATMENT Egdm-tov-guawhte and prescription medicines can be used to kill the fungus. These medicines are available as powders or creams. Your caregiver can suggest medicines for you. Fungal infections respondslowly to treatment. You may need to continue using your medicine for several weeks. PREVENTION ?? Do not share towels. ?? Wear sandals in wet areas, such as shared locker rooms and shared showers. ?? Keep your feet dry. Wear shoes that allow air to circulate. Wear cotton or wool socks. HOME CARE INSTRUCTIONS ?? Take medicines as directed by your caregiver. Do not use steroid creams on athlete's foot. ?? Keep your feet clean and cool. Wash your feet daily and dry them thoroughly, especially between your toes. ?? Change your socks every day. Wear cotton or wool socks. In hot climates, you may need to change your socks 2 to 3 times per day. ?? Wear sandals or canvas tennis shoes with good air circulation. ?? If you have blisters, soak your feet in Burow's solution or Epsom salts for 20 to 30 minutes, 2 times a day to dry out the blisters. Make sure you dry your feet thoroughly afterward. SEEK MEDICAL CARE IF: ?? You have a fever. ?? You have swelling, soreness, warmth, or redness in your foot. ?? You are not getting better after 7 days of treatment. ?? You are not completely cured after 30 days. ?? You have any problems caused by your medicines. MAKE SURE YOU: ?? Understand these instructions. ?? Will watch your condition. ?? Will get help right away if you are not doing well or get worse. Document Released: 05/22/2001 Document Revised: 08/16/2012 Document Reviewed: 03/12/2012 ExitCare?? Patient Information ??2015 [employer]. This information is not intended to replace advice given to you by your health care provider. Make sure you discuss any questions you have with your health care provider. Yeast Infection of the Skin Some yeast on the skin is normal, but sometimes it causes an infection. If you have a yeast infection, it shows up as white or light brown patches on brown skin. You can see it better in the summer on cummins skin. It causes light-colored holes in your suntan. It can happen on any area of the body. This cannot be passed from person to person. HOME CARE ?? Scrub your skin daily with a dandruff shampoo. Your rash may take a couple weeks to get well. ?? Do not scratch or itch the rash. GET HELP RIGHT AWAY IF: ?? You get another infection from scratching. The skin may get warm, red, and may ooze fluid. ?? The infection does not seem to be getting better. MAKE SURE YOU: ?? Understand these instructions. ?? Will watch your condition. ?? Will get help right away if you are not doing well or get worse. Document Released: 05/07/2009 Document Revised: 08/16/2012 Document Reviewed: 05/07/2009 ExitCare?? Patient Information ??2015 [employer]. This information is not intended to replace advice given to you by your health care provider. Make sure you discuss any questions you have with your health care provider. ED COIL INSPECTOR documented in this encounter Medications at Time of Discharge Medication Sig Dispensed Refills Start Date End Date clotrimazole (LOTRIMIN AF) 1 % cream Apply to affected area 2 times daily for 7 days 40 g 04/23/2017 04/30/2017 omeprazole (PRILOSEC) 20 MG capsule Take 1 Cap by mouth daily before breakfast. 30 0 07/27/2009 01/06/2019 documented as of this encounter ED Notes * Maria Elena Saravia RN - 04/23/2017 12:26 AM CST Discharge instructions reviewed with patient. Understanding verbalized about use of prescription and care at home. Ambulates from ER with steady gait. ED COIL INSPECTOR * Fabricio Dejesus PA-C - 04/22/2017 10:44 PM CST Provider contact with the patient: 04/22/2017 22:44 [facility] [id number] [facility] History Chief Complaint Patient presents with ??? Pain Toe pt to ED with c/o having a blister to left big toe area/in between toes. pt reports her feet crack and get cuts often but this is the first time she got a blister before. happened this evening. pt reports its hard and kind of black and looks like pus is present in the middle. no drainage. painful to touch and put weight on foot/toe. no injury to foot. no DM. HPI Patient is a 36-year-old female who comes to the ED today complaining of toe pain. Reports that forthe past couple days she has had itching and burning between her toes on her left foot. When she got out of the shower earlier today she noticed a blister at the base of her left great toe that is very painful prompting her to come to the ED. Denies any fevers. Reports she has chronic issues with dry skin on the left foot only. No other symptoms or concerns. Past Medical History: Diagnosis Date ??? Acid reflux Past Surgical History: Procedure Laterality Date ??? Cholecystectomy ??? Hernia Repair No family history on file. Social History Social History ??? Marital status: Single Spouse name: N/A ??? Number of children: N/A ??? Years of education: N/A Occupational History ??? Not on file. Social History Main Topics ??? Smoking status: Never Smoker ??? Smokeless tobacco: Not on file ??? Alcohol use No ??? Drug use: Not on file ??? Sexual activity: Not on file Other Topics Concern ??? Not on file Social History Narrative ??? No narrative on file No Known Allergies Review of Systems Review of Systems Constitutional: Negative for chills, fever and malaise/fatigue. HENT: Negative for ear pain and tinnitus. Eyes: Negative for blurred vision and double vision. Respiratory: Negative for shortness of breath. Cardiovascular: Negative for chest pain. Gastrointestinal: Negative for abdominal pain, constipation, diarrhea, nausea and vomiting. Skin: Negative for rash. See HPI Neurological: Negative for focal weakness, loss of consciousness, weakness and headaches. Psychiatric/Behavioral: Negative for suicidal ideas. All other systems reviewed and are negative. Physical Exam BP 112/79 Pulse 75 Temp 98.4 ??F Resp 17 Ht 1.689 m (5' 6.5 ) Wt 86.2 kg (190 lb) SpO2 100% BMI 30.21 kg/m2 Physical Exam Constitutional: She is oriented to person, place, and time. She appears well- developed and well-nourished. HENT: Head: Normocephalic and atraumatic. Eyes: EOM are normal. Pupils are equal, round, and reactive to light. Cardiovascular: Normal rate, regular rhythm, normal heart sounds and intact distal pulses. Exam reveals no gallop and no friction rub. No murmur heard. Pulmonary/Chest: Effort normal and breath sounds normal. No respiratory distress. She has no wheezes. She has no rales. Abdominal: Soft. Bowel sounds are normal. She exhibits no distension and no mass. There is no tenderness. There is no rebound and no guarding. No hernia. Neurological: She is alert and oriented to person, place, and time. She has normal reflexes. No cranial nerve deficit. Coordination normal. Skin: Skin is warm and dry. Over the lateral base of left great toe is a 1 cm in diameter blister with minimal amount of surrounding faint blanchable erythema that is tender to touch and normal temperature to palpate. Dry scalyskin diffusely over distal plantar left foot. Psychiatric: She has a normal mood and affect. Her behavior is normal. Judgment and thought contentnormal. Vitals reviewed. Medications Current Outpatient Prescriptions Medication Sig Dispense Refill ??? clotrimazole (LOTRIMIN AF) 1 % cream Apply to affected area 2 times daily for 7 days 40 g 0 ??? omeprazole (PRILOSEC) 20 MG capsule Take 1 Cap by mouth daily before breakfast. 30 0 Procedures Procedures ECG Interpretation ECG Interpretation Lab Interpretation Oxygen Saturation Interpretation The oxygen saturation level is: 100%. The patient was on Room Air for the saturation measurement. Measurement frequency: Spot Check. Oxygen saturation interpretation is Normal. Intervention(s) used: None. Hospital Encounter on 04/22/17 CBC W AUTO DIFFERENTIAL Result Value Ref Range WBC 7.6 4.4 - 10.7 x10E9/L WBC Corrected x10E9/L RBC 4.02 3.80 - 5.20 x10E12/L Hemoglobin 11.3 (L) 12.0 - 15.6 gm/dL Hematocrit 35.6 (L) 35.9 - 45.5 % MCV 88.6 80.7 - 98.3 fl MCH 28.1 26.7 - 34.0 pg MCHC 31.7 30.8 - 35.9 gm/dL Plt Ct 310 153 - 416 x10E9/L RDW-CV 13.9 12.1 - 14.9 % MPV 9.5 9.4 - 12.9 fl Neutro 47.3 44.0 - 73.0 % Lymph 41.5 20.0 - 43.0 % [place] 8.6 5.0 - 13.0 % Eos 1.8 0.0 - 6.0 % Baso 0.5 0.0 - 2.0 % Immature Grans 0.3 0 - 1 % Neutro Abs 3.59 2.01 - 7.14 x10E9/L Lymph Abs 3.15 1.07 - 3.94 x10E9/L [place] Abs 0.65 0.26 - 1.07 x10E9/L Eosin Abs 0.14 0 - 0.47 x10E9/L Baso Abs 0.04 0 - 0.08 x10E9/L Immature Grans (Abs) 0.02 0.00 - 0.06 x10E9/L NRBC Auto 0 /100 WBC No orders to display Progress Notes Patient says that she is not . test was offered but patient refused. Educated on possible adverse effects on the medications on a fetus and she still refused. 12:10 AM I cleaned the blister and surrounding area over the lateral base of left great toe with an alcohol prep pad. I made a tiny puncture incision with an 18 gauge needle into the blister, some clear liquid was expressed and patient had some pain relief. 12:18 AM Rechecked pt - no new concerns. I have given the patient instructions regarding her diagnosis, expectations, follow up, and return precautions. I explained to the patient that emergent conditions may arise and to return to the ER for new, worsening, or any persistent conditions. I've explained the importance of following up with her doctor--No primary care provider on file.--(or the referral physician) as instructed. The patient verbalized understanding of the discharge instructions. Diagnosis: Final diagnoses: Blister of toe of left foot, initial encounter Tinea pedis of left foot New Medications: Discharge Medication List as of 04/23/2017 12:18 AM START taking these medications Details clotrimazole (LOTRIMIN AF) 1 % cream Apply to affected area 2 times daily for 7 days, Disp-40 g, R-0, Print, Topical I have advised the patient to follow-up with: Hamilton Rausch, DPM [id number] [phone] Call in 1 day Disposition: Discharged 04/23/2017 1:48 AM ED Course ED Course Medical Decision Making I have reviewed the: Vitals. I have interpreted the following results: Labs, Oxygen Saturation. Orders Placed This Encounter ??? CBC W AUTO DIFFERENTIAL ??? clotrimazole (LOTRIMIN AF) 1 % cream Clinical Impression Final diagnoses: Blister of toe of left foot, initial encounter Tinea pedis of left foot ED COIL INSPECTOR * Afshin Calabrese, RN - 04/22/2017 10:00 PM CST Pt states that she gets cuts in between her L big toe and second toe every couple of months. Pt reports a blister that started today in this spot accompanied by pain and swelling. ED COIL INSPECTOR documented in this encounter Plan of Treatment Not on file documented as of this encounter Procedures Procedure Name Priority Date/Time Associated Diagnosis Comments CBC W AUTO DIFFERENTIAL STAT 04/22/2017 11:45 PM COILED COIL INSPECTOR documented in this encounter Results * (ABNORMAL) CBC W AUTO DIFFERENTIAL (04/22/2017 11:45 PM COILED COIL INSPECTOR) WBC 7.6 4.4 - 10.7 x10E9/L 04/22/2017 11:49 PM COILED COIL INSPECTOR [facility] WBC Corrected x10E9/L 04/22/2017 11:49 PM COILED COIL INSPECTOR [facility] RBC 4.02 3.80 - 5.20 x10E12/L 04/22/2017 11:49 PM COILED COIL INSPECTOR [facility] Hemoglobin 11.3(L) 12.0 - 15.6 gm/dL 04/22/2017 11:49 PM COILED COIL INSPECTOR [facility] Hematocrit 35.6(L) 35.9 - 45.5 % 04/22/2017 11:49 PM COILED COIL INSPECTOR [facility] MCV 88.6 80.7 - 98.3 fl 04/22/2017 11:49 PM COILED COIL INSPECTOR [facility] MCH 28.1 26.7 - 34.0 pg 04/22/2017 11:49 PM COILED COIL INSPECTOR [facility] MCHC 31.7 30.8 - 35.9 gm/dL 04/22/2017 11:49 PM COILED COIL INSPECTOR [facility] Platelet Count 310 153 - 416 x10E9/L 04/22/2017 11:49 PM COILED COIL INSPECTOR [facility] RDW-CV 13.9 12.1 - 14.9 % 04/22/2017 11:49 PM COILED COIL INSPECTOR [facility] MPV 9.5 9.4 - 12.9 fl 04/22/2017 11:49 PM COILED COIL INSPECTOR [facility] Neutrophils % 47.3 44.0 - 73.0 % 04/22/2017 11:49 PM COILED COIL INSPECTOR [facility] Lymphocytes % 41.5 20.0 - 43.0 % 04/22/2017 11:49 PM COILED COIL INSPECTOR [facility] Monocytes % 8.6 5.0 - 13.0 % 04/22/2017 11:49 PM COILED COIL INSPECTOR [facility] Eosinophils % 1.8 0.0 - 6.0 % 04/22/2017 11:49 PM COILED COIL INSPECTOR [facility] Basophils % 0.5 0.0 - 2.0 % 04/22/2017 11:49 PM COILED COIL INSPECTOR [facility] Immature Granulocytes 0.3 0 - 1 % 04/22/2017 11:49 PM COILED COIL INSPECTOR [facility] Neutrophil Absolute 3.59 2.01 - 7.14 x10E9/L 04/22/2017 11:49 PM COILED COIL INSPECTOR [facility] Lymphocytes Absolute 3.15 1.07 - 3.94 x10E9/L 04/22/2017 11:49 PM COILED COIL INSPECTOR [facility] Monocytes Absolute 0.65 0.26 - 1.07 x10E9/L 04/22/2017 11:49 PM COILED COIL INSPECTOR [facility] Eosinophils Absolute 0.14 0 - 0.47 x10E9/L 04/22/2017 11:49 PM COILED COIL INSPECTOR [facility] Basophils Absolute 0.04 0 - 0.08 x10E9/L 04/22/2017 11:49 PM COILED COIL INSPECTOR [facility] Immature Granulocytes Absolute 0.02 0.00 - 0.06 x10E9/L 04/22/2017 11:49 PM COILED COIL INSPECTOR [facility] nRBC Auto 0 /100 WBC 04/22/2017 11:49 PM COILED COIL INSPECTOR [facility] Blood BLOOD SPECIMEN / Unknown Venipuncture / Unknown 04/22/2017 11:45 PM COILED COIL INSPECTOR 04/22/2017 11:46 PM COILED COIL INSPECTOR Fabricio Dejesus PA-C LAB - GOPAL TOLOGY ORDERABLES Performing Organization Address City/State/[facility] Co de Phone Number [facility] [address] [place] [address] documented in this encounter Visit Diagnoses Diagnosis Blister of toe of left foot, initial encounter Tinea pedis of left foot Dermatophytosis of foot documented in this encounter Care Teams Power Reactor Supervisor Relationship Specialty Start Date End Date Luz Funk DO [address] [place] [address] [place] [phone] PCP - General 03/13/15 04/12/18 documented as of this encounter
--- OUTSIDE RECORDS SUMMARY | 2024-05-25 00:56 | XMS_ITS | Encounter Summary ---
Author Organization [facility] Address [address] [address] Care Team Providers Care Chemical Research Worker Name Role Phone Mag Valdes MD Primary Care Provider [phone] Reason for Visit * Reason Onset Date Comments Appointment 06/13/2019 Encounter Details Date Type Department Care Team (Late st Contact Info) Description 06/13/2019 Telephone [facility] - Family Medicine [address] [place] [id number] Mag Valdes MD [address] [place] [phone] Appointment Social History Tobacco Use Types Packs/Day Years [...] * Telephone Encounter - Lisa Paniagua - 06/13/2019 10:01 AM CST The patient has been notified of this information and all questions answered. EY SUPERINTENDENT * Telephone Encounter - Mag Valdes MD - 06/13/2019 9:42 AM CST Unfortunately I do not have an opening today. It sounds like she might need to go to the UC or ER to have them look at it in case it is swollen to point she might need immediate imaging and intervention. Please let Pt know. Thanks. EY SUPERINTENDENT * Telephone Encounter - Ying Hua - 06/13/2019 9:26 AM CST Patient complaining of knot on back of her right knee/calf area that is painful, swollen, and can barely walk. Patient is wanting to come in and be seen today Call back EY SUPERINTENDENT documented in this encounter Plan of Treatment Not on file documented as of this encounter Visit Diagnoses Not on filedocumented in this encounter Care Teams Chemical Research Worker Relationship Specialty Start Date End Date Mag Valdes MD PCP - General Family Medicine 01/06/19 01/11/20 documented as of this encounter
--- OUTSIDE RECORDS SUMMARY | 2024-05-25 00:56 | XMS_ITS | Encounter Summary ---
Author Organization [facility] Address [address] [place] [address] Care Team Providers Care Technical Cable Jointer Name Role Phone Mag Valdes MD Primary Care Provider [phone] Reason for Visit * Reason Comments Establish Care Pain Knee bilat Fatigue all the time Weight Problem fluctuating Encounter Details Date Type Department Care Team (Late st Contact Info) Description 01/06/2019 10:30 AM CDT Office Visit [facility] - Family Medicine [address] [place] [address] Mag Valdes MD [address] [place] [phone] Chronic pain of both knees (Primary Dx); Fatigue, unspecified type; Anemia, unspecified type; Vitamin D deficiency; Lipid screening; BMI 32.0-32.9,adult Social History Tobacco Use Types Packs/Day Years [...] Sign Reading Time Taken Comments Blood Pressure 101/68 01/06/2019 10:56 AM CDT Pulse 74 01/06/2019 10:56 AM CDT Temperature - - Respiratory Rate - - Oxygen Saturation - - Inhaled Oxygen Concentration - - Weight 93.9 kg (207 lb) 01/06/2019 10:56 AM CDT Height 170.2 cm (5' 7 ) 01/06/2019 10:56 AM CDT Body Mass Index 32.42 01/06/2019 10:56 AM CDT documented in this encounter Progress Notes * Mag Valdes MD - 01/06/2019 11:10 AM CDT New Patient HISTORY: SORAIDA Schmid is a 38 year old female, here for: Chief Complaint Patient presents with ??? Establish Care ??? Pain Knee bilat ??? Fatigue all the time ??? Weight Problem fluctuating HPI: 1. B/L Knee Pain: Pt stated recent imaging w/ arthritis and spurs in both knees. Has had pain and popping for last 4-5yrs, worsening last 2yrs. Never had PT done. Takes ibuprofen rarely for this. Feels pain at the [place] B/L, no radiation. At worst 6/10. Pain daily. At best 4/10. 2. Fatigue: Onset 6mos ago, worsend last mo or 2. Gets full night sleep still yawns. Couple wks agohad some dizzy spells (no heat and had enough water). Intermittent feels really hot in reg temp room. No hair/nail changes. 3. Wt fluctuating: gained 20lbs w/in 3mos but then lost wt. No dietary changes. Last PCP was GRETCHEN Silva couple months ago, last blood work done Jun 2018 PMH: Past Medical History: Diagnosis Date ??? Anemia ??? Arthritis of knee ??? Vitamin D deficiency ALLERGIES: No Known Allergies MEDICATIONS: Current Outpatient Prescriptions Medication Sig Dispense Refill ??? ferrous sulfate 325 (65 FE) MG tablet Take 325 mg by mouth as needed (takes during menstrual cycle) ??? ibuprofen (MOTRIN) 600 MG tablet Take 600 mg by mouth as needed for Pain ??? vitamin D3 (CHOLECACIFEROL) 5000 units Take 5,000 Units by mouth once daily No current facility-administered medications for this visit. PSH: Past Surgical History: Procedure Laterality Date ??? Bilateral Tubal Ligation (BTL) ??? Cholecystectomy ??? Hernia Repair FHX: Family History Problem Relation Age of Onset ??? Hypertension Mother ??? Other Mother ??? Glaucoma Father ??? Multiple Sclerosis Sister ??? Diabetes - Type 2 Brother SH: Social History Smoking status: Never Smoker Smokeless status: Never Used Alcohol use: No Comment: wine rare Drug use: No Sexual activity: Not on file Health Maintance: -Last Pap Smear (age 21-65): Apr 2018, Normal Pt -Last Tdap vaccination: will find out if needs it ROS: As per HPI & per below Review of Systems Constitutional: Positive for fatigue and unexpected weight change. Negative for chills, diaphoresisand fever. Eyes: Negative for photophobia and visual disturbance. Respiratory: Negative for cough, choking, chest tightness, shortness of breath and wheezing. Cardiovascular: Negative for chest pain, palpitations and leg swelling. Gastrointestinal: Negative for abdominal pain, blood in stool, constipation, diarrhea, nausea and vomiting. Endocrine: Positive for cold intolerance and heat intolerance. Genitourinary: Negative for decreased urine volume, difficulty urinating, dysuria, frequency, hematuria and urgency. Musculoskeletal: Positive for arthralgias. Neurological: Negative for dizziness, seizures, syncope, weakness, light- headedness, numbness and headaches. Psychiatric/Behavioral: Negative for confusion, hallucinations and suicidal ideas. The patient is not nervous/anxious. Depression Screen: PHQ-2:TOTAL POINT SCORE: 0 PHYSICAL EXAM: VITALS: BP 101/68 Pulse 74 Ht 1.702 m (5' 7 ) Wt 93.9 kg (207 lb) BMI 32.42 kg/m2 GEN: alert and oriented X 3, NAD Physical Exam Constitutional: She is oriented to person, place, and time. She appears well- developed and well-nourished. No distress. HENT: Head: Normocephalic and atraumatic. Right Ear: External ear normal. Left Ear: External ear normal. Nose: Nose normal. Eyes: Conjunctivae are normal. Right eye exhibits no discharge. Left eye exhibits no discharge. No scleral icterus. Neck: Normal range of motion. Neck supple. No tracheal deviation present. Cardiovascular: Normal rate, regular rhythm and normal heart sounds. Pulmonary/Chest: Effort normal and breath sounds normal. No respiratory distress. She has no wheezes. She has no rales. Abdominal: Soft. Bowel sounds are normal. She exhibits no distension. There is no tenderness. Musculoskeletal: She exhibits no edema. Neurological: She is alert and oriented to person, place, and time. Skin: Skin is warm and dry. She is not diaphoretic. No pallor. Vitals reviewed. ASSESSMENT: ICD-10-CM 1. Chronic pain of both knees M25.561 AMB REFERRAL TO PHYSICAL THERAPY M25.562 G89.29 2. Fatigue, unspecified type R53.83 COMPREHENSIVE METABOLIC PANEL TSH REFLEX FREE T4 3. Anemia, unspecified type D64.9 CBC WITH DIFFERENTIAL 4. Vitamin D deficiency E55.9 VITAMIN D 25-HYDROXY 5. Lipid screening Z13.220 LIPID PROFILE 6. BMI 32.0-32.9,adult Z68.32 -Advised wt loss vis diet and daily exercise Prior records Reviewed Total time spent with the patient were 45 minutes, more than 50% of the time were spent with counseling and coordination of care. Orders Placed This Encounter ??? CBC WITH DIFFERENTIAL ??? COMPREHENSIVE METABOLIC PANEL ??? TSH REFLEX FREE T4 ??? LIPID PROFILE ??? VITAMIN D 25-HYDROXY ??? AMB REFERRAL TO PHYSICAL THERAPY Standing Status: Future Standing Expiration Date: 01/06/2020 Referral Type: PT/OT/ST Referral Reason: Specialty Services Required Referral Location: [facility] PH[facility]ICAL [facility]APY [facility] Number of Visits Requested: 12 Medications Discontinued During This Encounter Medication Reason ??? omeprazole (PRILOSEC) 20 MG capsule Discontinued previously Return in about 6 weeks (around 02/17/2019). Patient instructed to call with any concerns or problems. Mag Valdes MD 01/06/2019 11:47 AM documented in this encounter Plan of Treatment Not on file documented as of this encounter Procedures Procedure Name Priority Date/Time Associated Diagnosis Comments TSH REFLEX FREE T4 Routine 01/06/2019 11 :50 AM CDT Fatigue, unspecified type VITAMIN D 25-HYDROXY Routine 01/06/2019 11:50 AM CDT Vitamin D deficiency CBC W AUTO DIFFERENTIAL Routine 01/06/2019 11:50 AM CDT Anemia, unspecified type COMPREHENSIVE METABOLIC PANEL Routine 01/06/2019 11:50 AM CDT Fatigue, unspecified type T4 FREE Routine 01/06/2019 11:50 AM CDT Fatigue, unspecified type LIPID PROFILE Routine 01/06/2019 11:50 AM CDT Lipid screening documented in this encounter Results * T4 FREE (01/06/2019 11:50 AM CDT) T4 Free Direct NOT NEEDED [facility] ACCOUNT BILL Comment: Test not performed Ancillary determined the test is not needed 01/06/2019 11:5 0 AM CDT 01/06/2019 Narrative Resulting Agency Comment Lab Testing performed at: [facility] [address] [address] ?? Katerina MCCANN [id number] Mag Valdes MD LAB - CHEMISTRY [place] [facility] [place] Organization Address City/State/ZIP Co de Phone Number [facility] ACCOUNT BILL [address] [place] [address] * VITAMIN D 25-HYDROXY (01/06/2019 11:50 AM CDT) Pathologist [facility] Vitamin D, 25 Hydroxy 41.1 30 - 100 ng/mL [facility] ACCOUNT BILL Comment: Vitamin D Status: ?Deficiency ? <20 ? ng/mL ?Insufficiency ?? 20-30 ??ng/mL ?Sufficiency ? 30-100 ng/mL ?Toxicity ? >100 ?ng/mL Blood BLOOD SPECIMEN / Unknown 01/06/2019 11:50 AM CDT 01/06/2019 Narrative Resulting Agency Comment Lab Testing performed at: [facility] [id number] [address] ?? [place] MCCANN [id number] Mag Valdes MD LAB - CHEMISTRY [place] Performing Organization Address City/[facility]/ZIP Co de Phone Number [facility] ACCOUNT BILL [address] [place] [address] * (ABNORMAL) LIPID PROFILE (01/06/2019 11:50 AM CDT) Cholesterol 198 <200 mg/dL [facility] ACCOUNT BILL Triglycerides 230(H) <150 mg/dL [facility] ACCOUNT BILL HDL Cholesterol 56 >40 mg/dL [facility] ACCOUNT BILL VLDL Calculated 46(H) <=30 mg/dL [facility] ACCOUNT BILL LDL Calculated 96 <130 mg/dL [facility] ACCOUNT BILL Blood BLOOD SPECIMEN / Unknown 01/06/2019 11:50 AM CDT 01/06/2019 Narrative Resulting Agency Comment Lab Testing performed at: [place] [address] ?? Katerina MCCANN [phone] Mag Valdes MD LAB - CHEMISTRY [place] Performing Organization Address [facility]/ZIP Co de Phone Number [facility] ACCOUNT BILL [address] [place] [address] * TSH REFLEX FREE T4 (01/06/2019 11:50 AM CDT) TSH 0.8023 0.35 - 4.94 ulU/mL [facility] ACCOUNT BILL Blood BLOOD SPECIMEN / Unknown 01/06/2019 11:50 AM CDT 01/06/2019 Narrative Resulting Agency Comment Lab Testing performed at: [place] [address] [address] ?? [place]ina MCCANN [phone] Mag Valdes MD LAB - CHEMISTRY [place] Performing Organization Address City/[facility]/ZIP Co de Phone Number [facility] ACCOUNT BILL [address] [place] [address] * COMPREHENSIVE METABOLIC PANEL (01/06/2019 11:50 AM CDT) Glucose 75 74 - 106 mg/dL [facility] ACCOUNT BILL BUN 11 7 - 18.7 mg/dL [facility] ACCOUNT BILL Creatinine 0.72 0.55 - 1.02 mg/dL [facility] ACCOUNT BILL eGFR by MDRD >60 >60 mL/min/1.7 3m2 [facility] ACCOUNT BILL eGFR by MDRD >60 >60 mL/min/1.7 3m2 [facility] ACCOUNT BILL Sodium 138 136 - 145 mmol/L [facility] ACCOUNT BILL Potassium 4.7 3.5 - 5.1 mmol/L [facility] ACCOUNT BILL Chloride 102 98 - 107 mmol/L [facility] ACCOUNT BILL CO2 25 23 - 31 mmol/L [facility] ACCOUNT BILL Calcium 9.7 8.4 - 10.2 mg/dL [facility] ACCOUNT BILL Protein Total 7.6 6.4 - 8.3 gm/dL [facility] ACCOUNT BILL Albumin 4.4 3.5 - 5.2 gm/dL [facility] ACCOUNT BILL Bilirubin Total 0.3 0.2 - 1.0 mg/dL [facility] ACCOUNT BILL Alkaline Phosphatase 60 40 - 150 U/L [facility] ACCOUNT BILL AST 15 5 - 34 U/L [facility] ACCOUNT BILL ALT 13 13 - 61 U/L [facility] ACCOUNT BILL Blood BLOOD SPECIMEN / Unknown 01/06/2019 11:50 AM CDT 01/06/2019 Narrative Resulting Agency Comment Lab Testing performed at: [address] ?? [facility] [phone] Mag Valdes MD LAB - CHEMISTRY [place] [facility] [place] Organization Address City/State/ZIP Co de Phone Number [facility] ACCOUNT BILL [address] [place] [address] * (ABNORMAL) CBC WITH DIFFERENTIAL (01/06/2019 11:50 AM CDT) WBC 7.8 4.4 - 10.7 x10E9/L [facility] ACCOUNT BILL RBC 4.65 3.80 - 5.20 x10E12/L [facility] ACCOUNT BILL Hemoglobin 13.2 12.0 - 15.6 gm/dL [facility] ACCOUNT BILL Hematocrit 43.1 35.9 - 45.5 % [facility] ACCOUNT BILL MCV 92.7 80.7 - 98.3 fl [facility] ACCOUNT BILL MCH 28.4 26.7 - 34.0 pg [facility] ACCOUNT BILL MCHC 30.6(L) 30.8 - 35.9 gm/dL [facility] ACCOUNT BILL RDW 14.0 12.1 - 14.9 % [facility] ACCOUNT BILL Platelet Count 318 153 - 416 x10E9/L [facility] ACCOUNT BILL Comment:MPV FL BLOOD ([facility]) 1 0.2 fl 9.4-12.9 Granulocytes % 52.0 44.0 - 73.0 % [facility] ACCOUNT BILL Lymphocytes % 38.1 20.0 - 43.0 % [facility] ACCOUNT BILL Monocytes % 6.9 5.0 - 13.0 % [facility] ACCOUNT BILL Eosinophils % 2.2 0.0 - 6.0 % [facility] ACCOUNT BILL Basophils % 0.5 0.0 - 2.0 % [facility] ACCOUNT BILL Granulocytes Absolute 4.05 2.01 - 7.14 x10E9/L [facility] ACCOUNT BILL Lymphocytes Absolute 2.97 1.07 - 3.94 x10E9/L [facility] ACCOUNT BILL Monocytes Absolute 0.54 0.26 - 1.07 x10E9/L [facility] ACCOUNT BILL Eosinophils Absolute 0.17 0 - 0.47 x10E9/L [facility] ACCOUNT BILL Basophils Absolute 0.04 0 - 0.08 x10E9/L [facility] ACCOUNT BILL Immature Granulocytes 0.3 0 - 1 % [facility] ACCOUNT BILL Immature Granulocytes Absolute 0.02 0.00 - 0.06 x10E9/L [facility] ACCOUNT BILL nRBC 0 /100 WBC [facility] ACCOUNT BILL Blood BLOOD SPECIMEN / Unknown 01/06/2019 11:50 AM CDT 01/06/2019 Narrative Resulting Agency Comment Lab Testing performed at: [facility] [address] [address] ?? Katerina MCCANN [phone] Mag Valdes MD LAB - HEMATOLOGY ORD ERABLES [facility] ACCOUNT BILL [address] [place] [address] documented in this encounter Visit Diagnoses Diagnosis Chronic pain of both knees- Primary Fatigue, unspecified type Anemia, unspecified type Vitamin D deficiency Lipid screening Screening for lipoid disorders BMI 32.0-32.9,adult Body Mass Index 32.0-32.9, adult documented in this encounter Care Teams Technical Cable Jointer Relationship Specialty Start Date End Date Mag Valdes MD PCP - General Family Medicine 01/06/19 01/11/20 documented as of this encounter
--- OUTSIDE RECORDS SUMMARY | 2024-05-25 00:56 | XMS_ITS | Encounter Summary ---
Author Organization [facility] Address [address] [place] [address] Care Team Providers Care Radiation / Chemistry Technician Name Role Phone Luz Funk DO Primary Care Provider [phone] Encounter Details Date Type Department Care Team (Latest Contact Info) Description 04/19/2015 Hospital Outpatient Visit [facility] MRI OP [address] [place] [address] Discharge Disposition: Home or Self Care Social [...] Name Priority Date/Time Associated Diagnosis Comments MRI HAND LEFT WWO CONTRAST Routine 04/19/2015 12:21 PM HAZMAT TRUCK DRIVER CREATININE BLOOD - POCT (IP) [facility] Routine 04/19/2015 documented in this encounter Results * MRI HAND LEFT WWO CONTRAST (04/19/2015 12:21 PM HAZMAT TRUCK DRIVER) Anatomical Region Laterality Modality Other Impressions 04/19/2015 3:25 PM HAZMAT TRUCK DRIVER Impression: 1. No abnormality in the hand. 2. 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 Report dictated by Mile Aj M.D. (campus president). This report was approved ??by Mile Aj M.D. ?? on 04/19/2015 2:22 PM . I, Dr. FABRICIO STOUT MD have personally reviewed and interpreted this examination/study. This report was electronically signed by FABRICIO STOUT MD ??on 04/19/2015 3:25 PM . Narrative 04/19/2015 3:25 PM HAZMAT TRUCK DRIVER MRI of the left hand without and [...] wrist is not well-evaluated on this wide [id number] hand study. However, there is an apparent [...] wrist is not well-evaluated on this wide [id number]-kb-[id number] hand study.However, there is an apparent full-thickness perforation of the triangularfibrocartilage measuring 3 mm (series 12, image 12). Marrow signal intensity is normal. The visualized muscles andsubcutaneous tissues are normal. No mass or fluid collection isidentified. IMPRESSION Impression: 1. No abnormality in the hand. 2. 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 Report dictated by Mile Aj M.D. (campus president). This report was approved by Mile Aj M.D. on 04/19/2015 2:22 PM . I, Dr. FABRICIO STOUT MD have personally reviewed and interpreted thisexamination/study. This report was electronically signed by FABRICIO STOUT MD on04/19/2015 3:25 PM . Luz Funk DO MR ORDERABLES * CREATININE BLOOD - POCT (IP) [facility] (04/19/2015) Creatinine POCT 0.97 0.3 - 1.3 mg/dL [facility] eGFR POCT 60 60 ml/min [facility] 04/19/2015 Historical Provider LAB - POINT OF CA RE ORDERABLES [facility] documented in this encounter Visit Diagnoses Diagnosis Anesthesia of skin Disturbance of skin sensation documented in this encounter Care Teams Radiation / Chemistry Technician Relationship Specialty Start Date End Date Luz Funk DO [address] [place] [address] PCP - General 03/13/15 04/12/18 documented as of this encounter
--- OUTSIDE RECORDS SUMMARY | 2024-05-25 00:56 | XMS_ITS | Encounter Summary ---
Author Organization [facility] Address [address] [place] [address] Care Team Providers Care Bead Picker Name Role Phone Mag Valdes MD Primary Care Provider Reason for Referral * Radiology Services (Emergency) - Closed Specialty Diagnoses / Procedures Referred By Contac t Referred To Contact Diagnoses Right knee pain, unspecified chronicity Procedures US EXTREM RIGHT COMPLETE (JOINT RELATED) Mag Valdes MD [address] [place] [address] Referral ID Status Reason Start Date Expiration Date Visits Re quested Visits Authorized [id number] Closed 06/17/2019 12/14/2019 1 1 UCT SUPPORT SPECIALIST Reason for Visit * Radiology Services (Emergency) - Closed Specialty Diagnoses / Procedures Referred By Contac t Referred To Contact Diagnoses Right knee pain, unspecified chronicity Procedures US EXTREM RIGHT COMPLETE (JOINT RELATED) Mag Valdes MD [address] [place] [address] Referral ID Status Reason Start Date Expiration Date Visits Re quested Visits Authorized [id number] Closed 06/17/2019 12/14/2019 1 1 Encounter Details Date Type Department Care Team (Late st Contact Info) Description 06/20/2019 6:56 AM PRODUCT SUPPORT SPECIALIST - 06/20/2019 11:59 PM PRODUCT SUPPORT SPECIALIST Hospital Encounter [facility] Health Imaging Services - Ultrasound [address] [place] [address] Mag Valdes MD [address] [place] [address] Discharge Disposition: Home or Self Care Social [...] Pain 01/12/2020 documented as of this encounter Plan of Treatment Not on file documented as of this encounter Procedures Procedure Name Priority Date/Time Associated Diagnosis Comments US EXTREMITY RIGHT COMP JOINT STAT 06/20/2019 7:40 AM PRODUCT SUPPORT SPECIALIST Right knee pain, unspecified chronicity documented in this encounter Results * US EXTREM RIGHT COMPLETE (JOINT RELATED) (06/20/2019 7:40 AM PRODUCT SUPPORT SPECIALIST) Anatomical Region Laterality Modality Ultrasound 06/20/2019 9:30 AM PRODUCT SUPPORT SPECIALIST Narrative 06/20/2019 9:33 AM PRODUCT SUPPORT SPECIALIST Right lower extremity ultrasound Indication for examination: [...] 9:33 AM Mag Valdes MD US ORDERABLES documented in this encounter Visit Diagnoses Diagnosis Right knee pain, unspecified chronicity documented in this encounter Care Teams Bead Picker Relationship Specialty Start Date End Date Mag Valdes MD PCP - General Family Medicine 01/06/19 01/11/20 documented as of this encounter
--- OUTSIDE RECORDS SUMMARY | 2024-05-25 00:56 | XMS_ITS | Encounter Summary ---
Author Organization [facility] Address [address] [facility] [place] [address] Care Team Providers Care Resource Forester Name Role Phone Carla De Jesus DIRECTOR BANKING-EARLY INTERVENTIONIST Primary Care Provid er Reason for Visit * Reason Onset Date Comments Forms 05/03/2018 Encounter Details Date Type Department Care Team (Late st Contact Info) Description 05/03/2018 Telephone [facility] [address] [place], [place] [id number] Jaqueline Livingston MD [address] [place] [address] Forms Social History Tobacco Use Types Packs/Day Years Used Date Smoking Tobacco: Never Alcohol Use Standard Drinks/Week Comments No 0 (1 standard drink = 0.6 oz pur e alcohol) Sex and Gender Information Value Date Recorded Sex Assigned at Not on file Gender Identity Not on file Sexual Orientation Not on file documented as of this encounter Miscellaneous Notes * Telephone Encounter - Consuelo Finn RN - 05/03/2018 10:30 AM IP NETWORK ARCHITECT Ultrasound findings faxed to number provided. Confirmation received. NETWORK ARCHITECT * Telephone Encounter - Eloy Colunga - 05/03/2018 9:18 AM CST Tisha from [facility] called in requesting the pt H&P for the pt ultrasound on 04/13 Cb:[phone] NETWORK ARCHITECT documented in this encounter Plan of Treatment Not on file documented as of this encounter Visit Diagnoses Not on filedocumented in this encounter Care Teams Resource Forester Relationship Specialty Start Date End Date Carla De Jesus, FLAKITO-EARLY INTERVENTIONIST [address] [place] [address] PCP - General 04/13/18 01/05/19 documented as of this encounter
--- OUTSIDE RECORDS SUMMARY | 2024-05-25 00:56 | XMS_ITS | Encounter Summary ---
Author Organization [facility] Address [address] [address] Care Team Providers Care Pricing Manager Name Role Phone Mag Valdes MD Primary Care Provider [phone] Reason for Visit * Reason Onset Date Comments Patient Requested Call 02/18/2019 Encounter Details Date Type Department Care Team (Late st Contact Info) Description 02/18/[address] [facility] - Family Medicine [address] [place] [address] Kassy Bennett MD [address] [place] [address] Patient Requested Call Social History Tobacco Use Types Packs/Day Years [...] encounter Miscellaneous Notes * Telephone Encounter - Laura Holly - 02/18/2019 1:45 PM CDT Pt called and just had concerns about her period starting and stopping but she will continue to monitor it and call back in another week or 2 if anything gets worse. * Telephone Encounter - Naya Alvarenga RN - 02/18/2019 1:27 PM CDT Patient returned call. * Telephone Encounter - Laura Holly - 02/18/2019 1:12 PM CDT Called pt back but no answer, lmom for pt to call office back and she can speak to Dru if I'm busy with pts. * Telephone Encounter - Lisa Paniagua - 02/18/2019 12:20 PM CDT Patient states she has a personal question to ask Dr Bennett's nurse. Did not state what the question was concerning. documented in this encounter Plan of Treatment Not on file documented as of this encounter Visit Diagnoses Not on filedocumented in this encounter Care Teams Pricing Manager Relationship Specialty Start Date End Date Mag Valdes MD PCP - General Family Medicine 01/06/19 01/11/20 documented as of this encounter
--- OUTSIDE RECORDS SUMMARY | 2024-05-25 00:56 | XMS_ITS | Encounter Summary ---
Author Organization [facility] Address [address] [facility] [place] [address] Care Team Providers Care Waiter/Waitress Name Role Phone Mag Valdes MD Primary Care Provider Reason for Visit * Reason Onset Date Comments Imaging 06/14/2019 Pain Knee 06/14/2019 Encounter Details Date Type Department Care Team (Late st Contact Info) Description 06/14/2019 Telephone [facility] - Family Medicine [address] [place] [id number] Mag Valdes MD [address] [place] [phone] Imaging; Pain Knee Social History Tobacco Use Types Packs/Day Years Used Date Smoking Tobacco: Never Smokeless Tobacco: Never Alcohol Use Standard Drinks/Week Comments No 0 (1 standard drink = 0.6 oz pur e alcohol) wine rare Sex and Gender Information Value Date Recorded Sex Assigned at Not on file Gender Identity Not on file Sexual Orientation Not on file documented as of this encounter Patient Instructions * Patient Instructions* Lisa Paniagua - 06/17/2019 1:24 PM CANE FLUME WATCHER The patient has been notified of this information and all questions answered. FLUME WATCHER documented in this encounter Miscellaneous Notes * Telephone Encounter - Mag Valdes MD - 06/17/2019 12:46 PM CST So this patient who is stating she is in significant pain has waited 3 days now and gotten no where. Per chart she had gone to the ER at 19:10 and left at 10:39. Even with placing the order today there is no guarantee that US dept will have an opening for her to get it done today. If it is done theresults may not be back by the time the office closes. Please advise her to takes NSAIDs and use HOLLY wrap to wrap the knee to help reduce swelling if she is adamant on not going to the ER but if the issues worsens it's on her. I placed US order. FLUME WATCHER * Telephone Encounter - Jus Hoff - 06/17/2019 9:56 AM CST Pt calling again wanting outpatient US done for her knee. She doesn't want to wait in ER stating ittakes too long & she's in pain. She wants Dr to call her directly to discuss further. FLUME WATCHER * Telephone Encounter - Lisa Paniagua - 06/14/2019 2:23 PM CST The patient has been notified of this information and all questions answered. FLUME WATCHER * Telephone Encounter - Mag Valdes MD - 06/14/2019 1:45 PM CST SHE MUST GO TO THE ER! This could turn emergent and I don't think I can direct admit her unfortunately. Please advise her to go to [facility] in [place] or any other ER [facility]. FLUME WATCHER * Telephone Encounter - Lisa Paniagua - 06/14/2019 1:22 PM CST Patient states she waited hours at two different hospitals for them to tell her the ultra sound tech had left. Patient wants to know can Dr call ahead and is there anyway that she can get admitted tothe back when she gets there. Patient states she is in a lot of pain and can not sit in the waitingroom for hours and wait again. FLUME WATCHER * Telephone Encounter - Swati Coles MA - 06/14/2019 1:16 PM CANE FLUME WATCHER Patient called back in and I gave her the message. She is asking if there is some way we can call the ER to let them know she is coming, she is also asking if she can be admitted so she can get this taken care of as she waited so long last night then they sent her home as the nuclear technologist had already left for the night. She is concerned about having to wait in the ER again FLUME WATCHER * Telephone Encounter - Mag Valdes MD - 06/14/2019 9:41 AM CST If the pain is worsening the the knot is getting bigger then we are wasting time when she needs immediate evaluation in the ER. If it's an effusion in her knee it might need draining. If it's a DVTthen we don't want the clot to go to her lungs and she dies of a PE. Getting an US and waiting for results makes it that she will get delayed treatment. Please let her she MUST go to the ER [facility] or any other ER. FLUME WATCHER * Telephone Encounter - Jus Hoff - 06/14/2019 9:08 AM CST Patient did treat at next door & had x-ray of right knee; see results. They thought she could have blood clot & [facility] & pt was instructed to go to [facility]. By the time she got there, it was too late to get an ultra sound done of knee. She was instructed by to call PCP and have order put in for US of right knee to get done at [facility] Imaging. Pt in a lot of pain, knot a little bigger than a quarter. Please call pt if/when Dr does this or what recommendations has at this time? FLUME WATCHER documented in this encounter Plan of Treatment Not on file documented as of this encounter Visit Diagnoses Not on filedocumented in this encounter Care Teams Waiter/Waitress Relationship Specialty Start Date End Date Mag Valdes MD PCP - General Family Medicine 01/06/19 01/11/20 documented as of this encounter
--- OUTSIDE RECORDS SUMMARY | 2024-05-25 00:56 | XMS_ITS | Encounter Summary ---
Author Organization [facility] Address [address] [facility] [address] Care Team Providers Care Child Development Assistant Name Role Phone Mag Valdes MD Primary Care Provider Reason for Visit * Reason Onset Date Comments Follow-up 02/18/2019 Encounter Details Date Type Department Care Team (Late st Contact Info) Description 02/18/2019 Telephone [facility] - Family Medicine [address] [place] [address] Mag Valdes MD [address] [place] [phone] Follow-up Social History Tobacco Use Types Packs/Day Years [...] encounter Miscellaneous Notes * Telephone Encounter - Ellen Rich - 02/18/2019 10:13 AM CDT Patient states she received a call this morning and is returning it ibuprofen did not see any notes documented in this encounter Plan of Treatment Not on file documented as of this encounter Visit Diagnoses Not on filedocumented in this encounter Care Teams Child Development Assistant Relationship Specialty Start Date End Date Mag Valdes MD PCP - General Family Medicine 01/06/19 01/11/20 documented as of this encounter
--- OUTSIDE RECORDS SUMMARY | 2024-05-25 00:56 | XMS_ITS | Encounter Summary ---
Author Organization [facility] Address [address] [address] Care Team Providers Care Network Operations Lead Name Role Phone Mag Valdes MD Primary Care Provider [phone] Reason for Visit * Reason Comments Lower Extremity Problem Encounter Details Date Type Department Care Team (Late st Contact Info) Description 06/13/2019 7:12 PM CABINETMAKER MAINTENANCE - 06/13/2019 7:39 PM CABINETMAKER MAINTENANCE Emergency ER at [address] [address] Other general symptoms and signs Discharge Disposition: Left Against Medical Advice/Discontinued Care Social History Tobacco Use Types Packs/Day [...] Pain 01/12/2020 documented as of this encounter ED Notes * Loren Lopez - 06/13/2019 7:16 PM CST Pt left before triage NETMAKER MAINTENANCE documented in this encounter Plan of Treatment Not on file documented as of this encounter Visit Diagnoses Diagnosis Other general symptoms and signs documented in this encounter Care Teams Network Operations Lead Relationship Specialty Start Date End Date Mag Valdes MD PCP - General Family Medicine 01/06/19 01/11/20 documented as of this encounter
--- OUTSIDE RECORDS SUMMARY | 2024-05-25 00:56 | XMS_ITS | Encounter Summary ---
Author Organization [facility] Address [address] [place] [address] Care Team Providers Care Critical Care Nurse Specialist Name Role Phone Unknown, Provider Primary Care Provider Unavaila ble Encounter Details Date Type Department Care Team (Late st Contact Info) Description 11/16/1998 Orders Only [facility] - Laboratory [address] [place] [address] ProviderRebekah MD Social History Tobacco Use Types Packs/Day Years Used Date Smoking Tobacco: Never Assessed Sex and Gender Information Value Date Recorded Sex Assigned at Not on file Gender Identity Not on file Sexual Orientation Not on file documented as of this encounter Plan of Treatment Not on file documented as of this encounter Procedures Procedure Name Priority Date/Time Associated Diagnosis Comments GROSS + MICRO EXAM [facility] 10/10/2000 12 :00 AM CDT GROSS + MICRO EXAM [facility] 06/30/1999 10 :36 AM CONSTRUCTION TRENCH DIGGER CYTOLOGY SMEAR PAP THIN PREP [facility] 11/16/1998 2:52 PM CDT documented in this encounter Results * GROSS + MICRO EXAM (10/10/2000 12:00 AM CDT) Result CASE NUMBER [id number] Comment: ORDERING [...] VASCULAR CHANNELS ARE IDENTIFIED. THE SURFACE IS BROWN-BLUE AND HAS A NORMAL APPEARING BRANCHING VASCULAR ARCADE. THE MEMBRANES HAVE A SOMEWHAT YELLOW-STANFORD COLOR APPEAR GLISTENING AND SEMI-TRANSPARENT. THE MATERNAL SURFACE CONSISTS OF A COMPLETE AND INTACT POPULATION OF COTYLEDONS THAT ARE DEEP RED- PURPLE IN COLOR WITH NO FOCAL LESIONS, MASSES OR AREAS OF INFARCTION. LEPIDOPTERIST SECTIONS OF ALL TISSUE ARE SUBMITTED A-C. [...] ?? ACUTE CHORIOAMNIONITIS, MILD WITH MECONIUM GM/DC [id number] Released By ?MEL LOWE MISCELLANEOUS SAMPLE S / Unknown 10/10/2000 10/12/2000 9:01 AM CDT Historical Provider LAB - PATHOLOGY/C YTOLOGY ORDERABLES * GROSS + MICRO EXAM (06/30/1999 10:36 AM CONSTRUCTION TRENCH DIGGER) Result CASE NUMBER [id number] Comment: ORDERING PHYSICIAN ??NICANOR VALENCIA SPECIMEN TYPE ?Placenta Surgeon ?NICANOR MANUEL Gross Exam ? WENDIE HERBRET Gross Report ? INDICATION FOR PROCEDURE ??CORD INSERTION - + GBS OPERATION ??VAGINAL DELIVERY SPECIMEN ??PLACENTA AND CORD GROSS ?? THE SPECIMEN IN LABELED PLACENTA AND CORD . ??THE SPECIMEN CONSISTS OF A SINGLE DISC PLACENTA WHICH MEASURES 15.5 X 15.0 X 2.4 CM. THE MEMBRANES ARE TRANSPARENT AND ARE RUPTURED MARGINALLY. ??THE UMBILICAL CORD IS VELAMENTOUS IN ORIGIN AND MEASURES 44.0 X 1.2 X 1.3 CM. AND CONTAINS THREE VESSELS. THE UMBILICAL CORD IS SLIGHTLY STAINED WITH GREEN PIGMENT. THE WEIGHT OF TRIMMED PLACENTA IS 620 GRAMS. THE SURFACE SHOWS UNREMARKABLE VASCULAR PATTERNS. THE MATERNAL SURFACE SHOWS MATURE, INTACT COTYLEDONS. ??SERIAL SECTIONS DISCLOSE A YELLOW FIRM INFARCT WHICH MEASURES 7.5 X 3.5 X 0.8 CM. LEPIDOPTERIST SECTIONS ARE SUBMITTED FOLLOWS A ?MEMBRANES AND UMBILICAL CORD B/C. PLACENTA WITH INFARCTION IN CASSETTE C MP/KA MICROSCOPIC EXAM ? MICROSCOPIC ?? SECTIONS FROM THE MEMBRANES DISPLAY A PATCHY, MULTIFOCAL POLYMORPHONUCLEAR LEUKOCYTE INFILTRATE WITHIN THE CHORION LAYER. ?? THERE ARE PIGMENTED MACROPHAGES WITHIN THE AMNION LAYER. THE UMBILICAL CORD IS WITHOUT INFLAMMATORY CELL INFILTRATES. THERE IS AN INFARCT. ??THERE IS NO VILLITIS. ??SPIRAL ARTERIES ARE PATENT. DIAGNOSIS ? DIAGNOSIS ?? [1] ??PLACENTA, VAGINAL DELIVERY -- ?? ACUTE CHORIOAMNIONITIS, GRADE I -- ?? MECONIUM STAINING -- ?? INFARCT [facility], 1928–1983/ [id number] Released By ?BOLIVARNATHANAEL MISCELLANEOUS SAMPLES / Unknown 06/30/1999 10:36 AM CONSTRUCTION TRENCH DIGGER 07/01/1999 9:34 AM CONSTRUCTION TRENCH DIGGER Historical Provider MD LAB - PATHOLOGY/C YTOLOGY ORDERABLES * CYTOLOGY [...] spp. Inflammation Present. Snomed. ?11/22/1998 1059 <2> Fringe Maker ? Verenice Ceballos (ASCP) Pathologist. ? Caesar [...] Historical Provider LAB - PATHOLOGY/C YTOLOGY ORDERABLES documented in this encounter Visit Diagnoses Not on filedocumented in this encounter Care Teams Critical Care Nurse Specialist Relationship Specialty Start Date End Date Unknown, Provider PCP - General 07/27/09 10/25/13 documented as of this encounter
--- OUTSIDE RECORDS SUMMARY | 2024-05-25 00:56 | XMS_ITS | Encounter Summary ---
Author Organization [facility] Address [address] [facility] [place] [address] Care Team Providers Care Collision Technician Name Role Phone Luz Funk DO Primary Care Provider [phone] Encounter Details Date Type Department Care Team (Latest Contact Info) Description 04/19/2015 Hospital Outpatient Visit Historic [facility] [address] [place] [id number] Luz Funk DO [address] [facility] [address] [place] [address] Discharge Disposition: Home or Self Care Social [...] on filedocumented in this encounter Care Teams Collision Technician Relationship Specialty Start Date End Date Luz Funk DO [address] [place] [address] PCP - General 03/13/15 04/12/18 documented as of this encounter
--- OUTSIDE RECORDS SUMMARY | 2024-05-25 00:56 | XMS_ITS | Encounter Summary ---
Author Organization [facility] Address [address] [place] [address] Care Team Providers Care Product Management Internship Name Role Phone Mga Valdes MD Primary Care Provider [phone] Encounter Details Date Type Department Care Team (Latest Contact Info) Description 06/13/2019 6:39 PM LAND SURVEYING PARTY CHIEF - 06/13/2019 11:59 PM [facility] Hospital Encounter [facility] Urgent Care - Medical Imaging [address] [place] [address] Jessica Abraham, [facility] [address] [place] [address] Discharge Disposition: Home or Self Care Social [...] Date/Time Associated Diagnosis Comments XR KNEE RIGHT 3VW STAT 06/13/2019 6:4 1 PM LAND SURVEYING PARTY CHIEF Acute pain of right knee documented in this encounter Results * XR KNEE 3 VW RIGHT (06/13/2019 6:41 PM LAND SURVEYING PARTY CHIEF) Anatomical Region Laterality Modality Lower Extremity Radiographic Greta ging 06/13/2019 6:46 PM LAND SURVEYING PARTY CHIEF Impressions 06/13/2019 6:46 PM LAND SURVEYING PARTY CHIEF Negative for fracture at this time. ??Please see above. This report was transcribed with a computerized speech recognition system. ??In an effort to expedite patient care, it has not been adjusted for typographical, grammatical or syntax problems by a trained medical physiologist. For questions about the report, please contact the Radiology Department. Reading Radiologist: Caesar De Jesus MD on 06/13/2019 at 6:46 PM Narrative 06/13/2019 6:46 PM LAND SURVEYING PARTY CHIEF Examination: ??Right knee 3 views . Indication: [...] or syntax problems by a trained medical physiologist. For questions about the report, please contact the Radiology Department. Reading Radiologist: Caesar De Jesus MD on 06/13/2019 at 6:46 PM Jessica Abraham GOLF CLUB MAKER-CHEMICAL ENGINEERING TECHNICIAN DIAGNOSTIC IMAGING ORDERABLES documented in this encounter Visit Diagnoses Diagnosis Acute pain of right knee documented in this encounter Care Teams Product Management Internship Relationship Specialty Start Date End Date Mag Valdes MD PCP - General Family Medicine 01/06/19 01/11/20 documented as of this encounter
--- OUTSIDE RECORDS SUMMARY | 2024-05-25 00:59 | XMS_ITS | Encounter Summary ---
Author Organization [facility] Healthcare Address [address] [place] [address] Care Team Providers Care Clinical Coder Name Role Phone Shaji Zambrano MD Unavailable [phone] Cookie Subramanian MD Primary Care Provider [phone] Reason for Visit * Reason Comments Vaginal Bleeding Encounter Details Date Type Department Care Team (Late st Contact Info) Description 04/22/2022 1:07 PM ANTICHECKING IRON WORKER - 04/22/2022 8:02 PM [facility] Emergency [facility] Emergency Department [address] [place] [address] John Knowles MD [address] [place] [address] [place] [id number] [address] Jorge Garcia MD [address] [place] [address] Vaginal bleeding (Primary Dx); Fibroids Discharge Disposition: Discharge to home or self care Social History Tobacco Use Types Packs/Day Years Used Date Smoking Tobacco: Never Alcohol Use Standard Drinks/Week Comments Not Currently 0 (1 standard drink = 0.6 oz pur e alcohol) Comments Unknown Sex and Gender Information Value Date Recorded Sex Assigned at Not on file Legal Sex Female 11:17 AM ANTICHECKING IRON WORKER Gender Identity Not on file Sexual Orientation Not on file documented as of this encounter Last Filed Vital Signs Vital Sign Reading Time Taken Comments Blood Pressure 112/71 04/22/2022 7:55 PM ANTICHECKING IRON WORKER Pulse 61 04/22/2022 7:55 PM ANTICHECKING IRON WORKER Temperature 37 ??C (98.6 ??F) 04/22/2022 7:55 PM ANTICHECKING IRON WORKER Respiratory Rate 16 04/22/2022 7:55 PM ANTICHECKING IRON WORKER Oxygen Saturation 99% 04/22/2022 7:55 PM ANTICHECKING IRON WORKER Inhaled Oxygen Concentration - - Weight 97.5 kg (215 lb) 04/22/2022 10:04 AM ANTICHECKING IRON WORKER Height 170.2 cm (5' 7 ) 04/22/2022 10:04 AM ANTICHECKING IRON WORKER Body Mass Index 33.67 04/22/2022 10:04 AM ANTICHECKING IRON WORKER documented in this encounter Discharge Instructions * Discharge Instructions* Gabriel Lopez MD - 04/22/2022 7:53 PM ANTICHECKING IRON WORKER You were seen in the emergency room for vaginal bleeding. He had an ultrasound which demonstrated your known fibroids. Your case was discussed at length with your optical advisor doctor (Cruz Diallo M.D.) and the decision was made to start you on a new medication (megestrol) to slow your bleeding and admit you for observation. You ultimately decided to go home and follow up with your optical advisor doctor as an outpatient. Your optical advisor doctors sent a prescription for the megestrol to your pharmacy. If you have worsening bleeding, dizziness, feeling like you are going to faint, chest pain, shortness of breath or other symtoms please present to the ED for evaluation. CHECKING IRON WORKER * Attachments The following attachments cannot be sent through Care Everywhere. * Dysfunctional Uterine Bleeding (Discharge Care) (Puerto Rican) documented in this encounter Medications at Time of Discharge cholecalciferol (VITAMIN D-3) 5,000 unit tablet Take 2 tablets (10,000 Units total) by mouth daily ferrous sulfate 325 mg (65 mg of elemental iron) tabletIndication s:Iron Deficiency Anemia Take 1 tablet (325 mg total) by mouth daily with breakfast ibuprofen (ADVIL,MOTRIN) 600 mg tablet Take 1 tablet (600 mg total) by mouth 3 (three) times a day as needed for pain documented as of this encounter Ordered Prescriptions Prescription Sig Dispense Quantity Refills Last Filled Start Date End Date medroxyPROGESTERon e (PROVERA) 5 mg tabletIndications: Abnormal Uterine Bleeding Take 2 tablets (10 mg total) by mouth daily 60 tablet 04/22/2022 2 documented in this encounter Discharge Disposition Disposition Code Departure Means Destination Discharge to home or self care documented in this encounter ED Notes * Danielle Hale RN - 04/22/2022 8:00 PM CST D/C paperwork reviewed with pt and family including new prescriptions and follow up. Pt verbalized understanding, esign not available d/t hospital wide covid precautions. IV removed, gauze and coban in place. Pt able to get dressed and wheeled out of ER for comfort without any sign of distress. Danielle Hale RN 04/22/222000 CHECKING IRON WORKER * Gabriel Lopez MD - 04/22/2022 1:09 PM CST HPI Chief Complaint Patient presents with Vaginal Bleeding HPI Octavia Schmid is a 41 yo female with PMhx GERD, HLD, uterine fibroids, presenting with vaginal bleeding. She follows with Dr. Diallo for OBGYN care. Per review of her notes, she has 4 living children (), her LMP was 10/12/21. She was being worked up for lack of menstrual period from that point. She underwent BL salphingo-oophorectomy on 02/14/22. After the procedure she spotted vaginal blood through the month of March and was started on provera (medroxyprogesterone) from April 08- with increased bleeding starting on April 14, which turned to large volume vaginal bleeding with lower abdominal cramping and passage of clots from April 20 to today (). During the day caties been going to the bathroom every 30 minutes to pass vaginal blood. At night she is soaking through multiple pads every night including finding clots and a small sack which passed earlier this morning. She is feeling light headed, no falls or syncope. No flank pain. No f, n, v, diarrhea, cp, sob. Has no family hx of bleeding disorders. CT abd pelvis 01/17/22 with IMPRESSION: 1. Areas of abnormal density at the uterus which could represent findings of endometrial thickeningor fibroids. Please see results of recent pelvis ultrasound examination. There is also hypodensity at the right side of the pelvis which could represent a small cyst or follicle. Repeat ultrasound study could be done for further evaluation if indicated clinically. 2. Small cyst of the right kidney. 3. Bowel gas pattern within normal limits. US pelvis transvaginal 11/02/21 with Endometrium is heterogeneous in echotexture and contains a few cystic areas. This may be secondary to presence of a polyp, cystic degeneration of submucosal myoma, or endometrial hypertrophy.. Dominant but sonographically simple ovarian cysts are present bilaterally. There is no evidence of torsion. Patient History: Patient Active Problem List Diagnosis Date Noted Vaginal bleeding 04/22/2022 Mae's cyst, unruptured, right 06/28/2019 No past medical history on file. Past Surgical History: Procedure Laterality Date CHOLECYSTECTOMY 2008 HERNIA REPAIR 2002 Family History Problem Relation Age of Onset No Known Problems Mother No Known Problems Father No Known Problems Sister No Known Problems Brother Social History Tobacco Use Smoking status: Never Smokeless tobacco: Not on file Substance and Sexual Activity Alcohol use: Not Currently Drug use: Not on file Sexual activity: Not on file Social History Social History Narrative Not on file Review of Systems Review of Systems All other systems reviewed and are negative. Physical Exam ED Triage Vitals [04/22/22 1004] Temp Pulse Resp BP SpO2 37.2 ??C (99 ??F) 68 17 122/73 95 % Temp src Heart Rate Source Patient Position BP Location FiO2 (%) Oral -- -- -- -- Height Height Method Weight Weight Method 1.702 m (5' 7 ) Stated 97.5 kg (215 lb) -- Physical Exam HENT: Head: Atraumatic. Right Ear: External ear normal. Left Ear: External ear normal. Nose: Nose normal. Mouth/Throat: Mouth: Mucous membranes are moist. Eyes: Extraocular Movements: Extraocular movements intact. Cardiovascular: Rate and Rhythm: Regular rhythm. Heart sounds: Normal heart sounds. Pulmonary: Breath sounds: Normal breath sounds. Abdominal: Palpations: Abdomen is soft. Tenderness: There is abdominal tenderness (lower abdominal tenderness, no gurading or rebound). There is no right CVA tenderness or left CVA tenderness. Musculoskeletal: General: Normal range of motion. Cervical back: Normal range of motion. Right lower leg: No edema. Left lower leg: No edema. Skin: General: Skin is warm. Capillary Refill: Capillary refill takes less than 2 seconds. Neurological: Mental Status: She is alert and oriented to person, place, and time. Psychiatric: Behavior: Behavior normal. MDM Medical Decision Making Differential Diagnosis or Management Options: 41 yo female with hx AUB, recent salph/ooph presenting with ongoing vaginal bleeding and cramping. Likely bleeding from fibroid vs hormonal endometrial shedding. Recently completed 10 day course of provera which pt feels is responsible for bleeding. Blood work here with moderate decrease in hgb from when last checked in OB office. Trans vag US with 4cm fibroid and normal ovaries and 7mm endometrial thickness. Discussed case with pt's OB (Imani) who recommends 30 day course of provera 10 mg daily and f/u in OB office as soon as possible. Attending Summary of Care ED Course as of 04/22/222012 Time: 04/22 1504 Comment: US pelvis (endovaginal) with IMPRESSION: 1. Normal-appearing ovaries. 2. Uterine fibroid of 4 cm. 3. Endometrial thickness of 7 mm. 4. Small amount of free pelvic fluid. By: Gabriel Lopez MD Time: 04/22 1601 Comment: Spoke with Dr. Diallo, discussed present labs and imaging. She requests script be sent for provera 10mg for 30 days to slow bleeding and to have pt make apt with her office as soon as possible. Otherwise ok for discharge of patient at this time. Notes that she has record of recent hgb of13.8 in January when checked prior to surgery By: Gabriel Lopez MD Time: 04/22 020 Comment: Pt frustrated. States that she was started on provera for the mild bleeding, called OB with increased bleeding and was instructed to stop taking provera. And now she is here in ED with ongoing bleeding and she is being told to take this same medication again. She tried to call OB and stated that she is worrying about bleeding to if discharged from ED and will likely go to another ED if discharged now. Will reach back out to OB for clarification By: Gabriel Lopez MD Time: 04/22 0054 Comment: Discussed with Imani again, she feels that megace is better option. Instructed me to offer admission for obs to pt if she is uncomfortable going home. Pt requested admission for obs whileinitiating megace. Will order TID megace 40mg to start now. Imani will see pt in AM when inpatient. Pt amenable to this plan By: Gabriel Lopez MD Time: 04/22 1588 Comment: Medicine hospitalist declined admission. OB hospitalist declined admission stating they only take patients. Will call pt's private casting supervisor again to discuss admission under her name By: Gabriel Lopez MD Time: 04/22 1941 Comment: Patient demanding to have her IV removed and to be discharged from the emergency room presently. Feels that she is not being adequately re-evaluated by nursing staff and feels that she can provide the same level of care for herself at home. By: Gabriel Lopez MD Time: 04/22 1953 Comment: Received dose of megace prior to leaving. Discussed her prior concerns about continued bleeding at home, she feels that she can manage at home and would be more comfortable there and confirms that she will make appointment with OBgyn tomorrow morning and understands return precautions. By: Gabriel Lopez MD Time: 04/22 2011 Comment: Reached out to pt's OB to inform of the discharge from the ED By: Garbiel Lopez MD Vaginal bleeding Fibroids Gabriel Lopez MD Resident 04/22/22 2013 Cosigned by John Knowles MD at 04/24/2022 10:35 AM ANTICHECKING IRON WORKER CHECKING IRON WORKER CHECKING IRON WORKER * Anca Elias RN - 04/22/2022 10:01 AM CST Patient was put on provera on April 08, she has had bleeding since Thursday, today she had a large clot passed. She is having lower abdominal pains that are similar to contractions. She had not hada period since October. Patient is going through a large pad every 30 minutes. She states she feels slightly light headed CHECKING IRON WORKER CHECKING IRON WORKER documented in this encounter Miscellaneous Notes * ED Re-evaluation Note - John Knowles MD - 04/22/2022 1:57 PM ANTICHECKING IRON WORKER ED Re-evaluation 41-year-old female patient, A0, a presenting for increased vaginal bleeding on the direction ofher OBGYN physician. The patient had her LNMP 6 months ago, and since then, she had been amenorrheic until she began with vaginal spotting throughout the month of March, very minimal. This started after an exploratory pelvic laparoscopic procedure when she had both of her tubes removed incidentall y with concerns for the efficacy of her previous tubal procedure. She was started on a 10 day course of daily Provera by her OBGYN physician as of April 08, and after weak, the bleeding seemed toincrease but she did finish the course. The last dose would have been about 5 days ago, when she stopped it, the bleeding increased, especially as of 2 days ago when she was passing large clots. Thattime she also developed fairly severe contraction like lower abdominal/pelvic pain in the midline, rated a level 10/10 continuously. No relief with 600 mg of ibuprofen. She is not complained of any lightheadedness or dizziness. No unusual weakness. No fever chills or sweats. No nausea or vomiting. She spoke with a nurse in the office of her OBGYN physician and was referred here for further evaluation. On exam, the patient appears comfortable. She is up and about in the room, having just use thebedside commode to change her pad. She is been doing so every 1-2 hours. Very pleasant. Here with her significant other. On exam, her color appears normal. Not diaphoretic. Conjunctiva are not terribly pale. Neck is normal. No thyromegaly. Lungs are clear. Heart tones are normal. Not tachycardic. Abdominal examination shows that it is protuberant but not distended. There is minimal upper quadrantand moderate lower quadrant tenderness without guarding, rebound or percussion tenderness. Extremity exam is normal. Agree with the treatment plan and disposition outlined by Dr. Gabriel Lopez. Ultrasound pending and Dr. Diallo will be consulted. Most recent hemoglobin 3 months ago was 13.8g. 10.7 g today MEDICAL DECISION MAKING CLINICAL PICTURE: Patient appears hemodynamically stable here. Hemoglobin is down from previous, but not grossly abnormal. Not at transfusion level by any means. Ultrasound did show a uterine fibroidmeasuring 4 cm. Concern whether this bleeding is due to uterine fibroid or dysfunctional uterine bleeding/hormonal. Patient's OBGYN was notified and initially recommended another trial of Provera, 10mg daily for 30 days with outpatient follow-up. Patient aware of plan but was hesitant to comply with this as she felt the Provera made her worse. Dr. Diallo was notified again, and the plans werefor admission for observation overnight, which the patient agreed to, with initiation of Megace therapy. Efforts to control her pain will be continued as well. Dr. Diallo requested hospitalist service admission. She will see the patient in the morning. I did personally review the patient's lab work available today, and any available lab work from previous visits for comparison. I did personally review the patient's radiographic studies, as well as the available radiologist interpretation. I did review significant amounts of information in the patient's [email or web address] EMR regarding their PMH. INTERPRETATION OF CLINICAL STUDIES: Refer to the orders and results documented in the chart. PREVIOUS MEDICAL RECORDS: Reviewed if available. DISCUSSION OF CASE: The patient's H&P and the results of studies and treatments were discussed with the patient's OBGYN physician for Dr. Gabriel Lopez, and myself, as well as the hospitalist physician on-call regarding admission. TREATMENT PLAN: See Above I have seen and examined the patient on 04/22/2022. I agree with the findings and plan of care as documented in the resident's note. John Knowles MD 04/22/22 1416 John Knowles MD 04/22/22 1638 John Knowles MD 04/22/22 1643 John Knowles MD 04/22/22 1809 CHECKING IRON WORKER CHECKING IRON WORKER CHECKING IRON WORKER CHECKING IRON WORKER documented in this encounter Plan of Treatment Not on file documented as of this encounter Procedures Procedure Name Priority Date/Time Associated Diagnosis Comments COVID-19 CORONAVIRUS RNA Routine 04/22/2022 6:27 PM ANTICHECKING IRON WORKER URINALYSIS AND REFLEX TO MICROSCOPIC AND CULTURE STAT 04/22/2022 3:29 PM ANTICHECKING IRON WORKER URINALYSIS, MICROSCOPIC ONLY STAT 04/22/2022 3:29 PM ANTICHECKING IRON WORKER URINE CULTURE Routine 04/22/2022 3:29 PM ANTICHECKING IRON WORKER US PELVIS W ENDOVAGINAL ED 04/22/2022 2:55 PM ANTICHECKING IRON WORKER EGFR STAT 04/22/2022 11:40 AM ANTICHECKING IRON WORKER DIFFERENTIAL AUTO STAT 04/22/2022 11: 40 AM ANTICHECKING IRON WORKER CBC WITH AUTO DIFFERENTIAL STAT 04/22/2022 11:40 AM ANTICHECKING IRON WORKER HC VENIPUNCTURE STAT 04/22/2022 11:40 AM ANTICHECKING IRON WORKER COMPREHENSIVE METABOLIC PANEL STAT 04/22/2022 11:40 AM ANTICHECKING IRON WORKER documented in this encounter Results * COVID-19 Coronavirus RNA Nasopharyngeal (04/22/2022 6:27 PM ANTICHECKING IRON WORKER) COVID-19 RNA Negative Negative [facility] Nasopharyngeal 04/22/2022 6: 27 PM ANTICHECKING IRON WORKER 04/22/2022 6:45 PM ANTICHECKING IRON WORKER Narrative [facility] - 04/22/2022 7:21 PM ANTICHECKING IRON WORKER Is the patient experiencing any symptoms consistent with COVID (eg. Fever, cough, shortness of breath)?->No What is the reason for testing?->Bed placement or semi-private room (Rapid) ??Interpretive data: Synonyms for this test include: PCR and NAAT . ??This test is performed using the [employer] Xpert Xpress plus assay. This is a real-time RT-PCR test intended for the qualitative detection of nucleic acid from the SARS-CoV-2. This assay has been reviewed by the FDA for Emergency Use Authorization (EUA). The performance characteristics have been verified by the performing laboratory. Results must be considered in the clinical context and a negative result does not rule out infection. Interpretive data last revised November 06, 2021. ??Interpretive data: Synonyms for this test include: PCR and NAAT . ??This test is performed using the [employer] Xpert Xpress plus assay. This is a real-time RT-PCR test intended for the qualitative detection of nucleic acid from the SARS-CoV-2. This assay has been reviewed by the FDA for Emergency Use Authorization (EUA). The performance characteristics have been verified by the performing laboratory. Results must be considered in the clinical context and a negative result does not rule out infection. Interpretive data last revised November 06, 2021. John Knowles MD LAB MICROBIOLOGY - GENERAL O RDERABLES Final Result [facility] [address] Department [place] [address] * (ABNORMAL) Urine culture Urine (04/22/2022 3:29 PM ANTICHECKING IRON WORKER) Report Final Report: Growth indicates contamination with gram-positive juan luis. (.) [facility] Organism GROWTH INDICATES CONTAMINATION WITH GRAM-POS JUAN LUIS [facility] Urine 04/22/2022 3:29 PM ANTICHECKING IRON WORKER 04/22/2022 4:17 PM ANTICHECKING IRON WORKER John Knowles MD LAB MICROBIOLOGY - GENERAL O RDERABLES Final Result Performing Organization Address [facility] Co de Phone Number [facility] [address] Department [place] [address] * Urinalysis, microscopic only (04/22/2022 3:29 PM ANTICHECKING IRON WORKER) WBC, ur See Comment 0 - 5 [facility] Comment:Grossly bloody, micr oscopic unavailable. RBC, ur See Comment 0 - 2 [facility] Culture Reflex Comment Reflex conditions for urine culture (WBC >10) not met. [facility] Urine 04/22/2022 3:29 PM ANTICHECKING IRON WORKER 04/22/2022 3:37 PM ANTICHECKING IRON WORKER Rajani Thomason CUTTING AND BONING SUPERVISOR LAB URINE ORDERABLES Fi nal Result Performing Organization Address [facility] Co de Phone Number [facility] [address] Department [place] [address] * (ABNORMAL) Urinalysis reflex to microscopic and culture Urine (04/22/2022 3:29 PM ANTICHECKING IRON WORKER) Color, ur Red(A) Yellow [facility] Clarity, ur Turbid(A) Clear [facility] Specific gravity, ur 1.020 1.003 - 1.030 [facility] pH, urine 8.0 [facility] Protein, ur ql 4+(A) Negative [facility] Glucose, ur ql Negative Negative [facility] Ketones, ur 1+(A) Negative [facility] Bilirubin, ur Trace(A) Negative [facility] Blood, ur 3+(A) Negative [facility] Urobilinogen, ur 4.0(A) <2.0 mg/dL [facility] Nitrite, ur Positive(A) Negative [facility] Leukocyte esterase, ur Trace(A) Negative [facility] UA reflex comment Reflex to microscopic UA will be performed. [facility] Urine 04/22/2022 3:29 PM ANTICHECKING IRON WORKER 04/22/2022 3:37 PM ANTICHECKING IRON WORKER Narrative [facility] - 04/22/2022 4:10 PM ANTICHECKING IRON WORKER ?? Urine pH is affected by diet, medications, systemic acid-base disturbances, and renal tubular function. ??pH may affect urinary stone formation. ??For example, urine pH below 6.0 may help reduce the tendency for calcium phosphate stones and pH greater than 6.0 may reduce the tendency for uric acid stone formation. Source: [facility] [employer]. Last revised 06-18-2017 Urine pH is affected by diet, medications, systemic acid-base disturbances, and renal tubular function. ??pH may affect urinary stone formation. ??For example, urine pH below 6.0 may help reduce the tendency for calcium phosphate stones and pH greater than 6.0 may reduce the tendency for uric acid stone formation. Source: [employer]. Last revised 06-18-2017 Rajani Thomason CUTTING AND BONING SUPERVISOR LAB MICROBIOLOGY - [facility] ORDERABLES Final Result [facility] [address] Department [place] [address] * US Pelvis W Endovaginal (04/22/2022 2:55 PM ANTICHECKING IRON WORKER) Anatomical Region Laterality Modality Pelvis N/A Ultrasound 04/22/2022 3:00 PM ANTICHECKING IRON WORKER Impressions 04/22/2022 3:00 PM ANTICHECKING IRON WORKER 1. ??Normal-appearing ovaries. 2. ??Uterine fibroid of 4 cm. 3. ??Endometrial thickness of 7 mm. 4. ??Small amount of free pelvic fluid. Electronically signed by: Johnny Vogel M.D. Narrative 04/22/2022 3:00 PM ANTICHECKING IRON WORKER PELVIC SONOGRAM with Doppler CLINICAL HISTORY: Abnormal uterine bleeding. ??Fibroids. ?? COMPARISON: None available. TECHNIQUE: Transabdominal and endovaginal techniques were used. FINDINGS: Uterus: The uterus is retroverted. The uterus measures 9 x 6 x 7.5 cm. There is a 4 cm uterine fibroid in the uterine body to the right of midline. ??The endometrial echo complex measures 7 mm in thickness. Right ovary: The right ovary measures 3.4 x 3 x 2.5 cm. The right ovary is normal in size, shape and echotexture. There is normal color flow in the right ovary. ??Normal Doppler spectral waveforms. Arterial and venous flow noted. Left ovary: The left ovary measures 3.3 x 2.1 x 3 cm. The left ovary appears normal in size, shape and echotexture. There is normal color flow in the left ovary. ??Normal Doppler spectral waveforms. ??Arterial and venous flow noted. Fluid: Small amount of free pelvic fluid. Procedure Note Johnny Vogel MD - 04/22/2022 PELVIC SONOGRAM with Doppler CLINICAL HISTORY: Abnormal uterine bleeding. Fibroids. COMPARISON: None available. TECHNIQUE: Transabdominal and endovaginal techniques were used. FINDINGS: Uterus: The uterus is retroverted. The uterus measures 9 x 6 x 7.5 cm. There is a 4 cm uterine fibroid in the uterine body to the right of midline. The endometrial echo complex measures 7 mm in thickness. Right ovary: The right ovary measures 3.4 x 3 x 2.5 cm. The right ovary is normal in size, shape and echotexture. There is normal color flow in the right ovary. Normal Doppler spectral waveforms. Arterial and venous flow noted. Left ovary: The left ovary measures 3.3 x 2.1 x 3 cm. The left ovary appears normal in size, shape and echotexture. There is normal color flow in the left ovary. Normal Doppler spectral waveforms. Arterial and venous flow noted. Fluid: Small amount of free pelvic fluid. IMPRESSION: 1. Normal-appearing ovaries. 2. Uterine fibroid of 4 cm. 3. Endometrial thickness of 7 mm. 4. Small amount of free pelvic fluid. Electronically signed by: Johnny Vogel M.D. us Gabriel Lopez MD IM US PROCEDURES Final R esult * eGFR (04/22/2022 11:40 AM ANTICHECKING IRON WORKER) [facility] eGFR 102 mL/min/1. 73 m2 [facility] Comment: Interpretive Data Reference Interval Normal ?>/= 90 mL/min/1.73m2 Mildly decreased* ? 60 - 89 mL/min/1.73m2 Mildly to moderately decreased ?45 - 59 mL/min/1.73m2 Moderately to severely decreased ??30 - 44 mL/min/1.73m2 Severely decreased ?15 - 29 mL/min/1.73m2 Kidney Failure ?< 15 ??mL/min/1.73m2 *Relative to young adult level Estimated glomerular filtration rate is determined by the 2020 CKD-EPI equation recommended by the National Kidney Foundation (A Unifying Approach to GFR Estimation: Recommendations of the NKF-ASK Task Force on Reassessing the Inclusion of Race in Diagnosing Kidney Disease, JASN 2020). The CKD-EPI equation should not be used for patients with unstable renal function and has not been validated in children and those over 70. Current interpretive data was last reviewed 2021. Blood 04/22/2022 11:4 0 AM ANTICHECKING IRON WORKER 04/22/2022 11:53 AM ANTICHECKING IRON WORKER us Rajani Thomason CUTTING AND BONING SUPERVISOR LAB BLOOD ORDERABLES Fi nal Result [facility] [address] [place] [address] * Differential, auto (04/22/2022 11:40 AM ANTICHECKING IRON WORKER) Neutrophil abs 3.3 1.7 - 6.5 K/cumm [facility] Imm gran abs 0.0 0.0 - 0.1 K/cumm [facility] Lymphocyte abs 3.1 0.8 - 3.3 K/cumm [facility] Monocyte abs 0.5 0.2 - 0.8 K/cumm [facility] Eosinophil abs 0.1 0.0 - 0.5 K/cumm [facility] Basophil abs 0.1 0.0 - 0.1 K/cumm [facility] Neutrophil pct 46.8 % [facility] Comment: Interpretive Data Percent cell count reference ranges are not reported, since discordance with absolute values may lead to misinterpretation of CBC data. Current Interpretive Data was last revised on 2017. Imm gran pct 0.1 % [facility] Comment: Interpretive Data Percent cell count reference ranges are not reported, since discordance with absolute values may lead to misinterpretation of CBC data. Current Interpretive Data was last revised on 2017. Lymphocyte pct 43.7 % [facility] Comment: Interpretive Data Percent cell count reference ranges are not reported, since discordance with absolute values may lead to misinterpretation of CBC data. Current Interpretive Data was last revised on 2017. Monocyte pct 6.8 % [facility] Comment: Interpretive Data Percent cell count reference ranges are not reported, since discordance with absolute values may lead to misinterpretation of CBC data. Current Interpretive Data was last revised on 2017. Eosinophil pct 1.8 % [facility] Comment: Interpretive Data Percent cell count reference ranges are not reported, since discordance with absolute values may lead to misinterpretation of CBC data. Current Interpretive Data was last revised on 2017. Basophil pct 0.8 % [facility] Comment: Interpretive Data Percent cell count reference ranges are not reported, since discordance with absolute values may lead to misinterpretation of CBC data. Current Interpretive Data was last revised on 2017. Blood 04/22/2022 11:4 0 AM ANTICHECKING IRON WORKER 04/22/2022 11:53 AM ANTICHECKING IRON WORKER us Rajani Thomason NP LAB BLOOD ORDERABLES Fi nal Result [facility] [address] [place] [address] * Type and screen (04/22/2022 11:40 AM ANTICHECKING IRON WORKER) Dara, indirect Negative [facility] ABO Rh A Negative [facility] Blood 04/22/2022 11:4 0 AM ANTICHECKING IRON WORKER 04/22/2022 11:58 AM ANTICHECKING IRON WORKER Narrative [facility] - 04/22/2022 12:35 PM ANTICHECKING IRON WORKER Has the patient had Daratumumab or Isatuximab in the past 6 months?->Unknown Rajani Lock Katelin CUTTING AND BONING SUPERVISOR LAB BLOOD BANK TEST ORD ERABLES Final Result [facility] [address] [place] [address] * Comprehensive metabolic panel (04/22/2022 11:40 AM ANTICHECKING IRON WORKER) Pathologist [facility] Sodium 141 135 - 145 mmol/L [facility] Potassium, pl 4.1 3.3 - 4.9 mmol/L [facility] Chloride 108 97 - 110 mmol/L [facility] CO2 26 22 - 32 mmol/L [facility] Anion gap 7 2 - 15 mmol/L [facility] BUN 10 8 - 25 mg/dL [facility] Creatinine 0.76 0.60 - 1.10 mg/dL [facility] Glucose 99 70 - 199 mg/dL [facility] Comment: Interpretive Data Fasting glucose >/= 126 mg/dl is diagnostic for diabetes. ?? Fasting is defined as no caloric intake for at least 8 hours. Fasting glucose between 100 mg/dl to 125 mg/dl is diagnostic of prediabetes. In a patient with classic symptoms of hyperglycemia or hyperglycemic crisis, a random glucose >/= 200 mg/dl is diagnostic for diabetes. In the absence of unequivocal hyperglycemia, results should be confirmed by repeat testing. The classification and Diagnosis of Diabetes Diabetes Care 2017;40 (Suppl. 1):S11. Current interpretive data was last revised 2017. Calcium 8.8 8.5 - 10.3 mg/dL [facility] Bilirubin, total 0.2 0.1 - 1.2 mg/dL [facility] Protein, pl 6.6 6.5 - 8.5 g/dL [facility] Albumin 3.9 3.5 - 5.0 g/dL [facility] Alk phos 44 40 - 130 Units/L [facility] ALT 16 7 - 45 Units/L [facility] AST 20 10 - 45 Units/L [facility] Blood 04/22/2022 11:4 0 AM ANTICHECKING IRON WORKER 04/22/2022 11:53 AM ANTICHECKING IRON WORKER Rajani Thomason NP LAB BLOOD ORDERABLES Fi nal Result Performing Organization Address City/[facility]/ZIP Co de Phone Number [facility] [address] [place] [employer] [place] [address] * (ABNORMAL) CBC with auto differential (04/22/2022 11:40 AM ANTICHECKING IRON WORKER) Pathologist [facility] WBC 7.1 3.8 - 9.9 K/cumm [facility] Hgb 10.7(L) 11.9 - 15.5 g/dL [facility] Hct 32.6(L) 35.6 - 45.5 % [facility] Plt 329 150 - 400 K/cumm [facility] MPV 9.6 9.1 - 12.3 fL [facility] RBC 3.59(L) 3.90 - 5.20 M/cumm [facility] MCV 90.8 81.3 - 96.4 fL [facility] MCH 29.8 27.1 - 33.3 pg [facility] MCHC 32.8 32.3 - 35.7 g/dL [facility] RDW CV 13.9 11.1 - 14.9 % [facility] RDW SD 46.4 35.7 - 48.1 fL [facility] NRBC abs 0.00 0.00 - 0.01 K/cumm [facility] Blood 04/22/2022 11:4 0 AM ANTICHECKING IRON WORKER 04/22/2022 11:53 AM ANTICHECKING IRON WORKER Rajani Thomason CUTTING AND BONING SUPERVISOR LAB BLOOD ORDERABLES Fi nal Result [facility] [address] [place] [address] documented in this encounter Visit Diagnoses Diagnosis Vaginal bleeding- Primary Other specified noninflammatory disorder of vagina Vaginal bleeding Other specified noninflammatory disorder of vagina Fibroids Leiomyoma of uterus, unspecified documented in this encounter Admitting Diagnoses Diagnosis Vaginal bleeding Other specified noninflammatory disorder of vagina documented in this encounter Administered Medications Inactive Administered Medications - up to 3 most recent administrations Medication Order MAR Action Action Date Dose Rate Site ketorolac (TORADOL) 30 mg/mL (1 mL) injection 15 mg 15 mg, intravenous, Once, On Thu04/22/22 at 1410, For 1 dose, Indications: PainIndications:Pain Given 04/22/2022 2:17 PM ANTICHECKING IRON WORKER 15 mg megestroL (MEGACE) tablet 40 mg 40 mg, oral, 3 times daily, First dose on Thu04/22/22 at 2100 Given 04/22/2022 7:56 PM ANTICHECKING IRON WORKER 40 mg documented in this encounter Discontinued Medications Medication Sig Discontinue Reason Start Date End Da te medroxyPROGESTERone (PROVERA) 5 mg tabletIndications:Abno rmal Uterine Bleeding Take 2 tablets (10 mg total) by mouth daily No longer clinically indicated 04/22/2022 04/22/2022 calcium carbonate-vitamin D3 500 mg(1,250mg) -125 unit per tablet Take 1 tablet by mouth daily 04/22/2022 documented as of this encounter Historical Medications * This list may reflect changes made after this encounter. ferrous sulfate 325 mg (65 mg of elemental iron) tabletIndication s:Iron Deficiency Anemia Take 1 tablet (325 mg total) by mouth daily with breakfast ibuprofen (ADVIL,MOTRIN) 600 mg tablet Take 1 tablet (600 mg total) by mouth 3 (three) times a day as needed for pain added in this encounter Active and Recently Administered Medications Times are shown in ANTICHECKING IRON WORKER. Scheduled Medication Order 04/20/2022 04/21/2022 04/22/2022 HYDROmorphone (PF) (DILAUDID) injection 0.2 mg 0.2 mg, intravenous, Administer over 2 Minutes, Once, On Thu04/22/22 at 1410, For 1 dose 1419 (Not Given - Pr ovider: Meagan West RN - Reason: Patient/family refused) ketorolac (TORADOL) 30 mg/mL (1 mL) injection 15 mg (COMPLETED) 15 mg, intravenous, Once, On Thu04/22/22 at 1410, For 1 dose, Indications: Pain 1417 (Given - Provid er: Meagan West, CLAUDIA) megestroL (MEGACE) tablet 40 mg 40 mg, oral, 3 times daily, First dose on Thu04/22/22 at 2100 1956 (Given - Provid er: Danielle Hale RN) documented in this encounter Orders Medications Ordered That Salomón ht Not Have Been Administered Count Last Ordered Date First Ordered Date HYDROmorphone (PF) (DILAUDID ) injection 0.2 mg 1 04/22/2022 ketorolac (TORADOL) 30 mg/mL (1 mL) injection 15 mg 1 04/22/2022 IV Count Last Ordered Date First Orde red Date INSERT PERIPHERAL IV 1 04/22/2022 documented in this encounter Care Teams Clinical Coder Relationship Specialty Start Date End Date Cookie Subramanian MD PCP - General Internal Medicine 04/22/22 Shaji Zambrano MD Surgeon General Surgery 06/21/19 documented as of this encounter
--- OUTSIDE RECORDS SUMMARY | 2024-05-25 00:59 | XMS_ITS | Encounter Summary ---
Author Organization [facility] Healthcare Address [address] [place] [address] Care Team Providers Care Deportation Examiner Name Role Phone Unavailable Primary Care Provider Unavailabl e Encounter Details Date Type Department Care Team (Late st Contact Info) Description 11/02/2012 10:41 PM CDT - 11/03/2012 12:18 AM CDT Hospital Encounter [place] [id number] [place] [address] Contusion of ankle; Abrasion or friction burn of foot and toe; Effusion of ankle and foot joint; Accidentally caught in or between objects; Unspecified place of occurrence; Other external cause of injury or poisoning Social History Tobacco Use Types Packs/Day Years Used Date Smoking Tobacco: Never Assessed Comments Unknown Sex and Gender Information Value Date Recorded Sex Assigned at Not on file Legal Sex Female 11:17 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 Historical Provider LAB BLOOD ORDERABLES Janie l Result * XR Ankle 3+ Vw (11/02/2012 11:57 PM CDT) Anatomical Region Laterality Modality N/A Radiographic Greta ging 11/02/2012 11:5 7 PM CDT Narrative 11/03/2012 10:44 AM CDT DATE OF EXAM: ??Nov 02 2012 11:57PM Acc#: ??[id number] ??[id number] - XR Ankle Min 3 Views R ?? DIAGNOSIS: ?? CLINICAL HISTORY: ?? Swelling_Swelling ?? RESULT: \ RIGHT ANKLE, 3 VIEWS: No soft tissue, joint, or bony abnormality seen. ?? IMPRESSION: ?\ NEGATIVE STUDY. ?? PERSONNEL PSYCHOLOGIST: ??DD2 TRANSCRIBE DATE/TIME: ??Nov 03 2012 10:08A RADIOLOGIST: ??FRANKLYN TIRADO M.D. ??READ ON: ??Nov 03 2012 ??8:51A ORDERING DR: SHAD HOOD N.P. THIS DOCUMENT HAS BEEN ELECTRONICALLY SIGNED BY: ??FRANKLYN TIRADO M.D. ??ON: ??Nov 03 2012 10:43A Procedure Note Provider, Rebekah, - 10/08/2016 DATE OF EXAM: Nov 02 2012 11:57PM Acc#: [id number] - XR Ankle Min 3 Views R DIAGNOSIS: CLINICAL HISTORY: Swelling_Swelling RESULT: \ RIGHT ANKLE, 3 VIEWS: No soft tissue, joint, or bony abnormality seen. IMPRESSION: \ NEGATIVE STUDY. PERSONNEL PSYCHOLOGIST: DD2 TRANSCRIBE DATE/TIME: Nov 03 2012 10:08A RADIOLOGIST: FRANKLYN TIRADO M.D. READ ON: Nov 03 2012 8:51A ORDERING DR: SHAD HOOD N.P. THIS DOCUMENT HAS BEEN ELECTRONICALLY SIGNED BY: FRANKLYN TIRADO M.D. ON: Nov 03 2012 10:43A Historical Provider MD JIANGG XR PROCEDURES Final R esult * (ABNORMAL) Urine microscopy (11/02/2012 6:30 PM CDT) Color, ur Yellow HISTORICAL RESULTS Clarity, ur Clear Clear HISTORIC AL RESULTS pH, ur 5.0 5 - 7 HISTORICAL RESULTS Specific gravity, ur 1.027 1.001 - 1.033 HISTORICAL RESULTS Protein, ur Negative Negative HISTORIC AL RESULTS Glucose, ur Negative Negative HISTORIC AL RESULTS Ketones, ur Negative Negative HISTORIC AL RESULTS Bilirubin, ur Negative Negative HISTOR ICAL RESULTS U Blood Negative Negative HISTORICAL RESULTS Urobilinogen, quant, ur Normal 0.2 - 1.0 mg/dl HISTORICAL RESULTS Nitrites, ur Negative Negative HISTORI RAHEEM RESULTS Leukocyte esterase, ur Negative Negative HISTORICAL RESULTS WBC, ur 5 - 10(A) 0 - 5 /hpf HISTORICA L RESULTS RBC, ur 0 - 5 0 - 5 /hpf HISTORICA L RESULTS Epithelial cells, ur 0 - 2 /hpf HISTORICAL RESULTS Bacteria, ur Trace HISTORI RAHEEM RESULTS Mucus Present HISTORICAL RESULTS Urine 11/02/2012 6:30 PM CDT Narrative HISTORICAL RESULTS - 11/02/2012 7:20 PM CDT Test performed at [facility], [address] [place] [address], [facility]. us Historical Provider LAB BLOOD ORDERABLES Janie chamberlain Result HISTORICAL RESULTS * Urine Microbiology (11/02/2012 12:00 AM CDT) 11/02/2012 Narrative HISTORICAL RESULTS - 11/05/2012 1:50 PM CDT [facility] ?Patient Name: ?MARLEN, RANDI ?Med. Rec#: ?? [id number] ?Pt. Acct.#: ??[id number] ?Birthdate: ?? 1980 ?Age / Sex: ?? 31Y / F ?Location: ?[facility] (Emergenc ?Admit Date: ??11/02/2012 ?Discharge Date: ? 11/03/2012 ?Doctor: ?Yanelis Herrera ?Patient Type: ?[facility] Emergency Room Culture, Urine ? Collected: 11/02/2012 23:30 Specimen: Urine ?? Specimen Source: Clean Voided Specimen Status: Final ??Last Update: 11/05/2012 12:37 Organism ?? Less than 10,000 cfu/ml of ?? multiple Gram positive organisms Comment ? This culture result is consistent with contamination ?? by normal genital-perineal jomar. us Historical Provider LAB MICROBIOLOGY - GENERA L ORDERABLES Final Result HISTORICAL RESULTS documented in this encounter Visit Diagnoses Diagnosis Contusion of ankle Abrasion or friction burn of foot and toe Effusion of ankle and foot joint Accidentally caught in or between objects Caught accidentally in or between objects Unspecified place of occurrence Other external cause of injury or poisoning documented in this encounter
--- OUTSIDE RECORDS SUMMARY | 2024-05-25 00:59 | XMS_ITS | Data Portability ---
Author Organization [place] [facility],, Anca matson Address [address] [place] [address] Assessment No assessment recorded. Plan of Treatment Reminders Order Date Submit Date Provider Last Modified By Organization Details Last Modified Time Details Appointments None recorde d. Lab None recorde d. Referral None recorde d. Procedures None recorde d. Surgeries None recorde d. Imaging None recorde d. Medication Orders Regina Allergy 180 mg tablet 2021 [address] [facility] [id number] In [facility], [address] [place], [address], 14:12:18 Patient TargetsNo targets recorded. Patient InstructionsNo instructions recorded. Reason for Referral None Reported. Problems No Known Problems Medical Equipment None Reported. Allergies No known drug allergies Medications Name Sig Start Date Stop Date Status Note LastModified by Organization Details LastModified Time metronidazole 500 mg tablet TAKE 4 (FOUR) TABLETS BY MOUTH ONCE FOR 1 DOSE TAKE 4 TABLETS IN ONE DOSE. active Not Available Not Available No t Available Regina Allergy 180 mg tablet Take 1 tablet every day by oral route. 2021 active Not Available Not Available Not Avai lable Vitals Date Recorded Body weight Heart rate Oxygen saturation Oxygen saturation in Arterial blood by Pulse oximetry Respiratory rate Body temperature Systolic blood pressure Diastolic blood pressure Provider Name and Address Organization Details Last Updated DateTime 2 13924.3 6 g 78 /min 99 % 99 % 18 /min 97.2 [degF] 128 mm[Hg] 70 mm[Hg] adriana zuluaga [place] [facility], 2 12:46:40 Social History None recorded. Functional Status None recorded. Mental Status None recorded. Family History Nothing Reported. Medical History No medical history recorded. Gynecological HistoryNo gynecological history recorded. Obstetrics History GPAL:G 0 P 0 0 0 0 Past Encounters Encounter ID Performer Location Encounter Start Date Encounter Closed Date Diagnosis/Indication Diagnosis SNOMED-CT Code Diagnosis ICD10 Code 200511 Remi carpio MD OFFICE [address] [facility] [place] [address] 02/07/2022 12:26:45 02/07/2022 12:56:42 Idiopathic urticaria 29547280 L50.1 Health Concerns Section Related Observation LastModified by Organization Detai ls LastModified Time None Recorded Concern Status LastModified by Organization Details LastModified Time None Recorded Advance Directives Directive None Recorded Payers Encounter Date Sequence Insurance Name Policy Number Policy Lozoya Covered Member ID Lozoya Member ID Guarantor Name 02/07/2022 1 [place] [id number] [id number] [facility] Notes Date Note Type Note Provider Name and Address Organization Details Recorded Time 02/07/2022 text/html Octavia is a delightful 41-year-old woman who comes in with a history of daily urticaria for the last 2 years. She will notice urticarial episodes which will last from minutes to an hour. They are quite pruritic. She has tried no medication. She has seen her general assembler who was drawn some blood work.on she did not have any thing that she was allergic to. She comes in for evaluation. She denies any angioedema.she is concerned about the fact that she has a device to prevent and her fallopian tubes. It is nickel-containing and she wonders whether that can trigger her urticaria. Remi Rock MD [address] [place] [address],[address], [place], [address], [facility], 02/07/2022 14:12:22 OBGyn Episode No OBEpisode recorded.
--- OUTSIDE RECORDS SUMMARY | 2024-05-25 00:59 | XMS_ITS | Clinical Summary ---
[facility] Organization [facility] [address] [place] [address] Care Team Providers Care Short Story Writer Name Role Phone Shaji Zambrano MD Unavailable [phone] Cookie Subramanian MD Primary Care Provider [phone] Allergies No known active allergies Medications cholecalciferol (VITAMIN D-3) 5,000 unit tablet Take 2 tablets (10,000 Units total) by mouth daily Active ibuprofen (ADVIL,MOTRIN) 600 mg tablet Take 1 tablet (600 mg total) by mouth 3 (three) times a day as needed for pain Active ferrous sulfate 325 mg (65 mg of elemental iron) tabletIndicatio ns:Iron Deficiency Anemia Take 1 tablet (325 mg total) by mouth daily with breakfast Active Active Problems Problem Noted Date Diagnosed Date Vaginal bleeding 04/22/2022 Mae's cyst, unruptured, right 06/28/2019 Surgical History Surgery Date Site/Laterality Comments CHOLECYSTECTOMY 06/08/2007 - 06/07/2008 HERNIA REPAIR 06/08/2002 - 06/07/2003 Family History Medical History Relation Name Comments No Known Problems Brother No Known Problems Father No Known Problems Mother No Known Problems Sister Relation Name Status Comments Brother Alive Father Alive Mother Alive Sister Alive Social History Tobacco Use Types Packs/Day Years Used Date Smoking Tobacco: Never Alcohol Use Standard Drinks/Week Comments Not Currently 0 (1 standard drink = 0.6 oz pur e alcohol) Personal Safety Answer Date Recorded Have you ever been in or are you currently in a harmful physical or emotional relationship or is someone making you feel afraid or unsafe? 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 Gender Identity Not on file Sexual Orientation Not on file Obstetrics History Last Filed Vital Signs Vital Sign Reading Time Taken Comments Blood Pressure 111/69 03/30/2023 11:00 AM CDT Pulse 59 03/30/2023 11:00 AM CDT Temperature 36.7 ??C (98.1 ??F) 03/30/2023 8:07 AM CD T Respiratory Rate 19 03/30/2023 11:00 AM CDT Oxygen Saturation 99% 03/30/2023 11:00 AM CDT Inhaled Oxygen Concentration - - Weight 86.2 kg (190 lb) 03/30/2023 8:07 AM CDT Height 170.2 cm (5' 7 ) 03/30/2023 8:07 AM CDT Body Mass Index 29.76 03/30/2023 8:07 AM CDT Plan of Treatment Health Maintenance Due Date Last Done Comments Breast Cancer Screening-Mammogram 1981 Cervical Cancer Screening 1981 Depression Screening 1981 Hepatitis C Screening 1981 DTaP/Tdap/Td Vaccine (1 - Tdap) 1992 Varicella Vaccines (1 of 2 - 13+ 2-dose series) 1994 Hepatitis B Screening 11/25/1999 Regular Well Visit/Exam 18-64 11/25/1999 Influenza Vaccine (#1) 2024 HPV Vaccines Aged Out No longer eligi ble based on patient's age to complete this topic Pneumococcal vaccine <65 Aged Out No longer eligible based on patient's age to complete this topic Insurance [facility] BL[facility] [employer] [facility] [facility] [facility] Advance Directives For more information, please contact: [phone] * Full Code (Latest Code Status on File) Date Activated Date Inactivated Comments 04/22/2022 6:09 PM 04/23/2022 12:02 AM Care Teams Short Story Writer Relationship Specialty Start Date End Date Cookie Subramanian MD PCP - General Internal Medicine 04/22/22 Shaji Zambrano MD Surgeon General Surgery 06/21/19
--- OUTSIDE RECORDS SUMMARY | 2024-05-25 00:59 | XMS_ITS | Encounter Summary ---
Author Organization [facility] Healthcare Address [address] [place] [address] Care Team Providers Care Paradichlorobenzene Machine Operator Name Role Phone Unavailable Primary Care Provider Unavailabl e Encounter Details Date Type Department Care Team (Late st Contact Info) Description 06/19/2009 9:30 AM IN STORE MARKETING REPRESENTATIVE - 06/19/2009 10:31 AM IN STORE MARKETING REPRESENTATIVE Hospital Encounter [place] [address] [facility] [address] [place] [address] Other abscess of vulva; Cellulitis and abscess of trunk Social History Tobacco Use Types Packs/Day Years Used Date Smoking Tobacco: Never Assessed Comments Unknown Sex and Gender Information Value Date Recorded Sex Assigned at Not on file Legal Sex Female 11:17 AM IN STORE MARKETING REPRESENTATIVE Gender Identity Not on file Sexual Orientation Not on file documented as of this encounter Plan of Treatment Not on file documented as of this encounter Visit Diagnoses Diagnosis Other abscess of vulva Cellulitis and abscess of trunk documented in this encounter
--- OUTSIDE RECORDS SUMMARY | 2024-05-25 00:59 | XMS_ITS | Referral Summary ---
[facility] Organization 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
--- OUTSIDE RECORDS SUMMARY | 2024-05-25 00:59 | XMS_ITS | Encounter Summary ---
Author Organization [facility] Healthcare Address [address] [place] [address] Care Team Providers Care Ice Cream Vault Worker Name Role Phone Unavailable Primary Care Provider Unavailabl e Encounter Details Date Type Department Care Team (Late st Contact Info) Description 03/11/2015 9:12 PM CDT - 03/12/2015 1:08 AM CDT Hospital Encounter Dong Saldana Anesthesia of skin; Other chest pain; Encounter for test with result negative Social History Tobacco Use Types Packs/Day Years Used Date Smoking Tobacco: Never Assessed Comments Unknown Sex and Gender Information Value Date Recorded Sex Assigned at Not on file 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 Gender Identity Not on file Sexual Orientation Not on file documented as of this encounter Plan of Treatment Not on file documented as of this encounter Procedures Procedure Name Priority Date/Time Associated Diagnosis Comments DISCHARGE LABORATORY CUMULATIVE REPORT 03/12/2015 XR CHEST PA LATERAL 2 VIEWS Routine 03/11/2015 10:55 PM CDT PRE-PRELIMINARY CT SCAN REPORT Routine 03/11/2015 10:[address] HEAD WO CONTRAST Routine 03/11/2015 1 0:29 PM CDT PLASMA TROPONIN I Routine 03/11/2015 5:3 3 PM CDT PLASMA BASIC METABOLIC PANEL Routine 03/11/2015 5:33 PM CDT BLOOD CELL COUNT (CBC), MORPHOLOGIC EXAM Routine 03/11/2015 5:33 PM CDT ELECTROCARDIOGRAPHY (ECG) 03/11/2015 documented in this encounter Results * DISCHARGE LABORATORY CUMULATIVE REPORT (03/12/2015) Narrative 03/12/2015 Ordered by an unspecified provider. us Historical Provider LAB BLOOD ORDERABLES Janie l Result * XR Chest Pa Lateral 2 Views (03/11/2015 10:55 PM CDT) Anatomical Region Laterality Modality Body, Chest N/A Radiographic Greta ging 03/11/2015 10:5 5 PM CDT Narrative 03/12/2015 2:09 PM CDT DATE OF EXAM: ??Oct ??2014 10:55PM Acc#: ??[id number] ??WDX [id number] - XR Chest 2 Views ?? DIAGNOSIS: ??CHEST PAINS, LT SIDE TINGLING CLINICAL HISTORY: ?? Chest Pain_Chest Pain RESULT: \ EXAMINATION: ??PA AND LATERAL CHEST RADIOGRAPHS FINDINGS: No prior radiographic examination is available for comparison. The lungs are free of acute peripheral opacities. There is no pneumothorax or pleural effusion. The heart size is normal. The visualized osseous structures appear intact. ?? IMPRESSION: ?\ NO ACUTE CARDIOPULMONARY ABNORMALITY. PICTURES EDITOR: ??[email or web address] TRANSCRIBE DATE/TIME: ??Mar ??5 2014 ??1:07P RADIOLOGIST: ??AMINAH CURRY M.D. ??READ ON: ??Mar ??5 2014 ??8:31A ORDERING DR: DONG KIM M.D. THIS DOCUMENT HAS BEEN ELECTRONICALLY SIGNED BY: ??AMINAH CURRY M.D. ??ON: ??Mar ??5 2014 ??2:09P Attending: ??JUDY, ??DONG Requesting: ??JUDY, ??DONG Requesting Fax: ??-- Attending Fax: ??-- Attending ID: ??[id number] Requesting ID: ??[id number] Report To 1 ID: ?? Report To 1 Name: ??, ?? Report To 1 FAX: ??-- Report To 2 ID: ?? Report To 2 Name: ??, ?? Report To 2 FAX: ??-- NextGen Order #: ?? Procedure Note Provider, MD Rebekah - 11/13/2016 DATE OF EXAM: Mar 11 2015 10:55PM Acc#: [id number] WDX 0029 - XR Chest 2 Views DIAGNOSIS: CHEST PAINS, LT SIDE TINGLING CLINICAL HISTORY: Chest Pain_Chest Pain RESULT: \ EXAMINATION: PA AND LATERAL CHEST RADIOGRAPHS FINDINGS: No prior radiographic examination is available for comparison. The lungs are free of acute peripheral opacities. There is no pneumothorax or pleural effusion. The heart size is normal. The visualized osseous structures appear intact. IMPRESSION: \ NO ACUTE CARDIOPULMONARY ABNORMALITY. PICTURES EDITOR: DAVID TRANSCRIBE DATE/TIME: Mar 12 2015 1:07P RADIOLOGIST: AMINAH CURRY M.D. READ ON: Mar 12 2015 8:31A ORDERING DR: DONG KIM M.D. THIS DOCUMENT HAS BEEN ELECTRONICALLY SIGNED BY: AMINAH CURRY M.D. ON: Mar 12 2015 2:09P Attending: DONG KIM Requesting: DONG KIM Requesting Fax: -- Attending Fax: -- Attending ID: [id number] Requesting ID: [id number] Report To 1 ID: Report To 1 Name: , Report To 1 FAX: -- Report To 2 ID: Report To 2 Name: , Report To 2 FAX: -- NextGen Order #: Historical Provider IMG XR PROCEDURES Final R esult * PRE-PRELIMINARY CT SCAN REPORT (03/11/2015 10:29 PM CDT) Anatomical Region Laterality Modality N/A Computed Tomogra phy 03/11/2015 10:2 9 PM CDT Narrative 03/11/2015 10:35 PM CDT ED STAT IMAGING PRELIMINARY RESULT [facility] PATIENT: ?? RANDI ??MARLEN MR#: ?? [id number] : 1980 AGE / SEX: ?? 34Y / F Procedure: WCT 0014 - CT Head WO Exam Date: ?? Oct ??2014 10:29PM ?Loc: WCT1 Acc#: ?? [id number] Pt_Class at Time of Procedure: E Current Pt Class and Location: ?? E ?ERD Requesting Location: [facility] Priority: ??STAT Reason: ?? Headaches Order Comments: Joaquin Norman: ?? DONG ??JUDY ??Lauren Preliminary Reading Doctor: ??JOEL CAMPOS M.D.RADIOLOGIST Completed on: ??Oct ??2014 10:35PM Call Results Info: Patient Waiting: Call Report to: Phone: Fax: Comments: ----- Please be advised this is only a preliminary report. If at time of image reporting a significant discrepancy or new finding is noted it will be communicated to the Emergency Department via the ED discrepancy pathway. READ ANY COMMENTS BELOW Findings: ?Normal Comments Line 1: Comments Line 2: Comments Line 3: Comments Line 4: Comments Line 5: Procedure Note Provider, MD Rebekah - 10/08/2016 ED STAT IMAGING PRELIMINARY RESULT [facility] PATIENT: RANDI GEE MR#: [id number] : 1980 AGE / SEX: 34Y / F Procedure:WCT 4 - CT Head WO Exam Date: Mar 11 2015 10:29PM Loc:WCT1 Acc#: [id number] Pt_Class at Time of Procedure: E Current Pt Class and Location: E ERD Requesting Location: [facility] Priority: STAT Reason: Headaches Order Comments: Ord Dr: DONG KIM M.D. Preliminary Reading Doctor: JOEL CAMPOS M.D.RADIOLOGIST Completed on: Mar 11 2015 10:35PM Call Results Info: Patient Waiting: Call Report to: Phone: Fax: Comments: ----- Please be advised this is only a preliminary report. If at time of imagereporting a significant discrepancy or new finding is noted it will becommunicated to the Emergency Department via the ED discrepancy pathway. READ ANY COMMENTS BELOW Findings: Normal Comments Line 1: Comments Line 2: Comments Line 3: Comments Line 4: Comments Line 5: us Historical Provider MD WELCH CT PROCEDURES Final R esult * CT Head WO Contrast (03/11/2015 10:29 PM CDT) Anatomical Region Laterality Modality Head and Neck N/A Computed Tomogra phy 03/11/2015 10:2 9 PM CDT Narrative 03/12/2015 2:46 PM CDT DATE OF EXAM: ??Mar ??2014 10:29PM Acc#: ??[id number] ??WCT 0014 - CT Head WO ?? DIAGNOSIS: ??CHEST PAINS, LT SIDE TINGLING CLINICAL HISTORY: ?? Headaches_Headaches RESULT: EXAM: ??CT HEAD WITHOUT CONTRAST DATE: March 11, 2015 CLINICAL HISTORY: Headache and chest pain TECHNIQUE: ??Computed tomographic images of the head were obtained in the axial plane in both brain and bone windows without the administration of contrast. A prior CT head without contrast was performed May 28, 2004. The images are not available for review. The report describes no acute intracranial process. FINDINGS: ??Cavum septum pellucidum and cavum vergae are present. The ventricles are not enlarged. The cerebrum, cerebellum and brainstem are otherwise normal with normal maldonado-white differentiation. The basilar cisterns and midline structures are normal. There is no evidence of acute or evolving infarct, contusion or intracranial hemorrhage. The visible paranasal sinuses and mastoid air cells are clear. There is no acute or healing skull fracture. IMPRESSION: ? NO ACUTE INTRACRANIAL PROCESS. ? PICTURES EDITOR: ??LB3 TRANSCRIBE DATE/TIME: ??Oct ??2014 11:26A RADIOLOGIST: ??JOEL CAMPOS M.D. ??READ ON: ??Oct ??2014 10:35P ORDERING DR: DONG KIM M.D. THIS DOCUMENT HAS BEEN ELECTRONICALLY SIGNED BY: ??ANDRES Aguilar, JOEL ??ON: ??Oct ??2014 ??2:46P Attending: ??JUDY, ??DONG Requesting: ??JUDY, ??DONG Requesting Fax: ??-- Attending Fax: ??-- Attending ID: ??[id number] Requesting ID: ??[id number] Report To 1 ID: ?? Report To 1 Name: ??, ?? Report To 1 FAX: ??-- Report To 2 ID: ?? Report To 2 Name: ??, ?? Report To 2 FAX: ??-- NextGen Order #: ?? Procedure Note Provider, MD Rebekah - 10/08/2016 DATE OF EXAM: Mar 11 2015 10:29PM Acc#: [id number] [facility] 0014 - CT Head WO DIAGNOSIS: CHEST PAINS, LT SIDE TINGLING CLINICAL HISTORY: Headaches_Headaches RESULT: EXAM: CT HEAD WITHOUT CONTRAST DATE: March 11, 2015 CLINICAL HISTORY: Headache and chest pain TECHNIQUE: Computed tomographic images of the head were obtained in the axial plane in both brain and bone windows without the administration of contrast. A prior CT head without contrast was performed May 28, 2004. The images are not available for review. The report describes no acute intracranial process. FINDINGS: Cavum septum pellucidum and cavum vergae are present. The ventricles are not enlarged. The cerebrum, cerebellum and brainstem are otherwise normal with normal maldonado-white differentiation. The basilar cisterns and midline structures are normal. There is no evidence of acute or evolving infarct, contusion or intracranial hemorrhage. The visible paranasal sinuses and mastoid air cells are clear. There is no acute or healing skull fracture. IMPRESSION: NO ACUTE INTRACRANIAL PROCESS. PICTURES EDITOR: [email or web address] TRANSCRIBE DATE/TIME: Mar 12 2015 11:26A RADIOLOGIST: JOEL CAMPOS M.D. READ ON: Mar 11 2015 10:35P ORDERING DR: DONG KIM M.D. THIS DOCUMENT HAS BEEN ELECTRONICALLY SIGNED BY: JOEL CAMPOS M.D. ON: Mar 12 2015 2:46P Attending: DONG KIM Requesting: DONG KIM Requesting Fax: -- Attending Fax: -- Attending ID: [id number] Requesting ID: [id number] Report To 1 ID: Report To 1 Name: , Report To 1 FAX: -- Report To 2 ID: Report To 2 Name: , Report To 2 FAX: -- NextGen Order #: us Historical Provider IMBernard CT PROCEDURES Final R esult * (ABNORMAL) Plasma basic metabolic panel (03/11/2015 5:33 PM CDT) Sodium 138 135 - 145 mmol/L HISTORICAL RESULTS K, pl 3.3(L) 3.5 - 5.1 mmol/L HISTORICAL RESULTS Chloride 104 100 - 114 mmol/L HISTORICAL RESULTS CO2 27 22 - 32 mmol/L HISTORICAL RESULTS BUN 9(L) 10 - 26 mg/dl HISTORICAL RESULTS Glucose 94 70 - 199 mg/dl HISTORICAL RESULTS A. gap 10 8 - 16 mmol/L HISTORICAL RESULTS Creatinine 0.69 0.60 - 1.30 mg/dl HISTORICAL RESULTS Calcium 9.0 8.4 - 10.5 mg/dl HISTORICAL RESULTS eGFR >90 90 - 200 ml/min/1.7 3 m2 HISTORICAL RESULTS Comment: If this individual is -Croatian, multiply result by 1.21 Repeated results of less than 60 is indicative of chronic kidney disease. MDRD formula has not been validated on individuals greater than 70 years old. Plasma 03/11/2015 5:33 PM CDT Narrative HISTORICAL RESULTS - 03/11/2015 5:49 PM CDT Test performed at [address], [facility]. [employer] LAB BLOOD ORDERABLES Final Resul t Performing Organization Address [facility] de Phone Number HISTORICAL RESULTS * Plasma troponin I (03/11/2015 5:33 PM CDT) [facility] Troponin I <0.03 0.00 - 0.14 ng/ml HISTORICAL RESULTS Comment: Troponin Reference Ranges: Normal: ?0.00 - 0.14 ng/mL Indeterminate: ?0.15 - 0.50 ng/mL [place] / Cardiac Muscle Damage: ?>0.50 ng/mL Plasma 03/11/2015 5:33 PM CDT Narrative HISTORICAL RESULTS - 03/11/2015 5:54 PM CDT Test performed at [address], [address]. [employer] LAB BLOOD ORDERABLES Final Resul t Performing Organization Address [facility] de Phone Number HISTORICAL RESULTS * (ABNORMAL) Blood cell count (CBC), morphologic exam (03/11/2015 5:33 PM CDT) [facility] WBC 7.6 3.8 - 9.8 K/cumm HISTORICAL RESULTS RBC 4.31 4.20 - 5.20 M/cumm HISTORICAL RESULTS Hgb 12.5 12.0 - 15.0 g/dl HISTORICAL RESULTS Hct 38.8 37.0 - 47.0 % HISTORICAL RESULTS MCV 90.0 82.0 - 96.0 fl HISTORICAL RESULTS MCH 29.0 27.0 - 32.0 pg HISTORICAL RESULTS MCHC 32.2 29.0 - 35.0 g/dl HISTORICAL RESULTS Platelets 287 150 - 450 K/cumm HISTORICAL RESULTS RDW 47.0(H) 36.4 - 46.3 fl HISTORICAL RESULTS Rdw 14.3 11.5 - 14.5 % HISTORICAL RESULTS MPV 11.1 8.6 - 12.6 fl HISTORICAL RESULTS Neutrophils 42.2 42.0 - 85.0 % HISTORICAL RESULTS Neutrophils, abs 3.2 2.1 - 8.5 K/cumm HISTORICAL RESULTS Lymphocytes 46.5 16.0 - 52.0 % HISTORICAL RESULTS Lymphocytes, abs 3.5 0.8 - 5.2 K/cumm HISTORICAL RESULTS Monos 7.8 1.0 - 13.0 % HISTORICAL RESULTS Monocytes, absolute 0.6 0.0 - 1.3 K/cumm HISTORICAL RESULTS Eosinophils 2.9 0.0 - 7.0 % HISTORICAL RESULTS Eosinophils, abs 0.2 0.0 - 0.7 K/cumm HISTORICAL RESULTS Basophils 0.5 0.0 - 4.0 % HISTORICAL RESULTS Basophils, abs 0.0 0.0 - 0.4 K/cumm HISTORICAL RESULTS Young granulocytes, % 0.1 0.0 - 1.0 % HISTORICAL RESULTS Young granulocyte 0.01 0.00 - 0.10 K/cumm HISTORICAL RESULTS NRBC 0.0 0.0 - 0.2 #/100 WBC HISTORICAL RESULTS NRBC, abs 0.00 0.00 - 0.01 K/cumm HISTORICAL RESULTS Blood specimen (specimen) 03/11/2015 5:33 PM CDT Narrative HISTORICAL RESULTS - 03/11/2015 5:49 PM CDT Test performed at [facility], [address] [place] [address], [facility], [address]. [facility] LAB BLOOD ORDERABLES Final Resul t HISTORICAL RESULTS * ELECTROCARDIOGRAPHY (ECG) (03/11/2015) Narrative 03/11/2015 Ordered by an unspecified provider. Historical Provider ECG ORDERABLES Final Res ult documented in this encounter Visit Diagnoses Diagnosis Anesthesia of skin Disturbance of skin sensation Other chest pain Encounter for test with result negative documented in this encounter
--- OUTSIDE RECORDS SUMMARY | 2024-05-25 00:59 | XMS_ITS | Encounter Summary ---
Author Organization [facility] Healthcare Address [address] [place] [id number] Care Team Providers Care Office Technology Instructor Name Role Phone Unavailable Primary Care Provider Unavailabl e Encounter Details Date Type Department Care Team (Late st Contact Info) Description 07/06/2016 1:38 PM OSTOMY RN - 07/06/2016 3:19 PM OSTOMY RN Hospital Encounter [facility] CLINCONWing Trotter MD [address] [place] [address] Cellulitis; Pelvic and perineal pain Social History Tobacco Use Types Packs/Day Years Used Date Smoking Tobacco: Never Assessed Comments Unknown Sex and Gender Information Value Date Recorded Sex Assigned at Not on file Legal Sex Female 11:17 AM OSTOMY RN Gender Identity Not on file Sexual Orientation Not on file documented as of this encounter Plan of Treatment Not on file documented as of this encounter Visit Diagnoses Diagnosis Cellulitis Cellulitis and abscess of unspecified site Pelvic and perineal pain documented in this encounter
--- OUTSIDE RECORDS SUMMARY | 2024-05-25 00:59 | XMS_ITS | Encounter Summary ---
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
--- OUTSIDE RECORDS SUMMARY | 2024-05-25 00:59 | XMS_ITS | Encounter Summary ---
Author Organization [facility] Healthcare Address [address] [place] [address] Care Team Providers Care Shingle Packer Name Role Phone Unavailable Primary Care Provider Unavailabl e Encounter Details Date Type Department Care Team (Late st Contact Info) Description 06/20/2009 7:37 AM SALES MARKETING MANAGER - 06/20/2009 9:13 AM SALES MARKETING MANAGER Hospital En[place] [address] [facility] [address] [place] [address] Other specified diseases of hair and hair follicles Social History Tobacco Use Types Packs/Day Years Used Date Smoking Tobacco: Never Assessed Comments Unknown Sex and Gender Information Value Date Recorded Sex Assigned at Not on file 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
--- OUTSIDE RECORDS SUMMARY | 2024-05-25 00:59 | XMS_ITS | Encounter Summary ---
Author Organization [facility] Healthcare Address [address] [place] [address] Care Team Providers Care Check And Transfer Beader Name Role Phone Unavailable Primary Care Provider Unavailabl e Encounter Details Date Type Department Care Team (Latest Contact Info) Description 01/16/2013 9:49 PM CDT - 01/16/2013 11:24 PM CDT Hospital Encounter [facility] Wing Collazo MD [address] [place], [place] [id number] Vaginitis and vulvovaginitis Social History Tobacco Use Types Packs/Day Years Used Date Smoking Tobacco: Never Assessed Comments Unknown Sex and Gender Information Value Date Recorded Sex Assigned at Not on file 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 Gender Identity Not on file Sexual Orientation Not on file documented as of this encounter Plan of Treatment Not on file documented as of this encounter Procedures Procedure Name Priority Date/Time Associated Diagnosis Comments GENITAL FLUID GONORRHEA DNA SCREEN Routine 01/16/2013 10:20 PM CDT GENITAL FLUID CHLAMYDIA DNA SCREEN Routine 01/16/2013 10:20 PM CDT URINE MICROSCOPY Routine 01/16/2013 5:05 PM CDT TRICHOMONAS ANTIGEN Routine 01/16/2013 1 2:00 AM CDT GRAM STAIN Routine 01/16/2013 12:00 AM CDT DISCHARGE LABORATORY CUMULATIVE REPORT 01/16/2013 documented in this encounter Results * Genital fluid Gonorrhea DNA screen (01/16/2013 10:20 PM CDT) Gonorrheae (GC) DNA, genital swab Negative Negative HISTORICAL RESULTS Comment: This test has been developed to maximize the sensitivity of detection of infection while minimizing false positives, with the combined goals of enabling treatment of infection and interrupting the spread of infection, and is intended for medical purposes. Any result should be interpreted together with the clinical presentation and risk assessment, particularly the prevalence of infection in the patient's demographic group. ??Significant discrepancies should be evaluated by additional measures. Genital 01/16/2013 10:2 0 PM CDT Jessica Pichardo [place] LAB BLOOD ORDERABLES Fi nal Result Performing Organization Address [facility] de Phone Number HISTORICAL RESULTS * (ABNORMAL) Genital fluid Chlamydia DNA screen (01/16/2013 10:20 PM CDT) Chlamydia trachomatis, PCR, genital swab Positive( A) Negative HISTORICAL RESULTS Comment: This test has been developed to maximize the sensitivity of detection of infection while minimizing false positives, with the combined goals of enabling treatment of infection and interrupting the spread of infection, and is intended for medical purposes. Any result should be interpreted together with the clinical presentation and risk assessment, particularly the prevalence of infection in the patient's demographic group. ??Significant discrepancies should be evaluated by additional measures. Genital 01/16/2013 10:2 0 PM CDT [facility] Fi nal Result Performing Organization Address City/[facility] Co de Phone Number HISTORICAL RESULTS * (ABNORMAL) Urine microscopy (01/16/2013 5:05 PM CDT) Color, ur Yellow HISTORICAL RESULTS Clarity, ur Clear Clear HISTORIC AL RESULTS pH, ur 6.0 5 - 7 HISTORICAL RESULTS Specific gravity, ur 1.030 1.001 - 1.033 HISTORICAL RESULTS Protein, ur Negative Negative HISTORIC AL RESULTS Glucose, ur Negative Negative HISTORIC AL RESULTS Ketones, ur Trace(A) Negative HISTORIC AL RESULTS Bilirubin, ur Negative Negative HISTOR ICAL RESULTS U Blood Negative Negative HISTORICAL RESULTS Urobilinogen, quant, ur Normal 0.2 - 1.0 mg/dl HISTORICAL RESULTS Nitrites, ur Negative Negative HISTORI RAHEEM RESULTS Leukocyte esterase, ur Negative Negative HISTORICAL RESULTS WBC, ur 0 - 5 0 - 5 /hpf HISTORICA L RESULTS RBC, ur 0 - 5 0 - 5 /hpf HISTORICA L RESULTS Epithelial cells, ur 0 - 2 /hpf HISTORICAL RESULTS Bacteria, ur Trace HISTORI RAHEEM RESULTS Mucus Present HISTORICAL RESULTS Urine 01/16/2013 5:05 PM CDT Narrative HISTORICAL RESULTS - 01/16/2013 5:31 PM CDT Result negative for significant evidence of urinary tract infection. Urine Culture not indicated. ? Screening for urinary tract infection by urinalysis has an estimated false negative rate of 5%. ??This should be taken into account in patient management. ? Test performed at [facility], [address] [place] [address], [id number]. Jessica RUTHERFORD LAB BLOOD ORDERABLES Fi nal Result HISTORICAL RESULTS * DISCHARGE LABORATORY CUMULATIVE REPORT (01/16/2013) Narrative 01/16/2013 Ordered by an unspecified provider. Historical Provider LAB BLOOD ORDERABLES Janie l Result * Trichomonas Antigen (01/16/2013 12:00 AM CDT) 01/16/2013 Narrative HISTORICAL RESULTS - 01/17/2013 7:49 AM CDT Laboratories ?Patient Name: ?MARLEN, RANDI ?Med. Rec#: ?? [id number] ?Pt. Acct.#: ??[id number] ?Birthdate: ?? 1980 ?Age / Sex: ?? 32Y / F ?Location: ?[facility] (Emergenc ?Admit Date: ??01/16/2013 ?Discharge Date: ? 01/16/2013 ?Doctor: ?Wing Collazo ?Patient Type: ?[facility] Trichomonas Antigen ? Collected: 01/16/2013 22:20 Specimen: Swab ?? Specimen Source: Cervix Status: Final ??Last Update: 01/16/2013 23:07 Trichomonas Antigen Result: ?? Negative for Trichomonas antigen Performed at [facility] Historical Provider MD LAB MICROBIOLOGY - GENERA L ORDERABLES Final Result HISTORICAL RESULTS * Gram Stain (01/16/2013 12:00 AM CDT) 01/16/2013 Narrative HISTORICAL RESULTS - 01/17/2013 11:49 AM CDT Laboratories ?Patient Name: ?MARLEN, RANDI ?Med. Rec#: ?? [id number] ?Pt. Acct.#: ??[id number] ?Birthdate: ?? 1980 ?Age / Sex: ?? 32Y / F ?Location: ?[facility] (Emergenc ?Admit Date: ??01/16/2013 ?Discharge Date: ? 01/16/2013 ?Doctor: ?Collazo, Wing Wilcox ?Patient Type: ?[facility] Gram Stain ? Collected: 01/16/2013 22:20 Specimen: Swab ?? Specimen Source: Cervix Status: Final ??Last Update: 01/17/2013 11:30 Gram Stain ?? No intracellular Gram negative diplococci seen ?? Many Gram variable coccobacilli consistent with Gardnerella ?? seen ?? No yeast seen ?? Few neutrophils seen ? Gram stain pattern is suggestive of bacterial ?? vaginosis; clinical correlation is recommended. Performed at [facility] us Historical Provider LAB MICROBIOLOGY - GENERA L ORDERABLES Final Result HISTORICAL RESULTS documented in this encounter Visit Diagnoses Diagnosis Vaginitis and vulvovaginitis documented in this encounter
--- OUTSIDE RECORDS SUMMARY | 2024-05-25 00:59 | XMS_ITS | Encounter Summary ---
Author Organization [facility] Healthcare Address [address] [place] [address] Care Team Providers Care Compatibility Test Engineer Name Role Phone Carla De Jesus SAP BUSINESS OBJECTS DEVELOPER Primary Care Provider [phone] Encounter Details Date Type Department Care Team (Late st Contact Info) Description 01/26/2017 8:52 PM CDT - 01/27/2017 3:29 AM CDT Emergency [facility] Emergency Department [address] [place] [address] Unknown, Notinfile Discharge Disposition: Discharge to home or self care Social History Tobacco Use Types Packs/Day Years Used Date Smoking Tobacco: Never Assessed Comments Unknown Sex and Gender Information Value Date Recorded Sex Assigned at Not on file 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 Sex 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 Gender Identity Not on file Sexual Orientation Not on file documented as of this encounter Discharge Disposition Disposition Code Departure Means Destination Discharge to home or self care documented in this encounter Plan of Treatment Not on file documented as of this encounter Procedures Procedure Name Priority Date/Time Associated Diagnosis Comments XR CHEST PA LATERAL 2 VIEWS Routine 01/27/2017 4:34 AM CDT DISCHARGE LABORATORY CUMULATIVE REPORT 01/27/2017 12:00 AM CDT URINALYSIS AND REFLEX TO MICROSCOPIC AND CULTURE STAT 01/26/2017 9:26 PM CDT EGFR STAT 01/26/2017 9:18 PM CDT DIFFERENTIAL AUTO STAT 01/26/2017 9:1 8 PM CDT CBC WITH AUTO DIFFERENTIAL STAT 01/26 9:18 PM CDT TROPONIN T STAT 01/26/2017 9:18 PM CDT COMPREHENSIVE METABOLIC PANEL STAT 01/26/2017 9:18 PM CDT ELECTROCARDIOGRAPHY (ECG) 01/26/2017 documented in this encounter Results * XR Chest Pa Lateral 2 Views (01/27/2017 4:34 AM CDT) Anatomical Region Laterality Modality Body, Chest N/A Radiographic Greta ging 01/27/2017 4:34 AM CDT Narrative 01/27/2017 4:34 AM CDT Chest radiograph two-view study HISTORY: Chest pain. Findings lungs are clear. ??Heart size within normal limits. ??No acute demonstrates or pleural effusions. IMPRESSION: No acute cardiopulmonary changes. Electronically signed by: Mari Limon M.D. Radiologist: MARI LIMON ?? Attending: ??UNKNOWN, NOTINFILE ?? Requesting: LOVELESS, JUDI ?? Requesting Fax: ?? Requesting ID: [id number] Attending Fax: ?? Attending ID: ?? [id number] Completed Time: ?? 01/26/2017 11:34 PM Dictated Time: ?N/A Transcribed Time: 01/27/2017 07:47 AM Signed by: ?MARI LIMON ?? on 01/27/2017 07:47 AM Report To 1 ID: Report To 1 Name: , Report To 1 FAX: Report To 2 ID: Report To 2 Name: , Report To 2 FAX: Report To 3 ID: Report To 3 Name: , Report To 3 FAX: NextGen Order #: Procedure Note Miscellaneous, Not In File / Provider, MD Rebekah - 01/27/2017 Chest radiograph two-view study HISTORY: Chest pain. Findings lungs are clear. Heart size within normal limits. No acute demonstrates or pleural effusions. IMPRESSION: No acute cardiopulmonary changes. Electronically signed by: Mari Limon M.D. Radiologist: MARI LIMON Attending: UNKNOWN, NOTINFILE Requesting: JUDI LAWRENCE Requesting Requesting ID: [id number] Attending Attending ID: [id number] Completed Time: 01/26/2017 11:34 PM Dictated Time: N/A Transcribed Time: 01/27/2017 07:47 AM Signed by: MARI LIMON on 01/27/2017 07:47 AM Report To 1 ID: Report To 1 Name: , Report To 1 FAX: Report To 2 ID: Report To 2 Name: , Report To 2 FAX: Report To 3 ID: Report To 3 Name: , Report To 3 FAX: NextGen Order #: Judi RUTHERFORD IMG XR PROCEDURES Final Result * DISCHARGE LABORATORY CUMULATIVE REPORT (01/27/2017 12:00 AM CDT) Narrative 01/27/2017 12:00 AM CDT Ordered by an unspecified provider. Historical Provider LAB BLOOD ORDERABLES Janie l Result * Urinalysis reflex to microscopic and culture (01/26/2017 9:26 PM CDT) Color, ur Yellow Colorless [facility] Clarity, ur Clear Clear [facility] Specific gravity, ur 1.023 1.005 - 1.030 [facility] pH, ur 5.0 5.0 - 8.0 [facility] Protein, ur ql Negative Negative [facility] Glucose, ur ql Normal Normal [facility] Ketones, ur Negative Negative [facility] Bilirubin, ur Negative Negative [facility] Blood, ur Negative Negative [facility] Urobilinogen, ur Normal Normal [facility] Nitrites, ur Negative Negative [facility] Leukocyte esterase, ur Negative Negative [facility] Urine 01/26/2017 9:26 PM CDT 01/26/2017 9:31 PM CDT Narrative [facility] - 01/26/2017 9:35 PM CDT Urine reflex culture/sensitivity orders will generate a urine culture order ONLY when the WBC count on the urine microscopic exam is >10 WBCs per hpf. ??Urine reflex culture/sensitivity orders will generate a urine culture order ONLY when the WBC count on the urine microscopic exam is >10 WBCs per hpf. Titus Vance DO LAB MICROBIOLOGY - GENERAL ORDERABLES Final Result [facility] [address] [place] [address] * eGFR (01/26/2017 9:18 PM CDT) eGFR 93 mL/min/1.7 3 m2 [facility] Comment: Interpretive Data Reference Interval Normal ?>/= 90 mL/min/1.73m2 Mildly decreased* ? 60 - 89 mL/min/1.73m2 Mildly to moderately decreased ?45 - 59 mL/min/1.73m2 Moderately to severely decreased ??30 - 44 mL/min/1.73m2 Severely decreased ?15 - 29 mL/min/1.73m2 Kidney Failure ?< 15 ??mL/min/1.73m2 *Relative to young adult level If -Fijian multiply value by 1.16. Estimated glomerular filtration rate is determined by the CKD-EPI equation recommended by the National Kidney Foundation (KDIGO 2012 Clinical Practice Guideline for the Evaluation and Management of Chronic Kidney Disease. Kidney Intnl Suppl Jun 2012;3:1). The CKD-EPI equation should not be used for patients with unstable renal function and has not been validated in children and those over 70. Current interpretive data was last reviewed 2016. Blood specimen (specimen) 01/26/2017 9:18 PM CDT 01/26/2017 9:18 PM CDT Titus Vance DO LAB BLOOD ORDERABLES Final Result Performing Organization Address [facility] de Phone Number [facility] [address] Department [place] [address] * Troponin T (01/26/2017 9:18 PM CDT) [facility] Troponin T <0.01 <=0.01 ng/mL [facility] Comment: Interpretive Data. <0.01 ng/mL is Negative >0.01 ng/mL is above the 99th Percentile cutoff for a healthy population. May indicate risk, requires further evaluation. (Ref. Jimmy Monson et al.: AM J Med. 2003; 115:178-184) 0.1 ng/mL is World Health Organization diagnosis point for Acute M.I. 0.3 ng/mL is high probability of Acute M.I. Current Interpretive Data was last revised 2016. On September 02, 2016 Troponin I testing has been replaced with Troponin T. ??If you have any questions, please contact the Laboratory at [phone] Blood specimen (specimen) 01/26/2017 9:18 PM CDT 01/26/2017 9:18 PM CDT Titus Vance DO LAB BLOOD ORDERABLES Final Result Performing Organization Address [facility] de Phone Number [facility] [address] Department of Laboratories [place], [place] [id number] * Comprehensive metabolic panel (01/26/2017 9:18 PM CDT) [facility] Sodium 141 135 - 145 mmol/L [facility] Potassium, pl 3.9 3.6 - 5.2 mmol/L [facility] CO2 25 22 - 32 mmol/L [facility] BUN 11.0 8.0 - 25.0 mg/dL [facility] Glucose 91 70 - 199 mg/dL [facility] Comment: Interpretive Data Glucose is assumed to be non-fasting. Current interpretive data was last revised 2016. Creatinine 0.82 0.60 - 1.10 mg/dL [facility] Calcium 9.0 8.5 - 10.3 mg/dL [facility] Chloride 105 97 - 110 mmol/L [facility] Albumin 4.2 3.5 - 5.0 g/dL [facility] AST 19 10 - 45 Units/L [facility] Comment:Slightly Hemolyzed S pecimen ALT 11 7 - 45 Units/L [facility] Alk phos 42 40 - 130 Units/L [facility] Bilirubin, total 0.30 0.00 - 1.20 mg/dL [facility] Protein, pl 8.0 6.5 - 8.5 g/dL [facility] Anion gap 11 2 - 15 mmol/L [facility] Blood specimen (specimen) 01/26/2017 9:18 PM CDT 01/26/2017 9:18 PM CDT Titus Vance DO LAB BLOOD ORDERABLES Final Result [facility] [address] Department [place] [address] * Differential, auto (01/26/2017 9:18 PM CDT) Neutrophil pct 49.2 44.0 - 80.0 % [facility] Imm gran pct 0.1 0.0 - 1.0 % [facility] Lymphocyte pct 40.4 13.0 - 44.0 % [facility] Monocyte pct 7.2 2.0 - 11.0 % [facility] Eosinophil pct 2.5 0.0 - 6.0 % [facility] Basophil pct 0.6 0.0 - 3.0 % [facility] Neutrophil abs 3.99 1.70 - 6.50 K/cumm [facility] Imm gran abs 0.01 0.00 - 0.10 K/cumm [facility] Lymphocyte abs 3.27 0.80 - 3.30 K/cumm [facility] Monocyte abs 0.58 0.20 - 0.80 K/cumm [facility] Eosinophil abs 0.20 0.00 - 0.50 K/cumm [facility] Basophil abs 0.05 0.00 - 0.10 K/cumm [facility] Blood specimen (specimen) 01/26/2017 9:18 PM CDT 01/26/2017 9:18 PM CDT Titus Vance DO LAB BLOOD ORDERABLES Final Result Performing Organization Address [facility]/ZIP Co de Phone Number [facility] [address] Department [place] [address] * CBC with auto differential (01/26/2017 9:18 PM CDT) WBC 8.10 3.80 - 9.90 K/cumm [facility] RBC 4.17 3.90 - 5.20 M/cumm [facility] Hgb 12.1 11.9 - 15.5 g/dL [facility] Hct 36.9 35.6 - 45.5 % [facility] MCV 88.5 81.3 - 96.4 fL [facility] MCH 29.0 27.1 - 33.3 pg [facility] MCHC 32.8 32.3 - 35.7 g/dL [facility] RDW CV 13.9 11.1 - 14.9 % [facility] RDW SD 44.9 35.7 - 48.1 fL [facility] Plt 305 150 - 400 K/cumm [facility] MPV 9.7 9.1 - 12.3 fL [facility] NRBC 0.00 0.00 - 0.20 % [facility] NRBC abs 0.00 0.00 - 0.01 K/cumm [facility] Blood specimen (specimen) 01/26/2017 9:18 PM CDT 01/26/2017 9:18 PM CDT Titus Vance DO LAB BLOOD ORDERABLES Final Result Performing Organization Address [facility]/ZIP Co de Phone Number [facility] [address] Department [place] [address] * ELECTROCARDIOGRAPHY (ECG) (01/26/2017) us Provider Scanning ECG ORDERABLES Final Result documented in this encounter Visit Diagnoses Not on filedocumented in this encounter Care Teams Compatibility Test Engineer Relationship Specialty Start Date End Date Carla De Jesus NP [address] [place] [address] PCP - General 01/26/17 06/20/19 documented as of this encounter
--- OUTSIDE RECORDS SUMMARY | 2024-05-25 00:59 | XMS_ITS | Encounter Summary ---
Author Organization [facility] Healthcare Address [address] [place] [address] Care Team Providers Care Geographic Information System Analyst Name Role Phone Unavailable Primary Care Provider Unavailabl e Encounter Details Date Type Department Care Team (Late st Contact Info) Description 06/17/2016 4:46 PM PAPER PRODUCTS PRINTER - 06/17/2016 6:23 PM PAPER PRODUCTS PRINTER Hospital Encounter Izabela Vasquez Acute upper respiratory infection Social History Tobacco Use Types Packs/Day Years Used Date Smoking Tobacco: Never Assessed Comments Unknown Sex and Gender Information Value Date Recorded Sex Assigned at Not on file Legal Sex Female 11:17 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 Gender Identity Not on file Sexual Orientation Not on file documented as of this encounter Plan of Treatment Not on file documented as of this encounter Procedures Procedure Name Priority Date/Time Associated Diagnosis Comments XR CHEST PA LATERAL 2 VIEWS Routine 06/17/2016 5:56 PM PAPER PRODUCTS PRINTER documented in this encounter Results * XR Chest Pa Lateral 2 Views (06/17/2016 5:56 PM PAPER PRODUCTS PRINTER) Anatomical Region Laterality Modality Body, Chest N/A Radiographic Greta ging 06/17/2016 5:56 PM PAPER PRODUCTS PRINTER Narrative 06/17/2016 8:48 PM PAPER PRODUCTS PRINTER DATE OF EXAM: ??Jun 17 2016 ??5:56PM Acc#: ??[id number] ??[id number] - XR Chest 2 Views ?? DIAGNOSIS: ??COUGH, CHEST PAIN CLINICAL HISTORY: ?? Cough_Cough RESULT: \ EXAMINATION: ??PA AND LATERAL CHEST RADIOGRAPHS. ? FINDINGS: ??Comparison is made to the radiographic examination dated 03/11/2015. The lungs are free of acute peripheral opacities. There is no pneumothorax or pleural effusion. ??The heart size is normal. ??There is mild elevation of the left hemidiaphragm. The ??visualized osseous structures appear intact. Surgical clips present within the right upper abdominal quadrant are likely from cholecystectomy. IMPRESSION: ?\ NO ACUTE CARDIOPULMONARY ABNORMALITY. ?? CORPORATE TRAVEL MANAGER: ??DM2 TRANSCRIBE DATE/TIME: ??Jun 17 2016 ??7:51P RADIOLOGIST: ??AMINAH CURRY M.D. ??READ ON: ??Jun 17 2016 ??5:58P ORDERING DR: JARAD SOLIZ [facility] THIS DOCUMENT HAS BEEN ELECTRONICALLY SIGNED BY: ??AMINAH CURRY M.D. ??ON: ??Jun 17 2016 ??8:48P Attending: ??VAHID, ??IZABELA Requesting: ??HEYDI, ??JARAD Requesting Fax: ??[phone] Attending Fax: ??-- Attending ID: ??[id number] Requesting ID: ??[id number] Report To 1 ID: ?? Report To 1 Name: ??, ?? Report To 1 FAX: ??-- Report To 2 ID: ?? Report To 2 Name: ??, ?? Report To 2 FAX: ??-- NextGen Order #: ?? Procedure Note Provider, MD Rebekah - 11/14/2016 DATE OF EXAM: Jun 17 2016 5:56PM Acc#: [id number] - XR Chest 2 Views DIAGNOSIS: COUGH, CHEST PAIN CLINICAL HISTORY: Cough_Cough RESULT: \ EXAMINATION: PA AND LATERAL CHEST RADIOGRAPHS. FINDINGS: Comparison is made to the radiographic examination dated 03/11/2015. The lungs are free of acute peripheral opacities. There is no pneumothorax or pleural effusion. The heart size is normal. There is mild elevation of the left hemidiaphragm. The visualized osseous structures appear intact. Surgical clips present within the right upper abdominal quadrant are likely from cholecystectomy. IMPRESSION: \ NO ACUTE CARDIOPULMONARY ABNORMALITY. CORPORATE TRAVEL MANAGER: ROBINSON TRANSCRIBE DATE/TIME: Jun 17 2016 7:51P RADIOLOGIST: AMINAH CURRY M.D. READ ON: Jun 17 2016 5:58P ORDERING DR: JARAD SOLIZ DRILLING FIELD OPERATOR THIS DOCUMENT HAS BEEN ELECTRONICALLY SIGNED BY: AMINAH CURRY M.D. ON: Jun 17 2016 8:48P Attending: IZABELA REDDING Requesting: JARAD SOLIZ Requesting Attending Fax: -- Attending ID: [id number] Requesting ID: [id number] Report To 1 ID: Report To 1 Name: , Report To 1 FAX: -- Report To 2 ID: Report To 2 Name: , Report To 2 FAX: -- NextGen Order #: Historical Provider MD WELCH XR PROCEDURES Final R esult documented in this encounter Visit Diagnoses Diagnosis Acute upper respiratory infection Acute upper respiratory infections of unspecified site documented in this encounter
--- OUTSIDE RECORDS SUMMARY | 2024-05-25 00:59 | XMS_ITS | Encounter Summary ---
Author Organization [facility] Healthcare Address [address] [place] [address] Care Team Providers Care Metallographic Technician Name Role Phone Unavailable Primary Care Provider Unavailabl e Encounter Details Date Type Department Care Team (Late st Contact Info) Description 11/03/2008 12:20 PM CDT - 11/03/2008 1:34 PM CDT Hospital Encounter [facility] Kamla Celestin, KR[address] [place] [address] Candidiasis of vulva and vagina Social History Tobacco Use Types Packs/Day Years Used Date Smoking Tobacco: Never Assessed Comments Unknown Sex and Gender Information Value Date Recorded Sex Assigned at Not on file 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
--- OUTSIDE RECORDS SUMMARY | 2024-05-25 00:59 | XMS_ITS | Encounter Summary ---
Author Organization [facility] Care Team Providers Care Corporate Banking Officer Name Role Phone Mag Valdes MD Primary Care Provider [phone] Shaji Zambrano MD Unavailable [phone] Encounter Details Date Type Department Care Team (Latest Contact Info) Description 06/28/2019 Travel Social History Tobacco Use Types Packs/Day Years Used Date Smoking Tobacco: Never Alcohol Use Standard Drinks/Week Comments Not Currently 0 (1 standard drink = 0.6 oz pur e alcohol) Comments Unknown Sex and Gender Information Value Date Recorded Sex Assigned at Not on file 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
--- OUTSIDE RECORDS SUMMARY | 2024-05-25 00:59 | XMS_ITS | Encounter Summary ---
Author Organization [facility] Healthcare Address [address] [place] [address] Care Team Providers Care Photographic Equipment Assembler Name Role Phone Unavailable Primary Care Provider Unavailabl e Encounter Details Date Type Department Care Team (Late st Contact Info) Description 03/01/2007 12:39 PM CDT - 03/01/2007 5:28 PM CDT Hospital Encounter [facility] Wing Collazo MD [address] [place], [place] [id number] Social History Tobacco Use Types Packs/Day Years Used Date Smoking Tobacco: Never Assessed Comments Unknown Sex and Gender Information Value Date Recorded Sex Assigned at Not on file Legal Sex Female 11:17 AM 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
--- OUTSIDE RECORDS SUMMARY | 2024-05-25 00:59 | XMS_ITS | Encounter Summary ---
Author Organization [facility] Healthcare Address [address] [place] [id number] Care Team Providers Care Patrol Conductor Name Role Phone Shaji Zambrano MD Unavailable Cookie Subramanian MD Primary Care Provider [phone] Reason for Visit * Reason Comments Chest Pain Encounter Details Date Type Department Care Team (Late st Contact Info) Description 03/30/2023 8:03 AM CDT - 03/30/2023 12:52 PM CDT Emergency [facility] Emergency Department [address] [place] [id number] Geneva Glaser MD [address] [place] [address] Chest pain, non-cardiac (Primary Dx) Discharge Disposition: Discharge to home or self [...] on file 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 UNTIL YOU FEEL BETTER CALL YOUR PRIMARY CARE DOCTOR FOR RE-EVALUATION WITHIN THE NEXT 2-3 WEEKS IT IS OKAY FOR YOU TO CONTINUE THE ANTIFUNGAL FOR YOUR TOENAIL INFECTION. JUST BE SURE TO TAKE IT WITH FOOD * Attachments The following attachments cannot be sent through Care Everywhere. * Chest Pain, Noncardiac (Irish) documented in this encounter Medications at Time [...] for pain documented as of this encounter Discharge Disposition Disposition Code Departure Means Destination Comment s Discharge to home or self care documented in this encounter ED Notes * Geneva Glaser MD - 03/30/2023 8:44 AM CDT HPI Chief Complaint Patient presents with Chest Pain 42 YO F NO SIGNIFICANT MEDICAL HISTORY OTHER THAN CHOLECYSTECTOMY TO THE EMERGENCY DEPARTMENT COMPLAINING OF SUDDEN ONSET OF MID CHEST PRESSURE STABBING PAIN THIS MORNING WHILE GETTING READY FOR WORKAND BRUSHING HER TEETH THE SEVERE PAIN THAT WAS 10/10 LASTED 2 MINUTES. SHE DENIES FEELING LIGHTHEADED, DIZZY, SHORT OF BREATH. THE PAIN WAS NONRADIATING. SHE DENIES BACK PAIN. SINCE THAT TIME AFTER CALLING THE AMBULANCE PAIN HAS BEEN COMING AND GOING NOT PRESENT CURRENTLY. PAIN UPON ARRIVAL WAS 6/10. 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 PATIENT HAS BEEN TAKING THE MELOXICAM WITH FOOD. SHE DENIESANY NAUSEA, VOMITING OR ABDOMINAL PAIN. PT DENIES HX OF [place], CHF OR EVER HAVING A STRESS TEST OR ECHO PATIENT ALSO MENTIONS THAT FOR THE LAST MONTH SHE IS HAD DYSFUNCTIONAL UTERINE BLEEDING WITH MULTIPLE MENSTRUAL CYCLES THIS AND IS CONCERNED FOR ABNORMAL BLEEDING MAYBE RELATED TO HER RECENTLY STARTING THE 2 MEDICATIONS. 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 Patient History: Patient Active Problem List Diagnosis Date Noted Vaginal bleeding 04/22/2022 Mae's cyst, unruptured, right 06/28/2019 History reviewed. No pertinent past medical history. Past Surgical History: Procedure Laterality Date CHOLECYSTECTOMY 2008 HERNIA REPAIR 2002 Family History Problem Relation Age of Onset No Known Problems Mother No Known Problems Father No Known Problems Sister No Known Problems Brother Social History Tobacco Use Smoking status: Never Smokeless tobacco: None Substance and Sexual Activity Alcohol use: Not Currently Drug use: None Sexual activity: None Social History Social History Narrative Not on file Review of Systems Review of Systems Constitutional: Negative for chills. Respiratory: Negative for cough and shortness of breath. Cardiovascular: Positive for chest pain. Gastrointestinal: Positive for vomiting. Negative for nausea. Genitourinary: Positive for vaginal bleeding. Negative for pelvic pain. Musculoskeletal: Negative for back pain. Neurological: Negative for dizziness and light-headedness. All other systems reviewed and are negative. Physical Exam ED Triage Vitals [03/30/23 0807] Temp Pulse Resp BP SpO2 36.7 ??C (98.1 ??F) 74 20 115/73 100 % Temp src Heart Rate Source Patient Position BP Location FiO2 (%) Oral -- -- -- -- Height Height Method Weight Weight Method 1.702 m (5' 7 ) Stated 86.2 kg (190 lb) Stated Physical Exam Vitals and nursing note reviewed. Constitutional: General: She is not in acute distress. Appearance: Normal appearance. She is not ill-appearing. HENT: Mouth/Throat: Mouth: Mucous membranes are moist. Eyes: Extraocular Movements: Extraocular movements intact. Neck: Comments: NO JVD APPRECIATED Cardiovascular: Rate and Rhythm: Normal rate and regular rhythm. Pulses: Normal pulses. Heart sounds: Normal heart sounds. No murmur heard. Pulmonary: Effort: Pulmonary effort is normal. No respiratory distress. Breath sounds: Normal breath sounds. Comments: SPEAKING IN FULL AND COMPLETE SENTENCES Chest: Chest wall: Tenderness present. Abdominal: Palpations: Abdomen is soft. Tenderness: There is no abdominal tenderness. There is no guarding or rebound. Musculoskeletal: General: No tenderness. Normal range of motion. Cervical back: Normal range of motion. Right lower leg: No edema. Left lower leg: No edema. Skin: General: Skin is warm and dry. Capillary Refill: Capillary refill takes less than 2 seconds. Neurological: Mental Status: She is alert and oriented to person, place, and time. Psychiatric: Mood and Affect: Mood normal. MDM Medical Decision Making Amount and/or Complexity of Data Reviewed Labs: ordered. Radiology: ordered. ECG/medicine tests: ordered. Risk OTC drugs. Prescription drug management. Heart Score History: Chest discomfort Unexplained Dyspnea Relieved by Rest or Nitro Unexplained arm/back/jaw pain Provoked by exertion or emotional stress 3+ symptoms = 2 pts 2 symptoms = 1 pt 0-1 symptoms = 0 pt EC pts - new Ischemic changes --> Ischemic ST segment depression >1mm --> New Ischemic T wave inversions >2mm -->Transient ST elevation / ST elevation 1 pt - non-specific changes --> repolarization abnormalities -->non-specific ST elevation changes --> pacemaker rhythms --> digoxin effect, LVH, bundle branch blocks 0 pt - Normal EKG AGE: 2 Pt if > 65 years 1 pt if 45-65 years 0 pt if <45 years. RISK FACTORS: Obesity (BMI>30) Current/recent smoker (<90d) Diabetes FmHx CAD (1st deg rel <55) HTN Hypercholesterolemia Known CAD = 2 pts CVA = 2 pts PAD = 2 pts 3 or more risk factors = 2 pts 1-2 risk factors = 1 pt No risk factors = 0 pt TROPONIN: 2 pts = > 3x normal 1 pts = + to 3x normal 0 pt = negative TOTAL SCORE: 0 > 7 ~ HIGH RISK ~ Ischemic EKG or +Troponin Or Highly/Moderately Suspicious Chest pain 4-6 ~ Intermediate Risk ~ Observation status 0-3 ~ Low Risk ~ consider Outpatient Evaluation. ED Course as of 03/30/231216 Time: 03/30 825 Comment: EKG OBTAINED AT 8:10 A.M.: SINUS RHYTHM, RATE 67, QRS 85, QTC 414. NORMAL AXIS DEVIATION. NO SIGNS OF ACUTE ISCHEMIA. NO ARRHYTHMIAS. INTERVALS OTHERWISE WITHIN NORMAL LIMITS By: Geneva Glaesr MD Time: 03/30 1022 Comment: EXAMINATION: XR CHEST 1 VIEW HISTORY: The patient is a 42-year-old female who presents with chest pain. Comparison made with the previous study dated 01/26/2017. TECHNIQUE: AP portable view of the chest. FINDINGS: Lungs clear. Cardiovascular structures unremarkable. IMPRESSION: No active disease. Electronically signed by: Santiago Roberto M.D By: Geneva Glaser MD Time: 03/30 1210 Comment: PATIENT REMAINS PAIN-FREE TROPONIN NEGATIVE X2 By: Geneva Glaser MD Final diagnoses: Chest pain, non-cardiac Geneva Glaser MD 03/30/23 1217 * Ange Briggs, CLAUDIA - 03/30/2023 8:05 AM CDT Patient just got home from work and had a sudden onset of substernal chest pain rated as a 10/10. Patient son called EMS. Upon arrival chest pain has improved. * Efe Tian RN - 03/30/2023 8:03 AM CDT Bed: ED11 Expected date: Expected time: Means of arrival: Comments: EMS Efe Tian RN 03/30/23 0803 documented in this encounter Plan of Treatment Not on file documented as of this encounter Procedures Procedure Name Priority Date/Time Associated Diagnosis Comments POCT HCG, URINE Routine 03/30/2023 11:05 AM CDT URINALYSIS AND REFLEX TO MICROSCOPIC AND CULTURE STAT 03/30/2023 10:14 AM CDT URINALYSIS, MICROSCOPIC ONLY STAT 03/30/2023 10:14 AM CDT TROPONIN T HIGH-SENSITIVITY 2-HOUR Timed 03/30/2023 10:04 AM CDT XR CHEST 1 VIEW ED 03/30/2023 9:16 AM CDT APTT STAT 03/30/2023 8:36 AM CDT PROTIME-INR STAT 03/30/2023 8:36 AM CDT TROPONIN T HIGH-SENSITIVITY SERIES (BASELINE, 2HR, 4HR, 6HR) STAT 03/30/2023 8:14 AM CDT EGFR STAT 03/30/2023 8:14 AM CDT DIFFERENTIAL AUTO STAT 03/30/2023 8:1 4 AM CDT PRO B-TYPE NATRIURETIC PEPTIDE Add-On 03/30/2023 8:14 AM CDT CBC WITH AUTO DIFFERENTIAL STAT 03/30/2023 8:14 AM CDT MAGNESIUM Add-On 03/30/2023 8:14 AM CDT COMPREHENSIVE METABOLIC PANEL STAT 03/30/2023 8:14 AM CDT ECG 12-LEAD STAT 03/30/2023 8:10 AM CDT POCT RAPID HIV ANTIBODY COMMUNITY SCREENING-CIPRIANO ELIGIBLE Routine 03/30/2023 8:07 AM CDT documented in this encounter Results * POCT hCG, urine (03/30/2023 11:05 AM CDT) Pathologist [facility] HCG, ur, POC Negative Negative Lot Number [id number] QC Backgroud Clear Acceptable QC Control Line Acceptable Urine 03/30/2023 11:0 5 AM CDT Geneva Glaser MD POINT OF CARE TEST ORDERA BLES Final Result * (ABNORMAL) Urinalysis, microscopic only (03/30/2023 10:14 AM CDT) Pathologist [facility] WBC, ur 0-5 0 - 5 /HPF SONNY Comment:Testing performed by : [facility], [place] [address] RBC, ur 0-2 0 - 2 /HPF SONNY Comment:Testing [facility] : [facility] [address], [place], [place] [address] Epithelial cells, squamous, ur 1-5 0 - 5 /HPF SONNY Comment:Testing performed [facility] : [facility] [address], [place] [address] Bacteria, ur Trace(A) SONNY Comment:Testing performed by : [facility] [address], [place] [address] Culture Reflex Comment Reflex conditions for urine culture (WBC >10) not met. SONNY Comment:Testing performed [facility] : [facility] [address], [place] [address] Urine 03/30/2023 10:1 4 AM CDT 03/30/2023 10:17 AM CDT us Geneva Glaser MD LAB URINE ORDERABLES Janie chamberlain Result [facility] [address] [address] Department [place] [address] * (ABNORMAL) Urinalysis reflex to microscopic and culture Urine (03/30/2023 10:14 AM CDT) Color, ur Straw Yellow SONNY Comment:Testing performed [facility] : [facility] [address], [place] [address] Clarity, ur Clear Clear SONNY Comment:Testing performed by : [facility] [address], [place] [address] Specific gravity, ur 1.004 1.003 - 1.030 SONNY Comment:Testing performed by : [facility] [address], [place] [address] pH, urine 7.0 SONNY Comment: Interpretive Data ? Urine pH is affected by diet, medications, systemic acid-base disturbances, and renal tubular function. ??pH may affect urinary stone formation. ??For example, urine pH below 6.0 may help reduce the tendency for calcium phosphate stones and pH greater than 6.0 may reduce the tendency for uric acid stone formation. Source: [employer] Current Interpretive Data was last revised on 2017 Testing performed by: [facility] [address], [place] [address] Protein, ur ql Negative Negative SONNY Comment:Testing performed by : [facility], [address], [place] [address] Glucose, ur ql Negative Negative SONNY BECKER Comment:Testing performed by : [facility], [address] [place] [address] Ketones, ur Negative Negative SONNY BECKER Comment:Testing performed by : [facility], [address] [place] [address] Bilirubin, ur Negative Negative SONNY BECKER Comment:Testing performed by : [facility], [address] [address] Blood, ur 3+(A) Negative SONNY Comment:Testing performed by : [facility], [address], [place] [address] Urobilinogen, ur <2.0 <2.0 mg/dL SONNY BECKER Comment:Testing performed by : [facility], [place] [address] Nitrite, ur Negative Negative SONNY Comment:Testing performed by : [facility], [place] [address] Leukocyte esterase, ur Negative Negative SONNY Comment:Testing performed by : [facility] [address], [place], [place] [address] UA reflex comment Reflex to microscopic UA will be performed. SONNY Comment:Testing performed by : [facility], [place] [address] Urine 03/30/2023 10:1 4 AM CDT 03/30/2023 10:17 AM CDT us Geneva Glaser MD LAB MICROBIOLOGY - GENERA L ORDERABLES Final Result [facility] [address] Department of Laboratories [place], [place] [id number] * Troponin T high-sensitivity 2-hour (03/30/2023 10:04 AM CDT) Trop T hs <6 <=14 ng/L SONNY Comment: Slight hemolysis may result in decreased troponin measurement. Consider recollection. Interpretive Data For further hscTnT resources including the diagnostic algorithm and an aid in interpretation, copy and paste this link: https://nrl.testcatalog.org/show/hsTrop Current Interpretive Data last revised 2020. Testing performed by: [facility], [place] [address] Trop T hs delta 0 ng/L SONNY Comment:Testing performed by : [facility], [address] [place] [address] Trop T hs interp Insignificant SONNY BECKER Comment:Testing performed by : [facility], [address] [place] [address] Blood 03/30/2023 10:0 4 AM CDT 03/30/2023 10:07 AM CDT Geneva Glaser MD LAB BLOOD ORDERABLES Janie l Result SONNY [address] [address] Department [place] [address] * XR Chest 1 Vw Portable (03/30/2023 9:16 AM CDT) Anatomical Region Laterality Modality Body, Chest N/A Computed Radiogr aphy 03/30/2023 9:48 AM CDT Impressions 03/30/2023 9:48 AM CDT No active disease. Electronically signed by: Santiago Roberto M.D. Narrative 03/30/2023 9:48 AM CDT EXAMINATION: XR CHEST 1 VIEW HISTORY: The patient is a 42-year-old female who presents with chest pain. Comparison made with the previous study dated 01/26/2017. TECHNIQUE: AP portable view of the chest. FINDINGS: Lungs clear. ??Cardiovascular structures unremarkable. Procedure Note Santiago Roberto MD - 03/30/2023 EXAMINATION: XR CHEST 1 VIEW HISTORY: The patient is a 42-year-old female who presents with chest pain. Comparison made with the previous study dated 01/26/2017. TECHNIQUE: AP portable view of the chest. FINDINGS: Lungs clear. Cardiovascular structures unremarkable. IMPRESSION: No active disease. Electronically signed by: Santiago Roberto M.D. Geneva Glaser MD IMG XR PROCEDURES Final R esult * aPTT (03/30/2023 8:36 AM CDT) aPTT 33 28 - 38 sec SONNY BECKER Comment: Interpretive Data Heparin therapeutic range: 66.0 - 100.0 seconds. Range based on correlation with therapeutic heparin activity range of 0.3 - 0.7 Units/mL. Current interpretive data was last revised on 2023. Testing performed by: [facility], [facility] [place] [address] Blood 03/30/2023 8:36 AM CDT 03/30/2023 8:37 AM CDT Geneva Glaser MD LAB BLOOD ORDERABLES Janie l Result Performing Organization Address City/[facility] Co de Phone Number SONNY [address] [address] [facility] [place] [address] * Protime-INR (03/30/2023 8:36 AM CDT) PT 11.1 10.3 - 13.7 sec SONNY Comment:Testing performed by : [facility], [facility] [place] [address] INR 0.97 0.90 - 1.20 SONNY Comment: Interpretive data Oral anticoagulant therapeutic ranges: Venous thromboembolism prophylaxis or treatment: 2.0-3.0 CARDIOLOGY Standard range: 2.0-3.0 High-intensity range: 2.5-3.5 Refer to indication-specific guidelines for appropriate target ranges for prosthetic heart valve replacement. Current interpretive data was last revised on 2019. Testing performed by: [facility], [facility] [place] [address] Blood 03/30/2023 8:36 AM CDT 03/30/2023 8:37 AM CDT Geneva Glaser MD LAB BLOOD ORDERABLES Janie l Result Performing Organization Address City/[facility]/ZIP Co de Phone Number [facility] [address] [address] [facility] [place] [address] * eGFR (03/30/2023 8:14 AM CDT) eGFR 99 mL/min/1. 73 m2 SONNY BECKER Comment: Interpretive Data Reference Interval Normal ?>/= [...] Current interpretive data was last reviewed 2021. Testing performed by: [facility], [place] [address] Blood 03/30/2023 8:14 AM CDT 03/30/2023 8:18 AM CDT Geneva Glaser MD LAB BLOOD ORDERABLES Janie chamberlain Result [facility] [address] Department [place] [address] * Magnesium (03/30/2023 8:14 AM CDT) Magnesium 1.9 1.4 - 2.5 mg/dL SONNY BECKER Comment:Testing performed by : [facility], [place] [address] Blood 03/30/2023 8:14 AM CDT 03/30/2023 8:35 AM CDT us Geneva Glaser MD LAB BLOOD ORDERABLES Janie chamberlain Result S[place]NY [place] [address] Department [place] [address] * Pro B-type natriuretic peptide (03/30/2023 8:14 AM CDT) NT-proBNP <36 <=300 pg/mL SONNY BECKER Comment: Interpretive Comments: A. Dyspnea in Acute Care Setting All Ages: ?< 300 pg/ml, acute heart failure unlikely. < 50 yrs: ?300 - 450 pg/ml, further investigation warranted. ? > 450 pg/ml, acute heart failure likely. 50 - 74 yrs: ? 300 - 900 pg/ml, further investigation warranted. ? > 900 pg/ml, acute heart failure likely . > or = 75 yrs: ? 450 - 1800 pg/ml, further investigation warranted. ? > 1800 pg/ml, acute heart failure likely. B. Non-acute Setting < 75 yrs ? < 125 pg/ml, rules out heart failure. ? > or = 125 pg/ml, further investigation warranted. > or = 75 yrs ?< 450 pg/ml, rules out heart failure. ? > or = 450 pg/ml, further investigation warranted. - Knowledge of each individual patient's NT-proBNP range may be more useful than using similar cut-points for every patient. Please note that marked elevations in NT-proBNP levels may be observed in state other than Left Ventricular Congestive Failure, including: acute coronary syndromes, right heart strain/failure (including pulmonary embolism and cor pulmonale), critical illness, renal failure, as well as advanced age. - References: 1. Lester ALDRIDGE et.al. Eur Heart J. 2006:27:330-337. 2. Favio RW, Estrada TAYLOR. J. AM Homar Cardiol: Cardiovasc Imag. 2009;2: 216- 225. Interpretive Data Last Revised Date: 2018. Testing performed by: [facility], [address] [place] [address] [place] [address] Blood 03/30/2023 8:14 AM CDT 03/30/2023 8:35 AM CDT us Geneva Glaser MD LAB BLOOD ORDERABLES Janie chamberlain Result [facility] [address] [address] Department [place] [address] * Differential, auto (03/30/2023 8:14 AM CDT) Neutrophil abs 3.0 1.7 - 6.5 K/cumm CERNER Comment:Testing performed by : [facility], [address] [place] [address] [place] [address] Imm gran abs 0.0 0.0 - 0.1 K/cumm CERNER Comment:Testing performed by : [address] [place] [address] Lymphocyte abs 2.4 0.8 - 3.3 K/cumm CERNER CH Comment:Testing performed by : [address] [place] [address] Monocyte abs 0.6 0.2 - 0.8 K/cumm CERNER Comment:Testing performed by : [place] [address] [place] [address] Eosinophil abs 0.1 0.0 - 0.5 K/cumm CERNER CH Comment:Testing performed by : [place] [address] [place] [address] Basophil abs 0.0 0.0 - 0.1 K/cumm CERNER CH Comment:Testing performed by : [facility], [facility] [place] [address] Neutrophil pct 49.5 % CERNER Comment: Interpretive Data Percent cell count reference ranges are not reported, since discordance with absolute values may lead to misinterpretation of CBC data. Current Interpretive Data was last revised on 2017. Testing performed by: [facility], [place] [address] Imm gran pct 0.3 % CERNER Comment: Interpretive Data Percent cell count reference ranges are not reported, since discordance with absolute values may lead to misinterpretation of CBC data. Current Interpretive Data was last revised on 2017. Testing performed by: [facility], [place] [address] Lymphocyte pct 38.9 % CERNER Comment: Interpretive Data Percent cell count reference ranges are not reported, since discordance with absolute values may lead to misinterpretation of CBC data. Current Interpretive Data was last revised on 2017. Testing performed by: [facility], [place] [address] Monocyte pct 9.2 % CERNER Comment: Interpretive Data Percent cell count reference ranges are not reported, since discordance with absolute values may lead to misinterpretation of CBC data. Current Interpretive Data was last revised on 2017. Testing performed by: [facility], [address] [place] [address] Eosinophil pct 1.6 % [facility] Comment: Interpretive Data Percent cell count reference ranges are not reported, since discordance with absolute values may lead to misinterpretation of CBC data. Current Interpretive Data was last revised on 2017. Testing performed by: [facility], [place] [address] Basophil pct 0.5 % CERNER Comment: Interpretive Data Percent cell count reference ranges are not reported, since discordance with absolute values may lead to misinterpretation of CBC data. Current Interpretive Data was last revised on 2017. Testing performed by: [facility], [address] [place] [address] Blood 03/30/2023 8:14 AM CDT 03/30/2023 8:18 AM CDT us Geneva Glaser MD LAB BLOOD ORDERABLES Janie cintia Result [facility] [address] Department of Laboratories [place], [place] [id number] * Troponin T high-sensitivity series (baseline, 2hr, 4hr, 6hr) (03/30/2023 8:14 AM CDT) Trop T hs <6 <=14 ng/L CERNER CH Comment: Interpretive Data For further hscTnT resources including the diagnostic algorithm and an aid in interpretation, copy and paste this link: https://nrl.testcatalog.org/show/hsTrop Current Interpretive Data last revised 2020. Testing [facility]: [facility] [address], [place] [address] Blood 03/30/2023 8:14 AM CDT 03/30/2023 8:18 AM CDT us Geneva Glaser MD LAB BLOOD ORDERABLES Janie chamberlain Result [facility] [address] [address] Department [place] [address] * Comprehensive metabolic panel (03/30/2023 8:14 AM CDT) Sodium 137 135 - 145 mmol/L CERNER CH Comment:Testing performed by : [facility] [address], [place] [address] Potassium, pl 4.1 3.3 - 4.9 mmol/L CERNER CH Comment:Testing performed by : [facility] [address], [place] [address] Chloride 104 97 - 110 mmol/L CERNER Comment:Testing performed by : [facility] [address] [place] [address] CO2 25 22 - 32 mmol/L CERNER CH Comment:Testing performed by : [facility] [address], [place] [address] Anion gap 8 2 - 15 mmol/L CERNER CH Comment:Testing performed by : [facility] [address] [place] [address] BUN 14 6 - 25 mg/dL CERNER CH Comment:Testing performed by : [facility] [address], [place] [address] Creatinine 0.77 0.60 - 1.10 mg/dL CERNER CH Comment:Testing performed by : [facility] [address], [place] [address] Glucose 107 70 - 199 mg/dL CERNER CH Comment: Interpretive Data Fasting glucose >/= 126 [...] classification and Diagnosis of Diabetes Diabetes Care 2021; 46: S19-S40. Current interpretive data was last revised 2022. [facility] performed by: [facility] [address], [place] [address] Calcium 9.2 8.5 - 10.3 mg/dL CERNER CH Comment:Testing performed by : [facility] [address], [place] [address] Bilirubin, total 0.2 0.1 - 1.2 mg/dL CERNER CH Comment:Testing performed by : [facility] [address], [place] [address] Protein, pl 6.9 6.5 - 8.5 g/dL CERNER CH Comment:Testing performed by : [facility] [address], [place] [address] Albumin 3.9 3.5 - 5.0 g/dL CERNER CH Comment:Testing performed by : [facility] [address], [place] [address] Alk phos 47 40 - 130 Units/L CERNER CH Comment:Testing performed by : [facility] [address], [place] [address] ALT 12 7 - 45 Units/L CERNER CH Comment:Testing performed by : [facility] [address], [place] [address] AST 18 10 - 45 Units/L CERNER CH Comment:Testing performed by : [facility] [address], [place] [address] Blood 03/30/2023 8:14 AM CDT 03/30/2023 8:18 AM CDT Geneva Glaser MD LAB BLOOD ORDERABLES Janie chamberlain Result [facility] [address] Department [place] [address] * (ABNORMAL) CBC with auto differential (03/30/2023 8:14 AM CDT) [facility] WBC 6.1 3.8 - 9.9 K/cumm CERNER Comment:Testing performed by : [facility] [address], [place] [address] Hgb 12.7 11.9 - 15.5 g/dL CERNER Comment: Interpretive Data A reference range for this assay has not been established for patients with an unknown legal sex. Please refer to the laboratory test catalog for established sex-specific reference intervals. Current interpretive data was last revised on 2023. Testing performed by: [facility] [address], [place] [address] Hct 40.2 35.6 - 45.5 % CERNER Comment: Interpretive Data A reference range for this assay has not been established for patients with an unknown legal sex. Please refer to the laboratory test catalog for established sex-specific reference intervals. Current interpretive data was last revised on 2023. Testing performed by: [facility] [address], [place] [address] Plt 288 150 - 400 K/cumm [facility] Comment:Testing performed by : [facility] [address], [place] [address] MPV 9.0(L) 9.1 - 12.3 fL [facility] performed [facility] : [facility] [place] [address] RBC 4.33 3.90 - 5.20 M/cumm CERNER Comment: Interpretive Data A reference range for this assay has not been established for patients with an unknown legal sex. Please refer to the laboratory test catalog for established sex-specific reference intervals. Current interpretive data was last revised on 2023. Testing performed by: [facility] [address], [place] [address] MCV 92.8 81.3 - 96.4 fL CERNER Comment:Testing performed by : [facility] [address], [place] [address] MCH 29.3 27.1 - 33.3 pg SONNY Comment:Testing performed by : [facility], [place] [address] MCHC 31.6(L) 32.3 - 35.7 g/dL SONNY Comment:Testing performed by : [facility], [address], [place] [address] RDW CV 14.3 11.1 - 14.9 % SONNY Comment:Testing performed by : [facility], [address], [place] [address] RDW SD 48.9(H) 35.7 - 48.1 fL SONNY BECKER Comment:Testing performed by : [facility], [facility] [place] [address] NRBC abs 0.00 0.00 - 0.01 K/cumm SONNY Comment:Testing performed by : [facility], [facility] [place] [address] Blood (Blood, Venous) 03/30/2023 8:14 AM CDT 03/30/2023 8:18 AM CDT us Geneva Glaser MD LAB BLOOD ORDERABLES Janie l Result [facility] [address] Department [place] [address] * ECG 12 lead (03/30/2023 8:10 AM CDT) 03/30/2023 8:10 AM CDT Narrative [facility] - 03/30/2023 1:17 PM CDT Vent Rate: 67 bpm RR Interval: 893 msec MD Interval: 156 msec QRS Duration: 75 msec QT Interval: 399 msec QTC Interval: 414 msec P-R-T [place]: 52 - 21 - 31 degrees IMPRESSION: SINUS RHYTHM NORMAL ECG NO SIGNIFICANT CHANGE SINCE PREVIOUS TRACING Electronically Signed By: Miguel A Cole MD, [facility] us Geneva Glaser MD ECG ORDERABLES Final Res ult [facility] * POCT rapid HIV (03/30/2023 8:07 AM CDT) [facility] Rapid HIV, POC Negative Negative Lot Number [id number] QC Control Line Acceptable Blood 03/30/2023 8:07 AM CDT Geneva Glaser MD POINT OF CARE TEST ORDERA BLES Final Result documented in this encounter Visit Diagnoses Diagnosis Chest pain, non-cardiac- Primary Other chest pain documented in this encounter Administered Medications Inactive Administered Medications - up to 3 most recent administrations Medication Order MAR Action Action Date Dose Rate Site morphine injection 2 mg 2 mg, intravenous, Administer over 4 Minutes, Once, On Thu03/30/23 at 0845, For 1 dose, Indications: PainIndications:Pain Given 03/30/2023 9:37 AM CDT 2 mg pantoprazole (PROTONIX) 40 mg in sodium chloride 0.9% 10 mL IV Syringe 40 mg, intravenous, at 300 mL/hr, Administer over 2 Minutes, Once, On Thu03/30/23 at 0845, For 1 dose, For IV administration, reconstitute 40 mg vial with 10 mL sodium chloride 0.9% for injection for a final concentration of 4 mg/mL, Indications: Treatment of Non-Bleeding Gastric DisorderIndications:Treatment of Non-Bleeding Gastric Disorder Given 03/30/2023 9:14 AM CDT 40 mg 300 mL/hr documented in this encounter Active and Recently Administered Medications Times are shown in CDT. Scheduled Medication Order 03/28/2023 03/29/2023 03/30/2023 aspirin chewable tablet 324 mg 324 mg, oral, Once, On Thu03/30/23 at 0813, For 1 dose, Indications: Chest Pain 0840 (Hold - Provide r: Jorge Jones RN - Reason: Other - Comment: held per ECP verbal order) morphine injection 2 mg (COMPLETED) 2 mg, intravenous, Administer over 4 Minutes, Once, On Thu03/30/23 at 0845, For 1 dose, Indications: Pain 0920 (Not Given - Pr ovider: Antwon Mcneill RN - Reason: Patient/family refused)0937 (Given - Provider: Antwon Mcneill RN) pantoprazole (PROTONIX) 40 mg in sodium chloride 0.9% 10 mL IV Syringe (COMPLETED) 40 mg, intravenous, at 300 mL/hr, Administer over 2 Minutes, Once, On 03/30/23 at 0845, For 1 dose, For IV administration, reconstitute 40 mg vial with 10 mL sodium chloride 0.9% for injection for a final concentration of 4 mg/mL, Indications: Treatment of Non-Bleeding Gastric Disorder 0914 (Given - Provid er: Antwon Mcneill RN) documented in this encounter Orders Medications Ordered That Salom[place] ht Not Have Been Administered Count Last Ordered Date First Ordered Date aspirin chewable tablet 324 mg 1 03/30/2023 Nursing Count Last Ordered Date First Orde red Date MISCELLANEOUS NURSING CARE ORDER (SPECIFY) 1 03/30/2023 IV Count Last Ordered Date First Orde red Date SALINE LOCK IV 1 03/30/2023 documented in this encounter Care Teams Patrol Conductor Relationship Specialty Start Date End Date Cookie Subramanian MD PCP - General Internal Medicine 04/22/22 Shaji Zambrano MD Surgeon General Surgery 06/21/19 documented as of this encounter
--- OUTSIDE RECORDS SUMMARY | 2024-05-25 00:59 | XMS_ITS | Encounter Summary ---
Author Organization [facility] Address [address] [place] [address] Care Team Providers Care Handicapped Teacher Name Role Phone Mag Valdes MD Primary Care Provider [phone] Shaji Zambrano MD Unavailable [phone] Reason for Visit * Reason Comments Lipoma Behind knee on Right leg. She started having some pain in the area around April 2019. She eventually felt a lump . She has been to the and the ED where she had a U/S done Encounter Details Date Type Department Care Team (Late st Contact Info) Description 06/28/2019 10:15 AM UNLOAD ASSOCIATE Office Visit [facility] [address] [place] [phone] Shaji Zambrano MD [address] [place] [address] Mae's cyst, unruptured, right (Primary Dx) Social History Tobacco Use Types Packs/Day Years Used Date Smoking Tobacco: Never Alcohol Use Standard Drinks/Week Comments Not Currently 0 (1 standard drink = 0.6 oz pur e alcohol) Comments Unknown Sex and Gender Information Value Date Recorded Sex Assigned at Not on file Legal Sex Female 11:17 AM UNLOAD ASSOCIATE Gender Identity Not on file Sexual Orientation Not on file documented as of this encounter Last Filed Vital Signs Vital Sign Reading Time Taken Comments Blood Pressure 113/72 06/28/2019 10:31 AM UNLOAD ASSOCIATE Pulse 73 06/28/2019 10:31 AM UNLOAD ASSOCIATE Temperature 36.9 ??C (98.5 ??F) 06/28/2019 10:[address] Respiratory Rate - - Oxygen Saturation - - Inhaled Oxygen Concentration - - Weight 81.6 kg (180 lb) 06/28/2019 10:31 AM UNLOAD ASSOCIATE Height 167.6 cm (5' 6 ) 06/28/2019 10:31 AM UNLOAD ASSOCIATE Body Mass Index 29.05 06/28/2019 10:31 AM UNLOAD ASSOCIATE documented in this encounter Progress Notes * Shaji Zambrano MD - 06/28/2019 10:15 AM CST Subjective/Objective Patient ID: Octavia Schmid is a 38 y.o. female. Chief Complaint Lipoma (Behind knee on Right leg. She started having some pain in the area around April 2019. She eventually felt a lump . She has been to the and the ED where she had a U/S done) HPI Patient with an enlarging mass posterior right leg. This started several months ago it has been getting worse. She was seen at an urgent care center and ultrasound was performed which revealed a 5 cmcyst in her right popliteal fossa area. She was referred to our office by her primary care physician. Illnesses History reviewed. No pertinent past medical history. Surgical Past Surgical History: Procedure Laterality Date ??? CHOLECYSTECTOMY 2007 ??? HERNIA REPAIR 2002 Family Family History Problem Relation Age of Onset ??? No Known Problems Mother ??? No Known Problems Father ??? No Known Problems Sister ??? No Known Problems Brother Social Social History Tobacco Use ??? Smoking status: Never Smoker Substance Use Topics ??? Alcohol use: Not Currently Meds Current Outpatient Medications: ??? calcium carbonate-vitamin D3 500 mg(1,250mg) -125 unit per tablet, Take 1 tablet by mouth daily, Disp: , Rfl: ??? cholecalciferol (VITAMIN D-3) 10,000 unit capsule, Take 10,000 Units by mouth daily, Disp: , Rfl: Allergies has No Known Allergies. Review of Systems Constitutional: Negative. HENT: Negative. Eyes: Negative. Respiratory: Negative. Cardiovascular: Negative. Gastrointestinal: Negative. Genitourinary: Negative. Musculoskeletal: Pain and difficulty walking on her right leg this is intermittent in nature Skin: Negative. Allergic/Immunologic: Negative. Neurological: Negative. Hematological: Negative. Psychiatric/Behavioral: Negative. Vitals BP 113/72 Pulse 73 Temp 36.9 ??C (98.5 ??F) Ht 167.6 cm (5' 6 ) Wt 81.6 kg (180 lb) BMI 29.05 kg/m?? Physical Exam Vitals signs reviewed. HENT: Head: Normocephalic. Nose: Nose normal. Eyes: Extraocular Movements: Extraocular movements intact. Pupils: Pupils are equal, round, and reactive to light. Cardiovascular: Rate and Rhythm: Normal rate and regular rhythm. Pulses: Normal pulses. Pulmonary: Effort: Pulmonary effort is normal. Abdominal: General: Abdomen is flat. Palpations: Abdomen is soft. Musculoskeletal: General: Swelling (Fullness in the right popliteal fossa area consistent with a Mae's type cyst) and tenderness present. Skin: General: Skin is warm. Neurological: General: No focal deficit present. Mental Status: She is alert and oriented to person, place, and time. Psychiatric: Mood and Affect: Mood normal. Behavior: Behavior normal. Assessment/Plan Diagnoses and all orders for this visit: Mae's cyst, unruptured, right (Primary) I've recommended that she follow up with an orthopedic surgeon. I've supplied her with the name on phone numbers for [facility]. Shaji Zambrano MD FACS [facility] AD ASSOCIATE documented in this encounter Plan of Treatment Not on file documented as of this encounter Visit Diagnoses Diagnosis Mae's cyst, unruptured, right- Primary documented in this encounter Historical Medications * This list may reflect changes made after this encounter. cholecalciferol (VITAMIN D-3) 5,000 unit tablet Take 2 tablets (10,000 Units total) by mouth daily calcium carbonate-vitamin D3 500 mg(1,250mg) -125 unit per tablet Take 1 tablet by mouth daily 04/22/2022 added in this encounter Care Teams Handicapped Teacher Relationship Specialty Start Date End Date Mag Valdes MD [address] [place] [address] PCP - General Family Practice 06/21/19 04/21/22 Shaji Zambrano MD [address] [place] [address] Surgeon General Surgery 06/21/19 documented as of this encounter
--- OUTSIDE RECORDS SUMMARY | 2024-05-25 01:00 | XMS_ITS | Continuity of Care Document ---
Author Organization [facility] Address [address] [place] [address] Phone Care Team Providers Care Special Education Science Teacher Name Role Phone eMrry PT, DPT, Danielle Unavailable Unavailable Procedures Procedure Date Therapeutic Activities Therapeutic Exercise Manual Therapy Manual Therapy Therapeutic Exercise Therapeutic Activities Therapeutic Exercise Neuromuscular Re-Ed Hot or Cold Pack Therapeutic Activities Therapeutic Exercise Therapeutic Exercise Therapeutic Activities Therapeutic Activities Therapeutic Exercise Therapeutic Activities Neuromuscular Re-Ed Therapeutic Exercise PT Evaluation Low Complexity Therapeutic Exercise Advance Directives Directive Yes / No Effective Date File Name No Information Encounters Encounter Description Practice Location Reason(s) For Visit Diagnoses Date Provider Providers Copied on Encounter [facility], [id number], tel:[phone] [place] No Information Merry Santos. . Referring Provider: Jamar Hercules [address] [place], [address]. tel:[phone] [facility], [address], [place], [place], [id number], tel:[phone] [place] No Information Edilberto Larson. . Referring Provider: Jamar Hercules [address] [place], [address]. tel:[phone] [facility] [address] [place] [place] [address] [place], [place], [id number], [place] tel:[phone] [place] No Information Edilberto Larson. . Referring Provider: Jamar Hercules , [address] [place] [address], [place], [address]. tel:[phone] [address], [place], [place], [id number], [place] tel:[phone] [place] No Information Sousa Danielle. . Referring Provider: Jamar Hercules , [address] [place] [address], [place], [address]. tel:[phone] [place] [address], [place], [place], [id number], [place] tel:[phone] [place] No Information Sousa Danielle. . Referring Provider: Jamar Hercules , [address] [place] [address], [place], [address]. tel:[phone] [address] [address], [place], [place], [id number], [place] tel:[phone] [place] No Information Sousa Danielle. . Referring Provider: Jamar Hercules , [address] [place] [address], [place], [address]. tel:[phone] [facility] [address], [place], [place], [id number], [place] tel:[phone] [place] No Information Sousa Danielle. . Referring Provider: Jamar Hercules , [address] [place] [address], [place], [address]. tel:[phone] [facility] [address], [place], [place], [id number], [place] tel:[phone] [place] No Information Sousa Danielle. . Referring Provider: Jamar Hercules [address] [facility] [place], [address]. tel:[phone] Family History Family Member Type Diagnosis Age At Onset No Information Payers Payer name Insurance type Covered green party ID Authorcyndia sarah(s) [facility] Lilian DE LA CRUZ [id number] Social History Type Description Quantity Date Captured [...]
--- OUTSIDE RECORDS SUMMARY | 2024-05-25 01:00 | XMS_ITS | Clinical Summary ---
Author Organization [facility] [address] Address [address] [place] [phone] Care Team Providers Care Underlay Stitcher Name Role Phone Unavailable Primary Care Provider Unavailabl e Social History Tobacco Use Types Packs/Day Years Used Date Smoking Tobacco: Never Assessed Sex and Gender Information Value Date Recorded Sex Assigned at Not on file Gender Identity Not on file Sexual Orientation Not on file Plan of Treatment Health Maintenance Due Date Last Done Comments DTAP/TDAP/TD VACCINES (1 - Tdap) 2000 HEPATITIS B VACCINES (1 of 3 - 19+ 3-dose series) 2000 CERVICAL CANCER SCREENING 11/25/2011 BREAST CANCER SCREENING 2021 INFLUENZA VACCINE (#1) 2024 HPV VACCINES Aged Out No longer eligi ble based on patient's age to complete this topic PNEUMOCOCCAL VACCINE 0-64 YEARS Aged Out No longer eligible based on patient's age to complete this topic
== END 2024-05-21 09:03 | disposition home or self-care (01) ==
LOC: ANHIMG 09:08
PROVIDERS: PCP Nurse Practitioner; Visit Provider Obstetrics & Gynecology
DX: Z12.31 Encounter for screening mammogram for malignant neoplasm of breast (principal)
CPT/HCPCS: 77063; 77067

== ENCOUNTER 2024-06-15 13:27 | Outpatient (CLI) | payer BC, SELFPAY ==
[2024-06-15 19:24] LABS: Basophils Absolute Auto 0.1 K/mm3 (0.0-0.1); Eosinophils Absolute Auto 0.1 K/mm3 (0-0.3); Eosinophils Percent Auto 1.4 % (0-4.4); Hematocrit 45.8 % (37.0-47.0); Hemoglobin 14.2 g/dL (12.0-15.0); Immature Granulocyte Absolute 0.02 K/mm3 (0.00-0.031); Immature Granulocyte Percent A 0.2 % (0-0.5); Lymphocytes Absolute Auto 3.79 K/mm3 (0.9-3.2); Lymphocytes Percent Auto 41.4 % (18.3-44.2); Mean Corpuscular Hemoglobin 29.1 pg (26-34); Mean Corpuscular Volume 93.9 fl (80-100); Mean Platelet Volume 9.8 fl (7.4-10.4); Monocytes Absolute Auto 0.5 K/mm3 (0.1-0.6); Monocytes Percent Auto 5.5 % (2.6-8.5); Neutrophils Absolute Auto 4.6 K/mm3 (1.3-6.7); Neutrophils Percent Auto 50.5 % (45.5-73.1); Platelet Count Result 382 k/mm3 (150-375); Red Blood Count 4.88 M/mm3 (4.2-5.4); Red Cell Distribution Width 14.5 % (11.5-14.5); White Blood Count 9.2 K/mm3 (4.5-10.0)
[2024-06-15 20:01] LABS: Vitamin D 25 Hydroxy 67.8 ng/mL
[2024-06-15 20:03] LABS: Alanine Aminotransferase 20 U/L (6-35); Albumin Level 4.3 g/dL (3.5-5.1); Alkaline Phosphatase 66 U/L (38-126); Anion Gap 5 mmol/L (4-12); Aspartate Amino Transferase 42 U/L (14-36); Bilirubin,Total 0.6 mg/dL (0.2-1.3); Blood Urea Nitrogen 10 mg/dL (7-17); Calcium 9.5 mg/dL (8.4-10.2); Carbon Dioxide 30 mmol/L (22-30); Chloride 103 mmol/L (98-107); Cholesterol 218 mg/dL (0-200); Estimated Glomerular Filt Rate > 60; Glucose 76 mg/dL (65-110); HDL Direct 55 mg/dL; Potassium 4.3 mmol/L (3.4-5.0); Sodium 138 mmol/L (137-145); Triglycerides 152 mg/dL (<150)
[2024-06-15 20:14] LABS: LDL Cholesterol Direct 109 mg/dL
== END 2024-06-15 13:28 | disposition home or self-care (01) ==
LOC: ANHGOSHLAB 13:28
PROVIDERS: PCP Nurse Practitioner; Visit Provider Nurse Practitioner
DX: R73.03 Prediabetes (principal); E55.9 Vitamin D deficiency, unspecified
CPT/HCPCS: 36415; 80053; 80061; 82306; 83036; 84443; 85025

== ENCOUNTER 2024-09-01 11:18 | Emergency (ER) | payer BC, SELFPAY ==
[2024-09-01] VITALS (27 sets, daily range): BP systolic 93–113; BP diastolic 54–80; PULSE 56–76; RESP 14–25; TEMP 36.6; O2SAT 97–100
--- NOTE | ~2024-09-01 | XR_ITS ---
EXAMINATION: XR chest 2V DATE: 09/01/2024 12:49 INDICATION: Weakness. COVID-19 positive. TECHNIQUE: Frontal and lateral views of the chest were obtained. COMPARISON: Chest 2 views 03/31/2023 FINDINGS: There is no pneumonia, pleural effusion, or pneumothorax. The heart size is normal. Surgica l clips in the right upper quadrant are likely from cholecystectomy. IMPRESSION: 1. No acute cardiopulmonary disease. Reviewed, dictated and finalized at location A.
--- NOTE | 2024-09-01 12:34 | ED_ITS ---
HPI - Recheck/Abnormal Lab/Rx General Chief Complaint: Recheck/Abnormal Lab/Rx Stated Complaint: low BP, weak Time Seen by Provider: 09/01/24 12:02 History of Present Illness HPI narrative: 43-year-old female presenting to the emergency department for evaluation of generalized malaise and weakness. She was just diagnosed with COVID several days ago and prescribed Paxlovid by her PCP. She took 2 doses of this medication and felt significantly nauseous and vomited multiple times. She went to urgent care they noted that her blood pressure was soft she was referred to the emergency department for evaluation. On review of the EMR patient has normal blood pressure ranges in the 90s to low 100s and this is not abnormal. She complains of generalized malaise and fatigue. States that the Paxlovid with made her feel worse. No shortness of breath or chest pain. No abdominal pain, back pain, nausea vomiting presently. Related Data Home Medications ?Medication ?Instructions ?Recorded ?Confirmed ?Last Taken ?Type ascorbic acid (vitamin C) 500 mg 500 mg PO DAILY 04/24/22 07/01/24 05/09/23 History tablet (Vitamin C) cholecalciferol (vitamin D3) 125 125 mcg PO DAILY 05/06/23 07/01/24 05/09/23 History mcg (5,000 unit) tablet (Vitamin D3) zinc gluconate 100 mg tablet 100 mg PO DAILY 05/06/23 07/01/24 05/09/23 History lysine 1,000 mg tablet 1,000 mg PO DAILY 04/29/24 07/01/24 Unknown History Allergies Allergy/AdvReac Type Severity Reaction Status Date / Time No Known Allergies Allergy Verified 07/01/24 09:02 Review of Systems 2 Review of Systems: As reviewed above [facility] Past Medical History Medical History Cholecystectomy planned Obesity Surgical History Surgical History H/O hernia repair H/O: hysterectomy 05/13/2024 Family History Family History Mother Heart problem Hypertension Father Carcinoma of colon Sibling Diabetes mellitus Social History Social History Smoking status: Never smoker Alcohol intake: never Substance use: never Substance use type: does not use Do You Feel Safe in your Home?: Yes Lack of Transportation: No Lack of Food: Never True Current Housing: I Have Housing Concerned About Future Housing: No Difficulty Paying Gas/Electric Bills: No Difficulty Paying for Meds: No Currently Unemployed: No Education: Associate Degree Difficulty w/ Childcare or Family Care: No Living arrangements: with family Spiritual care concerns: No Exam 2 Narrative: GENERAL: [Well-appearing, well-nourished, and in no acute distress.] HEAD: [Normocephalic, atraumatic.] EYES: [PERRLA and EOMI.] ENT: Nares clear, no rhinorrhea or epistaxis. Mucous membranes moist. NECK: Supple. CHEST: [Clear to auscultation. No respiratory distress.] HEART: [Regular rate and rhythm]. No murmur heard. [Normal peripheral pulses.] ABDOMEN: [Soft, nondistended], [nontender], [No rigidity or guarding] EXTREMITIES: Normal range of motion. [No edema.] SKIN: Warm, dry, no rash. NEURO: [No focal deficits]. Alert and oriented [x3.] PSYCH: [Normal mood and affect.] Course Vital Signs Vital signs: Vital Signs Temperature 36.6 C 09/01/24 11:23 Pulse Rate 73 09/01/24 11:23 Respiratory Rate 14 09/01/24 11:23 Blood Pressure 109/58 L 09/01/24 11:23 Pulse Oximetry 100 09/01/24 11:23 Oxygen Delivery Room Air 09/01/24 11:23 Temperature 36.6 C 09/01/24 11:23 Pulse Rate 58 L 09/01/24 12:31 Respiratory Rate 24 H 09/01/24 12:31 Blood Pressure 93/80 L 09/01/24 12:31 Pulse Oximetry 97 09/01/24 12:31 Oxygen Delivery Room Air 09/01/24 11:23 MDM - Recheck/Abnormal Lab/Rx MDM Narrative Medical decision making narrative: 43-year-old otherwise healthy female presenting to the emergency department for COVID symptoms. She was diagnosed with COVID several days ago and prescribed Paxlovid by her PCP which she states made her feel worse and having profound nausea and vomiting. When she stop taking this medication yesterday she had improvement in the symptoms but states she feels generalized malaise and fatigue. She is not ill appearing, otherwise awake alert oriented conversational with normal vital signs for her. No tachycardia, fever or hypoxia. Blood pressure 109/58 which is in line with her chronic range on review of the EMR from multiple visits over the years. She is not ill or septic appearing. Considerations presently are for viral syndrome, dehydration, electrolyte deficiencies, low suspicion acute kidney injury or liver injury. Low suspicion pneumonia. CBC CMP and chest x-ray were obtained and she was given a fluid bolus and re-evaluated. Workup shows no leukocytosis or anemia. Normal platelet count. Electrolyte profile within normal limits, normal renal function, normal glucose and LFTs. Chest x-ray shows no acute cardiopulmonary disease. Patient is hemodynamically stable and can be safely discharged home at this time. She will have to follow- up with her PCP. Encouraged to stop taking the Paxlovid secondary to side effects. Medical Records Attestation: I reviewed the patient's medical records. Lab Data Attestation: I reviewed the patient's lab results. 09/01/24 13:26 09/01/24 14:20 Labs: Lab Results 09/01/24 09/01/24 Range/Units 13:26 14:20 WBC 8.6 (4.5-10.0) K/mm3 RBC 4.44 (4.2-5.4) M/mm3 Hgb 13.0 (12.0-15.0) g/dL Hct 40.9 (37.0-47.0) % MCV 92.1 (80-100) fl MCH 29.3 (26-34) pg MCHC 31.8 L (32-36) g/dl RDW 13.9 (11.5-14.5) % Plt Count 318 (150-375) k/mm3 MPV 9.8 (7.4-10.4) fl Immature Gran % (Auto) 0.5 (0-0.5) % Neut % (Auto) 54.2 (45.5-73.1) % Lymph % (Auto) 37.9 (18.3-44.2) % [place] % (Auto) 4.2 (2.6-8.5) % Eos % (Auto) 2.9 (0-4.4) % Baso % (Auto) 0.3 (0.2-1.2) % Lymph # (Auto) 3.25 H (0.9-3.2) K/mm3 [place] # (Auto) 0.4 (0.1-0.6) K/mm3 Eos # (Auto) 0.3 (0-0.3) K/mm3 Baso # (Auto) 0.0 (0.0-0.1) K/mm3 Abs Immat Gran (auto) 0.04 H (0.00-0.031) K/mm3 Absolute Neuts (auto) 4.7 (1.3-6.7) K/mm3 Absolute Nucleated RBC 0.000 (0.0-0.012) K/mm3 Nucleated RBC % 0.0 (0.0-0.2) % Sodium 138 (137-145) mmol/L Potassium 4.1 (3.4-5.0) mmol/L Chloride 105 (98-107) mmol/L Carbon Dioxide 26 (22-30) mmol/L Anion Gap 7 (4-12) mmol/L BUN 7 (7-17) mg/dL Creatinine 0.63 L (0.7-1.0) mg/dL Estim Creat Clear Calc 115 ml/min Estimated GFR > 60 (59 - ) Glucose 88 (65-110) mg/dL Calcium 9.3 (8.4-10.2) mg/dL Total Bilirubin 0.2 (0.2-1.3) mg/dL AST 19 (14-36) U/L ALT 24 (6-35) U/L Alkaline Phosphatase 60 (38-126) U/L Total Protein 7.0 (6.3-8.2) g/dL Albumin 3.6 (3.5-5.1) g/dL Imaging Data Attestation: I personally reviewed and interpreted this imaging study as follows: My impression: Impressions Chest X-Ray 09/01/24 12:56 IMPRESSION: 1. No acute cardiopulmonary disease. Discharge Plan Discharge Clinical Impression: COVID, Drug side effects Patient Disposition: Home, Self-Care Condition: Stable Instructions: Antibiotic Form Additional Instructions: Your laboratory studies and workup your very reassuring. No signs of any organ damage, no signs of active infection, no pneumonia. Normal electrolytes. Your symptoms are very likely secondary to COVID and complicated by side effects from Paxlovid. Please stop taking his medication, continue taking Tylenol ibuprofen for any aches or pains. Call your regular doctor for close follow-up visit. Return with any new or worsening concerns. Maintain good oral hydration. Patient Language: Yoruba Prescriptions: No Action lysine 1,000 mg tablet 1,000 mg PO DAILY ascorbic acid (vitamin C) [Vitamin C] 500 mg Tablet 500 mg PO DAILY Patient Comments: TAKES IN AFTERNOON zinc gluconate [Zinc Natural] 100 mg Tablet 100 mg PO DAILY Patient Comments: TAKES IN AFTERNOON cholecalciferol (vitamin D3) [Vitamin D3] 125 mcg (5,000 unit) Tablet 125 mcg PO DAILY Patient Comments: TAKES IN AFTERNOON Follow-up/Referrals: Danielle Cross SURGERY CONSULTANT [Primary Care Provider] - Time of Disposition: 15:19
--- OUTSIDE RECORDS SUMMARY | 2024-09-01 12:34 | XMS_ITS | Clinical Summary ---
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 Gender Identity Not on file Sexual Orientation Not on file Obstetrics History Last Filed Vital Signs Vital Sign Reading Time Taken Comments Blood Pressure 111/69 03/30/2023 11:00 AM CDT Pulse 59 03/30/2023 11:00 AM CDT Temperature 36.7 C (98.1 F) 03/30/2023 8:07 AM CDT Respiratory Rate 19 03/30/2023 11:00 AM CDT [...] patient's age to complete this topic Insurance [facility] ACCESS [facility] ACCESS BLUE [employer] [place] [employer] [facility] Advance Directives For more information, please contact: [phone] * Full Code (Latest Code Status on File) Date Activated Date Inactivated Comments 04/22/2022 6:09 PM 04/23/2022 12:02 AM Care Teams Nurses Educator Relationship Specialty Start Date End Date Cookie Subramanian MD PCP - General Internal Medicine 04/22/22 Shaji Zambrano MD Surgeon General Surgery 06/21/19
--- OUTSIDE RECORDS SUMMARY | 2024-09-01 12:34 | XMS_ITS | Referral Summary ---
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
--- OUTSIDE RECORDS SUMMARY | 2024-09-01 12:34 | XMS_ITS | Encounter Summary ---
Author Organization [facility] Address [address] [place] [address] Care Team Providers Care Staff Weapons Officer Name Role Phone Unavailable Primary Care Provider Unavailabl e Reason for Visit * Reason Comments Sinus Pain Yellow mucus , patie nt had covid Thursday Encounter Details Date Type Department Care Team (Late st Contact Info) Description 09/01/2024 9:05 AM CDT Office Visit [facility] [place] [id number] [address] Trini Krueger MD [address] [address] Viral upper respiratory tract infection (Primary Dx); Hypotension due to hypovolemia Social History Tobacco Use Types Packs/Day Years Used Date Smoking Tobacco: Never Assessed Comments Unknown Sex and Gender Information Value Date Recorded Sex Assigned at Not on file 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 Gender Identity Not on file Sexual Orientation Not on file documented as of this encounter Last Filed Vital Signs Vital Sign Reading Time Taken Comments Blood Pressure 92/60 09/01/2024 9:35 AM CDT Pulse 78 09/01/2024 9:14 AM CDT Temperature 37.1 C (98.8 F) 09/01/2024 9:14 AM CDT Respiratory Rate 21 09/01/2024 9:14 AM CDT Oxygen Saturation 98% 09/01/2024 9:14 AM CDT Inhaled Oxygen Concentration - - Weight 86.2 kg (190 lb) 09/01/2024 9:14 AM CDT Height 170.2 cm (5' 7 ) 09/01/2024 9:14 AM CDT Body Mass Index 29.76 09/01/2024 9:14 AM CDT documented in this encounter Progress Notes * Trini Krueger MD - 09/01/2024 9:05 AM CDT Assessment and Plan Encounter Diagnoses Name Primary? Viral upper respiratory tract infection Yes Hypotension due to hypovolemia Octavia was seen today for sinus pain. Diagnoses and all orders for this visit: Viral upper respiratory tract infection Hypotension due to hypovolemia Comment: Patient is low risk for complications, vital signs and exam are reassuring. Symptoms secondary to viral URI from COVID-19 infection. Recommend continuing conservative care andmonitoringTylenol 500 to 1000 mg every 8 hours as needed and/or ibuprofen 600-800 mg every 8 hours as needed for pain or fever, if no chronic medical conditions that prevent usage Mild hypotension secondary to dehydration from vomiting. Vomiting now resolved hydrate well, (1-1.5gallons of water and/or electrolyte rehydration solution) elevate head of bed Honey or honey lozenges needed for throat irritation and cough Warm salt water gargles Cool-mist humidifier for congestion Saline nasal rinse with Neti pot Robitussin, Delsym, Mucinex DM [id number] as needed for cough Follow-up with PCP 2 to 3 days if symptoms ongoing or return to clinic or go to ER today if symptoms worsen (i.e. new fevers, shortness of breath or chest pain at rest, recurrent dizziness/lightheadedness) Subjective History of present illness Octavia Schmid is a 43 y.o. female who presents with congestion, productive cough, and fatigue. X7 days . Diagnosed with COVID 19 on 08/28/2024 Onset: sudden Progression: unchanged Severity: moderate Review of Systems Const: no fever CV: no chest pain Resp: no shortness of breath GI: no abdominal pain No outpatient medications have been marked as taking for the 09/01/24 encounter (Office Visit) with Trini Kureger MD. There are no active problems to display for this patient. Objective Vitals: 09/01/24 0935 BP: (!) 92/60 Pulse: Resp: Temp: SpO2: General:?well developed, well nourished, no acute distress. Eyes: No conjunctival injection or discharge. Lung: chest clear, no wheezing, rales, normal symmetric air entry Neck: No stridor. Normal ROM. Heart: Regular rhythm, no murmurs Psychiatric: Affect and mood normal. Interactive and conversant. Alert and oriented. Skin: Warm and dry without visible rash. Lymphatic: No palpable lymphadenopathy. Non tender nodes. documented in this encounter Miscellaneous Notes * Patient Instructions - Trini Krueger MD - 09/01/2024 9:05 AM CDT Tylenol 500 to 1000 mg every 8 hours as needed and/or ibuprofen 600-800 mg every 8 hours as needed for pain or fever, if no chronic medical conditions that prevent usage Hydrate well, elevate head of bed Honey or honey lozenges needed for throat irritation and cough Warm salt water gargles Cool-mist humidifier for congestion Saline nasal rinse with Neti pot Robitussin, Delsym, Mucinex DM [id number] as needed for cough Follow-up with PCP 2 to 3 days if symptoms ongoing or return to clinic or go to ER sooner if symptoms worsen (i.e. new fevers, shortness of breath or chest pain at rest) documented in this encounter Plan of Treatment Not on file documented as of this encounter Visit Diagnoses Diagnosis Viral upper respiratory tract infection- Primary Acute upper respiratory infections of unspecified site Hypotension due to hypovolemia documented in this encounter
--- OUTSIDE RECORDS SUMMARY | 2024-09-01 12:35 | XMS_ITS | Clinical Summary ---
Author Organization [facility] Address [address] [place] [address] Care Team Providers Care Copy Chief Name Role Phone RigoTabatha barrow Manisha DO Primary Care Provider [phone] Source Comments [facility],non-owned Affiliates and Associated Physician Practices is amultiple site organization consisting of ambulatory clinics and hospital sitesin [place], [place], [place] and [place]. This disclosure is being madepursuant to the Care Everywhere program and may not contain all information available regarding this patient. Last updated 18.[facility] Allergies No known active allergies Medications * [...] 68 02/14/2022 2:04 PM CDT Temperature 36.8 C (98.3 F) 02/14/2022 2:04 PM CDT Respiratory Rate 18 02/14/2022 1:45 PM CDT [...] of 3 - 19+ 3-dose series) 2000 COVID-19 VACCINE (1 - 2023-25 season) 2024 INFLUENZA VACCINE (#1) 2024 DEPRESSION SCREENING 06/08/2024 LIPID TESTING 01/11/2025 01/12/2020, 01/06/2019 SCREENING FOR [...] patient's age to complete this topic MENINGOCOCCAL (Group B) VACCINE SHARED DECISION-MAKING Aged Out No longer eligible based on patient's age to complete this topic MENINGOCOCCAL GROUPS A/C/Y/W VACCINE Aged Out No longer eligible based on [...] - 1.2 mg/dL 02/03/2022 8:04 AM CDT [facility] eGFR by CKD-EPI >90 >=90 mL/min/1.7 3 m2 02/03/2022 8:04 AM CDT [facility] Blood BLOOD SPECIMEN / Unknown Venipuncture / Unknown 02/03/2022 7:39 AM CDT 02/03/2022 7:46 AM CDT Anastasia Humphreys Salvador FISHER SEAL-MANAGEMENT SERVICES TECHNICIAN LAB - CHEMISTRY ORDERABLES [facility] [address] [place] [address] * (ABNORMAL) PAP IG LB+CT+NG+TV+HPV APTIMA RFLX 16,18/45 (10/22/2021 11:57 AM CDT) Diagnosis [facility] ACCOUNT BILL Comment: NEGATIVE FOR INTRAEPITHELIAL LESION OR MALIGNANCY. TRICHOMONAS VAGINALIS IS PRESENT. CELLULAR CHANGES ASSOCIATED WITH INFLAMMATION ARE PRESENT. Specimen Adequacy [facility] ACCOUNT BILL Comment: Satisfactory for evaluation. Endocervical and/or squamous metaplastic cells (endocervical component) are present. Clinician Provided ICD10 [facility] ACCOUNT BILL Comment: Z01.419 N93.9 D21.9 Performed by [facility] ACCOUNT BILL Comment:Lisha blank, Process Control Supervisor (ASCP) Comment . [facility] ACCOUNT BILL Note [facility] ACCOUNT BILL Comment: The Pap smear is a screening test designed to aid in the detection of premalignant and malignant conditions of the uterine cervix. It is not a diagnostic procedure and should not be used as the sole means of detecting cervical cancer. Both false-positive and false-negative reports do occur. . IGLBP CPT Code Automation [facility] ACCOUNT [...] Resulting Agency Comment Lab Testing performed at: [address] [id number] Cruz Diallo MD LAB - PATHOLOGY/CYT OLOGY ORDERABLES [facility] ACCOUNT BILL [address] [place] [address] * HIV-1 HIV-2 ANTIBODY + HIV P24 AG PANEL (01/12/2020 12:31 PM CDT) [facility] HIV Screen 4th Generation w Reflex Non Reactive Non Reactive [facility] ACCOUNT BILL Comment:FASTING Blood BLOOD SPECIMEN / Unknown 01/12/2020 12:31 PM CDT 01/12/2020 Narrative Resulting Agency Comment Lab Testing performed at: [address] [id number] Tabatha Sierra DO LAB - CHEMISTRY [place] Performing Organization Address City/[facility]/ZIP Co de Phone Number [facility] ACCOUNT BILL [address] [place] [address] * HEPATITIS C ANTIBODY (01/12/2020 12:31 PM CDT) [facility] Hepatitis C Antibody <0.1 0.0 - 0.9 s/co ratio [facility] ACCOUNT BILL Comment: Negative: < 0.8 Indeterminate: 0.8 - 0.9 Positive: > 0.9 . The CDC recommends that a positive HCV antibody result be followed up with a HCV Nucleic Acid Amplification test (713030). FASTING Blood BLOOD SPECIMEN / Unknown 01/12/2020 12:31 PM CDT 01/12/2020 Narrative Resulting Agency Comment Lab Testing performed at: [place] [id number] [facility] [id number] Tabatha Sierra DO LAB - CHEMISTRY [place] [facility] ACCOUNT BILL [address] [place] [address] * (ABNORMAL) LIPID PROFILE (01/12/2020 12:31 PM [...] Agency Comment Lab Testing performed at: [facility] [address] [id number] Tabatha Sierra DO LAB - CHEMISTRY [place] [facility] ACCOUNT BILL [address] [place] [address] from Last 3 Months or Most Recently Relevant to Health Maintenance Care Teams Copy Chief Relationship Specialty Start Date End Date Tabatha Sierra DO [address] [place] [address] PCP - General 05/12/22
--- OUTSIDE RECORDS SUMMARY | 2024-09-01 12:35 | XMS_ITS | Clinical Summary ---
Author Organization [facility] rofessional Office [facility] Address [address] [place] [address] Care Team Providers Care Tie Up Worker Name Role Phone Unavailable Primary Care Provider Unavailabl e Allergies No known active allergies Medications No known medications Active Problems No known active problems Encounters Date Type Department Care Team Description 09/01/2024 9:05 AM CDT Office Visit [facility] [place] [address] [place] [address] Trini Krueger MD Viral upper respiratory tract infection (Primary Dx); Hypotension due to hypovolemia from Last 3 Months Social History Tobacco Use Types Packs/Day Years Used Date Smoking Tobacco: Never Assessed Comments Unknown Sex and Gender Information Value Date Recorded Sex Assigned at Not on file 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 Gender Identity Not on file Sexual Orientation [...] Mass Index 29.76 09/01/2024 9:14 AM CDT Plan of Treatment Health Maintenance Due Date Last Done Comments DTAP/TDAP/TD VACCINES (1 - Tdap) 2000 HEPATITIS B VACCINES (1 of 3 - 19+ 3-dose series) 2000 PAP SMEAR 2002 CERVICAL CANCER SCREENING 11/25/2011 HPV/Cotest (30-65) 11/25/2011 PAP SMEAR 11/25/2011 BREAST CANCER SCREENING 2021 INFLUENZA VACCINE (#1) 2024 HPV VACCINES Aged Out No longer eligi ble based on patient's age to complete this topic PNEUMOCOCCAL VACCINE 0-49 YEARS Aged Out No longer eligible based on patient's age to complete this topic Insurance [facility] BLUE ACCESS/TRUE BLUE PPO * Guarantor: KYLEE ACCT-OCC MED [facility] (OM) Account Type Relation to Patient Date of Phone Billing Address Corporate Employer [address] [address] [address] [address]
--- OUTSIDE RECORDS SUMMARY | 2024-09-01 13:07 | XMS_ITS | Referral Summary ---
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
--- OUTSIDE RECORDS SUMMARY | 2024-09-01 13:07 | XMS_ITS | Encounter Summary ---
Author Organization [facility] Address [address] [place] [address] Care Team Providers Care Litigation Partner Name Role Phone Unavailable Primary Care Provider Unavailabl e Reason for Visit * Reason Comments Sinus Pain Yellow mucus , patie nt had covid Thursday Encounter Details Date Type Department Care Team (Late st Contact Info) Description 09/01/2024 9:05 AM CDT Office Visit [facility] [place] [id number] [address] Trini Krueger MD [address] [address] Viral upper respiratory tract infection (Primary Dx); Hypotension due to hypovolemia Social History Tobacco Use Types Packs/Day Years Used Date Smoking Tobacco: Never Assessed Comments Unknown Sex and Gender Information Value Date Recorded Sex Assigned at Not on file 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 There are no active problems to [...] with Neti pot Robitussin, Delsym, Mucinex DM [id number] as needed for cough Follow-up with PCP [...]
--- OUTSIDE RECORDS SUMMARY | 2024-09-01 13:07 | XMS_ITS | Clinical Summary ---
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 Gender Identity Not on file Sexual Orientation [...] to complete this topic Insurance WENDY ACCESS [facility] ACCESS BLUE [employer] [place] [facility] Advance Directives For more information, please contact: [phone] * Full Code (Latest Code Status on File) Date Activated Date Inactivated Comments 04/22/2022 6:09 PM 04/23/2022 12:02 AM Care Teams Wet Trimmer Relationship Specialty Start Date End Date Cookie Subramanian MD PCP - General Internal Medicine 04/22/22 Shaji Zambrano MD Surgeon General Surgery 06/21/19
--- OUTSIDE RECORDS SUMMARY | 2024-09-01 13:08 | XMS_ITS | Clinical Summary ---
Author Organization [facility] rofessional [facility] Address [address] [place] [address] Care Team Providers Care Physiology Teacher Name Role Phone Unavailable Primary Care Provider Unavailabl e Allergies No known active allergies Medications No known medications Active Problems No known active problems Encounters Date Type Department Care Team Description 09/01/2024 9:05 AM CDT Office Visit [facility] [address] [place] [id number] Trini Krueger MD Viral upper respiratory tract infection (Primary Dx); Hypotension due to hypovolemia from Last 3 Months Social History Tobacco Use Types Packs/Day Years Used Date Smoking Tobacco: Never Assessed Comments Unknown Sex and Gender Information Value Date Recorded Sex Assigned at Not on file 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
--- OUTSIDE RECORDS SUMMARY | 2024-09-01 13:08 | XMS_ITS | Clinical Summary ---
Author Organization [facility] Address [address] [place] [address] Care Team Providers Care Section 8 Property Manager Name Role Phone RigoTabatha barrow Manisha DO Primary Care Provider [phone] Source Comments [facility],non-owned Affiliates and Associated Physician Practices is amultiple site organization consisting of ambulatory clinics and hospital sitesin [place], [place], [place] and [place]. This disclosure is being madepursuant to the Care Everywhere program and may not contain all information available regarding this patient. Last updated 18.[facility] Allergies No known active allergies Medications * [...] - 1.2 mg/dL 02/03/2022 8:04 AM CDT [facility] eGFR by CKD-EPI >90 >=90 mL/min/1.7 3 m2 02/03/2022 8:04 AM CDT [facility] Blood BLOOD SPECIMEN / Unknown Venipuncture / Unknown 02/03/2022 7:39 AM CDT 02/03/2022 7:46 AM CDT Anastasia Humphreys Salvador FRUIT CANNER-LAUNDRY FOLDER LAB - CHEMISTRY ORDERABLES [facility] [address] [place] [address] * (ABNORMAL) PAP IG LB+CT+NG+TV+HPV APTIMA RFLX [...] Performed by [facility] ACCOUNT BILL Comment:Lisha blank, Ornamental Metal Worker Helper (ASCP) Comment . [facility] ACCOUNT BILL Note [...] Resulting Agency Comment Lab Testing performed at: [address] [id number] Cruz Diallo MD LAB - PATHOLOGY/CYT OLOGY ORDERABLES [facility] ACCOUNT BILL [address] [place] [address] * HIV-1 HIV-2 ANTIBODY + HIV P24 AG PANEL (01/12/2020 12:31 PM CDT) [facility] HIV Screen 4th Generation w Reflex Non Reactive Non Reactive [facility] ACCOUNT BILL Comment:FASTING Blood BLOOD SPECIMEN / Unknown 01/12/2020 12:31 PM CDT 01/12/2020 Narrative Resulting Agency Comment Lab Testing performed at: [address] [id number] Tabatha Sierra DO LAB - CHEMISTRY [place] Performing Organization Address City/[facility]/ZIP Co de Phone Number [facility] ACCOUNT BILL [address] [place] [address] * HEPATITIS C ANTIBODY (01/12/2020 12:31 PM CDT) [facility] Hepatitis C Antibody <0.1 0.0 - 0.9 s/co ratio [facility] ACCOUNT BILL Comment: Negative: < 0.8 Indeterminate: 0.8 - 0.9 Positive: > 0.9 . The CDC recommends that a positive HCV antibody result be followed up with a HCV Nucleic Acid Amplification test ([id number]). FASTING Blood BLOOD SPECIMEN / Unknown 01/12/2020 12:31 PM CDT 01/12/2020 Narrative Resulting Agency Comment Lab Testing performed at: [place] [id number] [facility] [id number] Tabatha Sierra DO LAB - CHEMISTRY [place] [facility] ACCOUNT BILL [address] [place] [address] * (ABNORMAL) LIPID PROFILE (01/12/2020 12:31 PM [...] Agency Comment Lab Testing performed at: [facility] [address] [facility] [id number] Tabatha Sierra DO LAB - CHEMISTRY [place] [facility] ACCOUNT BILL [address] [place] [address] from Last 3 Months or Most Recently Relevant to Health Maintenance Care Teams Section 8 Property Manager Relationship Specialty Start Date End Date Tabatha Sierra DO [address] [place] [address] PCP - General 05/12/22
[2024-09-01] MEDS: KETOROLAC 15 MG/ML VIAL (*BKC) IV PUSH (13:22)
[2024-09-01] MEDS: LACTATED RINGERS 1,000 ML 999 ML IV CONT (13:23)
[2024-09-01 13:33] LABS: Basophils Percent Auto 0.3 % (0.2-1.2); Eosinophils Absolute Auto 0.3 K/mm3 (0-0.3); Eosinophils Percent Auto 2.9 % (0-4.4); Hematocrit 40.9 % (37.0-47.0); Immature Granulocyte Absolute 0.04 K/mm3 (0.00-0.031); Immature Granulocyte Percent A 0.5 % (0-0.5); Lymphocytes Absolute Auto 3.25 K/mm3 (0.9-3.2); Lymphocytes Percent Auto 37.9 % (18.3-44.2); Mean Corpuscular HGB Conc 31.8 g/dl (32-36); Mean Corpuscular Hemoglobin 29.3 pg (26-34); Mean Corpuscular Volume 92.1 fl (80-100); Mean Platelet Volume 9.8 fl (7.4-10.4); Monocytes Absolute Auto 0.4 K/mm3 (0.1-0.6); Monocytes Percent Auto 4.2 % (2.6-8.5); Neutrophils Absolute Auto 4.7 K/mm3 (1.3-6.7); Neutrophils Percent Auto 54.2 % (45.5-73.1); Platelet Count Result 318 k/mm3 (150-375); Red Blood Count 4.44 M/mm3 (4.2-5.4); Red Cell Distribution Width 13.9 % (11.5-14.5); White Blood Count 8.6 K/mm3 (4.5-10.0)
[2024-09-01 14:44] LABS: Alanine Aminotransferase 24 U/L (6-35); Albumin Level 3.6 g/dL (3.5-5.1); Alkaline Phosphatase 60 U/L (38-126); Anion Gap 7 mmol/L (4-12); Aspartate Amino Transferase 19 U/L (14-36); Bilirubin,Total 0.2 mg/dL (0.2-1.3); Blood Urea Nitrogen 7 mg/dL (7-17); Calcium 9.3 mg/dL (8.4-10.2); Carbon Dioxide 26 mmol/L (22-30); Chloride 105 mmol/L (98-107); Estimated CRCL calculation 115 ml/min; Estimated Glomerular Filt Rate > 60; Glucose 88 mg/dL (65-110); Potassium 4.1 mmol/L (3.4-5.0); Sodium 138 mmol/L (137-145)
[2024-09-01] MEDS: ONDANSETRON INJ 4 MG/2 ML VIAL IV PUSH (15:37)
--- NOTE | 2024-09-01 15:50 | PC.NURSE ---
this RN attempted to DC pt when pt stated she wasn't ready for DC . This RN attempted to educate pt on Covid/symptoms she was experiencing and reassure pt that the workup was unremarkable. Pt still stated she wasn't ready so this RN notified EDP Torossian to come talk to pt.
== END 2024-09-01 15:58 | disposition home or self-care (01) ==
PROVIDERS: Emergency Provider Student in an Organized Health Care Education/Training Program; PCP Nurse Practitioner
DX: U07.1 COVID-19 (principal); Z90.710 Acquired absence of both cervix and uterus; R11.2 Nausea with vomiting, unspecified; T37.5X5A Adverse effect of antiviral drugs, initial encounter; E66.9 Obesity, unspecified; Z68.31 Body mass index [BMI] 31.0-31.9, adult
CPT/HCPCS: 36415; 71046; 80053; 85025; 96374; 96375; 99284; J1885; J2405; J7120

== ENCOUNTER 2025-03-17 08:54 | Emergency (ER) | payer BC, SELFPAY ==
--- NOTE | 2025-03-17 08:58 | ED_ITS ---
HPI - URI/Sore Throat General Chief Complaint: Upper Respiratory Infection Stated Complaint: COUGH/CONGESTION/CHEST PAIN Time Seen by Provider: 03/17/25 08:57 Source: patient Mode of arrival: ambulatory Limitations: no limitations History of Present Illness HPI Narrative: Patient is a 44-year-old female who presents with cough that started this morning coughing up thick yellow mucus and causing her chest to hurt. Patient states she had similar symptoms last year that resolved with azithromycin. Denies any congestion, sore throat, ear pain, fever, chills, nausea, vomiting, diarrhea. Related Data Home Medications ?Medication ?Instructions ?Recorded ?Confirmed ?Last Taken ?Type ascorbic acid (vitamin C) 500 mg 500 mg PO DAILY 04/2409/08/24 05/09/23 History tablet (Vitamin C) cholecalciferol (vitamin D3) 125 125 mcg PO DAILY 04/0909/08/24 05/09/23 History mcg (5,000 unit) tablet (Vitamin D3) zinc gluconate 100 mg tablet 100 mg PO DAILY 05/06/23 09/08/24 05/09/23 History lysine 1,000 mg tablet 1,000 mg PO DAILY 04/29/24 0 09/08/24 Unknown History Allergies Allergy/AdvReac Type Severity Reaction Status Date / Time No Known Allergies Allergy Verified 09/08/24 14:06 Review of Systems Review of Systems: All systems reviewed & are unremarkable except as noted in HPI and below Constitutional: Constitutional: Denies chills, Denies fatigue, Denies fever(s), Denies headache(s), Denies malaise and Denies weakness Eyes: Eyes: Denies blurry vision, Denies itchy eyes and Denies loss of vision ENT: Denies otalgia, Denies headache(s), Denies nasal congestion, Denies sinus pain and Denies sore throat Cardiovascular: Cardiovascular: Denies chest pain, Denies irregular heart rhythm and Denies dyspnea Respiratory: Respiratory: Reports cough and Denies dyspnea Gastrointestinal: Gastrointestinal: Denies abdominal pain, Denies diarrhea, Denies nausea and Denies vomiting Musculoskeletal: Musculoskeletal: Denies back pain, Denies myalgias and Denies arthralgias Integumentary/Breasts: Skin/Breast: Denies pruritus and Denies rash Neurologic: Denies headache(s), Denies loss of vision and Denies weakness Psychiatric: Psychiatric: Reports no additional psychiatric complaints Endocrine: Endocrine: Denies fatigue Allergic/Immunologic: Allergic/Immunologic: Denies itchy eyes PMFSH Past Medical History Medical History Cholecystectomy planned Obesity Surgical History Surgical History H/O hernia repair H/O: hysterectomy 05/13/2024 Family History Family History Mother Heart problem Hypertension Father Carcinoma of colon Sibling Diabetes mellitus Social History Social History Smoking status: Never smoker Alcohol intake: never Substance use: never Substance use type: does not use Do You Feel Safe in your Home?: Yes Lack of Transportation: No Lack of Food: Never True Current Housing: I Have Housing Concerned About Future Housing: No Difficulty Paying Gas/Electric Bills: No Difficulty Paying for Meds: No Currently Unemployed: No Education: Associate Degree Difficulty w/ Childcare or Family Care: No Living arrangements: with family Spiritual care concerns: No Comments At time of signature, agree with nursing past medical, surgical, social and family history. There is no relevant family history pertinent to the presenting complaint. Exam Const: General: cooperative, healthy appearing, comfortable, no acute distress and well nourished Nutritional Appearance: well nourished Orientation/consciousness: patient oriented x3 Limitations: no limitations HENMT: Head: normal to inspection, normocephalic and atraumatic Ears: heari ng grossly normal bilaterally, external ears normal, TM's normal bilaterally, EAC's normal and no periauricular adenopathy Face/Nose/Sinus: Normal external nose present, Normal nasal mucous membranes and turbinates present, normal facial exam, sinuses nontender and face symmetric Face and sinus: normal facial exam, sinuses nontender and face symmetric Mouth: Yes Normal oral and palatal mucosa present, Yes lip normal, Yes tongue normal, Yes Normal salivary glands and ducts present, Yes oropharynx normal and Yes moist mucous membranes Teeth and gingiva: dentition normal Throat: posterior oropharynx normal, tonsils normal and uvula midline Eyes: General: appearance normal, both eyes and all related structures Alignment and Position: alignment normal and position normal Periorbital: periorbital findings normal Eyelids: eyelids normal Pupils: Equal, round and reactive pupils present Neck: Neck: normal visual inspection, full ROM, no lymphadenopathy and supple Chest: Chest palpation & inspection: normal inspection of the chest and tenderness pectoral muscle bilaterally diffusely Resp: Effort & Inspection: normal respiratory effort and able to speak in complete sentences Auscultation: clear to auscultation bilaterally, no crackles, no rales, no rhonchi and no wheezes Cardio: Rate: regular rate Rhythm: regular rhythm Heart sounds: S1 normal heart sound present and S2 normal heart sound present GI: Inspection: normal to inspection Skin: General skin exam: normal color and no rashes or lesions noted Neuro: General: patient oriented x3 and moves all extremities Cranial nerves: Yes Equal, round and reactive pupils present Speech: normal speech Gait exam (Neuro): Normal gait present Extrem: General: normal to inspection, full ROM and no edema Psych: Appearance: grossly normal and well kempt Mental Status: mental status grossly normal Speech and movement: Normal speech and movement present Affect: normal affect Attitude: cooperative Thought process: Normal thought process present Course Course Emergency Course: Discharge instructions reviewed with patient, as well as provided in writing per nursing staff. The instructions also include specific and strict return/GO TO THE ER as well as f/u information. All questions have been answered, and the patient deny any further questions with discharge and discharge plan. Portions of this record may have been created with voice recognition software Level of Care: Express Care Visit Vital Signs Vital signs: Reviewed MDM - URI/Sore Throat MDM Narrative Medical decision making narrative: Offered patient chest x-ray and EKG as she was complaining of her chest hurting, patient declined. Chest is tender on palpation. Asked if she had taken any Tylenol or ibuprofen and she said no as symptoms just started. Will prescribe medication for symptom management. Explained in detail that symptoms are viral at this time and that antibiotics are not necessary. Pt well hydrated appearing, in no respiratory distress, hemodynamically stable. Recommend supportive care. The patient is stable at time of discharge the clinical impression was discussed and the patient was given the opportunity to ask questions, which were addressed as completely as possible given the information available at present. Anticipatory guidance and return to care precautions were discussed and the importance of primary care follow-up was stressed and encouraged. The patient voiced understanding of the plan, indications to return, and the need for follow-up. Exam findings show no acute concerns or changes Patient is appropriate for outpatient treatment and follow-up. Differential diagnosis considered: Urena virus, strep pharyngitis, allergic rhinitis, upper respiratory tract infection, sinusitis, rhinosinusitis, nasopharyngitis. viral pharyngitis, otitis media, otitis externa, otitis effusion, foreign body, cerumen impaction, viral syndrome, and influenza.? Medical Records Attestation: I reviewed the patient's medical records. Discharge Plan Discharge Clinical Impression: Upper respiratory infection, viral Patient Disposition: Home Condition: Stable Instructions: Upper Respiratory Infection (ED) Additional Instructions: Your symptoms are likely due to a viral illness, which is not treated with antibiotics. Viral symptoms can be present for up to a few weeks. -For pain/fever, you may take: Tylenol 650-1000mg by mouth every 4-6 hours. Do not exceed 4000mg in 24 hours. Advil (Ibuprofen) 600 mg by mouth every 6 hours. Do not exceed 2400mg in 24 hours. 8 AM: Tylenol 11 AM: Ibuprofen 2 PM: Tylenol 5 PM: Ibuprofen 8 PM: Tylenol 11 PM: Ibuprofen 2 AM: Tylenol 5 AM: Ibuprofen -Antihistamine medication such as Benadryl/Zyrtec at night and Claritin/Regina during the day can help improve symptoms. -Use Flonase twice a day for 5 days then daily to help reduce the inflammation and dry up your sinuses. -You can also use Sudafed behind the pharmacy counter(12 or 24 hour). Be sure to drink plenty of water with these medications at least 8 ounces with every dose and it is important to drink 8 to 10 glasses of water per day. Water is a natural decongestant -Eat and drink things that are easy to swallow, like tea or soup, or popsicles. -Oral rinses such as: Salt water gargles and/or may use topical anesthetic (eg. Chloraseptic spray) or lozenges to relieve dryness or throat pain). -Frequent hand washing or hand garden center manager is one of the best ways to prevent spread of infection. -Using a vaporizer or humidifier at night will also help thin secretions and help with coughing up phlegm. Call your Primary Care Doctor and make a follow-up appointment in 3 days. If your cough worsens, you develop a fever greater than 103, you develop shaking chills, a fast heartbeat, trouble breathing and/or feel you are are breathing much faster than usual, call your Primary Care Doctor or go to the ER. Patient Language: Estonian Prescriptions: New (DME) Aerochamber MV Spacer See Rx Instructions .Route Qty: 1 0RF Rx Instructions: As directed benzonatate 100 mg capsule 100 mg PO BID PRN (Reason: cough) Qty: 14 0RF albuterol sulfate 90 mcg/actuation HFA aerosol inhaler 2 puff inhalation QID PRN (Reason: shortness of breath or wheezing) Qty: 6.7 0RF fluticasone propionate [Flonase Allergy Relief] 50 mcg/actuation spray,suspension 1 spray intranasal DAILY Qty: 16 0RF Rx Instructions: administer into each nostril loratadine 10 mg tablet 10 mg PO DAILY Qty: 30 0RF No Action lysine 1,000 mg tablet 1,000 mg PO DAILY ascorbic acid (vitamin C) [Vitamin C] 500 mg Tablet 500 mg PO DAILY Patient Comments: TAKES IN AFTERNOON zinc gluconate [Zinc Natural] 100 mg Tablet 100 mg PO DAILY Patient Comments: TAKES IN AFTERNOON cholecalciferol (vitamin D3) [Vitamin D3] 125 mcg (5,000 unit) Tablet 125 mcg PO DAILY Patient Comments: TAKES IN AFTERNOON Follow-up/Referrals: Danielle Cross, TRUCK BODY BUILDER APPRENTICE [Primary Care Provider, Internal Medicine] - 3 Days Time of Disposition: 09:37
[2025-03-17 09:07] VITALS: BP 109/73; PULSE 82; RESP 16; TEMP 36.3; O2SAT 98
== END 2025-03-17 09:42 | disposition home or self-care (01) ==
PROVIDERS: Emergency Provider Nurse Practitioner Family; PCP Nurse Practitioner
DX: J06.9 Acute upper respiratory infection, unspecified (principal); E66.9 Obesity, unspecified; Z68.31 Body mass index [BMI] 31.0-31.9, adult
CPT/HCPCS: 99213; G0463

== ENCOUNTER 2025-04-13 08:12 | Outpatient (CLI) | payer BC, SELFPAY ==
--- OUTSIDE RECORDS SUMMARY | 2019-12-06 11:30 | XMS_ITS | Continuity of Care Document ---
Author Organization [facility] Address [address] [place] [address] Phone Care Team Providers Care Auto Body Man Name Role Phone Merry PT, DPT, Danielle Unavailable Unavailable Procedures Procedure Date Therapeutic Activities Therapeutic Exercise Manual Therapy Therapeutic Activities Therapeutic Exercise Manual Therapy Therapeutic Exercise Neuromuscular Re-Ed Hot or Cold Pack Therapeutic Activities Therapeutic Exercise Therapeutic Exercise Therapeutic Activities Therapeutic Activities Therapeutic Exercise Therapeutic Activities Neuromuscular Re-Ed Therapeutic Exercise PT Evaluation Low Complexity Therapeutic Exercise Advance Directives Directive Yes / No Effective Date File Name No Information Encounters Encounter Description Practice Location Reason(s) For Visit Diagnoses Date Provider Providers Copied on Encounter [facility], [id number], tel:[phone] [place] No Information Merry Santos. . Referring Provider: Jamar Hercules [address] [place], [address]. tel:[phone] [facility], [address], [place], [place], [id number], tel:[phone] [place] No Information Edilberto Larson. . Referring Provider: Jamar Hercules [address] [place], [address]. tel:[phone] [facility] [address] [place], [place] [address], [place], [place], [id number], [place] tel:[phone] [place] No Information Edilberto Larson. . Referring Provider: Jamar Hercules , [address] [place] [address], [place], [address]. tel:[phone] [address], [place], [place], [id number], [place] tel:[phone] [place] No Information Sousa Danielle. . Referring Provider: Jamar Hercules , [address] [place] [address], [place], [address]. tel:[phone] [place] [address], [place], [place], [id number], [place] tel:[phone] [place] No Information Sousa Danielle. . Referring Provider: Jamar Hercules , [address] [place] [address], [place], [address]. tel:[phone] [address] [place] [address], [place], [place], [id number], [place] tel:[phone] [place] No Information Sousa Danielle. . Referring Provider: Jamar Hercules , [address] [place] [address], [place], [address]. tel:[phone] [facility] [address], [place], [place], [id number], [place] tel:[phone] [place] No Information Sousa Danielle. . Referring Provider: Jamar Hercules , [address] [place] [address], [place], [address]. tel:[phone] [facility] [address], [place], [place], [id number], [place] tel:[phone] [place] No Information Sousa Danielle. . Referring Provider: Jamar Hercules [address] [facility] [place] [place], [address]. tel:[phone] Family History Family Member Type Diagnosis Age At Onset No Information Payers Payer name Insurance type Covered alliance party ID Authorcyndia sarah(s) [facility] Lilian DE LA CRUZ [id number] Social History Type Description Quantity Date Captured Comments Sex Female Smoking Status No Information Chief Complaint And Reason For Visit No Information Reason For Referral Reason For Referral No Information History Of Present Illness Encounter Date Complaint History Of Prese nt Illness No Information Functional Status Date Functional Assessmen t No Information Instructions Date Instruction Additional Infor maria elena Giving encouragement to exercise Related to Overweight Assessments Type Assessment Date No Information Patient Care Teams Name Effective Dates (start - stop) Status Members No Information
[2025-04-13 13:08] LABS: Alanine Aminotransferase 19 U/L (6-35); Albumin Level 4.3 g/dL (3.5-5.1); Alkaline Phosphatase 46 U/L (38-126); Anion Gap 6 mmol/L (4-12); Aspartate Amino Transferase 43 U/L (14-36); Bilirubin,Total 0.5 mg/dL (0.2-1.3); Blood Urea Nitrogen 17 mg/dL (7-17); Calcium 9.2 mg/dL (8.4-10.2); Carbon Dioxide 25 mmol/L (22-30); Chloride 107 mmol/L (98-107); Estimated Glomerular Filt Rate > 60; Glucose 93 mg/dL (65-110); Potassium 4.3 mmol/L (3.4-5.0); Sodium 138 mmol/L (137-145); Total Protein 7.6 g/dL (6.3-8.2)
[2025-04-13 16:43] LABS: Hemoglobin A1C 5.9 % (<5.7)
--- OUTSIDE RECORDS SUMMARY | 2025-04-13 17:05 | XMS_ITS | Clinical Summary ---
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 Gender Identity Not on file Sexual [...] 8:07 AM CDT Height 170.2 cm (5' 7) 03/30/2023 8:07 AM CDT Body Mass Index 29.76 03/30/2023 8:07 AM CDT Plan of Treatment Health Maintenance Due Date Last Done Comments Breast Cancer Screening-Mammogram 1981 Cervical Cancer Screening 1981 Depression Screening 1981 Hepatitis C Screening 1981 DTaP/Tdap/Td Vaccine (1 - Tdap) 1992 Varicella Vaccines (1 of 2 - 13+ 2-dose series) 1994 Hepatitis B Screening 11/25/1999 Regular Well Visit/Exam 18-64 11/25/1999 HPV Vaccines (1 - 3-dose SCD M series) 2008 Influenza Vaccine (#1) 2025 Pneumococcal vaccine <65 Aged Out No longer eligible based on patient's age to complete this topic Insurance [facility] ACCESS [facility] ACCESS BLUE [employer] [place] Member Subscriber Plan / Payer ( fective 2022-Present) Name:Octavia Schmid Member ID:[id number] Relation to Subscriber:Self Name:Octavia Schmid Subscriber ID:[id number] Payer ID:[id number] (NAIC) Type:trueEX Address: [address] [place] [address] BLUE ACCESS [place] Advance Directives For more information, please contact: [phone] * Full Code (Latest Code Status on File) Date Activated Date Inactivated Comments 04/22/2022 6:09 PM 04/23/2022 12:02 AM Care Teams Therapist Asst Relationship Specialty Start Date End Date Cookie Subramanian MD PCP - General Internal Medicine 04/22/22 Shaji Zambrano MD Surgeon General Surgery 06/21/19
--- OUTSIDE RECORDS SUMMARY | 2025-04-13 17:05 | XMS_ITS | Data Portability ---
Author Organization [place] [facility],, Anca matson Address [address] [place] [address] Assessment No assessment recorded. Plan of Treatment Reminders Order Date Submit Date Provider Last Modified By Organization Details Last Modified Time Details Appointments None recorde d. Lab None recorde d. Referral None recorde d. Procedures None recorde d. Surgeries None recorde d. Imaging None recorde d. Medication Orders Regina Allergy 180 mg tablet 2021 022 [facility] [id number] In [facility], [address] [place], [address], 14:12:18 Patient TargetsNo targets recorded. Patient InstructionsNo [...] Pulse oximetry Respiratory rate Body temperature Systolic And Diastolic Provider Name and Address Organization Details Last Updated DateTime 2 44604.3 6 g 78 /min 99 % 99 % 18 /min 97.2 [degF] 128/70 mm[Hg] adriana zuluaga [place] [facility], 12:46:40 Social History None recorded. Functional Status None recorded. Mental Status None recorded. Family History Nothing Reported. Medical History No medical history recorded. Gynecological HistoryNo gynecological history recorded. Obstetrics History GPAL:G 0 P 0 0 0 0 Past Encounters Encounter ID Performer Location Encounter Start Date Encounter Closed Date Diagnosis/Indication Diagnosis SNOMED-CT Code Diagnosis ICD10 Code Diagnosis IMO Codes Diagnosis Note [id number] Remi carpio MD OFFICE [address] [place] [phone] 02/07/2022 12:26:45 02/07/2022 12:56:42 Idiopathic urticaria 12887361 L50.1 The patient's rash is most compatible with urticaria. Urticaria is a common skin disorder affecting approximat [place] 20% percent of the population at some time in their lives. It is usually characteri zed by an erythemato us, pruritic, evanescent rash. The rash is quite uncomforta ble because of the intense itching. It can take the shape of papules, nodules, or plaques. These lesions usually last less than 24 hours and tend to be responsive to antihistam marisabel. Other possibilit ies include urticarial vasculitis . The etiology is likely related to either ingestion of a food or drug or the possibilit y of an autoimmune condition. Appropriat e blood work was obtained. Therapy will consist of increasing doses of antihistam marisabel. If the patient fails to respond to these, alternativ e therapies may be necessary. she is having surgery next week. I elected to start her on Regina and bring her back after surgery. I doubt whether this is secondary to IUD Health Concerns Section Related Observation LastModified by Organization Detai ls LastModified Time None Recorded Concern Status LastModified by Organization Details LastModified Time None Recorded Advance Directives Directive None Recorded Payers Insurance Date Sequence Insurance Name Policy Number Policy Lozoya Covered Member ID Lozoya Member ID Guarantor Name 02/13/2022 1 [place] [id number] Octavia Uribes [id number] Octavia Schmid Notes Date Note Type Note Provider Name and Address Organization Details Recorded Time 02/07/2022 text/html Octavia is a delightful 41-year-old woman who comes in with a history of daily urticaria for the last 2 years. She will notice urticarial episodes which will last from minutes to an hour. They are quite pruritic. She has tried no medication. She has seen her general repairer who was drawn some blood work.on she did not have any thing that she was allergic to. She comes in for evaluation. She denies any angioedema.she is concerned about the fact that she has a device to prevent and her fallopian tubes. It is nickel-containing and she wonders whether that can trigger her urticaria. Remi Rock MD [address], [place], [address], [facility], 02/07/2022 14:12:22 OBGyn Episode No OBEpisode recorded.
== END 2025-04-13 08:13 | disposition home or self-care (01) ==
LOC: ANHGOSHLAB 08:13
PROVIDERS: PCP Nurse Practitioner; Visit Provider Nurse Practitioner
DX: R73.03 Prediabetes (principal); R74.8 Abnormal levels of other serum enzymes
CPT/HCPCS: 36415; 80053; 83036